=== PATIENT | female | born 1980 | race Hispanic/Latino ===

== ENCOUNTER 2017-09-26 03:46 | Emergency (ER) | payer SELFPAY ==
[2017-09-26] MEDS ORDERED: ACETAMINOPHEN 500 MG TAB ONE (04:27)
[2017-09-26] MEDS ORDERED: ONDANSETRON 4 MG/2 ML VIAL ONE (04:27)
[2017-09-26] MEDS ORDERED: NA CHLORIDE 0.9% 1,000 ML ONE (04:27)
[2017-09-26] MEDS ORDERED: METOPROLOL TARTRATE 5 MG/5 ML INJ IV ONE (04:28)
[2017-09-26 05:40] LABS: Absolute Lymphocytes (CBC) 0.6 K/uL (0.7-4.9); Absolute Monocytes 0.4 K/uL (0.1-1.3); Absolute Neutrophil 4.5 K/uL (1.8-8.0); Basophils % 0.4 % (0-1.3); Eosinophils % 0.2 % (0-4.4); Hematocrit 37.3 % (36.0-45.0); Lymphocytes % 10.2 % (15.3-44.8); MCV 96.7 fL (80-100); Monocytes % 6.9 % (3.3-12.3); RBC Red Blood Cell Count 3.86 M/uL (3.86-4.86)
[2017-09-26 05:47] LABS: Bicarbonate 28 mEq/L (21-31); Glucose Level 115 mg/dL (65-120); Potassium 3.6 mEq/L (3.6-5.0); Sodium Level 136 mEq/L (135-145)
[2017-09-26 05:54] LABS: ALT/SGPT 20 IU/L (10-60); AST/SGOT 31 IU/L (10-42); Albumin 4.3 g/dL (3.2-5.5); Alkaline Phosphatase 74 IU/L (42-121); BUN Blood Urea Nitrogen 5 mg/dL (6-20); Bilirubin Direct 0.2 mg/dL (0-0.2); Protein, Total 7.3 g/dL (6.0-8.3); Protime INR 0.99
[2017-09-26 06:04] LABS: Alcohol Serum/Plasma < 10 mg/dl; Magnesium 1.4 mg/dL (1.8-2.5)
[2017-09-26] MEDS ORDERED: Magnesium Sulfate 2gm IVPB 2 G/50 ML BAG IV ONE (06:24)
[2017-09-26 07:40] LABS: Barbiturates NEGATIVE; Benzodiazepines NEGATIVE; Cocaine NEGATIVE; METHAMPHETAM NEGATIVE; Opiates NEGATIVE; Phencyclidine NEGATIVE; THC Cannibis NEGATIVE
--- NOTE | 2017-09-26 08:27 | RAD REPORT ---
EXAM DESCRIPTION: RAD - Chest Single View - 09/26/2017 5:20 am CLINICAL HISTORY: Chest pain. COMPARISON: 05/22/2017 FINDINGS: Portable technique limits examination quality. The lungs are grossly clear. The heart is normal in size. No displaced fractures. IMPRESSION: No acute intrathoracic process suspected.
--- NOTE | 2017-09-26 08:31 | ER ---
Nurse's Notes [facility] Name: Jenni Irving Age: 37 yrs Sex: Female : 1980 Arrival Date: 09/26/2017 Time: 03:49 Bed 6 Private MD: Diagnosis: Chest pain, unspecified Presentation: 09/26 03:57 Presenting complaint: Patient states: "I started having chest pain about 1200 ao midnight." Patient describes pain as burning sensations and points to the epigastric area. Patient C/O nausea and also a headache. Transition of care: patient was not received from another setting of care. Onset of symptoms was September 26, 2017 at 00:00. Care prior to arrival: None. 03:57 Method Of Arrival: Ambulatory ao 03:57 Acuity: GILA 3 ao Triage Assessment: 04:02 General: Appears in no apparent distress. uncomfortable, Behavior is calm, cooperative, ao appropriate for age. Pain: Complains of pain in chest Pain does not radiate. Pain currently is 10 out of 10 on a pain scale. Quality of pain is described as burning. EENT: No signs and/or symptoms were reported regarding the EENT system. Neuro: Level of Consciousness is awake, alert, obeys commands, Oriented to person, place, time, situation, Appropriate for age Moves all extremities. Speech is normal, Facial symmetry appears normal. Cardiovascular: Reports chest pain, nausea, Patient's skin is warm and dry. Respiratory: Airway is patent Respiratory effort is even, unlabored, Respiratory pattern is regular, symmetrical. GI: Abdomen is non-distended. : No signs and/or symptoms were reported regarding the genitourinary system. Derm: No signs and/or symptoms reported regarding the dermatologic system. Musculoskeletal: No signs and/or symptoms reported regarding the musculoskeletal system. 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 - Social history:: Smoking status: Patient uses tobacco products, denies chronic smoking, but will smoke occasionally, Patient uses alcohol, occasionally. Patient/guardian denies using street drugs, but used to use street drugs. Screenin:02 Abuse screen: Denies threats or abuse. Denies injuries from another. Nutritional ao screening: No deficits noted. Tuberculosis screening: No symptoms or risk factors identified. Fall Risk None identified. Assessment: 04:00 General: See triage note. ao 04:03 Pain: Pain began 4 hours ago. ao 04:03 Pain: Complains of pain in chest ao 05:08 Reassessment: Patient appears in no apparent distress at this time. Patient and/or ao family updated on plan of care and expected duration. Pain level reassessed. Patient is alert, oriented x 3, equal unlabored respirations, skin warm/dry/pink. Unable to get an IV. Ray had started a 22 g on the right Forearm but no blood was collected. Lab was called. Lab at this time drawing blood. to wait on those lab results. 06:20 Reassessment: Patient appears in no apparent distress at this time. Patient and/or ao family updated on plan of care and expected duration. Pain level reassessed. Patient is alert, oriented x 3, equal unlabored respirations, skin warm/dry/pink. Waiting on lab results at this moment Patient denies pain at this time. Patient states feeling better. 07:30 Reassessment: Patient appears in no apparent distress at this time. Patient and/or sg family updated on plan of care and expected duration. Pain level reassessed. Patient is alert, oriented x 3, equal unlabored respirations, skin warm/dry/pink. pt states " am i being admitted or do they plan to let me go?" Warren AGARWAL ordered awaiting the repeat troponin results prior to dispo orders, pt stated understanding, will continue to monitor Patient states feeling better. 07:50 Reassessment: Patient appears in no apparent distress at this time. No changes from sv previously documented assessment. Patient and/or family updated on plan of care and expected duration. Pain level reassessed. Patient is alert, oriented x 3, equal unlabored respirations, skin warm/dry/pink. Vital Signs: 03:59 BP 172 / 87; Pulse 95; Resp 18; Temp 97.8(O); Pulse Ox 100% on R/A; Weight 56.25 kg; ao Height 4 ft. 11 in. (149.86 cm); Pain 10/10; 04:15 BP 145 / 90; Pulse 93; Resp 17; Pulse Ox 100% on R/A; mt 05:08 BP 147 / 76; Pulse 78; Resp 19; Pulse Ox 100% on R/A; ao 06:20 BP 137 / 75; Pulse 75; Resp 18; Pulse Ox 99% on R/A; Pain 0/10; ao 08:17 BP 136 / 75; Pulse 79 MON; Resp 17 S; Temp 97.7; Pulse Ox 100% on R/A; Pain 0/10; sg 03:59 Body Mass Index 25.04 (56.25 kg, 149.86 cm) ao Franko Coma Score: 08:17 Eye Response: spontaneous(4). Verbal Response: oriented(5). Motor Response: obeys sg commands(6). Total: 15. ED Course: 03:49 Patient arrived in ED. es 03:53 Casey Brooke MD is Attending Physician. kdr 03:59 Triage completed. ao 03:59 Arm band placed on right wrist. Patient placed in an exam room, on a stretcher, on ao personnel monitor, Patient notified of wait time. 04:03 Patient has correct armband on for positive identification. monitoring specialist on. Pulse ao ox on. NIBP on. 04:03 Patient maintains SpO2 saturation greater than 95% on room air. ao 04:05 Rishi Torres RN is Primary Nurse. ao 05:02 Missed attempt(s): 22 gauge in left forearm. Inserted saline lock: 22 gauge in right ao forearm, using aseptic technique. ,using aseptic technique. By Ray. 05:17 X-ray completed. Portable x-ray completed in exam room. Patient tolerated procedure kw well. 05:17 Radiology exam delayed due to ORDERS DID NOT CROSS OVER. kw 06:05 Notified ED physician of a critical lab result(s). magnesium 1.4 Dr Brooke notified bb new orders received pt medicated see AUG. 07:05 Report given to FIONA Charles and FIONA Kim. ao 07:08 Warren Chavez PA is PHCP. jr8 07:08 Aicha Miguel, FIONA is Primary Nurse. tl1 07:50 Repeat lab(s) drawn. by ED staff, sent to lab. sv 08:28 Primary Nurse role handed off by Aicha Miguel, FIONA sv 08:28 Pritesh, Judy, RN is Primary Nurse. sv 08:38 No provider procedures requiring assistance completed. IV discontinued, intact, sg bleeding controlled, No redness/swelling at site. Pressure dressing applied. Administered Medications: 04:50 Drug: Tylenol 1000 mg Route: PO; ao 07:03 Follow up: Response: No adverse reaction; Marked relief of symptoms; Pain is decreased tl1 04:58 Drug: Lopressor 5 mg Route: IVP; Site: right forearm; ao 05:00 Drug: Zofran 4 mg Route: IVP; Site: right forearm; ao 07:02 Follow up: Response: No adverse reaction; Marked relief of symptoms tl1 05:03 Drug: NS 0.9% 1000 ml Route: IV; Rate: 1 bolus; Site: right forearm; ao 06:09 Follow up: IV Status: Completed infusion tl1 05:08 Drug: Lopressor 5 mg Route: IVP; Site: right forearm; ao 05:15 Drug: Lopressor 5 mg Route: IVP; Site: right forearm; ao 07:03 Follow up: Response: No adverse reaction; Blood pressure is lowered tl1 06:09 Drug: Magnesium Sulfate 2 grams Route: IVPB; Infused Over: 1 hrs; Site: right forearm; tl1 07:08 Follow up: IV Status: Completed infusion tl1 Outcome: 08:30 Discharge ordered by MD. arriola 08:37 Discharged to home ambulatory, with family. sg 08:37 Condition: good 08:37 Discharge instructions given to patient, Instructed on discharge instructions, follow up and referral plans. safety practices, Demonstrated understanding of instructions, follow-up care. 08:41 Patient left the ED. bd Signatures: Clementine Candelaria Stephanie, RN Melvin Laird RN Casey Link MD MD kdr Salyer, Edna es Ballard, Brenda RN Hailey Anderson Josh, PA PA jr8 Aicha Miguel RN RN tl1 Rishi Torres RN RN ao Thompson, Moriah nm
--- NOTE | 2017-09-26 08:31 | EDPHYS ---
Physician Documentation [facility] Name: Jenni Irving Age: 37 yrs Sex: Female : 1980 Arrival Date: 09/26/2017 Time: 03:49 Bed 6 Private MD: ED Physician Casey Brooke HPI: 09/26 04:43 This 37 yrs old Female presents to ER via Ambulatory with complaints of Chest kdr Pain. 04:43 The patient or guardian reports chest pain that is located primarily in the substernal kdr area, anterior chest wall, bilaterally. The pain does not radiate. Associated signs and symptoms: Pertinent positives: headache, Pertinent negatives: diaphoresis, lower extremity swelling, lightheadedness, palpitations, shortness of breath, vomiting. The chest pain is described as aching, burning, dull. Duration: The patient or guardian reports a single episode. Modifying factors: The symptoms are alleviated by nothing. the symptoms are aggravated by nothing. Severity of pain: At its worst the pain was mild in the emergency department the pain is unchanged. The patient has experienced similar episodes in the past, a few times. The patient has not recently seen a physician. 04:43 The patient states that she had a 25 oz beer last night. 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 - Social history:: Smoking status: Patient uses tobacco products, denies chronic smoking, but will smoke occasionally, Patient uses alcohol, occasionally. Patient/guardian denies using street drugs, but used to use street drugs. ROS: 04:43 Constitutional: Negative for fever, chills, and weight loss, Eyes: Negative for injury, kdr pain, redness, and discharge, ENT: Negative for injury, pain, and discharge, Neck: Negative for injury, pain, and swelling, Respiratory: Negative for shortness of breath, cough, wheezing, and pleuritic chest pain, Abdomen/GI: Negative for abdominal pain, nausea, vomiting, diarrhea, and constipation, Back: Negative for injury and pain, : Negative for injury, bleeding, discharge, and swelling, MS/Extremity: Negative for injury and deformity, Skin: Negative for injury, rash, and discoloration, Psych: Negative for depression, anxiety, suicide ideation, homicidal ideation, and hallucinations, Allergy/Immunology: Negative for hives, rash, and allergies, Endocrine: Negative for neck swelling, polydipsia, polyuria, polyphagia, and marked weight changes, Hematologic/Lymphatic: Negative for swollen nodes, abnormal bleeding, and unusual bruising. 04:43 Cardiovascular: Positive for chest pain, Negative for edema, orthopnea, palpitations, paroxysmal nocturnal dyspnea, acute changes. 04:43 Neuro: Positive for headache, weakness, Negative for altered mental status, dizziness, gait disturbance, loss of consciousness, numbness, seizure activity, speech changes, syncope, near syncope, tingling, tinnitus, tremor, visual changes. Exam: 04:43 Constitutional: This is a well developed, well nourished patient who is awake, alert, kdr and in no acute distress. Head/Face: Normocephalic, atraumatic. Eyes: Pupils equal round and reactive to light, extra-ocular motions intact. Lids and lashes normal. Conjunctiva and sclera are non-icteric and not injected. Cornea within normal limits. Periorbital areas with no swelling, redness, or edema. Neck: Trachea midline, no thyromegaly or masses palpated, and no cervical lymphadenopathy. Supple, full range of motion without nuchal rigidity, or vertebral point tenderness. No Meningismus. Chest/axilla: Normal chest wall appearance and motion. Nontender with no deformity. No lesions are appreciated. Cardiovascular: Regular rate and rhythm with a normal S1 and S2. No gallops, murmurs, or rubs. Normal PMI, no JVD. No pulse deficits. Respiratory: Lungs have equal breath sounds bilaterally, clear to auscultation and percussion. No rales, rhonchi or wheezes noted. No increased work of breathing, no retractions or nasal flaring. Abdomen/GI: Soft, non-tender, with normal bowel sounds. No distension or tympany. No guarding or rebound. No evidence of tenderness throughout. Back: No spinal tenderness. No costovertebral tenderness. Full range of motion. Skin: Warm, dry with normal turgor. Normal color with no rashes, no lesions, and no evidence of cellulitis. MS/ Extremity: Pulses equal, no cyanosis. Neurovascular intact. Full, normal range of motion. Neuro: Awake and alert, GCS 15, oriented to person, place, time, and situation. Cranial nerves II-XII grossly intact. Motor strength 5/5 in all extremities. She has a mild global trremor. Sensory grossly intact. Cerebellar exam normal. Normal gait. Psych: Awake, alert, with orientation to person, place and time. Behavior, mood, and affect are within normal limits. Vital Signs: 03:59 BP 172 / 87; Pulse 95; Resp 18; Temp 97.8(O); Pulse Ox 100% on R/A; Weight 56.25 kg; ao Height 4 ft. 11 in. (149.86 cm); Pain 10/10; 04:15 BP 145 / 90; Pulse 93; Resp 17; Pulse Ox 100% on R/A; mt 05:08 BP 147 / 76; Pulse 78; Resp 19; Pulse Ox 100% on R/A; ao 06:20 BP 137 / 75; Pulse 75; Resp 18; Pulse Ox 99% on R/A; Pain 0/10; ao 08:17 BP 136 / 75; Pulse 79 MON; Resp 17 S; Temp 97.7; Pulse Ox 100% on R/A; Pain 0/10; sg 03:59 Body Mass Index 25.04 (56.25 kg, 149.86 cm) ao Hatch Coma Score: 08:17 Eye Response: spontaneous(4). Verbal Response: oriented(5). Motor Response: obeys sg commands(6). Total: 15. MDM: 07:08 Patient medically screened. jr8 07:11 Data reviewed: vital signs, nurses notes, lab test result(s), EKG, radiologic studies, jr8 plain films. Data interpreted: Pulse oximetry: on room air is 99 %. Interpretation: normal. 08:29 Response to treatment: the patient's symptoms have markedly improved after treatment. jr8 09/26 05:43 Order name: CBC with Automated Diff; Complete Time: 07:08 EDMS 09/26 05:48 Order name: Basic Metabolic Panel; Complete Time: 07:08 EDMS 09/26 05:54 Order name: Liver (Hepatic) Function; Complete Time: 07:08 EDMS 09/26 05:55 Order name: Troponin (Emerg Dept Use Only); Complete Time: 07:08 EDMS 09/26 04:03 Order name: XRAY Chest (1 view) [facility] 09/26 05:55 Order name: Protime (+INR); Complete Time: 07:08 EDMS 09/26 05:55 Order name: PTT, Activated Partial Thromb; Complete Time: 07:08 EDMS 09/26 05:58 Order name: BNP B-Type Natriuretic Peptide; Complete Time: 07:08 EDMS 09/26 06:04 Order name: Alcohol Serum/Plasma; Complete Time: 07:08 EDMS 09/26 06:04 Order name: Magnesium; Complete Time: 07:08 EDMS 09/26 06:40 Order name: Urine Dipstick--Ancillary (enter results) [facility] 09/26 06:40 Order name: Urine --Ancillary (enter results) [facility] 09/26 07:40 Order name: Urine Drug Screen; Complete Time: 07:43 EDMS 09/26 08:27 Order name: RAD; Complete Time: 08:29 EDMS 09/26 08:29 Order name: Troponin I; Complete Time: 08:29 EDMS 09/26 04:03 Order name: EKG; Complete Time: 05:55 kdr 09/26 04:03 Order name: Cardiac monitoring; Complete Time: 04:14 kdr 09/26 04:03 Order name: EKG - Nurse/Tech; Complete Time: 04:14 kdr 09/26 04:03 Order name: IV Saline Lock; Complete Time: 04:55 kdr 09/26 04:03 Order name: Labs collected and sent; Complete Time: 05:16 kdr 09/26 04:03 Order name: O2 Per Protocol; Complete Time: 04:15 kdr 09/26 04:03 Order name: O2 Sat Monitoring; Complete Time: 04:15 kdr 09/26 04:03 Order name: Urine Dipstick-Ancillary (obtain specimen); Complete Time: 06:28 kdr Administered Medications: 04:50 Drug: Tylenol 1000 mg Route: PO; ao 07:03 Follow up: Response: No adverse reaction; Marked relief of symptoms; Pain is decreased tl1 04:58 Drug: Lopressor 5 mg Route: IVP; Site: right forearm; ao 05:00 Drug: Zofran 4 mg Route: IVP; Site: right forearm; ao 07:02 Follow up: Response: No adverse reaction; Marked relief of symptoms tl1 05:03 Drug: NS 0.9% 1000 ml Route: IV; Rate: 1 bolus; Site: right forearm; ao 06:09 Follow up: IV Status: Completed infusion tl1 05:08 Drug: Lopressor 5 mg Route: IVP; Site: right forearm; ao 05:15 Drug: Lopressor 5 mg Route: IVP; Site: right forearm; ao 07:03 Follow up: Response: No adverse reaction; Blood pressure is lowered tl1 06:09 Drug: Magnesium Sulfate 2 grams Route: IVPB; Infused Over: 1 hrs; Site: right forearm; tl1 07:08 Follow up: IV Status: Completed infusion tl1 Disposition: 09/26/17 08:30 Discharged to Home. Impression: Chest pain, unspecified. - Condition is Stable. - Discharge Instructions: Nonspecific Chest Pain. - Work release form, Medication Reconciliation Form, Thank You Letter, Antibiotic Education, Prescription Opioid Use form. - Follow up: Private Physician; When: 2 - 3 days; Reason: Recheck today's complaints, Continuance of care, Re-evaluation by your physician. - Problem is new. - Symptoms have improved. Addendum: 09/30/2017 07:02 Co-signature as Attending Physician, Casey Brooke MD I agree with the assessment and k dr plan of care. Signatures: Dispatcher [employer] EDClementine Yates Kevin, MD MD kdr Ballard, Brenda, RN RN Warren Grissom PA PA jr8 Aicha Miguel RN RN tl1 Rishi Torres RN RN ao
[2017-09-26 09:07] VITALS: BP 136/75; TEMP 97.7; O2SAT 100
[2017-09-26 09:40] LABS: Urine Blood TRACE (NEG); Urine Glucose NEGATIVE (NEG); Urine Protein NEGATIVE (NEG)
--- NOTE | 2017-09-26 10:22 | EKG ---
Test Date: 2017-09-26 Test Time: 03:57:04 Computer Systems Information Director: JOSE ROBERTO MEASUREMENT RESULTS: Intervals: Rate: 99 TN: 116 QRSD: 80 QT: 348 QTc: 446 [place]: P: 66 TN: 116 QRS: 83 T: 38 INTERPRETIVE STATEMENTS: Normal sinus rhythm Normal ECG Compared to ECG 05/22/2017 22:32:36 No significant changes Electronically Signed On 09-26-17 10:21:28 CDT by Rishabh Bone
== END 2017-09-26 08:41 | disposition home or self-care (01) ==
LOC: ER 03:46
DX: R07.9 Chest pain, unspecified (principal); I10 Essential (primary) hypertension; Z72.0 Tobacco use
CPT/HCPCS: 36415; 71045; 80048; 80076; 80307; 80320; 81003; 81025; 83735; 83880; 84484; 85025; 85610; 85730; 93005; 96361; 96365; 96375; 99285; J2405; J3475; J7030

== ENCOUNTER 2017-09-27 00:45 | Emergency (ER) | payer SELFPAY ==
[2017-09-27] MEDS ORDERED: DIPHENHYDRAMINE 50 MG/ML VIAL ONE (01:40)
[2017-09-27] MEDS ORDERED: METHYLPREDNISOLONE 125 MG INJ ONE (01:40)
--- NOTE | 2017-09-27 01:46 | EDPHYS ---
Physician Documentation [facility] Name: Jenni Irving Age: 37 yrs Sex: Female : 1980 Arrival Date: 09/27/2017 Time: 00:50 Bed 26 Private MD: ED Physician Cory Prieto HPI: 09/27 01:16 This 37 yrs old Female presents to ER via Ambulatory with complaints of pacu rn Symptoms. 01:16 The patient presents with itching, rash, that is diffuse. Onset: The symptoms/episode rn began/occurred last night. Associated signs and symptoms: Pertinent positives: hives, Pertinent negatives: abdominal pain, dysphagia, fever, shortness of breath, swelling, Syncope vomiting. Severity of symptoms: At their worst the symptoms were mild in the emergency department the symptoms are unchanged. The patient has experienced similar episodes in the past. Reports rash that developed last night, no trouble breathing, did not have benadryl at home so came here. States has happened before but unknown reason. Seen here last night for chest pain and given tylenol and lopressor, no new food or detergent/soap. . 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 - Social history:: Smoking status: Patient uses tobacco products, denies chronic smoking, but will smoke occasionally, Patient/guardian denies using alcohol, but has a distant history of alcohol abuse, street drugs, but used to use street drugs. - Family history:: not pertinent. - Hospitalizations: : No recent hospitalization is reported. ROS: 01:16 Constitutional: Negative for fever, chills, and weight loss, Eyes: Negative for injury, rn pain, redness, and discharge, Neck: Negative for injury, pain, and swelling, Cardiovascular: Negative for chest pain, palpitations, and edema, Respiratory: Negative for shortness of breath, cough, wheezing, and pleuritic chest pain, Abdomen/GI: Negative for abdominal pain, nausea, vomiting, diarrhea, and constipation, Back: Negative for injury and pain, MS/Extremity: Negative for injury and deformity, Skin: Negative for injury Neuro: Negative for headache, weakness, numbness, tingling, and seizure. Exam: 01:16 Constitutional: This is a well developed, well nourished patient who is awake, alert, rn and in no acute distress. Head/Face: Normocephalic, atraumatic. Eyes: Pupils equal round and reactive to light, extra-ocular motions intact. Lids and lashes normal. Conjunctiva and sclera are non-icteric and not injected. Cornea within normal limits. Periorbital areas with no swelling, redness, or edema. ENT: Nares patent. No nasal discharge, no septal abnormalities noted. Oropharynx with no redness, swelling, or masses, exudates, or evidence of obstruction, uvula midline. Mucous membranes moist. Neck: Trachea midline, no thyromegaly or masses palpated, and no cervical lymphadenopathy. Supple, full range of motion without nuchal rigidity, or vertebral point tenderness. No Meningismus. Cardiovascular: Regular rate and rhythm with a normal S1 and S2. No gallops, murmurs, or rubs. Normal PMI, no JVD. No pulse deficits. Respiratory: Lungs have equal breath sounds bilaterally, clear to auscultation and percussion. No rales, rhonchi or wheezes noted. No increased work of breathing, no retractions or nasal flaring. Abdomen/GI: Soft, non-tender, with normal bowel sounds. No distension or tympany. No guarding or rebound. No evidence of tenderness throughout. Skin: Warm, dry, + diffuse urticaria with excoriations MS/ Extremity: Pulses equal, no cyanosis. Neurovascular intact. Full, normal range of motion. Equal circumference. Neuro: Awake and alert, GCS 15, oriented to person, place, time, and situation. Cranial nerves II-XII grossly intact. Motor strength 5/5 in all extremities. Sensory grossly intact. Cerebellar exam normal. Normal gait. Vital Signs: 01:01 BP 145 / 97; Pulse 73; Resp 14; Temp 98.7(O); Pulse Ox 98% on R/A; Weight 56.25 kg; ao Height 4 ft. 11 in. (149.86 cm) (R); Pain 5/10; 01:01 Body Mass Index 25.04 (56.25 kg, 149.86 cm) ao MDM: 01:09 Patient medically screened. rn 01:16 Differential diagnosis: urticaria. Data reviewed: vital signs, nurses notes, and as a rn result, I will discharge patient. Counseling: I had a detailed discussion with the patient and/or guardian regarding: the historical points, exam findings, and any diagnostic results supporting the discharge/admit diagnosis, the need for outpatient follow up, to return to the emergency department if symptoms worsen or persist or if there are any questions or concerns that arise at home. Special discussion: I discussed with the patient/guardian in detail that at this point there is no indication for admission to the hospital. It is understood, however, that if the symptoms persist or worsen the patient needs to return immediately for re-evaluation. Administered Medications: 01:27 Drug: Benadryl 50 mg Route: IM; Site: right deltoid; rk2 01:45 Follow up: Response: No adverse reaction rk2 01:27 Drug: SOLU-Medrol 125 mg Route: IM; Site: left vastus lateralis; rk2 01:45 Follow up: Response: No adverse reaction rk2 Disposition: 09/27/17 01:45 Discharged to Home. Impression: Urticaria. - Condition is Stable. - Discharge Instructions: Hives, Rash. - Prescriptions for Prednisone 20 mg Oral Tablet - take 3 tablet by ORAL route once daily for 5 days; 15 tablet. - Medication Reconciliation Form, Thank You Letter, Antibiotic Education, Prescription Opioid Use form. - Follow up: Private Physician; When: As needed; Reason: Recheck today's complaints, Re-evaluation by your physician. - Problem is new. - Symptoms have improved. Signatures: Cory Prieto MD MD rn Ortiz, Alex RN Brie Gil RN RN rk2
--- NOTE | 2017-09-27 01:46 | ER ---
Nurse's Notes [facility] Name: Jenni Irving Age: 37 yrs Sex: Female : 1980 Arrival Date: 09/27/2017 Time: 00:50 Bed 26 Private MD: Diagnosis: Urticaria Presentation: 09/27 00:52 Presenting complaint: Patient states: "I have rashes all over my body. They started ao about 1200 noon. I was here yesterday with pain in my chest that is getting resolve. I didn't get any prescriptions to take home. I got some medications when I was here. I don't know what it was. I had the problem before. I think it was what I ate in the morning. Transition of care: patient was not received from another setting of care. Onset: The symptoms/episode began/occurred 13 hour(s) ago. Anaphylaxis evaluation, the patient reports or I have noted the following symptoms which indicate a significant risk of anaphylaxis: urticaria. Onset of symptoms was September 26, 2017 at 12:00. Care prior to arrival: None. 00:52 Method Of Arrival: Ambulatory ao 00:52 Acuity: GILA 3 ao Triage Assessment: 01:03 General: Appears in no apparent distress. Behavior is calm, cooperative, appropriate ao for age. Pain: Complains of pain in Rashes all over. 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 - Social history:: Smoking status: Patient uses tobacco products, denies chronic smoking, but will smoke occasionally, Patient/guardian denies using alcohol, but has a distant history of alcohol abuse, street drugs, but used to use street drugs. - Family history:: not pertinent. - Hospitalizations: : No recent hospitalization is reported. Screenin:15 Abuse screen: Denies threats or abuse. Nutritional screening: No deficits noted. rk2 Tuberculosis screening: No symptoms or risk factors identified. Fall Risk None identified. Assessment: 01:17 General: Appears in no apparent distress. well groomed, well developed, well nourished, rk2 Behavior is calm, cooperative. Pain: Denies pain. Neuro: Level of Consciousness is alert, obeys commands, Oriented to person, place, time, situation. Respiratory: Airway is patent. Respiratory: Airway is patent Respiratory effort is even, unlabored, Respiratory pattern is regular, symmetrical, Breath sounds are clear bilaterally. Derm: Skin is pink, warm \\T\\ dry. Rash noted that is raised. Vital Signs: 01:01 BP 145 / 97; Pulse 73; Resp 14; Temp 98.7(O); Pulse Ox 98% on R/A; Weight 56.25 kg; ao Height 4 ft. 11 in. (149.86 cm) (R); Pain 5/10; 01:01 Body Mass Index 25.04 (56.25 kg, 149.86 cm) ao ED Course: 00:50 Patient arrived in ED. es 01:00 Triage completed. ao 01:03 Arm band placed on right wrist. Patient placed in an exam room, on a stretcher, Patient ao notified of wait time. 01:09 Cory Prieto MD is Attending Physician. rn 01:14 Brie Bertrand RN is Primary Nurse. rk2 01:15 Patient has correct armband on for positive identification. Bed in low position. Call rk2 light in reach. 01:49 No provider procedures requiring assistance completed. Patient did not have IV access rk2 during this emergency room visit. Administered Medications: 01:27 Drug: Benadryl 50 mg Route: IM; Site: right deltoid; rk2 01:45 Follow up: Response: No adverse reaction rk2 01:27 Drug: SOLU-Medrol 125 mg Route: IM; Site: left vastus lateralis; rk2 01:45 Follow up: Response: No adverse reaction rk2 Outcome: 01:45 Discharge ordered by . rn 01:49 Discharged to home ambulatory. rk2 01:49 Condition: good 01:49 Discharge instructions given to patient, Prescriptions given X 1. 01:50 Patient left the ED. rk2 Signatures: Claudia Warren Roman, MD MD rn Ortiz, Alex, RN RN ao Kidder, Rhonda, RN RN rk2 Corrections: (The following items were deleted from the chart) 01:09 00:52 Presenting complaint: Patient states: "I have rashes all over my body. They ao started about 1200 noon. I was here yesterday with pain in my chest that is getting resolve. I didn't get any prescriptions to take home. I got some medications when I was here. I don't know what it was. I had the problem before. I think it was what I eat the morning. ao
[2017-09-27 01:56] VITALS: BP 145/97; TEMP 98.7; O2SAT 98
== END 2017-09-27 01:50 | disposition home or self-care (01) ==
LOC: ER 00:45
DX: L50.9 Urticaria, unspecified (principal); I10 Essential (primary) hypertension
CPT/HCPCS: 96372; 99283; J2930

== ENCOUNTER 2018-02-10 02:41 | Emergency (ER) | payer SELFPAY ==
[2018-02-10 03:33] LABS: Absolute Lymphocytes (CBC) 0.4 K/uL (0.7-4.9); Absolute Monocytes 0.4 K/uL (0.1-1.3); Absolute Neutrophil 8.7 K/uL (1.8-8.0); Basophils % 1.6 % (0-1.3); Eosinophils % 0.2 % (0-4.4); Hematocrit 40.7 % (36.0-45.0); Lymphocytes % 4.6 % (15.3-44.8); MCH 34.7 pg (27.0-35.0); MCV 100.4 fL (80-100); MPV 9.8 fL (7.6-11.3); Monocytes % 3.7 % (3.3-12.3); RBC Red Blood Cell Count 4.05 M/uL (3.86-4.86)
[2018-02-10 03:42] LABS: ALT/SGPT 45 U/L (12-78); AST/SGOT 53 U/L (15-37); Alkaline Phosphatase 101 U/L (45-117); BUN Blood Urea Nitrogen 6 mg/dL (7-18); Bicarbonate 24 mmol/L (21-32); Bilirubin Direct 0.3 mg/dL (0-0.2); Bilirubin Total 1.2 mg/dL (0.2-1.0); Glucose Level 109 mg/dL (74-106); Lipase 176 U/L (73-393); Potassium 3.1 mmol/L (3.5-5.1); Protein, Total 7.9 g/dL (6.4-8.2); Sodium Level 138 mmol/L (136-145)
[2018-02-10 03:59] LABS: Blood Morphology Comment NOT SEEN (NOT SEEN); Platelet Estimate ADEQ; Urine White Blood Cell Casts OK
[2018-02-10 04:03] LABS: Urine Bacteria 20-50 /HPF (<20); Urine Culture Reflex Order REFLEXED; Urine RBC NONE SEEN /HPF (NONE SEEN)
[2018-02-10 04:07] LABS: Urine Blood TRACE (NEG); Urine Glucose NEGATIVE (NEG); Urine Protein NEGATIVE (NEG); Urine Specific Gravity <1.005 (1.005-1.030); Urine pH 6.5 (5.0-7.0)
[2018-02-10] MEDS ORDERED: POTASSIUM 25 MEQ EFFERV TAB ONE (04:55)
--- NOTE | 2018-02-10 05:13 | ER ---
Nurse's Notes [facility] Name: Jenni Irving Age: 38 yrs Sex: Female : 1980 Arrival Date: 02/10/2018 Time: 02:48 Bed 6 Private MD: Diagnosis: Chest pain, unspecified;dysuria, bacteruria Presentation: 02/10 02:50 Presenting complaint: Patient states: Pt reports chest pain (points to epigastric area) tl2 and abdominal pain since 2200 last night. Denies nausea and vomiting. Denies shortness of breath. Transition of care: patient was not received from another setting of care. Onset of symptoms was February 09, 2018 at 22:00. Risk Assessment: Do you want to hurt yourself or someone else? Patient reports no desire to harm self or others. Initial Sepsis Screen: Does the patient meet any 2 criteria? No. Patient's initial sepsis screen is negative. Does the patient have a suspected source of infection? No. Patient's initial sepsis screen is negative. Care prior to arrival: None. 02:50 Method Of Arrival: EMS: [facility] tl2 02:50 Acuity: GILA 3 tl2 Triage Assessment: 02:52 General: Appears in no apparent distress. uncomfortable, Behavior is calm, cooperative, tl2 appropriate for age. Pain: Complains of pain in epigastric area, right upper quadrant and left upper quadrant. Neuro: Level of Consciousness is awake, alert, obeys commands, Oriented to person, place, time, situation. Cardiovascular: Rhythm is sinus rhythm. Respiratory: Airway is patent Respiratory effort is even, unlabored, Respiratory pattern is regular, symmetrical, Denies shortness of breath. GI: Abdomen is non-distended, Reports upper abdominal pain, Patient currently denies nausea, vomiting. : Reports burning with urination. Derm: Skin is pink, warm \T\ dry. Historical: - Allergies: 02:52 No Known Allergies; tl2 - Home Meds: 02:52 None [Active]; tl2 - PMHx: 02:52 Hypertension; tl2 - PSHx: 02:52 None; tl2 - Immunization history:: Adult Immunizations up to date. - Social history:: Smoking status: Patient uses tobacco products, smokes one-half pack cigarettes per day, Patient uses reports using cocaine 1 month ago. - Ebola Screening: : No symptoms or risks identified at this time. Screenin:54 Abuse screen: Denies threats or abuse. Nutritional screening: No deficits noted. tl2 Tuberculosis screening: No symptoms or risk factors identified. Fall Risk None identified. Assessment: 02:52 General: see triage assessment. tl2 04:03 Reassessment: Patient appears in no apparent distress at this time. Patient and/or tl2 family updated on plan of care and expected duration. Pain level reassessed. Patient is alert, oriented x 3, equal unlabored respirations, skin warm/dry/pink. 05:20 Reassessment: Patient appears in no apparent distress at this time. Patient and/or tl2 family updated on plan of care and expected duration. Pain level reassessed. Patient is alert, oriented x 3, equal unlabored respirations, skin warm/dry/pink. Pt verbalized understanding of discharge instructions, need for follow up and prescription usage. Vital Signs: 02:52 BP 139 / 82; Pulse 85; Resp 18; Temp 98(O); Pulse Ox 100% on R/A; Weight 54.43 kg; tl2 Height 4 ft. 11 in. (149.86 cm); Pain 10/10; 04:02 BP 139 / 84; Pulse 94; Resp 18; Pulse Ox 98% on R/A; tl2 05:04 BP 149 / 86; Pulse 97; Resp 18; Pulse Ox 99% on R/A; tl2 02:52 Body Mass Index 24.24 (54.43 kg, 149.86 cm) tl2 ED Course: 02:48 Patient arrived in ED. ms 02:50 Vashti Quinteros RN is Primary Nurse. tl2 02:51 Triage completed. tl2 02:52 Arm band placed on right wrist. tl2 02:54 Patient has correct armband on for positive identification. Placed in gown. Bed in low tl2 position. Call light in reach. Side rails up X2. 02:54 Inserted saline lock: 20 gauge in right forearm, using aseptic technique. Blood tl2 collected. placed by FIONA Dave. 02:55 Marco Ramírez MD is Attending Physician. gs 03:13 X-ray completed. Portable x-ray completed in exam room. Patient tolerated procedure kp1 well. 03:14 XRAY Chest (1 view) In Process Unspecified. EDMS 05:20 No provider procedures requiring assistance completed. IV discontinued, intact, tl2 bleeding controlled, No redness/swelling at site. Pressure dressing applied. Administered Medications: 05:02 Drug: Potassium Effervescent Tablet 50 mEq Route: PO; tl2 05:21 Follow up: Response: No adverse reaction tl2 Outcome: 05:12 Discharge ordered by . 05:20 Discharged to home ambulatory. tl2 05:20 Condition: stable 05:20 Discharge instructions given to patient, Instructed on discharge instructions, follow up and referral plans. medication usage, Demonstrated understanding of instructions, follow-up care, medications, Prescriptions given X 2. 05:21 Patient left the ED. tl2 Addendum: 02/13/2018 13:41 Addendum: Culture Results: Positive urine culture. No further action required. Bacteria s s sensitive to prescribed antibiotic. Signatures: Dispatcher [employer] EDTX Kiera Mcduffie ms, Shelby, RN RN Vashti Quinteros RN RN tl2 Cherie Wong 1 Marco Ramírez MD MD
--- NOTE | 2018-02-10 05:13 | EDPHYS ---
Physician Documentation [facility] Name: Jenni Irving Age: 38 yrs Sex: Female : 1980 Arrival Date: 02/10/2018 Time: 02:48 Bed 6 Private MD: ED Physician Marco Ramírez HPI: 02/10 05:05 This 38 yrs old Female presents to ER via EMS with complaints of Chest Pain. gs 05:05 The patient or guardian reports chest pain that is located primarily in the epigastric gs area. The pain does not radiate. Associated signs and symptoms: Pertinent positives: dysuria. The chest pain is described as sharp. Duration: The patient or guardian reports multiple episodes, that wax and wane, with no pattern. Modifying factors: The symptoms are alleviated by nothing. the symptoms are aggravated by nothing. Severity of pain: At its worst the pain was moderate in the emergency department the pain has resolved. The patient has experienced similar episodes in the past, a few times. Historical: - Allergies: 02:52 No Known Allergies; tl2 - Home Meds: 02:52 None [Active]; tl2 - PMHx: 02:52 Hypertension; tl2 - PSHx: 02:52 None; tl2 - Immunization history:: Adult Immunizations up to date. - Social history:: Smoking status: Patient uses tobacco products, smokes one-half pack cigarettes per day, Patient uses reports using cocaine 1 month ago. - Ebola Screening: : No symptoms or risks identified at this time. ROS: 05:05 All other systems are negative. gs Exam: 05:05 Head/Face: Normocephalic, atraumatic. Eyes: Pupils equal round and reactive to light, gs extra-ocular motions intact. Lids and lashes normal. Conjunctiva and sclera are non-icteric and not injected. Cornea within normal limits. Periorbital areas with no swelling, redness, or edema. ENT: Nares patent. No nasal discharge, no septal abnormalities noted. Tympanic membranes are normal and external auditory canals are clear. Oropharynx with no redness, swelling, or masses, exudates, or evidence of obstruction, uvula midline. Mucous membranes moist. Neck: Trachea midline, no thyromegaly or masses palpated, and no cervical lymphadenopathy. Supple, full range of motion without nuchal rigidity, or vertebral point tenderness. No Meningismus. Chest/axilla: Normal chest wall appearance and motion. Nontender with no deformity. No lesions are appreciated. Cardiovascular: Regular rate and rhythm with a normal S1 and S2. No gallops, murmurs, or rubs. Normal PMI, no JVD. No pulse deficits. Respiratory: Lungs have equal breath sounds bilaterally, clear to auscultation and percussion. No rales, rhonchi or wheezes noted. No increased work of breathing, no retractions or nasal flaring. Abdomen/GI: Soft, non-tender, with normal bowel sounds. No distension or tympany. No guarding or rebound. No evidence of tenderness throughout. Back: No spinal tenderness. No costovertebral tenderness. Full range of motion. Skin: Warm, dry with normal turgor. Normal color with no rashes, no lesions, and no evidence of cellulitis. MS/ Extremity: Pulses equal, no cyanosis. Neurovascular intact. Full, normal range of motion. Neuro: Awake and alert, GCS 15, oriented to person, place, time, and situation. Cranial nerves II-XII grossly intact. Motor strength 5/5 in all extremities. Sensory grossly intact. Cerebellar exam normal. Normal gait. 05:05 Constitutional: The patient appears alert, awake. 05:05 ECG was reviewed by the Attending Physician. Vital Signs: 02:52 BP 139 / 82; Pulse 85; Resp 18; Temp 98(O); Pulse Ox 100% on R/A; Weight 54.43 kg; tl2 Height 4 ft. 11 in. (149.86 cm); Pain 10/10; 04:02 BP 139 / 84; Pulse 94; Resp 18; Pulse Ox 98% on R/A; tl2 05:04 BP 149 / 86; Pulse 97; Resp 18; Pulse Ox 99% on R/A; tl2 02:52 Body Mass Index 24.24 (54.43 kg, 149.86 cm) tl2 MDM: 02:55 Patient medically screened. 05:05 Differential diagnosis: acute myocardial infarction, chest wall pain, pancreatitis, gs pneumonia. Data reviewed: vital signs, nurses notes, lab test result(s), radiologic studies, plain films. 02/10 03:01 Order name: Basic Metabolic Panel; Complete Time: 04:46 02/10 03:01 Order name: CBC with Diff; Complete Time: 04:46 gs 02/10 03:01 Order name: LFT's; Complete Time: 04:46 gs 02/10 03:01 Order name: Troponin (emerg Dept Use Only); Complete Time: 04:46 gs 02/10 03:01 Order name: Urine Microscopic Only; Complete Time: 04:46 gs 02/10 03:01 Order name: Lipase; Complete Time: 04:46 gs 02/10 03:01 Order name: XRAY Chest (1 view) gs 02/10 03:01 Order name: EKG; Complete Time: 03:02 gs 02/10 03:40 Order name: Urine Dipstick--Ancillary (enter results); Complete Time: 04:46 ms 02/10 03:45 Order name: Test, Serum tl2 02/10 03:46 Order name: Test Serum, [place]; Complete Time: 04:46 EDMS 02/10 03:59 Order name: CBC Smear Scan; Complete Time: 04:46 EDMS 02/10 04:06 Order name: Urine Culture EDMS 02/10 03:01 Order name: Cardiac monitoring; Complete Time: 03:05 gs 02/10 03:01 Order name: EKG - Nurse/Tech; Complete Time: 03:05 gs 02/10 03:01 Order name: IV Saline Lock; Complete Time: 03:05 gs 02/10 03:01 Order name: Labs collected and sent; Complete Time: 03:05 gs 02/10 03:01 Order name: O2 Per Protocol; Complete Time: 03:05 gs 02/10 03:01 Order name: O2 Sat Monitoring; Complete Time: 03:05 gs 02/10 03:01 Order name: Urine Dipstick-Ancillary (obtain specimen); Complete Time: 03:38 gs EC:05 Rate is 79 beats/min. Rhythm is regular. OH interval is normal. QRS interval is normal. gs T waves are Flattened in leads III, aVL, V6. No ST changes noted. Clinical impression: Abnormal EKG without significant change. Interpreted by me. Administered Medications: 05:02 Drug: Potassium Effervescent Tablet 50 mEq Route: PO; tl2 05:21 Follow up: Response: No adverse reaction tl2 Disposition: 02/10/18 05:12 Discharged to Home. Impression: Chest pain, unspecified, dysuria, bacteruria. - Condition is Stable. - Discharge Instructions: Nonspecific Chest Pain, Urinary Tract Infection, Adult. - Prescriptions for Keflex 500 mg Oral Capsule - take 1 capsule by ORAL route every 12 hours for 5 days; 10 capsule. Pepcid 20 mg Oral Tablet - take 1 tablet by ORAL route every 12 hours for 10 days; 20 tablet. - Medication Reconciliation Form, Thank You Letter, Antibiotic Education, Prescription Opioid Use form. - Work release form (02/10/18 05:27). ms - Follow up: Private Physician; When: 2 - 3 days; Reason: Re-evaluation by your physician. Signatures: Dispatcher [employer] EDMS Vashti Quinteros RN RN tl2 Marco Ramírez MD MD gs [employer], Maria ms Corrections: (The following items were deleted from the chart) 05:21 05:12 02/10/2018 05:12 Discharged to Home. Impression: Chest pain, unspecified; tl2 dysuria, bacteruria. Condition is Stable. Forms are Medication Reconciliation Form, Thank You Letter, Antibiotic Education, Prescription Opioid Use. Follow up: Private Physician; When: 2 - 3 days; Reason: Re-evaluation by your physician. gs
[2018-02-10 05:27] VITALS: TEMP 98
[2018-02-10 05:30] VITALS: BP 149/86; O2SAT 99
--- NOTE | 2018-02-10 08:46 | RAD REPORT ---
EXAM DESCRIPTION: RAD - Chest Single View - 02/10/2018 3:15 am CLINICAL HISTORY: Chest pain COMPARISON: September 26 TECHNIQUE: AP portable chest image was obtained 0301 hours . FINDINGS: Lungs are clear. Heart and vasculature are normal. No measurable pleural effusion and no p neumothorax. No gross bony abnormality seen. No acute aortic findings suspected. IMPRESSION: No acute cardiopulmonary process. No significant interval change.
--- NOTE | 2018-02-10 11:43 | EKG ---
Test Date: 2018-02-10 Test Time: 02:46:25 Oncology Physician Assistant: ASHANTI MEASUREMENT RESULTS: Intervals: Rate: 79 MD: 122 QRSD: 90 QT: 382 QTc: 438 [place]: P: 20 MD: 122 QRS: 52 T: 41 INTERPRETIVE STATEMENTS: Normal sinus rhythm Normal ECG Compared to ECG 09/26/2017 03:57:04 No significant changes Electronically Signed On 02-10-18 11:42:55 CDT by Rishabh Bone
== END 2018-02-10 05:21 | disposition home or self-care (01) ==
LOC: ER 02:41
DX: R82.71 Bacteriuria (principal); R30.0 Dysuria; I10 Essential (primary) hypertension; F17.210 Nicotine dependence, cigarettes, uncomplicated
CPT/HCPCS: 36415; 71045; 80048; 80076; 81003; 81015; 83690; 84484; 84703; 85025; 87077; 87086; 87088; 87186; 93005; 99284

== ENCOUNTER 2018-03-19 18:22 | Emergency (ER) | payer SELFPAY ==
[2018-03-19] MEDS ORDERED: HYDROCODONE/APAP 10/325 TAB ONE (19:55)
--- NOTE | 2018-03-19 20:19 | RAD REPORT ---
EXAM DESCRIPTION: RAD - Hip Right 2 View - 03/19/2018 8:06 pm CLINICAL HISTORY: Slip and fall, hip pain COMPARISON: None. FINDINGS: AP and frog-leg views of the right hip were obtained. There is no fracture or dislocation . No acute or destructive bony process seen. IMPRESSION: Negative right hip examination for acute findings.
--- NOTE | 2018-03-19 20:19 | RAD REPORT ---
EXAM DESCRIPTION: RAD - Pelvis - 03/19/2018 8:05 pm CLINICAL HISTORY: Slip and fall, pelvic and hip pain COMPARISON: December 2010 TECHNIQUE: AP imaging of the pelvis was obtained. FINDINGS: No fracture of the pelvis. No fracture or dislocation of either femur. No acute bone or so ft tissue finding. IMPRESSION: Negative pelvis
--- NOTE | 2018-03-19 20:44 | EDPHYS ---
Physician Documentation [facility] Name: Jenni Irving Age: 38 yrs Sex: Female : 1980 Arrival Date: 03/19/2018 Time: 18:23 Bed 5 Private MD: ED Physician Casey Brooke HPI: 03/19 20:37 This 38 yrs old Female presents to ER via Ambulatory with complaints of Hip kdr Pain. 20:37 The patient or guardian reports decreased range of motion, an injury, pain. that kdr occurred [place], sustained from a fall, while walking, There is no obvious deformity, The patient is able to ambulate with assistance. Patient is not able to bear weight. There is no radiation of the patient's discomfort. The complaints affect the right lower back and right gluteus victor manuel. Onset: The symptoms/episode began/occurred acutely, suddenly, just prior to arrival. Modifying factors: The symptoms are alleviated by nothing, remaining still, the symptoms are aggravated by any movement, weight bearing. Associated signs and symptoms: Loss of consciousness: the patient experienced no loss of consciousness, Pertinent positives: None. Pertinent negatives: abdominal pain, dizziness, dysuria, fever, headache, incontinence. Severity of symptoms: At their worst the symptoms were moderate, severe, just prior to arrival, in the emergency department the symptoms are unchanged. The patient has not experienced similar symptoms in the past. The patient has not recently seen a physician. 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 - Social history:: Smoking status: Patient uses tobacco products, denies chronic smoking, but will smoke occasionally. - Ebola Screening: : No symptoms or risks identified at this time. ROS: 20:37 Constitutional: Negative for fever, chills, and weight loss, Eyes: Negative for injury, kdr pain, redness, and discharge, ENT: Negative for injury, pain, and discharge, Neck: Negative for injury, pain, and swelling, Cardiovascular: Negative for chest pain, palpitations, and edema, Respiratory: Negative for shortness of breath, cough, wheezing, and pleuritic chest pain, Abdomen/GI: Negative for abdominal pain, nausea, vomiting, diarrhea, and constipation, : Negative for injury, bleeding, discharge, and swelling, Skin: Negative for injury, rash, and discoloration, Neuro: Negative for headache, weakness, numbness, tingling, and seizure activity. Psych: Negative for depression, anxiety, suicide ideation, homicidal ideation, and hallucinations, Allergy/Immunology: Negative for hives, rash, and allergies, Endocrine: Negative for neck swelling, polydipsia, polyuria, polyphagia, and marked weight changes, Hematologic/Lymphatic: Negative for swollen nodes, abnormal bleeding, and unusual bruising. 20:37 Back: Positive for injury or acute deformity, decreased range of motion, pain at rest, pain with movement, flank pain, on the right, of the right low back. Exam: 20:37 Constitutional: This is a well developed, well nourished patient who is awake, alert, kdr and in no acute distress. Head/Face: Normocephalic, atraumatic. Eyes: Pupils equal round and reactive to light, extra-ocular motions intact. Lids and lashes normal. Conjunctiva and sclera are non-icteric and not injected. Cornea within normal limits. Periorbital areas with no swelling, redness, or edema. Neck: Trachea midline, no thyromegaly or masses palpated, and no cervical lymphadenopathy. Supple, full range of motion without nuchal rigidity, or vertebral point tenderness. No Meningismus. Chest/axilla: Normal chest wall appearance and motion. Nontender with no deformity. No lesions are appreciated. Cardiovascular: Regular rate and rhythm with a normal S1 and S2. No gallops, murmurs, or rubs. Normal PMI, no JVD. No pulse deficits. Respiratory: Lungs have equal breath sounds bilaterally, clear to auscultation and percussion. No rales, rhonchi or wheezes noted. No increased work of breathing, no retractions or nasal flaring. Abdomen/GI: Soft, non-tender, with normal bowel sounds. No distension or tympany. No guarding or rebound. No evidence of tenderness throughout. Skin: Warm, dry with normal turgor. Normal color with no rashes, no lesions, and no evidence of cellulitis. Neuro: Awake and alert, GCS 15, oriented to person, place, time, and situation. Cranial nerves II-XII grossly intact. Motor strength 5/5 in all extremities. Sensory grossly intact. Cerebellar exam normal. Normal gait. Psych: Awake, alert, with orientation to person, place and time. Behavior, mood, and affect are within normal limits. 20:37 Back: pain, that is moderate, Right posterior hip and flank, ROM is painful, with flexion, normal spinal alignment noted, Straight leg raises: left lower extremity does not illicit pain, right lower extremity illicits pain, at 45 degrees. Vital Signs: 18:37 BP 166 / 106; Pulse 99; Resp 22; Pulse Ox 100% ; Weight 54.43 kg; Height 4 ft. 11 in. sv (149.86 cm); Pain 10/10; 21:05 BP 153 / 107; Pulse 85; Resp 18; Temp 98.1; Pulse Ox 100% on R/A; mw 18:37 Body Mass Index 24.24 (54.43 kg, 149.86 cm) sv MDM: 20:37 Data reviewed: vital signs, nurses notes, lab test result(s), radiologic studies. kdr Counseling: I had a detailed discussion with the patient and/or guardian regarding: the historical points, exam findings, and any diagnostic results supporting the discharge/admit diagnosis, radiology results, the need for outpatient follow up. 20:43 Patient medically screened. kdr 03/19 19:43 Order name: Pelvis XRAY; Complete Time: 20:36 kdr 03/19 19:43 Order name: Hip Right 2 View XRAY; Complete Time: 20:36 kdr Administered Medications: 19:50 Drug: Perry 10 mg-325 mg 1 tabs Route: PO; ak1 20:55 Follow up: Response: No adverse reaction ak1 21:05 Drug: Flexeril 10 mg Route: PO; mw Disposition: 03/19/18 20:43 Discharged to Home. Impression: Pain in right hip, Other slipping, tripping and stumbling and falls. - Condition is Stable. - Prescriptions for Robaxin 500 mg Oral Tablet - take 2 tablets by ORAL route every 6 hours As needed; 20 tablet. Tylenol- Codeine #3 300-30 mg Oral Tablet - take 2 tablets by ORAL route every 6 hours As needed; 16 tablet. - Medication Reconciliation Form, Thank You Letter, Antibiotic Education, Prescription Opioid Use form. - Follow up: Private Physician; When: 2 - 3 days; Reason: If symptoms return, Further diagnostic work-up, Recheck today's complaints, Continuance of care, Re-evaluation by your physician. - Problem is new. - Symptoms have improved. Signatures: Dispatcher [employer] EDJudy Bray RN RN Leora Soriano RN RN mw Rittger, Kevin, MD MD [facility] Shantelle Spain RN RN ak1 Corrections: (The following items were deleted from the chart) 21:07 20:43 03/19/2018 20:43 Discharged to Home. Impression: Pain in right hip; Other mw slipping, tripping and stumbling and falls. Condition is Stable. Forms are Medication Reconciliation Form, Thank You Letter, Antibiotic Education, Prescription Opioid Use. Follow up: Private Physician; When: 2 - 3 days; Reason: If symptoms return, Further diagnostic work-up, Recheck today's complaints, Continuance of care, Re-evaluation by your physician. Problem is new. Symptoms have improved. kdr
--- NOTE | 2018-03-19 20:44 | ER ---
Nurse's Notes [facility] Name: Jenni Irving Age: 38 yrs Sex: Female : 1980 Arrival Date: 03/19/2018 Time: 18:23 Bed 5 Private MD: Diagnosis: Pain in right hip;Other slipping, tripping and stumbling and falls Presentation: 03/19 18:36 Presenting complaint: Patient states: was at a [place], slipped and landed on her sv right buttock. c/o left foot pain. Transition of care: patient was not received from another setting of care. Onset of symptoms was March 19, 2018. Care prior to arrival: None. 18:36 Method Of Arrival: Ambulatory 18:36 Acuity: GILA 4 sv 19:15 Risk Assessment: Do you want to hurt yourself or someone else? Patient reports no ak1 desire to harm self or others. Initial Sepsis Screen: Does the patient meet any 2 criteria? No. Patient's initial sepsis screen is negative. Does the patient have a suspected source of infection? No. Patient's initial sepsis screen is negative. 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 - Social history:: Smoking status: Patient uses tobacco products, denies chronic smoking, but will smoke occasionally. - Ebola Screening: : No symptoms or risks identified at this time. Screenin:13 Abuse screen: Denies threats or abuse. Denies injuries from another. Nutritional ak1 screening: No deficits noted. Tuberculosis screening: No symptoms or risk factors identified. Fall Risk None identified. Assessment: 19:13 General: Appears in no apparent distress. Behavior is calm, cooperative. Pain: ak1 Complains of pain in right hip. Neuro: No deficits noted. Cardiovascular: No deficits noted. Respiratory: No deficits noted. GI: No signs and/or symptoms were reported involving the gastrointestinal system. : No signs and/or symptoms were reported regarding the genitourinary system. EENT: No signs and/or symptoms were reported regarding the EENT system. Derm: left great toe with abrasion from slip and fall today. Musculoskeletal: Range of motion: intact in all extremities, pt c/o right hip pain s/p slip and fall. 21:06 Reassessment: Patient appears in no apparent distress at this time. pt with steady gait mw at time of discharge. Vital Signs: 18:37 BP 166 / 106; Pulse 99; Resp 22; Pulse Ox 100% ; Weight 54.43 kg; Height 4 ft. 11 in. sv (149.86 cm); Pain 10/10; 21:05 BP 153 / 107; Pulse 85; Resp 18; Temp 98.1; Pulse Ox 100% on R/A; mw 18:37 Body Mass Index 24.24 (54.43 kg, 149.86 cm) sv ED Course: 18:23 Patient arrived in ED. mr 18:36 Triage completed. sv 18:37 Arm band placed on right wrist. sv 18:50 Casey Brooke MD is Attending Physician. kdr 19:12 Shantelle Spain RN is Primary Nurse. ak1 19:15 Patient has correct armband on for positive identification. Bed in low position. Call ak1 light in reach. Side rails up X 1. Adult w/ patient. 20:04 Pelvis XRAY In Process Unspecified. EDMS 20:04 Hip Right 2 View XRAY In Process Unspecified. EDMS 21:07 No provider procedures requiring assistance completed. Patient did not have IV access mw during this emergency room visit. Administered Medications: 19:50 Drug: Argillite 10 mg-325 mg 1 tabs Route: PO; ak1 20:55 Follow up: Response: No adverse reaction ak1 21:05 Drug: Flexeril 10 mg Route: PO; Outcome: 20:43 Discharge ordered by . kdr 21:07 Discharged to home ambulatory, with family. mw 21:07 Condition: good 21:07 Discharge instructions given to patient, family, Instructed on discharge instructions, follow up and referral plans. no drinking with medication, no driving heavy equipment, medication usage, Demonstrated understanding of instructions, follow-up care, medications, Prescriptions given X 2. 21:07 Patient left the ED. mw Signatures: Dispatcher [employer] EDWI Judy Jonas RN RN Leora Sanchez RN RN Casey Brooke MD MD kdr Rivera, Maria mr Krenek, Shantelle, RN RN ak1
[2018-03-19] MEDS ORDERED: CYCLOBENZAPRINE 10 MG TAB ONE (21:03)
[2018-03-19 21:13] VITALS: O2SAT 100
[2018-03-19 21:14] VITALS: BP 153/107; TEMP 98.1
== END 2018-03-19 21:07 | disposition home or self-care (01) ==
LOC: ER 18:22
DX: M25.551 Pain in right hip (principal); W01.0XXA Fall on same level from slipping, tripping and stumbling without subsequent striking against object, initial encounter; Y93.01 Activity, walking, marching and hiking; Y92.830 Public park as the place of occurrence of the external cause; I10 Essential (primary) hypertension
CPT/HCPCS: 72170; 99283

== ENCOUNTER 2018-05-06 20:53 | Emergency (ER) | payer SELFPAY ==
--- NOTE | 2018-05-06 21:23 | ER ---
Nurse's Notes [facility] Name: Jenni Irving Age: 38 yrs Sex: Female : 1980 Arrival Date: 05/06/2018 Time: 20:54 Bed 6 Private MD: Diagnosis: Essential (primary) hypertension;Dental caries Presentation: 05/06 21:02 Presenting complaint: Patient states: bottom left toothache, headache, HTN, for two tl3 weeks. Transition of care: patient was not received from another setting of care. Onset of symptoms was April 18, 2018. Risk Assessment: Do you want to hurt yourself or someone else? Patient reports no desire to harm self or others. Initial Sepsis Screen: Does the patient meet any 2 criteria? No. Patient's initial sepsis screen is negative. Does the patient have a suspected source of infection? No. Patient's initial sepsis screen is negative. Care prior to arrival: None. 21:02 Method Of Arrival: Ambulatory tl3 21:02 Acuity: GILA 4 tl3 Triage Assessment: 21:05 Headache History: The patient has had previous headaches and this one is similar to tl3 previous episodes. General: Appears uncomfortable, Behavior is calm, cooperative, appropriate for age. Pain: Complains of pain in forehead and left jaw Pain currently is 10 out of 10 on a pain scale. Neuro: No deficits noted. Level of Consciousness is awake, alert, obeys commands, Oriented to person, place, time, situation, Appropriate for age Speech is normal, Facial symmetry appears normal. 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 - Social history:: Smoking status: Patient uses tobacco products, smokes one-half pack cigarettes per day. - Ebola Screening: : No symptoms or risks identified at this time. Screenin:20 Abuse screen: Denies threats or abuse. Denies injuries from another. Nutritional aa1 screening: No deficits noted. Tuberculosis screening: No symptoms or risk factors identified. Fall Risk None identified. Assessment: 21:20 General: Appears in no apparent distress. comfortable, Behavior is calm, cooperative, aa1 appropriate for age. Pain: Complains of pain in top of head and left jaw and forehead. Neuro: Level of Consciousness is awake, alert, obeys commands, Oriented to person, place, time, situation, Moves all extremities. Full function Gait is steady, Speech is normal, Reports headache frontal area. Cardiovascular: Heart tones S1 S2 present Rhythm is regular. Respiratory: Airway is patent Respiratory effort is even, unlabored, Respiratory pattern is regular, symmetrical. GI: No signs and/or symptoms were reported involving the gastrointestinal system. : No signs and/or symptoms were reported regarding the genitourinary system. EENT: Reports pain in lower left first molar (#19). Derm: Skin is intact, is healthy with good turgor, Skin is pink, warm \T\ dry. Musculoskeletal: Circulation, motion, and sensation intact. Capillary refill < 3 seconds. Vital Signs: 21:05 BP 150 / 102; Pulse 94; Resp 18; Temp 97.6; Pulse Ox 99% ; Weight 54.43 kg; Height 4 tl3 ft. 11 in. (149.86 cm); 21:05 Body Mass Index 24.24 (54.43 kg, 149.86 cm) tl3 Franko Coma Score: 21:26 Eye Response: spontaneous(4). Verbal Response: oriented(5). Motor Response: obeys snw commands(6). Total: 15. ED Course: 20:54 Patient arrived in ED. am2 21:04 Triage completed. tl3 21:05 Arm band placed on left wrist. tl3 21:09 Rona De León FNP-C [facility]. snw 21:09 Dale Sotelo MD is Attending Physician. snw 21:11 Twila Sanches, FIONA is Primary Nurse. ea 21:20 Patient has correct armband on for positive identification. Bed in low position. Call aa1 light in reach. Pulse ox on. NIBP on. 21:23 EKG done, by ED staff, reviewed by Dale Sotelo MD. aa1 Administered Medications: 21:35 Drug: TORadol 60 mg Route: IM; Site: right gluteus; aa1 21:35 Drug: Clindamycin 300 mg Route: PO; aa1 21:35 Drug: Norvasc 5 mg Route: PO; aa1 Outcome: 21:22 Discharge ordered by . snw 21:51 Patient left the ED. aa1 Signatures: Milady Owen RN RN aa1 Rona De León, EVENT MARKETING MANAGER-C EVENT MARKETING MANAGER-Csnw Jaz Alvares am2 Twila Sanches, RN RN ea Joselin Sears RN RN tl3
--- NOTE | 2018-05-06 21:23 | EDPHYS ---
Physician Documentation [facility] Name: Jenni Irving Age: 38 yrs Sex: Female : 1980 Arrival Date: 05/06/2018 Time: 20:54 Bed 6 Private MD: ED Physician Dale Sotelo HPI: 05/06 21:26 This 38 yrs old Female presents to ER via Ambulatory with complaints of snw Headache, Chest Pain. 21:26 The patient complains of pain to the top of head. The patient describes the headache as snw a pressure. Onset: The symptoms/episode began/occurred 1 week(s) ago. Associated signs and symptoms: Pertinent positives: toothache. Severity of symptoms: At its worst the pain was mild, moderate. Headache History: Denies prior headaches. It is unknown whether or not the patient has had similar symptoms in the past. The patient has not recently seen a physician. Pt states she has not had HTN medications since she was released from [facility] eight months ago. 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 - Social history:: Smoking status: Patient uses tobacco products, smokes one-half pack cigarettes per day. - Ebola Screening: : No symptoms or risks identified at this time. ROS: 21:25 Constitutional: Negative for fever, chills, and weight loss, Eyes: Negative for injury, snw pain, redness, and discharge, ENT: Negative for injury and discharge, + dental pain Neck: Negative for injury, pain, and swelling, Cardiovascular: Negative for chest pain, palpitations, and edema, Respiratory: Negative for shortness of breath, cough, wheezing, and pleuritic chest pain, Abdomen/GI: Negative for abdominal pain, nausea, vomiting, diarrhea, and constipation, Back: Negative for injury and pain, : Negative for injury, bleeding, discharge, and swelling, MS/Extremity: Negative for injury and deformity, Skin: Negative for injury, rash, and discoloration. 21:25 Neuro: Positive for headache. Exam: 21:24 Constitutional: This is a well developed, well nourished patient who is awake, alert, snw and in no acute distress. +ETOH Head/Face: Normocephalic, atraumatic. Eyes: Pupils equal round and reactive to light, extra-ocular motions intact. Lids and lashes normal. Conjunctiva and sclera are non-icteric and not injected. Cornea within normal limits. Periorbital areas with no swelling, redness, or edema. Neck: Trachea midline, no thyromegaly or masses palpated, and no cervical lymphadenopathy. Supple, full range of motion without nuchal rigidity, or vertebral point tenderness. No Meningismus. Chest/axilla: Normal chest wall appearance and motion. Nontender with no deformity. No lesions are appreciated. Cardiovascular: Regular rate and rhythm with a normal S1 and S2. No gallops, murmurs, or rubs. Normal PMI, no JVD. No pulse deficits. Respiratory: Lungs have equal breath sounds bilaterally, clear to auscultation and percussion. No rales, rhonchi or wheezes noted. No increased work of breathing, no retractions or nasal flaring. Abdomen/GI: Soft, non-tender, with normal bowel sounds. No distension or tympany. No guarding or rebound. No evidence of tenderness throughout. Back: No spinal tenderness. No costovertebral tenderness. Full range of motion. Skin: Warm, dry with normal turgor. Normal color with no rashes, no lesions, and no evidence of cellulitis. MS/ Extremity: Pulses equal, no cyanosis. Neurovascular intact. Full, normal range of motion. Neuro: Awake and alert, GCS 15, oriented to person, place, time, and situation. Cranial nerves II-XII grossly intact. Motor strength 5/5 in all extremities. Sensory grossly intact. Cerebellar exam normal. Normal gait. 21:24 ENT: Ear canal(s): are normal, TM's: are normal, Nose: is normal, Mouth: is normal, Posterior pharynx: is normal, Dental exam: dental caries, that is moderate, pain, that is moderate, specifically in the lower left first molar (#19), Voice: is normal, Breath odor: ETOH. Vital Signs: 21:05 BP 150 / 102; Pulse 94; Resp 18; Temp 97.6; Pulse Ox 99% ; Weight 54.43 kg; Height 4 tl3 ft. 11 in. (149.86 cm); 21:05 Body Mass Index 24.24 (54.43 kg, 149.86 cm) tl3 Franko Coma Score: 21:26 Eye Response: spontaneous(4). Verbal Response: oriented(5). Motor Response: obeys snw commands(6). Total: 15. MDM: 21:10 Patient medically screened. snw 21:26 Data reviewed: vital signs, nurses notes. Counseling: I had a detailed discussion with snw the patient and/or guardian regarding: the historical points, exam findings, and any diagnostic results supporting the discharge/admit diagnosis, the presence of at least one elevated blood pressure reading (>120/80) during this emergency department visit, the need for outpatient follow up, to return to the emergency department if symptoms worsen or persist or if there are any questions or concerns that arise at home. Special discussion: I have referred the patient to see his PCP for further evaluation of high blood pressure. Based on the history and exam findings, there is no indication for further emergent testing or inpatient evaluation. I discussed with the patient/guardian the need to see the primary care provider for further evaluation of the symptoms. 05/06 21:10 Order name: EKG; Complete Time: 21:10 snw 05/06 21:10 Order name: EKG - Nurse/Tech; Complete Time: 21:26 snw Administered Medications: 21:35 Drug: TORadol 60 mg Route: IM; Site: right gluteus; aa1 21:35 Drug: Clindamycin 300 mg Route: PO; aa1 21:35 Drug: Norvasc 5 mg Route: PO; aa1 Disposition: 05/07 06:07 Co-signature as Attending Physician, Dale Sotelo MD I agree with the assessment and barbara plan of care. Disposition: 05/06/18 21:22 Discharged to Home. Impression: Essential (primary) hypertension, Dental caries. - Condition is Stable. - Discharge Instructions: Dental Pain, Hypertension, Diet and Dental Disease, DASH Eating Plan, Rehydration, Adult, Managing Your Hypertension. - Prescriptions for chlorhexidine gluconate 0.12 % Mucous Membrane mouthwash - place 15 milliliter by MUCOUS MEMBRANE route 2 times per day after brushing teeth, swish in mouth for 30 seconds then spit out; 480 milliliter. Clindamycin HCl 300 mg Oral Capsule - take 1 capsule by ORAL route every 6 hours for 10 days; 40 capsule. Norvasc 5 mg Oral Tablet - take 1 tablet by ORAL route once daily; 20 tablet. - Work release form, Medication Reconciliation Form, Thank You Letter, Antibiotic Education, Prescription Opioid Use form. - Follow up: Private Physician; When: 2 - 3 days; Reason: Recheck today's complaints, Continuance of care, Re-evaluation by your physician. Follow up: Emergency Department; When: As needed; Reason: Worsening of condition. Signatures: Milady Owen, RN RN aa1 Dale Sotelo MD MD cha Therrien, Shelly, AIRCRAFT TOOL MAKER-C AIRCRAFT TOOL MAKER-Csnw Joselin Sears, RN RN tl3 Corrections: (The following items were deleted from the chart) 05/06 21:51 21:22 05/06/2018 21:22 Discharged to Home. Impression: Essential (primary) aa1 hypertension; Dental caries. Condition is Stable. Forms are Medication Reconciliation Form, Thank You Letter, Antibiotic Education, Prescription Opioid Use. Follow up: Private Physician; When: 2 - 3 days; Reason: Recheck today's complaints, Continuance of care, Re-evaluation by your physician. Follow up: Emergency Department; When: As needed; Reason: Worsening of condition. snw
[2018-05-06] MEDS ORDERED: CLINDAMYCIN HCL 150 MG CAP ONE (21:37)
[2018-05-06] MEDS ORDERED: KETOROLAC 30 MG/ML INJ ONE (21:37)
[2018-05-06] MEDS ORDERED: AMLODIPINE 5 MG TAB ONE (21:37)
[2018-05-06 21:59] VITALS: BP 150/102; TEMP 97.6; O2SAT 99
--- NOTE | 2018-05-07 06:29 | EKG ---
Test Date: 2018-05-06 Test Time: 21:21:49 Stacker: ROLAN MEASUREMENT RESULTS: Intervals: Rate: 88 MT: 110 QRSD: 90 QT: 358 QTc: 433 [place]: P: -2 MT: 110 QRS: 43 T: 37 INTERPRETIVE STATEMENTS: Sinus rhythm with short MT Otherwise normal ECG Compared to ECG 02/10/2018 02:46:25 Short MT interval now present Electronically Signed On 05-07-18 06:28:47 PHOTO FINISH PHOTOGRAPHER by Rishabh Bone
== END 2018-05-06 21:51 | disposition home or self-care (01) ==
LOC: ER 20:53
DX: I10 Essential (primary) hypertension (principal); K02.9 Dental caries, unspecified; F17.210 Nicotine dependence, cigarettes, uncomplicated
CPT/HCPCS: 93005; 96372; 99283

== ENCOUNTER 2018-06-19 21:42 | Observation (INO) | payer SELFPAY ==
[2018-06-19] MEDS ORDERED: NA CHLORIDE 0.9% 1,000 ML ONE (23:26)
[2018-06-19] MEDS ORDERED: ASPIRIN 81 MG CHEWABLE TABLET ONE (23:26)
[2018-06-19 23:30] LABS: Absolute Lymphocytes (CBC) 1.1 K/uL (0.7-4.9); Absolute Monocytes 0.2 K/uL (0.1-1.3); Absolute Neutrophil 2.6 K/uL (1.8-8.0); Basophils % 1.3 % (0-1.3); Eosinophils % 3.8 % (0-4.4); Hematocrit 43.6 % (36.0-45.0); Lymphocytes % 26.5 % (15.3-44.8); MPV 10.1 fL (7.6-11.3); Monocytes % 5.2 % (3.3-12.3); RBC Red Blood Cell Count 4.36 M/uL (3.86-4.86)
[2018-06-19 23:35] LABS: Urine Blood TRACE (NEG); Urine Glucose NEGATIVE (NEG); Urine Protein NEGATIVE (NEG)
[2018-06-19 23:36] LABS: Barbiturates NEGATIVE (NEGATIVE); Benzodiazepines NEGATIVE (NEGATIVE); Cocaine NEGATIVE (NEGATIVE); METHAMPHETAM NEGATIVE (NEGATIVE); Methadone NEGATIVE (NEGATIVE); Opiates NEGATIVE (NEGATIVE); Phencyclidine NEGATIVE (NEGATIVE); THC Cannibis NEGATIVE (NEGATIVE)
[2018-06-20 00:35] LABS: ALT/SGPT 70 U/L (12-78); AST/SGOT 78 U/L (15-37); Albumin 3.9 g/dL (3.4-5.0); Alkaline Phosphatase 84 U/L (45-117); BUN Blood Urea Nitrogen 4 mg/dL (7-18); Bicarbonate 25 mmol/L (21-32); Bilirubin Direct 0.3 mg/dL (0-0.2); Bilirubin Total 0.8 mg/dL (0.2-1.0); Glucose Level 95 mg/dL (74-106); Lipase 189 U/L (73-393); NT PRO-BNP 18 pg/mL (<125); Potassium 3.4 mmol/L (3.5-5.1); Protein, Total 7.6 g/dL (6.4-8.2); Sodium Level 143 mmol/L (136-145); Troponin (Emerg Dept Use Only) < 0.02 ng/mL (0.0-0.045)
--- NOTE | 2018-06-20 00:50 | ER ---
Nurse's Notes [facility] Name: Jenni Irving Age: 38 yrs Sex: Female : 1980 Arrival Date: 06/19/2018 Time: 21:45 Bed 15 Private MD: Diagnosis: Other chest pain;Dyspnea, unspecified;Vomiting Presentation: 06/19 21:46 Presenting complaint: Patient states: Chest pain, shortness of breath and nausea for aj1 the past 3 days. Denies fever, reports an intermittent cough, and congestion, sinus headache. Patient states that she also is about a week late for her period. Transition of care: patient was not received from another setting of care. Onset of symptoms was June 16, 2018. Risk Assessment: Do you want to hurt yourself or someone else? Patient reports no desire to harm self or others. Initial Sepsis Screen: Does the patient meet any 2 criteria? HR > 90 bpm. No. Patient's initial sepsis screen is negative. Does the patient have a suspected source of infection? No. Patient's initial sepsis screen is negative. Care prior to arrival: None. 21:46 Method Of Arrival: Ambulatory aj1 21:46 Acuity: GILA 3 aj1 Triage Assessment: 21:49 General: Appears uncomfortable, Behavior is cooperative, anxious, crying. Pain: aj1 Complains of pain in mid-sternal area Pain does not radiate. Pain currently is 0 out of 10 on a pain scale. Quality of pain is described as stabbing. Neuro: Level of Consciousness is awake, alert, obeys commands. Cardiovascular: Reports chest pain, shortness of breath, Patient's skin is warm and dry. Respiratory: Airway is patent Respiratory effort is even, unlabored, Respiratory pattern is regular, symmetrical. 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 - Social history:: Smoking status: Patient uses tobacco products, 4 cigarettes per day. - Ebola Screening: : Patient denies travel to an Ebola-affected area in the 21 days before illness onset. - Family history:: not pertinent. Screenin:00 Abuse screen: Denies threats or abuse. Nutritional screening: No deficits noted. jb4 Tuberculosis screening: No symptoms or risk factors identified. Fall Risk None identified. Assessment: 22:00 General: Appears in no apparent distress. uncomfortable, Behavior is calm, cooperative, jb4 Smells of alcohol. Pain: Complains of pain in mid-sternal area Pain does not radiate. Pain currently is 5 out of 10 on a pain scale. at worst was 10 out of 10 on a pain scale. Quality of pain is described as sharp, stabbing, Pain began 2-3 days ago. Is intermittent. Neuro: Level of Consciousness is awake, alert, obeys commands, Oriented to person, place, time, situation. Cardiovascular: Heart tones S1 S2 present Patient's skin is warm and dry. Respiratory: Airway is patent Respiratory effort is even, unlabored, Respiratory pattern is regular, symmetrical, Breath sounds are clear bilaterally. GI: No signs and/or symptoms were reported involving the gastrointestinal system. : No signs and/or symptoms were reported regarding the genitourinary system. EENT: No signs and/or symptoms were reported regarding the EENT system. Derm: Skin is intact, Skin is pink, warm \\T\\ dry. Musculoskeletal: Circulation, motion, and sensation intact. 23:30 Reassessment: Patient appears in no apparent distress at this time. Patient and/or jb4 family updated on plan of care and expected duration. Pain level reassessed. Patient is alert, oriented x 3, equal unlabored respirations, skin warm/dry/pink. 06/20 00:30 Reassessment: Patient appears in no apparent distress at this time. Patient and/or jb4 family updated on plan of care and expected duration. Pain level reassessed. Patient is alert, oriented x 3, equal unlabored respirations, skin warm/dry/pink. 01:05 Reassessment: Pt State " I don't feel well I feel like I want to throw up, but I can't jb4 and I am scared." denies chest pain. HR of 144 noted. Pt shaking and appears anxious, Respirations even and unlabored. EKG performed. Physician notified of change in pt's condition. See MAR for orders. 01:05 General: Appears uncomfortable, Behavior is cooperative, anxious. Cardiovascular: Heart jb4 tones S1 S2 present Patient's skin is warm and dry. Rhythm is sinus tachycardia. Respiratory: Airway is patent Respiratory effort is even, unlabored, Respiratory pattern is symmetrical, tachypnea. 01:15 Reassessment: Pt is still shaky, but does not appear as anxious. Patient states feeling jb4 better. 02:00 Reassessment: Patient appears in no apparent distress at this time. Patient and/or jb4 family updated on plan of care and expected duration. Pain level reassessed. Patient is alert, oriented x 3, equal unlabored respirations, skin warm/dry/pink. Patient states feeling better. General: Behavior is calm. Cardiovascular: Patient's skin is warm and dry. Rhythm is sinus rhythm. Respiratory: Airway is patent Respiratory effort is even, unlabored, Respiratory pattern is regular, symmetrical. 02:25 Reassessment: attempted to call report instructed to wait for call back. jb4 02:45 Reassessment: Patient appears in no apparent distress at this time. Patient and/or jb4 family updated on plan of care and expected duration. Pain level reassessed. Patient is alert, oriented x 3, equal unlabored respirations, skin warm/dry/pink. Report called to receiving nurse. General: Behavior is calm. Cardiovascular: Patient's skin is warm and dry. Rhythm is sinus rhythm. Respiratory: Airway is patent Respiratory effort is even, unlabored, Respiratory pattern is regular, symmetrical. Vital Signs: 06/19 21:49 BP 151 / 96; Pulse 106; Resp 18; Temp 97.7; Pulse Ox 96% on R/A; Weight 52.16 kg (R); aj1 Height 4 ft. 11 in. (149.86 cm) (R); Pain 0/10; 23:00 BP 142 / 85; Pulse 102; Resp 16; Pulse Ox 100% on R/A; jb4 06/20 00:30 BP 143 / 88; Pulse 104; Resp 16; Pulse Ox 98% on R/A; jb4 01:15 BP 129 / 80; Pulse 103; Resp 20; Pulse Ox 97% on R/A; jb4 02:00 BP 134 / 90; Pulse 84; Resp 18; Pulse Ox 100% on R/A; jb4 02:45 BP 136 / 94; Pulse 80; Resp 16; Pulse Ox 98% ; jb4 06/19 21:49 Body Mass Index 23.23 (52.16 kg, 149.86 cm) aj1 ED Course: 06/19 21:45 Patient arrived in ED. aj1 21:48 Triage completed. aj1 21:49 Arm band placed on Patient placed in an exam room. aj1 21:53 Adolfo Tamez, FIONA is Primary Nurse. jb4 21:59 Dale Sotelo MD is Attending Physician. [facility] 22:00 Patient has correct armband on for positive identification. Bed in low position. Call 4 light in reach. Side rails up X 1. cardiac monitor on. Pulse ox on. NIBP on. 22:00 Patient maintains SpO2 saturation greater than 95% on room air. 4 22:22 EKG completed in triage. Results shown to MD. jb4 23:21 Inserted saline lock: 22 gauge in left antecubital area, using aseptic technique. wy 23:26 X-ray completed. Portable x-ray completed in exam room. Patient tolerated procedure kw well. 23:28 XRAY Chest (1 view) In Process Unspecified. EDMS 06/20 01:15 Puma Williamson MD is Hospitalizing Provider. barbara 01:[address] via wheelchair. eh 01:30 CT Chest For PE Angio In Process Unspecified. EDMS 01:33 CT completed. Patient tolerated procedure well. eh 01:41 Patient moved back from CT. eh 02:52 No provider procedures requiring assistance completed. Patient admitted, IV remains in jb4 place. Administered Medications: 06/19 23:15 Drug: Aspirin 162 mg Route: PO; [facility] 06/20 01:26 Follow up: Response: No adverse reaction [facility] 06/19 23:26 Drug: NS 0.9% 500 ml Route: IV; Rate: bolus; Site: right antecubital; jb4 06/20 00:15 Follow up: Response: No adverse reaction; IV Status: Completed infusion jb4 01:10 Drug: Potassium Effervescent Tablet 25 mEq Route: PO; jb4 01:46 Follow up: Response: No adverse reaction jb4 01:10 Drug: Lopressor (metoprolol TARTRATE) 50 mg Route: PO; jb4 01:45 Follow up: Response: No adverse reaction; Blood pressure is lowered jb4 01:45 Drug: Lovenox 1 mg/kg Route: Sub-Q; Site: left upper abdomen; jb4 02:24 Follow up: Response: No adverse reaction jb4 Outcome: 00:50 Discharge ordered by . barbara 01:18 Decision to Hospitalize by Provider. [facility] 02:52 Admitted to Tele accompanied by tech, via wheelchair, room 417, with chart, Report jb4 called to FIONA Jhaveri 02:52 Condition: stable 02:52 Discharge instructions given to patient, Instructed on the need for admit, Demonstrated understanding of instructions. 02:54 Patient left the ED. jb4 Signatures: Dispatcher [employer] EDMisti Cabral, RN RN aj1 Dale Sotelo MD MD cha Hagler, Ervin eh Whitley, Kimberlee kw Bryson, James, RN RN jb4 Merlyn Aparicio mt Corrections: (The following items were deleted from the chart) 01:25 01:05 Cardiovascular: Heart tones S1 S2 present Patient's skin is warm and dry. jb4 jb4 01:34 01:33 Patient moved back [facility] [address]
--- NOTE | 2018-06-20 00:50 | EDPHYS ---
Physician Documentation [facility] Name: Jenni Irving Age: 38 yrs Sex: Female : 1980 Arrival Date: 06/19/2018 Time: 21:45 Bed 15 Private MD: ED Physician Dale Sotelo HPI: 06/19 23:01 This 38 yrs old Female presents to ER via Ambulatory with complaints of Chest barbara Pain. 23:01 The patient or guardian reports chest pain that is located primarily in the anterior barbara chest wall, bilaterally. The pain does not radiate. Associated signs and symptoms: The patient has no apparent associated signs or symptoms. The chest pain is described as aching. Duration: The patient or guardian reports multiple episodes, that are intermittent. Modifying factors: The symptoms are alleviated by nothing. the symptoms are aggravated by cough. Severity of pain: At its worst the pain was mild in the emergency department the pain is unchanged. The patient has not experienced similar symptoms in the past. 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 - Social history:: Smoking status: Patient uses tobacco products, 4 cigarettes per day. - Ebola Screening: : Patient denies travel to an Ebola-affected area in the 21 days before illness onset. - Family history:: not pertinent. ROS: 23:01 Constitutional: Negative for fever, chills, and weight loss, Eyes: Negative for injury, barbara pain, redness, and discharge, ENT: Negative for injury, pain, and discharge, Neck: Negative for injury, pain, and swelling, Abdomen/GI: Negative for abdominal pain, nausea, vomiting, diarrhea, and constipation, Back: Negative for injury and pain, : Negative for injury, bleeding, discharge, and swelling, MS/Extremity: Negative for injury and deformity, Skin: Negative for injury, rash, and discoloration, Neuro: Negative for headache, weakness, numbness, tingling, and seizure, Psych: Negative for depression, anxiety, suicide ideation, homicidal ideation, and hallucinations, Allergy/Immunology: Negative for hives, rash, and allergies, Endocrine: Negative for neck swelling, polydipsia, polyuria, polyphagia, and marked weight changes, Hematologic/Lymphatic: Negative for swollen nodes, abnormal bleeding, and unusual bruising. 23:01 Cardiovascular: Positive for chest pain. 23:01 Respiratory: Positive for cough. Exam: 23:01 Constitutional: This is a well developed, well nourished patient who is awake, alert, barbara and in no acute distress. Head/Face: Normocephalic, atraumatic. Eyes: Pupils equal round and reactive to light, extra-ocular motions intact. Lids and lashes normal. Conjunctiva and sclera are non-icteric and not injected. Cornea within normal limits. Periorbital areas with no swelling, redness, or edema. ENT: Nares patent. No nasal discharge, no septal abnormalities noted. Tympanic membranes are normal and external auditory canals are clear. Oropharynx with no redness, swelling, or masses, exudates, or evidence of obstruction, uvula midline. Mucous membranes moist. Neck: Trachea midline, no thyromegaly or masses palpated, and no cervical lymphadenopathy. Supple, full range of motion without nuchal rigidity, or vertebral point tenderness. No Meningismus. Chest/axilla: Normal chest wall appearance and motion. Nontender with no deformity. No lesions are appreciated. Cardiovascular: Regular rate and rhythm with a normal S1 and S2. No gallops, murmurs, or rubs. Normal PMI, no JVD. No pulse deficits. Abdomen/GI: Soft, non-tender, with normal bowel sounds. No distension or tympany. No guarding or rebound. No evidence of tenderness throughout. Back: No spinal tenderness. No costovertebral tenderness. Full range of motion. Skin: Warm, dry with normal turgor. Normal color with no rashes, no lesions, and no evidence of cellulitis. MS/ Extremity: Pulses equal, no cyanosis. Neurovascular intact. Full, normal range of motion. Neuro: Awake and alert, GCS 15, oriented to person, place, time, and situation. Cranial nerves II-XII grossly intact. Motor strength 5/5 in all extremities. Sensory grossly intact. Cerebellar exam normal. Normal gait. Psych: Awake, alert, with orientation to person, place and time. Behavior, mood, and affect are within normal limits. 23:01 Respiratory: the patient does not display signs of respiratory distress, Respirations: normal, Breath sounds: are clear throughout, rhonchi, that are mild, are scattered, Respiratory rate: 18 23:05 Musculoskeletal/extremity: DVT Exam: No signs of deep vein thrombosis. no pain, no barbara swelling, no tenderness, negative Homans' sign noted on exam, no appreciated bluish discoloration, no erythema, no increased warmth. Vital Signs: 21:49 BP 151 / 96; Pulse 106; Resp 18; Temp 97.7; Pulse Ox 96% on R/A; Weight 52.16 kg (R); aj1 Height 4 ft. 11 in. (149.86 cm) (R); Pain 0/10; 23:00 BP 142 / 85; Pulse 102; Resp 16; Pulse Ox 100% on R/A; jb4 06/20 00:30 BP 143 / 88; Pulse 104; Resp 16; Pulse Ox 98% on R/A; jb4 01:15 BP 129 / 80; Pulse 103; Resp 20; Pulse Ox 97% on R/A; jb4 02:00 BP 134 / 90; Pulse 84; Resp 18; Pulse Ox 100% on R/A; jb4 02:45 BP 136 / 94; Pulse 80; Resp 16; Pulse Ox 98% ; jb4 06/19 21:49 Body Mass Index 23.23 (52.16 kg, 149.86 cm) [facility] MDM: 06/19 21:59 Patient medically screened. [facility] 23:06 Data reviewed: vital signs, nurses notes, lab test result(s), EKG, radiologic studies, [facility] plain films. 06/19 23:00 Order name: Basic Metabolic Panel; Complete Time: 00:47 [facility] 06/19 23:00 Order name: CBC with Diff; Complete Time: 00:30 [facility] 06/19 23:00 Order name: LFT's; Complete Time: 00:47 [facility] 06/19 23:00 Order name: Magnesium; Complete Time: 00:47 [facility] 06/19 23:00 Order name: NT PRO-BNP; Complete Time: 00:47 [facility] 06/19 23:00 Order name: PT-INR; Complete Time: 00:30 [facility] 06/19 23:00 Order name: Troponin (emerg Dept Use Only); Complete Time: 00:47 [facility] 06/19 23:00 Order name: Lipase; Complete Time: 00:47 [facility] 06/19 23:00 Order name: Urine Culture [facility] 06/19 23:05 Order name: UDS; Complete Time: 00:30 [facility] 06/19 23:19 Order name: Urine Dipstick--Ancillary (enter results); Complete Time: 00:30 [facility] 06/19 23:19 Order name: Urine --Ancillary (enter results); Complete Time: 00:30 [facility] 06/19 23:29 Order name: D-Dimer; Complete Time: 00:30 [facility] 06/19 23:00 Order name: XRAY Chest (1 view) [facility] 06/20 01:05 Order name: CT Chest For PE Angio [facility] 06/20 01:58 Order name: Echo with Doppler [facility] 06/20 01:58 Order name: Basic Metabolic Panel [facility] 06/20 01:58 Order name: Basic Metabolic Panel [facility] 06/20 01:58 Order name: CBC with Automated Diff [facility] 06/20 01:58 Order name: CBC with Automated Diff [facility] 06/20 01:58 Order name: Lipid Profile [facility] 06/20 01:58 Order name: Lipid Profile [facility] 06/20 01:58 Order name: Troponin I [facility] 06/20 01:58 Order name: Troponin I [facility] 06/20 01:58 Order name: Troponin I [facility] 06/19 23:00 Order name: EKG; Complete Time: 23:01 [facility] 06/19 23:00 Order name: Cardiac monitoring; Complete Time: 23:33 [facility] 06/19 23:00 Order name: EKG - Nurse/Tech; Complete Time: 23:33 [facility] 06/19 23:00 Order name: IV Saline Lock; Complete Time: 23:33 [facility] 06/19 23:00 Order name: Labs collected and sent; Complete Time: 23:33 [facility] 06/19 23:00 Order name: O2 Per Protocol; Complete Time: 23:33 [facility] 06/19 23:00 Order name: O2 Sat Monitoring; Complete Time: 23:33 [facility] 06/19 23:00 Order name: Urine Dipstick-Ancillary (obtain specimen); Complete Time: 23:17 [facility] 06/19 23:00 Order name: Urine Test (obtain specimen); Complete Time: 23:17 [facility] 06/20 01:58 Order name: CONS Physician Consult [facility] 12/20 01:58 Order name: Heart Healthy [facility]MS 06/20 01:58 Order name: EKG Electrocardiogram [facility] 06/20 01:58 Order name: EKG Electrocardiogram [facility] Administered Medications: 23:15 Drug: Aspirin 162 mg Route: PO; jb4 06/20 01:26 Follow up: Response: No adverse reaction jb4 06/19 23:26 Drug: NS 0.9% 500 ml Route: IV; Rate: bolus; Site: right antecubital; jb4 06/20 00:15 Follow up: Response: No adverse reaction; IV Status: Completed infusion jb4 01:10 Drug: Potassium Effervescent Tablet 25 mEq Route: PO; jb4 01:46 Follow up: Response: No adverse reaction jb4 01:10 Drug: Lopressor (metoprolol TARTRATE) 50 mg Route: PO; jb4 :45 Follow up: Response: No adverse reaction; Blood pressure is lowered jb4 01:45 Drug: Lovenox 1 mg/kg Route: Sub-Q; Site: left upper abdomen; jb4 02:24 Follow up: Response: No adverse reaction [facility] Disposition: 06/20/18 01:18 Hospitalization ordered by Puma Williamson for Observation. Preliminary diagnosis are Other chest pain, Dyspnea, unspecified, Vomiting. - Bed requested for Telemetry/MedSurg (observation). - Status is Observation. jb4 - Condition is Stable. - Problem is new. - Symptoms have improved. UTI on Admission? No Signatures: Dispatcher [employer] [facility] Misti Crews RN RN aj1 Dale Sotelo MD MD cha Garcia, Cindy, RN RN cg Bryson, James, RN RN jb4 Corrections: (The following items were deleted from the chart) 06/19 23:29 23:06 D-DIMER+[id number].LAB.BRZ ordered. [facility] 06/20 01:06 00:50 06/20/2018 00:50 Discharged to Home. Impression: Other chest pain; Essential barbara (primary) hypertension; Hypokalemia. Condition is Stable. Discharge Instructions: Nonspecific Chest Pain, Hypertension, Nonspecific Chest Pain, [id number], Hypertension, [id number]. Prescriptions for Norvasc 5 mg Oral Tablet - take 1 tablet by ORAL route once daily; 20 tablet, Toprol XL 25 mg Oral Tablet - take 1 tablet by ORAL route once daily; 20 tablet. and Forms are Medication Reconciliation Form, Thank You Letter, Antibiotic Education, Prescription Opioid Use. Follow up: Private Physician; When: 2 - 3 days; Reason: Recheck today's complaints, Continuance of care, Re-evaluation by your physician. Problem is new. Symptoms have improved. barbara 02:10 01:18 Hospitalization Ordered by Puma Williamson MD for Observation. Preliminary cg diagnosis is Other chest pain; Dyspnea, unspecified; Vomiting. Bed requested for Telemetry/MedSurg (observation). Status is Observation. Condition is Stable. Problem is new. Symptoms have improved. UTI on Admission? No. [facility] 02:54 02:10 06/20/2018 01:18 Hospitalization Ordered by Puma Williamson MD for Observation. jb4 Preliminary diagnosis is Other chest pain; Dyspnea, unspecified; Vomiting. Bed requested for Telemetry/MedSurg (observation). Status is Observation. Condition is Stable. Problem is new. Symptoms have improved. UTI on Admission? No. cg
[2018-06-20] MEDS ORDERED: POTASSIUM 25 MEQ EFFERV TAB ONE (01:18)
[2018-06-20] MEDS ORDERED: METOPROLOL TAR 50 MG TAB ONE (01:18)
[2018-06-20] MEDS ORDERED: ENOXAPARIN 60 MG/0.6 ML SQ ONE (01:51)
[2018-06-20] MEDS ORDERED: MORPHINE 4 MG/ML SYR IV PRN (01:53)
[2018-06-20] MEDS ORDERED: ACETAMINOPHEN 500 MG TAB PO PRN (01:53)
[2018-06-20 03:07] VITALS: BMI 23.3
--- NOTE | 2018-06-20 05:58 | EKG ---
Test Date: 2018-06-19 Test Time: 22:13:07 Success Coach: AG3 MEASUREMENT RESULTS: Intervals: Rate: 108 VA: 130 QRSD: 88 QT: 352 QTc: 471 [place]: P: 54 VA: 130 QRS: 21 T: 32 INTERPRETIVE STATEMENTS: Sinus tachycardia Otherwise normal ECG Compared to ECG 05/06/2018 21:21:49 Sinus rhythm no longer present Short VA interval no longer present Electronically Signed On 06-20-18 05:57:25 CORPORATE WEBMASTER by Rishabh Bone
[2018-06-20] MEDS ORDERED: METOPROLOL TAR 50 MG TAB PO SCH (06:00)
[2018-06-20 07:47] LABS: HDL Cholesterol 105 mg/dL (40-60); LDL Cholesterol, Calculated 135 (<130); Troponin I < 0.02 ng/mL (0.0-0.045)
[2018-06-20] MEDS ORDERED: ONDANSETRON 4 MG/2 ML VIAL IV PRN (07:48)
--- NOTE | 2018-06-20 08:32 | RAD REPORT ---
EXAM DESCRIPTION: CT - Chest For Pe Angio - 06/20/2018 6:32 am CLINICAL HISTORY: Chest pain. Chest pain;Dyspnea COMPARISON: Chest For Pe Angio dated 05/23/2017 TECHNIQUE: CT angiogram of the pulmonary arteries was performed with MIP. All CT scans are performed using dose optimization technique as appropriate and may include automated exposure control or mA/KV adjustment according to patient size. FINDINGS: No evidence of pulmonary thromboembolism. No acute aortic finding demonstrated. The lungs are clear. No significant pericardial or pleural fluid. No concerning bony finding. IMPRESSION: No evidence of pulmonary thromboembolism. No acute lung findings.
--- NOTE | 2018-06-20 08:46 | RAD REPORT ---
EXAM DESCRIPTION: RAD - Chest Single View - 06/19/2018 11:27 pm CLINICAL HISTORY: CHEST PAIN Chest pain. COMPARISON: Chest Single View dated 02/10/2018; Chest Single View dated 09/26/2017; Chest Single View dated 05/22/2017; CHEST PA AND LAT 2 VIEW dated 08/20/2015; Chest For Pe Angio dated 06/20/2018 FINDINGS: Portable technique limits examination quality. The lungs are grossly clear. The heart is normal in size. No displaced fractures. IMPRESSION: No acute intrathoracic process suspected.
--- NOTE | 2018-06-20 08:48 | P.HP ---
Certification for Inpatient Patient admitted to: Observation With expected LOS: <2 Midnights Patient will require the following post-hospital care: None Practitioner: I am a practitioner with admitting privileges, knowledge of patient current condition, hospital course, and medical plan of care. Services: Services provided to patient in accordance with Admission requirements found in Title 42 Section 412.3 of the Code of Federal Regulations Patient History Date of Service: 06/20/18 Reason for admission: Chest pain rule out acute coronary syndrome History of Present Illness: Patient 38-year-old female who came to the hospital with chest discomfort. Pain was mainly in the sternal region. Patient has a history of hypertension but denies any other issues. Patient did not have any shortness of breath. There was no radiation of her pain. There was no diaphoresis. Patient will be admitted to be ruled out for acute coronary syndrome. If her workup is negative then she will be discharged to follow with her PCP. Allergies NKDA Allergy (Uncoded 06/27/15 23:27) Unknown No Known Allergi Allergy (Uncoded 10/08/16 10:59) Unknown No Known Allergies Allergy (Uncoded 05/23/17 02:35) Unknown Home Medications: Amlodipine Besylate 5 mg PO DAILY 06/20/18 - Past Medical/Surgical History Diabetic: No -: HTN -: X 3 -: D/C for miscarriages - Family History Father Medical History: Hypertension, Diabetes Brother Medical History: Seizures Mother Medical History: Hypertension, Other (see notes) Notes: suicidal tendencies, depression - Social History Smoking Status: Current every day smoker Alcohol use: Yes CD- Drugs: No Caffeine use: Yes Place of Residence: Home Review of Systems 10-point ROS is otherwise unremarkable Physical Examination - Vital Signs Temperature: 97.7 F Blood Pressure: 144/98 Pulse: 77 Respirations: 20 Pulse Ox (%): 97 - Physical Exam General: Alert, In no apparent distress, Oriented x3 HEENT: Atraumatic, PERRLA, Mucous membr. moist/pink, EOMI, Sclerae nonicteric Neck: Supple, 2+ carotid pulse no bruit, No LAD, Without JVD or thyroid abnormality Respiratory: Clear to auscultation bilaterally, Normal air movement Cardiovascular: Regular rate/rhythm, Normal S1 S2, No murmurs Gastrointestinal: Normal bowel sounds, Soft and benign, Non-distended, No tenderness Musculoskeletal: No clubbing, No swelling, No tenderness Integumentary: No rashes Neurological: Normal gait, Normal speech, Normal strength at 5/5 x4 extr, Normal tone, Sensation intact, Cranial nerves 3-12 intact, Normal affect Lymphatics: No axilla or inguinal lymphadenopathy - Studies Laboratory Data (last 24 hrs) 06/20/18 00:04: PT 11.8, INR 1.00 06/20/18 00:04: Sodium 143, Potassium 3.4 L, BUN 4 L, Creatinine 0.60, Glucose 95, Magnesium 2.0, Total Bilirubin 0.8, AST 78 H, ALT 70, Alkaline Phosphatase 84, Lipase 189 06/19/18 23:15: WBC 4.1 L, Hgb 15.0, Hct 43.6, Plt Count 152 Assessment & Plan - Problems (Diagnosis) (1) Chest pain, rule out acute myocardial infarction Current Visit: Yes Status: Acute (2) HTN (hypertension) Current Visit: Yes Status: Acute Qualifiers: Hypertension type: essential hypertension Qualified Code(s): I10 - Essential (primary) hypertension (3) ETOH abuse Onset Date: 05/23/17 Current Visit: No Status: Acute - Plan 1. Serial troponins and EKG 2. Echocardiogram to further evaluate cardiac status 3. Anti-platelet therapy, anticoagulation, beta-anastasiia, statin, and O2 as needed 4. IV morphine for pain 5. Possible psychogenic angina type pain; patient states she has had a lot of stressors. Awaiting further workup 6. GI and DVT prophylaxis Discharge Plan: Home Plan to discharge in: 24 Hours - Advance Directives Does patient have a Living Will: No Does patient have a Durable POA for Healthcare: No - Code Status/Comfort Care Code Status Assessed: Yes Code Status: Full Code Critical Care: No Time Spent Managing PTS Care (In Minutes): 50
[2018-06-20] MEDS ORDERED: ENOXAPARIN 40 MG/0.4 ML SQ SCH (09:00)
[2018-06-20] MEDS ORDERED: ASPIRIN EC 81 MG TAB PO SCH (09:00)
[2018-06-20] MEDS ORDERED: INFLUENZA VACCINE (for 3y+) 0.5 ML DOSE IMVAC ONE (09:00)
[2018-06-20 12:15] VITALS: O2SAT 97
--- NOTE | 2018-06-20 12:45 | ECHO ---
HEIGHT: 4 ft 11 in WEIGHT: 115 lb 12.8 oz DATE OF STUDY: 06/20/[address]: Puma Williamson MD 2-DIMENSIONAL: YES M.MODE: YES DOPPLER: YES COLOR FLOW: YES TDS: PORTABLE: DEFINITY: BUBBLE STUDY: DIAGNOSIS: CHEST PAIN CARDIAC HISTORY: CATHERIZATION: SURGERY: PROSTHETIC VALVE: PACEMAKER: MEASUREMENTS (cm) DIASTOLIC (NORMALS) SYSTOLIC (NORMALS) IVSd 0.8 (0.6-1.2) LA Diam 3.0 (1.9-4.0) LVEF 52% LVIDd 3.9 (3.5-5.7) LVIDs 2.9 (2.0-3.5) %FS 26% LVPWd 0.8 (0.6-1.2) Ao Diam 2.3 (2.0-3.7) 2 DIMENSIONAL ASSESSMENT: RIGHT ATRIUM: NORMAL LEFT ATRIUM: NORMAL RIGHT VENTRICLE: NORMAL LEFT VENTRICLE: NORMAL TRICUSPID VALVE: NORMAL MITRAL VALVE: NORMAL PULMONIC VALVE: NORMAL AORTIC VALVE: NORMAL PERICARDIAL EFFUSION: NONE AORTIC ROOT: NORMAL LEFT VENTRICULAR WALL MOTION: NORMAL DOPPLER/COLOR FLOW: NORMAL COMMENTS: NORMAL 2-DIMENSIONAL ECHOCARDIOGRAM. NO WALL MOTION ABNORMALITY. NO EFFUSION. TECHNOLOGIST: KANG SMITH
[2018-06-20 13:18] VITALS: BP 123/58; TEMP 97.8
--- NOTE | 2018-06-20 14:23 | TREADMILL ---
70% H.R.: 129 85% H.R.: 156 90% H.R.: 166 100% H.R.: 184 DX: CHEST PAIN Date of Study: 06/20/2018 Ht: 4 11 Wt: 115 lb 12.8 oz Consulting Physician: DR. FERNANDEZ MEDICATIONS: TYLENOL, ASPIRIN, LOVENOX, LOPRESSOR, ZOFRAN HISTORY: PHYSICIAL EXAMINATION: RESTING B.P.: 139/83 RESTING H.R.: 67 RESTING EKG: PROTOCOL: JAIR PROTOCOL EXERCISE TIME: 7:30 MAXIMUM HEART RATE: 120 65 % OF PREDICTED B.P. AT PEAK STRESS: 134/84 H.R. AT 1 MINUTE POST EXERCISE: 98 IMPRESSION: ROUTINE TREADMILL PERFORMED PER PROTOCOL. TEST STOPPED DUE TO FATIGUE. COMPLAINTS OF CHEST PAIN FOR BRIEF TIME, THEN STOPPED. NO VENTRICULAR TACHYCARDIA OR SUPRAVENTRICULAR TACHYCARDIA NOTED. NEGATIVE SUBMAXIMAL EXERCISE TREADMILL TEST.
--- NOTE | 2018-06-21 07:03 | EKG ---
Test Date: 2018-06-20 Test Time: 01:00:04 Adolescent Specialist: MEASUREMENT RESULTS: Intervals: Rate: 119 [place]: 126 QRSD: 86 QT: 322 QTc: 452 [place]: P: 67 CA: 126 QRS: 113 T: 35 INTERPRETIVE STATEMENTS: Sinus tachycardia Left posterior fascicular block Abnormal ECG Compared to ECG 06/19/2018 22:13:07 Left posterior fascicular block now present Electronically Signed On 06-21-18 06:53:36 COLOR TELEVISION CONSOLE MONITOR by Ervin Goldberg
== END 2018-06-20 16:01 | disposition home or self-care (01) ==
LOC: ER 21:42 → ERHOLD 06-20 01:53 → 4TH 06-20 02:48
PROVIDERS: ADMIT Hospitalist; ATTEND Hospitalist
DX: R07.9 Chest pain, unspecified (principal); I10 Essential (primary) hypertension; F10.10 Alcohol abuse, uncomplicated; F17.210 Nicotine dependence, cigarettes, uncomplicated; Z23 Encounter for immunization
CPT/HCPCS: 36415; 71045; 71275; 80048; 80061; 80076; 80307; 81003; 81025; 83690; 83735; 83880; 84484; 85025; 85379; 85610; 87077; 87086; 87088; 87186; 93005; 93017; 93306; 96360; 96372; 99285; G0008; G0378; J1650; J2405; J7030; Q2035; Q9967

== ENCOUNTER 2018-07-31 16:15 | Emergency (ER) | payer SELFPAY ==
--- NOTE | 2018-07-31 18:46 | ER ---
Nurse's Notes [facility] Name: Jenni Irving Age: 38 yrs Sex: Female : 1980 Arrival Date: 07/31/2018 Time: 16:19 Bed Waiting Private MD: Diagnosis: Presentation: 07/31 16:26 Presenting complaint: Patient states: lower abdomen "upset", n/v started today. sv Transition of care: patient was not received from another setting of care. Onset of symptoms was July 31, 2018. Care prior to arrival: None. 16:26 Method Of Arrival: Ambulatory sv 16:26 Acuity: GILA 3 sv Triage Assessment: 16:26 General: Appears in no apparent distress. uncomfortable, Behavior is calm, cooperative, sv appropriate for age. Pain: Complains of pain in right lower quadrant and left lower quadrant. Neuro: Level of Consciousness is awake, alert, obeys commands, Oriented to person, place, time, situation, Moves all extremities. Full function Gait is steady. Respiratory: Respiratory effort is even, unlabored, Respiratory pattern is regular, symmetrical. Historical: - Allergies: 16:27 No Known Allergies; sv - PMHx: 16:27 Hypertension; sv - PSHx: 16:27 ; sv Vital Signs: 16:27 BP 145 / 94; Pulse 97; Resp 18; Temp 98.6; Pulse Ox 97% ; Weight 52.16 kg; Height 4 ft. sv 11 in. (149.86 cm); Pain 0/10; 16:27 Body Mass Index 23.23 (52.16 kg, 149.86 cm) sv ED Course: 16:19 Patient arrived in ED. as 16:27 Triage completed. sv 16:28 Arm band placed on. sv 17:47 Warren Chavez PA is PHCP. jr8 17:47 Puma Fraire MD is Attending Physician. jr8 17:48 Patient's name was called from ER lobby. No response. sv Administered Medications: No medications were administered Outcome: 18:46 Eloped from waiting room, before seeing physician ss 18:46 Condition: stable 18:46 Patient left the ED. Signatures: Judy Jonas RN RN Ann Pisano Shelby, RN RN Roszak, Warren, PA PA jr8
[2018-07-31 18:51] VITALS: BP 145/94; TEMP 98.6; O2SAT 97
== END 2018-07-31 18:46 | disposition left against medical advice (07) ==
LOC: ER 16:15
DX: R11.2 Nausea with vomiting, unspecified (principal); Z53.21 Procedure and treatment not carried out due to patient leaving prior to being seen by health care provider
CPT/HCPCS: 99281

== ENCOUNTER 2018-07-31 22:28 | Emergency (ER) | payer SELFPAY ==
[2018-07-31] MEDS ORDERED: ASPIRIN 81 MG CHEWABLE TABLET ONE (23:08)
[2018-07-31 23:13] LABS: Absolute Lymphocytes (CBC) 0.5 K/uL (0.7-4.9); Absolute Monocytes 0.3 K/uL (0.1-1.3); Absolute Neutrophil 3.6 K/uL (1.8-8.0); Basophils % 1.2 % (0-1.3); Eosinophils % 0.3 % (0-4.4); Hematocrit 40.1 % (36.0-45.0); Lymphocytes % 11.4 % (15.3-44.8); MPV 10.8 fL (7.6-11.3); Monocytes % 7.4 % (3.3-12.3); RBC Red Blood Cell Count 3.93 M/uL (3.86-4.86)
[2018-07-31 23:17] LABS: Protime INR 1.02
[2018-07-31 23:31] LABS: BUN Blood Urea Nitrogen 2 mg/dL (7-18); Bicarbonate 28 mmol/L (21-32); Glucose Level 95 mg/dL (74-106); Magnesium 1.5 mg/dL (1.8-2.4); Potassium 3.9 mmol/L (3.5-5.1); Sodium Level 139 mmol/L (136-145); Troponin (Emerg Dept Use Only) < 0.02 ng/mL (0.0-0.045)
[2018-08-01] MEDS ORDERED: Magnesium Sulfate 2gm IVPB 2 G/50 ML BAG IV ONE (00:20)
--- NOTE | 2018-08-01 01:15 | ER ---
Nurse's Notes [facility] Name: Jenni Irving Age: 38 yrs Sex: Female : 1980 Arrival Date: 07/31/2018 Time: 22:30 Bed 14 Private MD: Diagnosis: Chest pain, unspecified;Hypomagnesemia Presentation: 07/31 22:37 Presenting complaint: Patient states: that she is having chest pain, shortness of fc breath and dry cough since this am. Denies any nausea or vomiting. Transition of care: patient was not received from another setting of care. Onset of symptoms was July 31, 2018. Risk Assessment: Do you want to hurt yourself or someone else? Patient reports no desire to harm self or others. Initial Sepsis Screen: Does the patient meet any 2 criteria? RR > 20 per min. HR > 90 bpm. Yes Does the patient have a suspected source of infection? No. Patient's initial sepsis screen is negative. Care prior to arrival: None. 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 - Social history:: Smoking status: Patient uses tobacco products, smokes one-half pack cigarettes per day, Patient uses alcohol, daily 6-12 beers a day. - Ebola Screening: : Patient negative for fever greater than or equal to 101.5 degrees Fahrenheit, and additional compatible Ebola Virus Disease symptoms Patient denies exposure to infectious person Patient denies travel to an Ebola-affected area in the 21 days before illness onset. Screenin:40 Abuse screen: Denies threats or abuse. Nutritional screening: No deficits noted. fc Tuberculosis screening: No symptoms or risk factors identified. Fall Risk None identified. Assessment: 22:40 General: Appears in no apparent distress. comfortable, Behavior is calm, cooperative, aa1 appropriate for age. Pain: Complains of pain in chest Pain currently is 5 out of 10 on a pain scale. Pain began 2-3 days ago. Is intermittent. Neuro: Level of Consciousness is awake, alert, obeys commands, Oriented to person, place, time, situation, Moves all extremities. Full function Gait is steady, Speech is normal, Reports tremors. Cardiovascular: Heart tones S1 S2 present Rhythm is regular. Respiratory: Reports cough that is non-productive, pain with cough pain with respiration Airway is patent Respiratory effort is even, unlabored, Respiratory pattern is regular, symmetrical, Breath sounds are clear bilaterally. GI: No signs and/or symptoms were reported involving the gastrointestinal system. : No signs and/or symptoms were reported regarding the genitourinary system. EENT: No signs and/or symptoms were reported regarding the EENT system. Derm: Skin is intact, is healthy with good turgor, Skin is pink, warm \T\ dry. Musculoskeletal: Circulation, motion, and sensation intact. Capillary refill < 3 seconds. 23:29 Reassessment: Patient appears in no apparent distress at this time. Patient and/or aa1 family updated on plan of care and expected duration. Pain level reassessed. Patient is alert, oriented x 3, equal unlabored respirations, skin warm/dry/pink. Awaiting lab results. 08/01 00:21 Reassessment: Patient appears in no apparent distress at this time. Patient and/or aa1 family updated on plan of care and expected duration. Pain level reassessed. Patient is alert, oriented x 3, equal unlabored respirations, skin warm/dry/pink. IV magnesium infusing. 01:30 Reassessment: Patient appears in no apparent distress at this time. Patient is alert, aa1 oriented x 3, equal unlabored respirations, skin warm/dry/pink. Discussed d/c \T\ f/u instructions with pt; denies questions or concerns at this time Patient states feeling better. Vital Signs: 07/31 22:39 BP 161 / 88; Pulse 97; Resp 22; Temp 98.0(O); Pulse Ox 98% on R/A; Weight 52.16 kg (R); fc Height 4 ft. 11 in. (149.86 cm) (R); Pain 5/10; 23:29 BP 136 / 92; Pulse 94; Resp 20; Pulse Ox 99% on R/A; aa1 08/01 00:43 BP 136 / 87; Pulse 100; Resp 18; Pulse Ox 98% on R/A; aa1 01:30 BP 136 / 82; Pulse 95; Resp 18; Temp 98.1; Pulse Ox 98% on R/A; Pain 3/10; aa1 07/31 22:39 Body Mass Index 23.23 (52.16 kg, 149.86 cm) ED Course: 07/31 22:30 Patient arrived in ED. al2 22:37 Warren Chavez PA is PHCP. jr8 22:37 Cory Prieto MD is Attending Physician. jr8 22:38 Triage completed. fc 22:39 Arm band placed on Patient placed in an exam room, on a stretcher. fc 22:40 Patient has correct armband on for positive identification. Placed in gown. Bed in low fc position. Call light in reach. conveyor monitor on. Pulse ox on. NIBP on. 22:40 No provider procedures requiring assistance completed. fc 22:46 Milady Owen, FIONA is Primary Nurse. aa1 22:55 Initial lab(s) drawn, by ri, sent to lab. Inserted saline lock: 20 gauge in right aa1 wrist, using aseptic technique. Blood collected. 23:17 X-ray completed. Portable x-ray completed in exam room. Patient tolerated procedure kw well. 23:18 XRAY Chest (1 view) In Process Unspecified. EDMD 08/01 01:30 IV discontinued, intact, bleeding controlled, No redness/swelling at site. Pressure aa1 dressing applied. Administered Medications: 07/31 23:10 Drug: Aspirin Chewable Tablet 324 mg Route: PO; aa1 08/01 00:21 Follow up: Response: No adverse reaction; No change in condition aa1 00:21 Drug: Magnesium Sulfate 2 grams Route: IVPB; Infused Over: 2 hrs; Site: right wrist; aa1 01:20 Follow up: IV Status: Completed infusion aa1 Outcome: 01:15 Discharge ordered by . jr8 :30 Discharged to home ambulatory. aa1 :30 Condition: good 01:30 Discharge instructions given to patient, Instructed on discharge instructions, follow up and referral plans. Demonstrated understanding of instructions, follow-up care. 01:32 Patient left the ED. aa1 Signatures: Dispatcher [employer] EDMD Milady Owen RN RN aa1 America Castro RN RN fc Hailey Carson Josh, PA PA jr8 La Nena Soliman
--- NOTE | 2018-08-01 01:16 | EDPHYS ---
Physician Documentation [facility] Name: Jenni Irving Age: 38 yrs Sex: Female : 1980 Arrival Date: 07/31/2018 Time: 22:30 Bed 14 Private MD: ED Physician Cory Prieto HPI: 07/31 23:00 This 38 yrs old Female presents to ER via Ambulatory with complaints of jr8 SHAKING, Cough, Breathing Difficulty, Chest Pain. 23:00 The patient or guardian reports chest pain that is located primarily in the substernal jr8 area. The pain does not radiate. Associated signs and symptoms: Pertinent positives: shortness of breath. The chest pain is described as sharp. Duration: The patient or guardian reports a single episode, that is still ongoing. Modifying factors: The symptoms are alleviated by nothing. the symptoms are aggravated by nothing. Severity of pain: At its worst the pain was moderate in the emergency department the pain is unchanged. The patient has experienced similar episodes in the past, several times. The patient has not recently seen a physician. 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 - Social history:: Smoking status: Patient uses tobacco products, smokes one-half pack cigarettes per day, Patient uses alcohol, daily 6-12 beers a day. - Ebola Screening: : Patient negative for fever greater than or equal to 101.5 degrees Fahrenheit, and additional compatible Ebola Virus Disease symptoms Patient denies exposure to infectious person Patient denies travel to an Ebola-affected area in the 21 days before illness onset. ROS: 23:00 Eyes: Negative for injury, pain, redness, and discharge, ENT: Negative for injury, jr8 pain, and discharge, Neck: Negative for injury, pain, and swelling, Abdomen/GI: Negative for abdominal pain, nausea, vomiting, diarrhea, and constipation, Back: Negative for injury and pain, MS/Extremity: Negative for injury and deformity, Skin: Negative for injury, rash, and discoloration, Neuro: Negative for headache, weakness, numbness, tingling, and seizure. 23:00 Cardiovascular: Positive for chest pain, Negative for edema, orthopnea, palpitations, paroxysmal nocturnal dyspnea. 23:00 Respiratory: Positive for shortness of breath, Negative for cough, dyspnea on exertion, sputum production, wheezing. Exam: 23:00 Eyes: Pupils equal round and reactive to light, extra-ocular motions intact. Lids and jr8 lashes normal. Conjunctiva and sclera are non-icteric and not injected. Cornea within normal limits. Periorbital areas with no swelling, redness, or edema. ENT: Nares patent. No nasal discharge, no septal abnormalities noted. Tympanic membranes are normal and external auditory canals are clear. Oropharynx with no redness, swelling, or masses, exudates, or evidence of obstruction, uvula midline. Mucous membranes moist. Neck: Trachea midline, no thyromegaly or masses palpated, and no cervical lymphadenopathy. Supple, full range of motion without nuchal rigidity, or vertebral point tenderness. No Meningismus. Cardiovascular: Regular rate and rhythm with a normal S1 and S2. No gallops, murmurs, or rubs. Normal PMI, no JVD. No pulse deficits. Respiratory: Lungs have equal breath sounds bilaterally, clear to auscultation and percussion. No rales, rhonchi or wheezes noted. No increased work of breathing, no retractions or nasal flaring. Abdomen/GI: Soft, non-tender, with normal bowel sounds. No distension or tympany. No guarding or rebound. No evidence of tenderness throughout. Back: No spinal tenderness. No costovertebral tenderness. Full range of motion. Skin: Warm, dry with normal turgor. Normal color with no rashes, no lesions, and no evidence of cellulitis. MS/ Extremity: Pulses equal, no cyanosis. Neurovascular intact. Full, normal range of motion. Neuro: Awake and alert, GCS 15, oriented to person, place, time, and situation. Cranial nerves II-XII grossly intact. Motor strength 5/5 in all extremities. Sensory grossly intact. Cerebellar exam normal. Normal gait. Vital Signs: 22:39 BP 161 / 88; Pulse 97; Resp 22; Temp 98.0(O); Pulse Ox 98% on R/A; Weight 52.16 kg (R); fc Height 4 ft. 11 in. (149.86 cm) (R); Pain 5/10; 23:29 BP 136 / 92; Pulse 94; Resp 20; Pulse Ox 99% on R/A; aa1 08/01 00:43 BP 136 / 87; Pulse 100; Resp 18; Pulse Ox 98% on R/A; aa1 01:30 BP 136 / 82; Pulse 95; Resp 18; Temp 98.1; Pulse Ox 98% on R/A; Pain 3/10; aa1 07/31 22:39 Body Mass Index 23.23 (52.16 kg, 149.86 cm) fc MDM: 07/31 22:37 Patient medically screened. 08/01 01:14 Data reviewed: vital signs, nurses notes, lab test result(s), EKG, radiologic studies, [facility] plain films, and as a result, I will discharge patient. Data interpreted: Pulse oximetry: on room air is 98 %. Interpretation: normal. Counseling: I had a detailed discussion with the patient and/or guardian regarding: the historical points, exam findings, and any diagnostic results supporting the discharge/admit diagnosis, lab results, radiology results, the need for outpatient follow up, a family practitioner, to return to the emergency department if symptoms worsen or persist or if there are any questions or concerns that arise at home. 07/31 22:49 Order name: Basic Metabolic Panel; Complete Time: 00:02 07/31 22:49 Order name: CBC with Diff; Complete Time: 23:31 07/31 22:49 Order name: Magnesium; Complete Time: 00:02 07/31 22:49 Order name: PT-INR; Complete Time: 23:31 07/31 22:49 Order name: Troponin (emerg Dept Use Only); Complete Time: 00:02 07/31 22:49 Order name: XRAY Chest (1 view) 07/31 22:49 Order name: EKG; Complete Time: 22:59 07/31 22:49 Order name: Cardiac monitoring; Complete Time: 23:12 07/31 22:49 Order name: EKG - Nurse/Tech; Complete Time: 23:12 07/31 22:49 Order name: IV Saline Lock; Complete Time: 23:12 jr8 01/30 22:49 Order name: Labs collected and sent; Complete Time: 23:12 8 07/31 22:49 Order name: O2 Per Protocol; Complete Time: 23:12 8 07/31 22:49 Order name: O2 Sat Monitoring; Complete Time: 23:12 Administered Medications: 07/31 23:10 Drug: Aspirin Chewable Tablet 324 mg Route: PO; aa1 08/01 00:21 Follow up: Response: No adverse reaction; No change in condition aa1 00:21 Drug: Magnesium Sulfate 2 grams Route: IVPB; Infused Over: 2 hrs; Site: right wrist; aa1 01:20 Follow up: IV Status: Completed infusion aa1 Disposition: 01:42 Co-signature as Attending Physician, Cory Prieto MD. rn Disposition: 08/01/18 01:15 Discharged to Home. Impression: Chest pain, unspecified, Hypomagnesemia. - Condition is Stable. - Discharge Instructions: Nonspecific Chest Pain, Hypomagnesemia, Chest Pain Observation. - Medication Reconciliation Form, Thank You Letter, Antibiotic Education, Prescription Opioid Use form. - Follow up: Private Physician; When: 2 - 3 days; Reason: Recheck today's complaints, Continuance of care, Re-evaluation by your physician. - Problem is new. - Symptoms have improved. Signatures: Dispatcher [employer] EDMilady Rodriguez RN RN aa1 America Castro RN Cory Hopkins MD MD rn Roszak, Josh, PA PA jr8 Corrections: (The following items were deleted from the chart) 01:32 01:15 08/01/2018 01:15 Discharged to Home. Impression: Chest pain, unspecified; aa1 Hypomagnesemia. Condition is Stable. Forms are Medication Reconciliation Form, Thank You Letter, Antibiotic Education, Prescription Opioid Use. Follow up: Private Physician; When: 2 - 3 days; Reason: Recheck today's complaints, Continuance of care, Re-evaluation by your physician. Problem is new. Symptoms have improved. jr8
[2018-08-01 01:42] VITALS: O2SAT 98
[2018-08-01 01:44] VITALS: BP 136/82; TEMP 98.1
--- NOTE | 2018-08-01 05:49 | EKG ---
Test Date: 2018-07-31 Test Time: 22:39:53 Choker Hooker: ASHANTI MEASUREMENT RESULTS: Intervals: Rate: 93 VA: 124 QRSD: 82 QT: 406 QTc: 504 [place]: P: 59 VA: 124 QRS: 45 T: -13 INTERPRETIVE STATEMENTS: Normal sinus rhythm T wave abnormality, non specific Prolonged QT Abnormal ECG Compared to ECG 06/20/2018 01:00:04 T-wave abnormality now present Sinus tachycardia no longer present Electronically Signed On 08-01-18 05:48:42 RUSH SEATER by Rishabh Bone
--- NOTE | 2018-08-01 08:41 | RAD REPORT ---
EXAM DESCRIPTION: [place] Single View07/31/2018 11:18 pm CLINICAL HISTORY: Chest pain COMPARISON: June 2018 FINDINGS: The lungs appear clear of acute infiltrate. The heart is normal size IMPRESSION: No acute abnormalities displayed
--- NOTE | 2018-08-01 12:21 | EKG ---
Test Date: 2018-07-31 Test Time: 22:40:36 Senior Automation Engineer: ASHANTI MEASUREMENT RESULTS: Intervals: Rate: 96 [place]: 134 QRSD: 84 QT: 322 QTc: 406 [place]: P: 61 [place]: 134 QRS: 35 T: -65 INTERPRETIVE STATEMENTS: Normal sinus rhythm T wave abnormality, consider lateral ischemia Abnormal ECG Compared to ECG 07/31/2018 22:39:53 Possible ischemia now present Prolonged QT interval no longer present T-wave abnormality still present Electronically Signed On 08-01-18 12:20:51 HOSPITAL LIBRARIAN by Rishabh Bone
== END 2018-08-01 01:32 | disposition home or self-care (01) ==
LOC: ER 22:28
DX: E83.42 Hypomagnesemia (principal); R07.9 Chest pain, unspecified; R94.31 Abnormal electrocardiogram [ECG] [EKG]; F17.210 Nicotine dependence, cigarettes, uncomplicated
CPT/HCPCS: 36415; 71045; 80048; 83735; 84484; 85025; 85610; 93005; 96365; J3475

== ENCOUNTER 2018-11-17 18:35 | Emergency (ER) | payer MEDICAID, SELFPAY ==
--- NOTE | 2018-11-17 19:59 | RAD REPORT ---
EXAM DESCRIPTION: RAD - Chest Single View - 11/17/2018 7:46 pm CLINICAL HISTORY: CHEST PAIN Chest pain. COMPARISON: Chest Single View dated 07/31/2018; Chest Single View dated 06/19/2018; Chest Single View dated 02/10/2018; Chest Single View dated 09/26/2017 FINDINGS: Portable technique limits examination quality. The lungs are grossly clear. The heart is normal in size. No displaced fractures. IMPRESSION: No acute intrathoracic process suspected.
[2018-11-17 20:33] LABS: Protime INR 1.07
[2018-11-17 20:39] LABS: Absolute Lymphocytes (CBC) 0.6 K/uL (0.7-4.9); Absolute Monocytes 0.3 K/uL (0.1-1.3); Absolute Neutrophil 4.8 K/uL (1.8-8.0); Basophils % 0.5 % (0-1.3); Eosinophils % 0.3 % (0-4.4); Hematocrit 44.5 % (36.0-45.0); MPV 10.5 fL (7.6-11.3); RBC Red Blood Cell Count 4.37 M/uL (3.86-4.86)
[2018-11-17] MEDS ORDERED: ONDANSETRON 4 MG/2 ML VIAL ONE (20:41)
[2018-11-17 20:58] LABS: ALT/SGPT 55 U/L (12-78); AST/SGOT 75 U/L (15-37); Albumin 4.1 g/dL (3.4-5.0); Alkaline Phosphatase 96 U/L (45-117); BUN Blood Urea Nitrogen 2 mg/dL (7-18); Bicarbonate 25 mmol/L (21-32); Bilirubin Direct 0.4 mg/dL (0-0.2); Bilirubin Total 1.7 mg/dL (0.2-1.0); Glucose Level 83 mg/dL (74-106); NT PRO-BNP 64 pg/mL (<125); Potassium 3.7 mmol/L (3.5-5.1); Protein, Total 8.5 g/dL (6.4-8.2); Sodium Level 138 mmol/L (136-145); Troponin (Emerg Dept Use Only) < 0.02 ng/mL (0.0-0.045)
[2018-11-17 21:01] LABS: Magnesium 1.3 mg/dL (1.8-2.4)
[2018-11-17] MEDS ORDERED: Magnesium Sulfate 2gm IVPB 2 G/50 ML BAG IV ONE (21:21)
[2018-11-17] MEDS ORDERED: MORPHINE 2 MG/ML SYR ONE (21:21)
[2018-11-17 22:10] LABS: Urine Blood TRACE (NEG); Urine Glucose NEGATIVE (NEG); Urine Protein NEGATIVE (NEG)
--- NOTE | 2018-11-17 22:25 | EDPHYS ---
Physician Documentation [facility] Name: Jenni Irving Age: 38 yrs Sex: Female : 1980 Arrival Date: 11/17/2018 Time: 18:37 Bed 27 Private MD: ED Physician Marco Ramírez HPI: 11/17 19:34 This 38 yrs old Female presents to ER via Ambulatory with complaints of Chest jmm Pain, Nausea. 19:34 The patient or guardian reports chest pain that is located primarily in the substernal [facility] area. The pain radiates to. Associated signs and symptoms: Pertinent positives: vomiting. The chest pain is described as aching, sharp. This is a 38 year old female with a history of htn that presents to the ED with complaints of epigastric abdominal pain which radiates to her mid chest. Patient admits to an episode of vomiting. Denies diarrhea. Patient currently denies taking any medications. . 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 - Social history:: Smoking status: Patient uses tobacco products, smokes one-half pack cigarettes per day, Patient uses alcohol. - Ebola Screening: : Patient negative for fever greater than or equal to 101.5 degrees Fahrenheit, and additional compatible Ebola Virus Disease symptoms Patient denies exposure to infectious person No symptoms or risks identified at this time. ROS: 19:34 Constitutional: Negative for fever, chills, and weight loss, Respiratory: Negative for jmm shortness of breath, cough, wheezing, and pleuritic chest pain. 19:34 Cardiovascular: Positive for chest pain. 19:34 Abdomen/GI: Positive for abdominal pain, nausea, vomiting, Negative for diarrhea. 19:34 All other systems are negative. Exam: 19:34 Constitutional: This is a well developed, well nourished patient who is awake, alert, jmm and in no acute distress. Head/Face: atraumatic. Eyes: EOMI, no conjunctival erythema appreciated ENT: Moist Mucus Membranes Neck: Trachea midline, Supple Chest/axilla: Normal chest wall appearance and motion. Cardiovascular: Regular rate and rhythm. No edema appreciated Respiratory: Normal respirations, no respiratory distress appreciated 19:34 Abdomen/GI: Inspection: abdomen appears normal, Bowel sounds: normal, Palpation: soft, mild abdominal tenderness, in the right upper quadrant and right lower quadrant. 19:34 Back: ROM is normal. 19:34 Musculoskeletal/extremity: ROM: intact in all extremities. 19:34 Skin: Appearance: Color: normal in color. 19:34 Neuro: Orientation: is normal, Mentation: is normal, Memory: is normal. 19:34 Psych: Behavior/mood is pleasant, cooperative. 22:19 ECG was reviewed by the Attending Physician. [facility] Vital Signs: 18:52 BP 151 / 105; Pulse 91; Resp 18; Temp 98.4; Pulse Ox 100% on R/A; Weight 47.17 kg; Pain ph 10/10; 19:45 BP 148 / 87; Pulse 96; Resp 18; Pulse Ox 98% ; rv 20:25 BP 132 / 88; Pulse 103; Resp 18; Pulse Ox 99% ; rv 21:00 BP 133 / 78; Pulse 96; Resp 17; Temp 98; Pulse Ox 99% ; rv 22:31 BP 135 / 88; Pulse 89; Resp 18; Temp 98.7; Pulse Ox 99% ; rv MDM: 19:34 Patient medically screened. [facility] 19:34 Data reviewed: vital signs, nurses notes, lab test result(s), EKG, radiologic studies. [facility] 22:21 ED course: Pain is improved in the ED. Patient is advised to follow up with GI and [facility] Cardio for further evaluation. Patient is otherwise given strict return precautions. Patient understood and agrees with the plan of care. . ED course: PERC score negative. HEART SCORE IS 2. 11/17 19:35 Order name: Basic Metabolic Panel [facility] 11/17 19:35 Order name: CBC with Diff [facility] 11/17 19:35 Order name: LFT's [facility] 11/17 19:35 Order name: Magnesium [facility] 11/17 19:35 Order name: NT PRO-BNP [facility] 11/17 19:35 Order name: PT-INR; Complete Time: 20:38 [facility] 11/17 19:35 Order name: Troponin (emerg Dept Use Only); Complete Time: 21:08 [facility] 11/17 19:36 Order name: Basic Metabolic Panel; Complete Time: 21:08 [facility] 11/17 19:36 Order name: CBC with Automated Diff; Complete Time: 20:45 [facility] 11/17 19:36 Order name: Liver (Hepatic) Function; Complete Time: 21:08 [facility] 11/17 19:36 Order name: Magnesium; Complete Time: 21:08 [facility] 11/17 19:36 Order name: NT PRO-BNP; Complete Time: 21:08 [facility] 11/17 21:25 Order name: Urine Dipstick--Ancillary (enter results); Complete Time: 22:25 [facility] 11/17 21:25 Order name: Urine --Ancillary (enter results); Complete Time: 22:25 [facility] 11/17 19:35 Order name: XRAY Chest (1 view); Complete Time: 20:25 [facility] 11/17 19:35 Order name: EKG; Complete Time: 19:36 [facility] 11/17 19:35 Order name: Cardiac monitoring; Complete Time: 20:16 [facility] 11/17 19:35 Order name: EKG - Nurse/Tech; Complete Time: 20:16 [facility] 11/17 19:35 Order name: IV Saline Lock; Complete Time: 20:16 [facility] 11/17 19:35 Order name: Labs collected and sent; Complete Time: 20:16 [facility] 11/17 19:35 Order name: O2 Per Protocol; Complete Time: 20:16 [facility] 11/17 19:35 Order name: O2 Sat Monitoring; Complete Time: 20:16 [facility] 11/17 19:35 Order name: CT Abd/Pelvis - W/Contrast [facility] 11/17 21:09 Order name: US Abdomen Limited [facility] EC:19 Rate is 85 beats/min. Rhythm is regular. QRS Topping is Normal. [place] interval is shortened. [facility] QRS interval is normal. QT interval is normal. No Q waves. T waves are Inverted in leads III, aVF, aVR, V3, V6. No ST changes noted. Administered Medications: 20:29 Drug: Zofran 4 mg Route: IVP; Site: right forearm; rv 22:21 Follow up: Response: No adverse reaction; Marked relief of symptoms rv 21:15 Drug: morphine 2 mg Route: IVP; Site: right forearm; rv 22:21 Follow up: Response: No adverse reaction; Marked relief of symptoms rv 21:16 Drug: Magnesium Sulfate 2 grams Route: IVPB; Infused Over: 2 hrs; Site: right forearm; rv 22:21 Follow up: IV Status: Completed infusion; IV Intake: 50ml rv 21:16 Not Given (Duplicate Order): Magnesium Sulfate 2 grams IVPB once over 2 hrs rv Disposition: 11/17/18 22:24 Discharged to Home. Impression: Chest pain, unspecified, Unspecified abdominal pain, Urinary tract infection, site not specified. - Condition is Stable. - Discharge Instructions: Abdominal Pain, Adult, Nonspecific Chest Pain, Urinary Tract Infection, Adult. - Prescriptions for Zofran ODT 4 mg Oral tablet,disintegrating - place 1 tablet by TRANSLINGUAL route every 4-6 hours; 20 tablet. Tramadol 50 mg Oral Tablet - take 1 tablet by ORAL route every 8 hours as needed; 12 tablet. Keflex 500 mg Oral Capsule - take 1 capsule by ORAL route every 12 hours for 10 days; 20 capsule. - Medication Reconciliation Form, Thank You Letter, Antibiotic Education, Prescription Opioid Use form. - Follow up: Rishabh Bone MD; When: 2 - 3 days; Reason: Recheck today's complaints, Continuance of care, Re-evaluation by your physician. Follow up: Wilfredo Zurita MD; When: 2 - 3 days; Reason: Recheck today's complaints, Continuance of care, Re-evaluation by your physician. Addendum: 11/21/2018 22:50 Co-signature as Attending Physician, Marco Ramírez MD. g s Signatures: Dispatcher [employer] EDIA Deng Nunez PA PA jmm Hall, Patricia, RN RN Marco Ramírez MD MD Sven Membreno RN RN rv Corrections: (The following items were deleted from the chart) 11/17 22:26 22:24 11/17/2018 22:24 Discharged to Home. Impression: Chest pain, unspecified; jmm Unspecified abdominal pain. Condition is Stable. Forms are Medication Reconciliation Form, Thank You Letter, Antibiotic Education, Prescription Opioid Use. Follow up: Rishabh Bone; When: 2 - 3 days; Reason: Recheck today's complaints, Continuance of care, Re-evaluation by your physician. Follow up: Wilfredo Zurita; When: 2 - 3 days; Reason: Recheck today's complaints, Continuance of care, Re-evaluation by your physician. cortney 22:33 22:26 11/17/2018 22:24 Discharged to Home. Impression: Chest pain, unspecified; rv Unspecified abdominal pain; Urinary tract infection, site not specified. Condition is Stable. Discharge Instructions: Abdominal Pain, Adult, Nonspecific Chest Pain. Prescriptions for Zofran ODT 4 mg Oral tablet,disintegrating - place 1 tablet by TRANSLINGUAL route every 4-6 hours; 20 tablet, Tramadol 50 mg Oral Tablet - take 1 tablet by ORAL route every 8 hours as needed; 12 tablet, Keflex 500 mg Oral Capsule - take 1 capsule by ORAL route every 12 hours for 10 days; 20 capsule. and Forms are Medication Reconciliation Form, Thank You Letter, Antibiotic Education, Prescription Opioid Use. Follow up: Rishabh Bone; When: 2 - 3 days; Reason: Recheck today's complaints, Continuance of care, Re-evaluation by your physician. Follow up: Wilfredo Zurita; When: 2 - 3 days; Reason: Recheck today's complaints, Continuance of care, Re-evaluation by your physician. cortney
--- NOTE | 2018-11-17 22:25 | ER ---
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 Transition of care: patient was not received from another setting of care. Onset of symptoms was November 17, 2018. Risk Assessment: Do you want to hurt yourself or someone else? Patient reports no desire to harm self or others. Initial Sepsis Screen: Does the patient meet any 2 criteria? No. Patient's initial sepsis screen is negative. Does the patient have a suspected source of infection? No. Patient's initial sepsis screen is negative. Care prior to arrival: None. 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 - Social history:: Smoking status: Patient uses tobacco products, smokes one-half pack cigarettes per day, Patient uses alcohol. - Ebola Screening: : Patient negative for fever greater than or equal to 101.5 degrees Fahrenheit, and additional compatible Ebola Virus Disease symptoms Patient denies exposure to infectious person No symptoms or risks identified at this time. Screenin:00 Abuse screen: Denies threats or abuse. Denies injuries from another. Nutritional rv screening: No deficits noted. Tuberculosis screening: No symptoms or risk factors identified. Fall Risk None identified. Assessment: 19:45 General: Appears in no apparent distress. comfortable, Behavior is calm, cooperative. rv 19:45 Pain: Complains of pain in chest Pain does not radiate. Quality of pain is described as rv pressure, Pain began suddenly. Neuro: Level of Consciousness is awake, alert, obeys commands, Oriented to person, place, time, situation. Cardiovascular: Patient's skin is warm and dry. Rhythm is regular. Respiratory: Airway is patent. GI: No signs and/or symptoms were reported involving the gastrointestinal system. : No signs and/or symptoms were reported regarding the genitourinary system. EENT: No signs and/or symptoms were reported regarding the EENT system. Derm: Skin is intact. 22:00 Reassessment: Patient appears in no apparent distress at this time. Patient and/or rv family updated on plan of care and expected duration. Pain level reassessed. Patient is alert, oriented x 3, equal unlabored respirations, skin warm/dry/pink. Patient denies pain at this time. Patient states feeling better. Patient states symptoms have improved. Vital Signs: 18:52 BP 151 / 105; Pulse 91; Resp 18; Temp 98.4; Pulse Ox 100% on R/A; Weight 47.17 kg; Pain ph 10/10; 19:45 BP 148 / 87; Pulse 96; Resp 18; Pulse Ox 98% ; rv 20:25 BP 132 / 88; Pulse 103; Resp 18; Pulse Ox 99% ; rv 21:00 BP 133 / 78; Pulse 96; Resp 17; Temp 98; Pulse Ox 99% ; rv 22:31 BP 135 / 88; Pulse 89; Resp 18; Temp 98.7; Pulse Ox 99% ; rv ED Course: 18:37 Patient arrived in ED. tw3 18:52 Triage completed. ph 18:53 Arm band placed on Patient placed in an exam room, on a stretcher. ph 18:57 Sven Membreno, FIONA is Primary Nurse. rv 19:08 Deng Nunez PA is PHCP. jmm 19:08 Marco Ramírez MD is Attending Physician. jmm 19:45 XRAY Chest (1 view) In Process Unspecified. EDMS 20:09 Inserted saline lock: 22 gauge in right forearm, using aseptic technique. Blood rv collected. 20:10 Radiology exam delayed due to lab results not completed at this time. test mw3 not completed at this time. 20:34 Patient has correct armband on for positive identification. Bed in low position. Call rv light in reach. Side rails up X 1. Adult w/ patient. traffic monitor specialist on. Pulse ox on. NIBP on. 20:35 Patient maintains SpO2 saturation greater than 95% on room air. rv 21:[address] mw3 21:45 CT Abd/Pelvis - W/Contrast In Process Unspecified. EDMS 21:57 US Abdomen Limited In Process Unspecified. EDMS 21:58 Ultrasound completed. Patient tolerated well. Notified ED Physician merrill. sg3 22:23 Rishabh Bone MD is Referral Physician. jmm 22:23 Wilfredo Zurita MD is Referral Physician. jmm 22:32 No provider procedures requiring assistance completed. IV discontinued, intact, rv bleeding controlled, No redness/swelling at site. Pressure dressing applied. Administered Medications: 20:29 Drug: Zofran 4 mg Route: IVP; Site: right forearm; rv 22:21 Follow up: Response: No adverse reaction; Marked relief of symptoms rv 21:15 Drug: morphine 2 mg Route: IVP; Site: right forearm; rv 22:21 Follow up: Response: No adverse reaction; Marked relief of symptoms rv 21:16 Drug: Magnesium Sulfate 2 grams Route: IVPB; Infused Over: 2 hrs; Site: right forearm; rv 22:21 Follow up: IV Status: Completed infusion; IV Intake: 50ml rv 21:16 Not Given (Duplicate Order): Magnesium Sulfate 2 grams IVPB once over 2 hrs rv Intake: 22:21 IV: 50ml; Total: 50ml. rv Outcome: 22:24 Discharge ordered by . jmm 22:32 Discharged to home ambulatory. rv 22:32 Condition: good 22:32 Discharge instructions given to patient, Instructed on discharge instructions, follow up and referral plans. medication usage, Demonstrated understanding of instructions, follow-up care, medications, Prescriptions given X 3. 22:33 Patient left the ED. rv Signatures: Dispatcher [employer] EDMS Deng Nunez PA PA jmm Hall, Patricia, RN RN adelaide Vega, Laura 3 Aurora Sewell 3 Umm Benitez mw3 Sven Membreno RN RN rv
[2018-11-17 23:16] VITALS: O2SAT 99
[2018-11-17 23:19] VITALS: BP 135/88; TEMP 98.7
--- NOTE | 2018-11-18 06:32 | RAD REPORT ---
EXAM DESCRIPTION: US - Abdomen Exam Limited - 11/17/2018 9:59 pm CLINICAL HISTORY: Abdominal pain, right upper quadrant pain COMPARISON: CT study November 17 FINDINGS: No gallstones, sludge or other abnormalities within the gallbladder lumen. There is no wal l thickening or pericholecystic fluid. No common duct stone or biliary tree dilatation identified. IMPRESSION: Normal gallbladder and biliary tree ultrasound.
--- NOTE | 2018-11-18 12:47 | RAD REPORT ---
EXAM DESCRIPTION: CT - Abdomen Pelvis W Contrast - 11/17/2018 10:02 pm CLINICAL HISTORY: 38 years Female abdominal pain, IV ONLY TECHNIQUE: Contiguous axial images obtained through the abdomen and pelvis following the administrat ion of IV contrast. Coronal and sagittal reformatted images provided. This CT exam was performed according to our departmental dose-optimization program, which includes on e or more of the following dose reduction techniques: automated exposure control, adjustment of the m A and/or kV according to patient size, and/or use of iterative reconstruction technique. COMPARISON: No prior exams provided for comparison. FINDINGS: The lung bases, liver, biliary tree, gallbladder, pancreas, spleen, adrenal glands, kidney s, uterus, urinary bladder, and osseous structures are normal. 8 mm rounded soft tissue nodule between the spleen and left adrenal gland likely represents a benign splenule. Small follicles in the left ovary. No abdominal aortic aneurysm. No abdominal or pelvic lymphadenopathy. There is no bowel inflammation, obstruction, free intraperitoneal air, or ascites. The appendix is no rmal. IMPRESSION: No acute abdominal or pelvic abnormalities. Electronically signed by: Ashley Cash MD 11/17/2018 9:56 PM CDT Due to temporary technical issues with the PACS/Fluency reporting system, reports are being signed by the in house radiologist as a courtesy to ensure prompt reporting. The interpreting radiologist is f shiraly responsible for the content of the report.
--- NOTE | 2018-11-18 12:52 | EKG ---
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
== END 2018-11-17 22:33 | disposition home or self-care (01) ==
LOC: ER 18:35
DX: N39.0 Urinary tract infection, site not specified (principal); R07.9 Chest pain, unspecified; I10 Essential (primary) hypertension; F17.210 Nicotine dependence, cigarettes, uncomplicated
CPT/HCPCS: 36415; 71045; 74177; 76705; 80048; 80076; 81003; 81025; 83735; 83880; 84484; 85025; 85610; 93005; 96365; 96375; 99285; J2270; J2405; J3475; Q9967

== ENCOUNTER 2018-12-04 04:25 | Emergency (ER) | payer MEDICAID, OTHER ==
[2018-12-04] MEDS ORDERED: ACETAMINOPHEN 325 MG TABLET ONE (04:56)
[2018-12-04] MEDS ORDERED: NA CHLORIDE 0.9% 1,000 ML ONE (04:56)
--- NOTE | 2018-12-04 06:30 | ER ---
Nurse's Notes [facility] Name: Jenni Irving Age: 38 yrs Sex: Female : 1980 Arrival Date: 12/04/2018 Time: 04:27 Bed 7 Private MD: Diagnosis: Fever presenting with conditions classified elsewhere;Streptococcal pharyngitis Presentation: 12/04 04:37 Presenting complaint: Patient states: Pt reports sore throat, headache, dizziness, ea cough congestion, fever and ear pain that started 3 days ago. pt reports "my chest feels like there is needles and coughing up green phlegm". Transition of care: patient was not received from another setting of care. Onset of symptoms was December 04, 2018. Risk Assessment: Do you want to hurt yourself or someone else? Patient reports no desire to harm self or others. Initial Sepsis Screen: Does the patient meet any 2 criteria? Temp <36.0*C (96.8*F)) or > 38.3*C (100.9*F). HR > 90 bpm. Yes Does the patient have a suspected source of infection? Yes: Productive cough/pneumonia. Care prior to arrival: None. 04:37 Method Of Arrival: Wheelchair ea 04:37 Acuity: GILA 4 ea Triage Assessment: 04:46 General: Appears uncomfortable, Behavior is calm, cooperative. Pain: Complains of pain ea in left aspect of posterior pharynx and right aspect of posterior pharynx. EENT: Reports difficulty swallowing sore throat. Neuro: Level of Consciousness is awake, alert, obeys commands, Oriented to person, place, time. Cardiovascular: Patient's skin is warm and dry. Respiratory: Airway is patent Respiratory effort is even, unlabored, Respiratory pattern is regular, symmetrical. Derm: Skin is pink, warm \\T\\ dry. 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 - Social history:: Smoking status: Patient uses tobacco products, denies chronic smoking, but will smoke occasionally. - Ebola Screening: : No symptoms or risks identified at this time. Screenin:42 Abuse screen: Denies threats or abuse. Nutritional screening: No deficits noted. ea Tuberculosis screening: No symptoms or risk factors identified. Fall Risk None identified. Assessment: 04:46 Reassessment: see triage assessment. ea 05:50 Reassessment: Patient and/or family updated on plan of care and expected duration. Pain ea level reassessed. Patient is alert, oriented x 3, equal unlabored respirations, skin warm/dry/pink. Patient states symptoms have improved. 06:10 Reassessment: Patient and/or family updated on plan of care and expected duration. Pain ea level reassessed. Patient is alert, oriented x 3, equal unlabored respirations, skin warm/dry/pink. 06:52 Reassessment: Patient and/or family updated on plan of care and expected duration. Pain ea level reassessed. Patient is alert, oriented x 3, equal unlabored respirations, skin warm/dry/pink. Discharge instruction given to patient, verbalized the understanding of instruction. Pt left ED ambulatory tolerating well Patient states symptoms have improved. Vital Signs: 04:41 BP 113 / 86; Pulse 137; Resp 19; Temp 101.1; Pulse Ox 97% on R/A; Weight 47.17 kg; ea Height 4 ft. 11 in. (149.86 cm); 05:00 BP 123 / 80; Pulse 117; Resp 18; Pulse Ox 98% ; ea 06:00 BP 118 / 84; Pulse 102; Resp 18; Pulse Ox 98% ; ea 06:00 BP 118 / 84; Pulse 93; Resp 16; Pulse Ox 97% ; ea 06:33 Temp 99.6; ea 04:41 Body Mass Index 21.01 (47.17 kg, 149.86 cm) ea ED Course: 04:27 Patient arrived in ED. am2 04:32 Marco Ramírez MD is Attending Physician. 04:37 Twila Sanches, FIONA is Primary Nurse. ea 04:41 Triage completed. ea 04:45 Patient has correct armband on for positive identification. Bed in low position. Call ea light in reach. Side rails up X 1. 04:45 Arm band placed on right wrist. Patient placed in an exam room, on a stretcher, on ea pulse oximetry. 04:58 Missed attempt(s): 20 gauge in right forearm. Bleeding controlled, band aid applied, oe catheter tip intact. 04:59 Inserted saline lock: 22 gauge in right forearm, using aseptic technique. oe 06:38 No provider procedures requiring assistance completed. ea 06:50 IV discontinued, intact, bleeding controlled, No redness/swelling at site. Pressure ea dressing applied. Administered Medications: 04:50 Drug: Tylenol 650 mg Route: PO; rr5 06:33 Follow up: Temp 99.6; Response: No adverse reaction; Temperature is decreased ea 04:57 Drug: NS 0.9% 1000 ml Route: IV; Rate: 1 bolus; Site: right forearm; rr5 06:54 Follow up: Response: No adverse reaction; IV Status: Completed infusion; IV Intake: ea 1000ml 06:30 Drug: Rocephin - (cefTRIAXone) 1 grams Route: IVPB; Infused Over: 30 mins; Site: right ea forearm; Intake: 06:54 IV: 1000ml; Total: 1000ml. ea Outcome: 06:28 Discharge ordered by . 06:53 Discharged to home ambulatory. ea 06:53 Condition: improved 06:53 Discharge instructions given to patient, Instructed on discharge instructions, follow up and referral plans. medication usage, Demonstrated understanding of instructions, follow-up care, medications, Prescriptions given X 1. 06:54 Patient left the ED. ea Signatures: Scooter Burdick Amanda am2 Twila Sanches RN RN Marco Beltrán MD MD gs Roque, Raymond RN RN rr5 Corrections: (The following items were deleted from the chart) 06:30 06:27 Rocephin - (cefTRIAXone) 1 grams IVPB in left forearm over 30 mins ea ea
--- NOTE | 2018-12-04 06:30 | EDPHYS ---
Physician Documentation [facility] Name: Jenni Irving Age: 38 yrs Sex: Female : 1980 Arrival Date: 12/04/2018 Time: 04:27 Bed 7 Private MD: ED Physician Marco Ramírez HPI: 12/04 06:29 This 38 yrs old Female presents to ER via Wheelchair with complaints of Fever. gs 06:29 The patient presents with sore throat. Onset: The symptoms/episode began/occurred 2 gs day(s) ago. Severity of symptoms: At their worst the symptoms were severe, in the emergency department the symptoms are unchanged. Modifying factors: The symptoms are alleviated by nothing. Associated signs and symptoms: Pertinent positives: chills, fever, flu-like symptoms. The patient has experienced similar episodes in the past, a few times. 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 - Social history:: Smoking status: Patient uses tobacco products, denies chronic smoking, but will smoke occasionally. - Ebola Screening: : No symptoms or risks identified at this time. ROS: 06:29 All other systems are negative. gs Exam: 06:29 Head/Face: Normocephalic, atraumatic. Eyes: Pupils equal round and reactive to light, gs extra-ocular motions intact. Lids and lashes normal. Conjunctiva and sclera are non-icteric and not injected. Cornea within normal limits. Periorbital areas with no swelling, redness, or edema. Neck: Trachea midline, no thyromegaly or masses palpated, and no cervical lymphadenopathy. Supple, full range of motion without nuchal rigidity, or vertebral point tenderness. No Meningismus. Chest/axilla: Normal chest wall appearance and motion. Nontender with no deformity. No lesions are appreciated. Respiratory: Lungs have equal breath sounds bilaterally, clear to auscultation and percussion. No rales, rhonchi or wheezes noted. No increased work of breathing, no retractions or nasal flaring. Abdomen/GI: Soft, non-tender, with normal bowel sounds. No distension or tympany. No guarding or rebound. No evidence of tenderness throughout. Back: No spinal tenderness. No costovertebral tenderness. Full range of motion. Skin: Warm, dry with normal turgor. Normal color with no rashes, no lesions, and no evidence of cellulitis. MS/ Extremity: Pulses equal, no cyanosis. Neurovascular intact. Full, normal range of motion. Neuro: Awake and alert, GCS 15, oriented to person, place, time, and situation. Cranial nerves II-XII grossly intact. Motor strength 5/5 in all extremities. Sensory grossly intact. Cerebellar exam normal. Normal gait. 06:29 Constitutional: The patient appears alert, awake. 06:29 Constitutional: The patient appears uncomfortable. 06:29 ENT: Posterior pharynx: erythema, that is moderate. 06:29 Cardiovascular: Rate: tachycardic, Rhythm: regular, Pulses: no pulse deficits are appreciated. Vital Signs: 04:41 BP 113 / 86; Pulse 137; Resp 19; Temp 101.1; Pulse Ox 97% on R/A; Weight 47.17 kg; ea Height 4 ft. 11 in. (149.86 cm); 05:00 BP 123 / 80; Pulse 117; Resp 18; Pulse Ox 98% ; ea 06:00 BP 118 / 84; Pulse 102; Resp 18; Pulse Ox 98% ; ea 06:00 BP 118 / 84; Pulse 93; Resp 16; Pulse Ox 97% ; ea 06:33 Temp 99.6; ea 04:41 Body Mass Index 21.01 (47.17 kg, 149.86 cm) MDM: 04:36 Patient medically screened. 06:29 Differential diagnosis: influenza, pharyngitis, tonsillitis. Data reviewed: vital gs signs, nurses notes. Counseling: I had a detailed discussion with the patient and/or guardian regarding: the historical points, exam findings, and any diagnostic results supporting the discharge/admit diagnosis, the need for outpatient follow up. Response to treatment: the patient's symptoms have markedly improved after treatment, the patient's condition has returned to base line, patient is well hydrated. hr down. 12/04 04:36 Order name: Strep 12/04 04:36 Order name: Influenza Screen (a \T\ B) 12/04 04:37 Order name: Group A Streptococcus Rapid Sc; Complete Time: 06:08 EDMS 12/04 04:37 Order name: Influenza Screen (A ; Complete Time: 06:08 EDMS Administered Medications: 04:50 Drug: Tylenol 650 mg Route: PO; rr5 06:33 Follow up: Temp 99.6; Response: No adverse reaction; Temperature is decreased ea 04:57 Drug: NS 0.9% 1000 ml Route: IV; Rate: 1 bolus; Site: right forearm; rr5 06:54 Follow up: Response: No adverse reaction; IV Status: Completed infusion; IV Intake: ea 1000ml 06:30 Drug: Rocephin - (cefTRIAXone) 1 grams Route: IVPB; Infused Over: 30 mins; Site: right ea forearm; Disposition: 12/04/18 06:28 Discharged to Home. Impression: Fever presenting with conditions classified elsewhere, Streptococcal pharyngitis. - Condition is Stable. - Discharge Instructions: Strep Throat. - Prescriptions for Amoxicillin 875 mg Oral Tablet - take 1 tablet by ORAL route every 12 hours for 7 days; 14 tablet. - Medication Reconciliation Form, Thank You Letter, Antibiotic Education, Prescription Opioid Use form. - Follow up: Private Physician; When: 2 - 3 days; Reason: Re-evaluation by your physician. Signatures: Dispatcher [employer] Twila Villa RN RN ea Starr, Gregory, MD MD gs Roque, Raymond, RN RN rr5 Corrections: (The following items were deleted from the chart) 06:54 06:28 12/04/2018 06:28 Discharged to Home. Impression: Fever presenting with conditions ea classified elsewhere; Streptococcal pharyngitis. Condition is Stable. Forms are Medication Reconciliation Form, Thank You Letter, Antibiotic Education, Prescription Opioid Use. Follow up: Private Physician; When: 2 - 3 days; Reason: Re-evaluation by your physician.
[2018-12-04] MEDS ORDERED: CEFTRIAXONE/SWI 1gm 1 GM/10 ML SYR ONE (06:40)
[2018-12-04 07:10] VITALS: BP 118/84; TEMP 99.6; O2SAT 97
== END 2018-12-04 06:54 | disposition home or self-care (01) ==
LOC: ER 04:25
DX: J02.0 Streptococcal pharyngitis (principal); I10 Essential (primary) hypertension; Z72.0 Tobacco use
CPT/HCPCS: 87081; 87804; 96361; 96374; 99284; J0696; J7030

== ENCOUNTER 2019-03-19 22:23 | Emergency (ER) | payer OTHER ==
[2019-03-19] MEDS ORDERED: hydrOXYzine HCl 25 MG TAB ONE (23:05)
--- NOTE | 2019-03-19 23:35 | EDPHYS ---
Physician Documentation [facility] Name: Jenni Irving Age: 39 yrs Sex: Female : 1980 Arrival Date: 03/19/2019 Time: 22:26 Bed 15 Private MD: ED Physician Marco Ramírez HPI: 03/19 23:26 This 39 yrs old Female presents to ER via Ambulatory with complaints of gs itching burning all over. 23:26 The patient presents with itching. Onset: The symptoms/episode began/occurred 1 gs month(s) ago. Associated signs and symptoms: Pertinent negatives: dysphagia, fever, rash, shortness of breath, Syncope. Possible causes: The patient has no known obvious cause for the symptoms. At home the patient or guardian has treated the symptoms with Benadryl. Severity of symptoms: At their worst the symptoms were severe in the emergency department the symptoms have improved markedly. The patient has experienced similar episodes in the past, a few times. The patient has been recently seen by a physician: the patient's primary care provider, [facility] same blood tests negative per patient. improved with benadryl and standing up per patient with similar presenting complaints, lab tests were done. 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 - Social history:: Smoking status: Patient uses tobacco products. - Ebola Screening: : Patient negative for fever greater than or equal to 101.5 degrees Fahrenheit, and additional compatible Ebola Virus Disease symptoms Patient denies exposure to infectious person. ROS: 23:26 All other systems are negative. gs Exam: 23:26 Head/Face: Normocephalic, atraumatic. Eyes: Pupils equal round and reactive to light, gs extra-ocular motions intact. Lids and lashes normal. Conjunctiva and sclera are non-icteric and not injected. Cornea within normal limits. Periorbital areas with no swelling, redness, or edema. ENT: Nares patent. No nasal discharge, no septal abnormalities noted. Tympanic membranes are normal and external auditory canals are clear. Oropharynx with no redness, swelling, or masses, exudates, or evidence of obstruction, uvula midline. Mucous membranes moist. Neck: Trachea midline, no thyromegaly or masses palpated, and no cervical lymphadenopathy. Supple, full range of motion without nuchal rigidity, or vertebral point tenderness. No Meningismus. Chest/axilla: Normal chest wall appearance and motion. Nontender with no deformity. No lesions are appreciated. Cardiovascular: Regular rate and rhythm with a normal S1 and S2. No gallops, murmurs, or rubs. Normal PMI, no JVD. No pulse deficits. Respiratory: Lungs have equal breath sounds bilaterally, clear to auscultation and percussion. No rales, rhonchi or wheezes noted. No increased work of breathing, no retractions or nasal flaring. Abdomen/GI: Soft, non-tender, with normal bowel sounds. No distension or tympany. No guarding or rebound. No evidence of tenderness throughout. Back: No spinal tenderness. No costovertebral tenderness. Full range of motion. Skin: Warm, dry with normal turgor. Normal color with no rashes, no lesions, and no evidence of cellulitis. MS/ Extremity: Pulses equal, no cyanosis. Neurovascular intact. Full, normal range of motion. Neuro: Awake and alert, GCS 15, oriented to person, place, time, and situation. Cranial nerves II-XII grossly intact. Motor strength 5/5 in all extremities. Sensory grossly intact. Cerebellar exam normal. Normal gait. 23:26 Constitutional: The patient appears alert, awake. Vital Signs: 22:42 BP 173 / 95; Pulse 83; Resp 18; Temp 98.4; Pulse Ox 100% on R/A; MDM: 22:47 Patient medically screened. 23:26 Differential diagnosis: anaphylaxis, non IgE mediated drug reaction urticaria, gs Vasovagal Reactions auto immune disorder. Data reviewed: vital signs, nurses notes, old medical records. Response to treatment: the patient's symptoms have markedly improved after treatment, and as a result, I will discharge patient. Administered Medications: 23:07 Drug: hydrOXYzine 50 mg Route: PO; 23:40 Follow up: Response: No adverse reaction; Marked relief of symptoms Disposition: 03/19/19 23:34 Discharged to Home. Impression: Pruritus. - Condition is Stable. - Discharge Instructions: Pruritus. - Prescriptions for Hydroxyzine HCl 25 mg Oral Tablet - take 1 tablet by ORAL route every 6 hours As needed; 30 tablet. - Medication Reconciliation Form, Thank You Letter, Antibiotic Education, Prescription Opioid Use form. - Follow up: Private Physician; When: 1 - 2 days; Reason: Re-evaluation by your physician. Signatures: Nico Beard Marco Ramírez MD MD gs Corrections: (The following items were deleted from the chart) 23:59 23:34 03/19/2019 23:34 Discharged to Home. Impression: Pruritus. Condition is Stable. wh Forms are Medication Reconciliation Form, Thank You Letter, Antibiotic Education, Prescription Opioid Use. Follow up: Private Physician; When: 1 - 2 days; Reason: Re-evaluation by your physician. gs
--- NOTE | 2019-03-19 23:35 | ER ---
Nurse's Notes [facility] Name: Jenni Irving Age: 39 yrs Sex: Female : 1980 Arrival Date: 03/19/2019 Time: 22:26 Bed 15 Private MD: Diagnosis: Pruritus Presentation: 03/19 22:38 Presenting complaint: Patient states: She is having itchiness all over her body since the beginning of Mar. Pt C/O severe itchiness causing pain all over her body and chest pain and back pain. Transition of care: patient was not received from another setting of care. Onset of symptoms was March 02, 2019. Risk Assessment: Do you want to hurt yourself or someone else? Patient reports no desire to harm self or others. Initial Sepsis Screen: Does the patient meet any 2 criteria? No. Patient's initial sepsis screen is negative. Does the patient have a suspected source of infection? No. Patient's initial sepsis screen is negative. Care prior to arrival: None. 22:38 Method Of Arrival: Ambulatory 22:38 Acuity: GILA 4 Triage Assessment: 23:11 General: Appears. 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 - Social history:: Smoking status: Patient uses tobacco products. - Ebola Screening: : Patient negative for fever greater than or equal to 101.5 degrees Fahrenheit, and additional compatible Ebola Virus Disease symptoms Patient denies exposure to infectious person. Screenin:40 Abuse screen: Denies threats or abuse. Denies injuries from another. Nutritional screening: No deficits noted. Tuberculosis screening: No symptoms or risk factors identified. Fall Risk None identified. Assessment: 23:11 General: Appears in no apparent distress. Behavior is calm, cooperative, appropriate for age. Pain: Complains of pain in all over body because of itchiness. Neuro: Level of Consciousness is awake, alert, obeys commands, Oriented to person, place, time, situation, Appropriate for age. Cardiovascular: Heart tones S1 S2 Capillary refill < 3 seconds. Respiratory: Airway is patent Respiratory effort is even, unlabored, Respiratory pattern is regular, symmetrical. GI: Abdomen is flat, non-distended, Bowel sounds present X 4 quads. Abd is soft and non tender X 4 quads. : No signs and/or symptoms were reported regarding the genitourinary system. EENT: No signs and/or symptoms were reported regarding the EENT system. Derm: Skin is intact, is healthy with good turgor, Skin is pink, warm \T\ dry. normal, Reports itching. Musculoskeletal: Circulation, motion, and sensation intact. Vital Signs: 22:42 BP 173 / 95; Pulse 83; Resp 18; Temp 98.4; Pulse Ox 100% on R/A; ED Course: 22:26 Patient arrived in ED. cf2 22:32 Rubio Murillo, RN is Primary Nurse. rr5 22:38 Marco Ramírez MD is Attending Physician. 22:40 Triage completed. 22:40 Arm band placed on left wrist. 22:42 Patient has correct armband on for positive identification. Allergy band placed. Bed in low position. Call light in reach. Side rails up X 1. Pulse ox on. NIBP on. 23:58 No provider procedures requiring assistance completed. Patient did not have IV access during this emergency room visit. Administered Medications: 23:07 Drug: hydrOXYzine 50 mg Route: PO; 23:40 Follow up: Response: No adverse reaction; Marked relief of symptoms Outcome: 23:34 Discharge ordered by . 23:58 Discharged to home ambulatory, with family. 23:58 Condition: good 23:58 Discharge instructions given to patient, family, Instructed on discharge instructions, follow up and referral plans. medication usage, POC Pruritus Demonstrated understanding of instructions, follow-up care, medications, POC Prescriptions given X 1. 23:59 Patient left the ED. Signatures: Nico Beard Marco Ramírez MD MD Rubio Murillo, RN RN rr5 Genesis Stanford cf2
[2019-03-20 04:15] VITALS: BP 173/95; TEMP 98.4; O2SAT 100
== END 2019-03-19 23:59 | disposition home or self-care (01) ==
LOC: ER 22:23
DX: L29.9 Pruritus, unspecified (principal); I10 Essential (primary) hypertension; F41.9 Anxiety disorder, unspecified; J45.909 Unspecified asthma, uncomplicated; Z72.0 Tobacco use
CPT/HCPCS: 99283

== ENCOUNTER 2019-04-22 01:40 | Emergency (ER) | payer OTHER, SELFPAY ==
[2019-04-22 03:02] LABS: Absolute Lymphocytes (CBC) 2.6 K/uL (0.7-4.9); Basophils % 0.9 % (0-1.3); Hematocrit 33.7 % (36.0-45.0); Lymphocytes % 53.9 % (15.3-44.8); MPV 10.5 fL (7.6-11.3); Protime INR 0.96; RBC Red Blood Cell Count 3.35 M/uL (3.86-4.86)
[2019-04-22 03:04] LABS: ALT/SGPT 132 U/L (12-78); AST/SGOT 216 U/L (15-37); Albumin 3.8 g/dL (3.4-5.0); Alkaline Phosphatase 95 U/L (45-117); BUN Blood Urea Nitrogen 4 mg/dL (7-18); Bicarbonate 28 mmol/L (21-32); Bilirubin Direct 0.2 mg/dL (0-0.2); Bilirubin Total 0.3 mg/dL (0.2-1.0); Glucose Level 86 mg/dL (74-106); Lipase 187 U/L (73-393); Magnesium 1.9 mg/dL (1.8-2.4); NT PRO-BNP 46 pg/mL (<125); Potassium 4.1 mmol/L (3.5-5.1); Protein, Total 7.6 g/dL (6.4-8.2); Sodium Level 144 mmol/L (136-145); Troponin (Emerg Dept Use Only) < 0.02 ng/mL (0.0-0.045)
--- NOTE | 2019-04-22 03:29 | ER ---
Nurse's Notes [facility] Name: Jenni Irving Age: 39 yrs Sex: Female : 1980 Arrival Date: 04/22/2019 Time: 01:44 Bed 14 Private MD: Diagnosis: Other chest pain;Pelvic and perineal pain;Essential (primary) hypertension Presentation: 04/22 01:53 Presenting complaint: Patient states: chest pain, pelvic pain X2 days. pt stated home ak1 test last week was positive. Transition of care: patient was not received from another setting of care. Onset of symptoms is unknown. Risk Assessment: Do you want to hurt yourself or someone else? Patient reports no desire to harm self or others. Initial Sepsis Screen: Does the patient meet any 2 criteria? No. Patient's initial sepsis screen is negative. Does the patient have a suspected source of infection? No. Patient's initial sepsis screen is negative. Care prior to arrival: None. 01:53 Method Of Arrival: Ambulatory ak1 01:53 Acuity: GILA 3 ak1 Triage Assessment: 01:55 General: Appears unkempt, Behavior is crying, Smells of alcohol. 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 - Social history:: Smoking status: Patient/guardian denies using tobacco, Patient uses alcohol. - Ebola Screening: : No symptoms or risks identified at this time. Screenin:30 Abuse screen: Denies threats or abuse. Nutritional screening: No deficits noted. fu Tuberculosis screening: No symptoms or risk factors identified. Fall Risk None identified. Assessment: 02:00 General: Appears in no apparent distress. Behavior is calm, cooperative, appropriate fu for age, Smells of alcohol, Denies fever, feeling ill, chills. Pain: Complains of pain in left lower quadrant and right lower quadrant and suprapubic area Pain radiates to chest Pain currently is 10 out of 10 on a pain scale. Quality of pain is described as sharp, Pain began 1 day ago. Is intermittent. Neuro: Level of Consciousness is awake, Oriented to person, place, time, situation. Cardiovascular: Reports chest pain, nausea, Denies shortness of breath, vomiting. Respiratory: Breath sounds are clear bilaterally. Derm: Skin is flushed. Vital Signs: 01:55 BP 156 / 101; Pulse 103; Resp 16; Temp 98.3; Pulse Ox 99% on R/A; Weight 54.43 kg (R); ak1 Height 4 ft. 11 in. (149.86 cm) (R); Pain 6/10; 03:00 BP 122 / 80; Pulse 88; Resp 16; Pulse Ox 98% ; Pain 7/10; fu 03:50 BP 123 / 83; Pulse 88; Resp 21; Pulse Ox 100% ; Pain 0/10; fu 01:55 Body Mass Index 24.24 (54.43 kg, 149.86 cm) ak1 ED Course: 01:44 Patient arrived in ED. cf2 01:54 Triage completed. ak1 01:55 Arm band placed on Patient placed in an exam room, on a stretcher, Patient notified of ak1 wait time. 02:05 Initial lab(s) drawn, by me, sent to lab. Inserted saline lock: 22 gauge in left hand, fu using aseptic technique. 02:06 Dale Sotelo MD is Attending Physician. barbara 02:09 Ron Lim, RN is Primary Nurse. fu 02:15 No provider procedures requiring assistance completed. fu 02:27 XRAY Chest (1 view) In Process Unspecified. EDMS 03:00 Patient maintains SpO2 saturation greater than 95% on room air. fu 03:27 Ervin Goldberg MD is Referral Physician. barbara 03:27 Wilfredo Zurita MD is Referral Physician. barbara 03:31 Patient has correct armband on for positive identification. Placed in gown. Bed in low fu position. Side rails up X2. youth nutritional monitor on. Pulse ox on. NIBP on. 03:55 IV discontinued, bleeding controlled, Pressure dressing applied. fu Administered Medications: 03:36 Drug: Aspirin 81 mg Route: PO; fu Outcome: 03:28 Discharge ordered by . barbara 03:55 Discharged to home ambulatory. fu 03:55 Condition: improved 03:55 Discharge instructions given to patient, Instructed on discharge instructions, Demonstrated understanding of instructions, Prescriptions given X 1. 03:56 Patient left the ED. fu Signatures: Dispatcher [employer] EDDale Mosher MD MD cha Krenek, Amber, RN RN akRon Pickard, RN RN Genesis Giang 2
--- NOTE | 2019-04-22 03:29 | EDPHYS ---
Physician Documentation [facility] Name: Jenni Irving Age: 39 yrs Sex: Female : 1980 Arrival Date: 04/22/2019 Time: 01:44 Bed 14 Private MD: NAIF Physician Dale Sotelo HPI: 04/22 02:52 This 39 yrs old Female presents to ER via Ambulatory with complaints of Chest barbara Pain. 02:52 The patient or guardian reports chest pain that is located primarily in the anterior barbara chest wall. The pain does not radiate. The chest pain is described as aching. 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 - Social history:: Smoking status: Patient/guardian denies using tobacco, Patient uses alcohol. - Ebola Screening: : No symptoms or risks identified at this time. ROS: 02:53 Constitutional: Negative for fever, chills, and weight loss, Eyes: Negative for injury, barbara pain, redness, and discharge, ENT: Negative for injury, pain, and discharge, Neck: Negative for injury, pain, and swelling, Cardiovascular: Negative for chest pain, palpitations, and edema, Respiratory: Negative for shortness of breath, cough, wheezing, and pleuritic chest pain, Back: Negative for injury and pain, : Negative for injury, bleeding, discharge, and swelling, MS/Extremity: Negative for injury and deformity, Skin: Negative for injury, rash, and discoloration, Neuro: Negative for headache, weakness, numbness, tingling, and seizure, Psych: Negative for depression, anxiety, suicide ideation, homicidal ideation, and hallucinations, Allergy/Immunology: Negative for hives, rash, and allergies, Endocrine: Negative for neck swelling, polydipsia, polyuria, polyphagia, and marked weight changes, Hematologic/Lymphatic: Negative for swollen nodes, abnormal bleeding, and unusual bruising. 02:53 Abdomen/GI: Positive for abdominal pain. Exam: 02:53 Constitutional: This is a well developed, well nourished patient who is awake, alert, barbara and in no acute distress. Head/Face: Normocephalic, atraumatic. Eyes: Pupils equal round and reactive to light, extra-ocular motions intact. Lids and lashes normal. Conjunctiva and sclera are non-icteric and not injected. Cornea within normal limits. Periorbital areas with no swelling, redness, or edema. ENT: Nares patent. No nasal discharge, no septal abnormalities noted. Tympanic membranes are normal and external auditory canals are clear. Oropharynx with no redness, swelling, or masses, exudates, or evidence of obstruction, uvula midline. Mucous membranes moist. Neck: Trachea midline, no thyromegaly or masses palpated, and no cervical lymphadenopathy. Supple, full range of motion without nuchal rigidity, or vertebral point tenderness. No Meningismus. Chest/axilla: Normal chest wall appearance and motion. Nontender with no deformity. No lesions are appreciated. Cardiovascular: Regular rate and rhythm with a normal S1 and S2. No gallops, murmurs, or rubs. Normal PMI, no JVD. No pulse deficits. Respiratory: Lungs have equal breath sounds bilaterally, clear to auscultation and percussion. No rales, rhonchi or wheezes noted. No increased work of breathing, no retractions or nasal flaring. Female : Normal external genitalia. Skin: Warm, dry with normal turgor. Normal color with no rashes, no lesions, and no evidence of cellulitis. MS/ Extremity: Pulses equal, no cyanosis. Neurovascular intact. Full, normal range of motion. Neuro: Awake and alert, GCS 15, oriented to person, place, time, and situation. Cranial nerves II-XII grossly intact. Motor strength 5/5 in all extremities. Sensory grossly intact. Cerebellar exam normal. Normal gait. Psych: Awake, alert, with orientation to person, place and time. Behavior, mood, and affect are within normal limits. 02:53 Abdomen/GI: Inspection: abdomen appears normal, Bowel sounds: normal, Palpation: mild abdominal tenderness, in the suprapubic area, right lower quadrant and left lower quadrant. Vital Signs: 01:55 BP 156 / 101; Pulse 103; Resp 16; Temp 98.3; Pulse Ox 99% on R/A; Weight 54.43 kg (R); ak1 Height 4 ft. 11 in. (149.86 cm) (R); Pain 6/10; 03:00 BP 122 / 80; Pulse 88; Resp 16; Pulse Ox 98% ; Pain 7/10; fu 03:50 BP 123 / 83; Pulse 88; Resp 21; Pulse Ox 100% ; Pain 0/10; fu 01:55 Body Mass Index 24.24 (54.43 kg, 149.86 cm) ak1 MDM: 02:06 Patient medically screened. barbara 02:53 Data reviewed: vital signs, nurses notes, lab test result(s), EKG, radiologic studies. [facility] 04/22 02:08 Order name: Basic Metabolic Panel; Complete Time: 03:25 [facility] 04/22 02:08 Order name: CBC with Diff [facility] 04/22 02:08 Order name: LFT's; Complete Time: 03:25 [facility] 04/22 02:08 Order name: Magnesium; Complete Time: 03:25 [facility] 04/22 02:08 Order name: NT PRO-BNP; Complete Time: 03:25 [facility] 04/22 02:08 Order name: PT-INR; Complete Time: 03:25 [facility] 04/22 02:08 Order name: Troponin (emerg Dept Use Only); Complete Time: 03:25 [facility] 04/22 02:08 Order name: XRAY Chest (1 view) [facility] 04/22 02:08 Order name: EKG; Complete Time: 02:09 [facility] 04/22 02:08 Order name: Lipase; Complete Time: 03:25 [facility] 04/22 02:27 Order name: Urine Dipstick--Ancillary (enter results) cm6 04/22 02:55 Order name: Test, Serum; Complete Time: 03:48 barbara 04/22 03:03 Order name: Manual Differential EDMS 04/22 02:08 Order name: Cardiac monitoring; Complete Time: 02:09 barbara 04/22 02:08 Order name: EKG - Nurse/Tech; Complete Time: 02:09 barbara 04/22 02:08 Order name: IV Saline Lock; Complete Time: 02:32 barbara 04/22 02:08 Order name: Labs collected and sent; Complete Time: 02:33 [facility] 04/22 02:08 Order name: O2 Per Protocol; Complete Time: 02:33 [facility] 04/22 02:08 Order name: O2 Sat Monitoring; Complete Time: 02:33 [facility] 04/22 02:08 Order name: Urine Dipstick-Ancillary (obtain specimen); Complete Time: 03:36 [facility] 04/22 02:55 Order name: Urine Test (obtain specimen); Complete Time: 03:36 [facility] Administered Medications: 03:36 Drug: Aspirin 81 mg Route: PO; fu Disposition: 04/22/19 03:28 Discharged to Home. Impression: Other chest pain, Pelvic and perineal pain, Essential (primary) hypertension. - Condition is Stable. - Discharge Instructions: Nonspecific Chest Pain, Hypertension, Nonspecific Chest Pain, Bsmo-mz-Xtmg, Hypertension, Hrbc-qo-Yfcm, How to Take Your Blood Pressure, Ilvt-cc-Cifb, Aspirin and Your Heart, Managing Your Hypertension. - Prescriptions for Lisinopril 10 mg Oral Tablet - take 1 tablet by ORAL route once daily; 20 tablet. - Medication Reconciliation Form, Thank You Letter, Antibiotic Education, Prescription Opioid Use form. - Follow up: Private Physician; When: 2 - 3 days; Reason: Recheck today's complaints, Continuance of care, Re-evaluation by your physician. Follow up: Ervin Goldberg; When: 2 - 3 days; Reason: Recheck today's complaints, Continuance of care, Re-evaluation by your physician. Follow up: Wilfredo Zurita MD; When: 2 - 3 days; Reason: Recheck today's complaints, Re-evaluation by your physician. - Problem is new. - Symptoms have improved. Signatures: Dispatcher [employer] EDTN Dale Sotelo MD MD cha Krenek, Amber RN RN ak1 Ron Lim RN RN fu Corrections: (The following items were deleted from the chart) 03:56 03:28 04/22/2019 03:28 Discharged to Home. Impression: Other chest pain; Pelvic and fu perineal pain; Essential (primary) hypertension. Condition is Stable. Discharge Instructions: Nonspecific Chest Pain, Hypertension, Nonspecific Chest Pain, Hvxm-ep-Zmob, Hypertension, Qiwg-lw-Ggof, How to Take Your Blood Pressure, Tedf-pb-Nitm, Aspirin and Your Heart, Managing Your Hypertension. Prescriptions for Lisinopril 10 mg Oral Tablet - take 1 tablet by ORAL route once daily; 20 tablet. and Forms are Medication Reconciliation Form, Thank You Letter, Antibiotic Education, Prescription Opioid Use. Follow up: Private Physician; When: 2 - 3 days; Reason: Recheck today's complaints, Continuance of care, Re-evaluation by your physician. Follow up: Ervin Goldberg; When: 2 - 3 days; Reason: Recheck today's complaints, Continuance of care, Re-evaluation by your physician. Follow up: Wilfredo Zurita; When: 2 - 3 days; Reason: Recheck today's complaints, Re-evaluation by your physician. Problem is new. Symptoms have improved. barbara
[2019-04-22] MEDS ORDERED: ASPIRIN EC 81 MG TAB PO ONE (03:34)
[2019-04-22 03:44] LABS: Urine Blood NEGATIVE (NEG); Urine Glucose NEGATIVE (NEG); Urine Protein NEGATIVE (NEG); Urine Specific Gravity <1.005 (1.005-1.030); Urine pH 5.5 (5.0-7.0)
[2019-04-22 04:01] VITALS: TEMP 98.3
[2019-04-22 04:02] VITALS: BP 122/80; O2SAT 98
[2019-04-22 04:18] LABS: Blood Morphology Comment NOT SEEN (NOT SEEN); Platelet Estimate ADEQ
--- NOTE | 2019-04-22 08:39 | RAD REPORT ---
EXAM DESCRIPTION: RAD - Chest Single View - 04/22/2019 2:27 am CLINICAL HISTORY: Chest pain COMPARISON: February 22 TECHNIQUE: AP portable chest image was obtained 0220 hours . FINDINGS: Lungs are clear. Heart and vasculature are normal. No measurable pleural effusion and no p neumothorax. No acute bony abnormality seen. No acute aortic findings suspected. IMPRESSION: No acute cardiopulmonary process. No significant interval change.
--- NOTE | 2019-04-22 12:11 | EKG ---
Test Date: 2019-04-22 Test Time: 01:59:14 [employer]: ASHANTI MEASUREMENT RESULTS: Intervals: Rate: 84 UT: 134 QRSD: 82 QT: 354 QTc: 418 [place]: P: UT: 134 QRS: 110 T: 26 INTERPRETIVE STATEMENTS: Normal sinus rhythm Right axis deviation Abnormal ECG Compared to ECG 02/22/2019 03:30:16 Right-axis deviation now present Electronically Signed On 04-22-19 12:08:58 CDT by Ervin Goldberg
== END 2019-04-22 03:56 | disposition home or self-care (01) ==
LOC: ER 01:40
DX: R10.2 Pelvic and perineal pain (principal); I10 Essential (primary) hypertension; F41.9 Anxiety disorder, unspecified; J45.909 Unspecified asthma, uncomplicated
CPT/HCPCS: 36415; 71045; 80048; 80076; 81003; 83690; 83735; 83880; 84484; 84703; 85025; 85610; 93005; 99285

== ENCOUNTER 2019-06-11 05:22 | Emergency (ER) | payer SELFPAY ==
[2019-06-11] MEDS ORDERED: ACETAMINOPHEN 500 MG TAB ONE (06:19)
[2019-06-11] MEDS ORDERED: ASPIRIN 81 MG CHEWABLE TABLET ONE (06:19)
[2019-06-11] MEDS ORDERED: ALBUTEROL 2.5 MG/3 ML NEB SOL ONE (06:19)
[2019-06-11 06:29] LABS: Barbiturates NEGATIVE (NEGATIVE); Benzodiazepines NEGATIVE (NEGATIVE); Cocaine NEGATIVE (NEGATIVE); METHAMPHETAM NEGATIVE (NEGATIVE); Methadone NEGATIVE (NEGATIVE); Opiates NEGATIVE (NEGATIVE); Phencyclidine NEGATIVE (NEGATIVE); THC Cannibis NEGATIVE (NEGATIVE)
[2019-06-11 06:30] LABS: Absolute Lymphocytes (CBC) 0.9 K/uL (0.7-4.9); Basophils % 0.4 % (0-1.3); Hematocrit 36.5 % (36.0-45.0); MPV 10.6 fL (7.6-11.3); RBC Red Blood Cell Count 3.56 M/uL (3.86-4.86)
[2019-06-11 06:42] LABS: ALT/SGPT 48 U/L (12-78); AST/SGOT 58 U/L (15-37); Alkaline Phosphatase 80 U/L (45-117); BUN Blood Urea Nitrogen 5 mg/dL (7-18); Bicarbonate 26 mmol/L (21-32); Bilirubin Direct 0.2 mg/dL (0-0.2); Bilirubin Total 0.8 mg/dL (0.2-1.0); Glucose Level 88 mg/dL (74-106); Magnesium 1.7 mg/dL (1.8-2.4); NT PRO-BNP 57 pg/mL (<125); Potassium 3.9 mmol/L (3.5-5.1); Protein, Total 7.7 g/dL (6.4-8.2); Sodium Level 139 mmol/L (136-145); Troponin (Emerg Dept Use Only) < 0.02 ng/mL (0.0-0.045)
[2019-06-11 06:45] LABS: Urine Bacteria LOADED /HPF (<20); Urine Culture Reflex Order REFLEXED; Urine Mucus 1+ /HPF (NONE SEEN); Urine RBC <5 /HPF (NONE SEEN)
[2019-06-11 06:54] LABS: Protime INR 0.97
--- NOTE | 2019-06-11 07:04 | EDPHYS ---
Physician Documentation [facility] Name: Jenni Irving Age: 39 yrs Sex: Female : 1980 Arrival Date: 06/11/2019 Time: 05:24 Bed 17 Private MD: ED Physician Paul Anthony HPI: 06/11 06:30 This 39 yrs old Female presents to ER via Ambulatory with complaints of Chest jr8 Pain, Breathing Difficulty. 06:30 The patient or guardian reports chest pain that is located primarily in the anterior jr8 chest wall, right. The pain does not radiate. Associated signs and symptoms: Pertinent positives: shortness of breath. The chest pain is described as sharp. Duration: The patient or guardian reports a single episode, that is still ongoing. Modifying factors: The symptoms are alleviated by nothing. the symptoms are aggravated by cough, palpation of area. Severity of pain: At its worst the pain was moderate in the emergency department the pain is unchanged. The patient has experienced similar episodes in the past, several times. The patient has not recently seen a physician. Multiple chest pain episodes in past. Seen multiple times in ED for chest pain. 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 - Social history:: Smoking status: Patient uses tobacco products, denies chronic smoking, but will smoke occasionally. - Ebola Screening: : Patient negative for fever greater than or equal to 101.5 degrees Fahrenheit, and additional compatible Ebola Virus Disease symptoms Patient denies exposure to infectious person. ROS: 06:30 Constitutional: Negative for fever, chills, and weight loss. jr8 06:30 Cardiovascular: Positive for chest pain, Negative for edema, orthopnea, palpitations, paroxysmal nocturnal dyspnea. 06:30 Respiratory: Positive for shortness of breath, Negative for cough, dyspnea on exertion, sputum production, wheezing. 06:30 All other systems are negative. Exam: 06:30 Eyes: Pupils equal round and reactive to light, extra-ocular motions intact. Lids and jr8 lashes normal. Conjunctiva and sclera are non-icteric and not injected. Cornea within normal limits. Periorbital areas with no swelling, redness, or edema. ENT: Nares patent. No nasal discharge, no septal abnormalities noted. Tympanic membranes are normal and external auditory canals are clear. Oropharynx with no redness, swelling, or masses, exudates, or evidence of obstruction, uvula midline. Mucous membranes moist. Neck: Trachea midline, no thyromegaly or masses palpated, and no cervical lymphadenopathy. Supple, full range of motion without nuchal rigidity, or vertebral point tenderness. No Meningismus. Cardiovascular: Regular rate and rhythm with a normal S1 and S2. No gallops, murmurs, or rubs. Normal PMI, no JVD. No pulse deficits. Respiratory: Lungs have equal breath sounds bilaterally, clear to auscultation and percussion. No rales, rhonchi or wheezes noted. No increased work of breathing, no retractions or nasal flaring. Back: No spinal tenderness. No costovertebral tenderness. Full range of motion. Skin: Warm, dry with normal turgor. Normal color with no rashes, no lesions, and no evidence of cellulitis. MS/ Extremity: Pulses equal, no cyanosis. Neurovascular intact. Full, normal range of motion. Neuro: Awake and alert, GCS 15, oriented to person, place, time, and situation. Cranial nerves II-XII grossly intact. Motor strength 5/5 in all extremities. Sensory grossly intact. Cerebellar exam normal. Normal gait. 06:30 Chest/axilla: Inspection: normal, Palpation: tenderness, that is mild, of the right sternal border. 06:30 Abdomen/GI: Inspection: abdomen appears normal, Bowel sounds: active, all quadrants, Palpation: soft, in all quadrants, mild abdominal tenderness, in the epigastric area, mass, is not appreciated, rebound tenderness, is not appreciated, voluntary guarding, is not appreciated, involuntary guarding, is not appreciated, no appreciated organomegaly, Indicators: McBurney's point is not tender, Boucher's sign is negative, Rovsing's sign is negative, Liver: tenderness, is not appreciated. Vital Signs: 05:55 BP 144 / 98; Pulse 92; Resp 18; Temp 98.5; Pulse Ox 99% ; Weight 47.17 kg; Height 4 ft. wh 11 in. (149.86 cm); 07:15 BP 132 / 82; Pulse 88; Resp 16; Temp 98.2; Pulse Ox 99% on R/A; Pain 6/10; hb 05:55 Body Mass Index 21.01 (47.17 kg, 149.86 cm) MDM: 05:35 Patient medically screened. sd 06:57 Data reviewed: vital signs, nurses notes, lab test result(s), EKG, radiologic studies, jr8 plain films. Data interpreted: Pulse oximetry: on room air is 99 %. Interpretation: normal. Counseling: I had a detailed discussion with the patient and/or guardian regarding: the historical points, exam findings, and any diagnostic results supporting the discharge/admit diagnosis, lab results, radiology results, the need for outpatient follow up, a family practitioner, to return to the emergency department if symptoms worsen or persist or if there are any questions or concerns that arise at home. 07:02 Differential diagnosis: abnormal EKG, acute myocardial infarction, acute pericarditis, jr8 anxiety, chest wall pain, cholecystitis, Cholelithiasis costochondritis, esophagitis, gastritis, gastroesophageal reflux disease (GERD), pancreatitis, pleurisy, pneumonia, pulmonary embolus, thoracic aortic disection, unstable angina. 06/11 05:35 Order name: Basic Metabolic Panel; Complete Time: 06:53 sd 06/11 05:35 Order name: CBC with Diff; Complete Time: 06:35 sd 06/11 05:35 Order name: LFT's; Complete Time: 06:53 sd 06/11 05:35 Order name: Magnesium; Complete Time: 06:53 sd 06/11 05:35 Order name: NT PRO-BNP; Complete Time: 06:53 sd 06/11 05:35 Order name: PT-INR; Complete Time: 06:56 sd 06/11 05:35 Order name: Troponin (emerg Dept Use Only); Complete Time: 06:53 sd 06/11 05:35 Order name: XRAY Chest (1 view) sd 06/11 05:36 Order name: UDS; Complete Time: 06:32 sd 06/11 05:36 Order name: Urine Microscopic Only; Complete Time: 06:53 sd 06/11 06:17 Order name: Urine Dipstick--Ancillary (enter results) [facility] 06/11 06:17 Order name: Urine --Ancillary (enter results) mw2 06/11 06:32 Order name: Lipase; Complete Time: 07:02 jr8 06/11 06:48 Order name: Urine Culture [facility] 06/11 05:35 Order name: Cardiac monitoring; Complete Time: 05:56 sd 06/11 05:35 Order name: EKG - Nurse/Tech; Complete Time: 05:56 sd 06/11 05:35 Order name: IV Saline Lock; Complete Time: 05:57 sd 06/11 05:35 Order name: Labs collected and sent; Complete Time: 05:57 sd 06/11 05:35 Order name: O2 Per Protocol; Complete Time: 05:57 sd 06/11 05:35 Order name: O2 Sat Monitoring; Complete Time: 05:57 sd 06/11 05:36 Order name: Urine Dipstick-Ancillary (obtain specimen); Complete Time: 06:16 sd 06/11 05:36 Order name: Urine Test (obtain specimen); Complete Time: 06:16 sd 06/11 05:37 Order name: Oxygen; Complete Time: 05:56 sd Administered Medications: 06:23 Drug: Albuterol 2.5 mg Route: Inhalation; 07:28 Follow up: Response: No adverse reaction hb 06:23 Drug: Tylenol 1000 mg Route: PO; wh 07:26 Follow up: Response: No adverse reaction hb 06:23 Drug: Aspirin Chewable Tablet 324 mg Route: PO; wh 07:26 Follow up: Response: No adverse reaction hb 07:20 Drug: Rocephin 1 grams Route: IV; Rate: calculated rate; Site: left forearm; hb 07:27 Follow up: Response: Medication administered at discharge.; IV Status: Completed hb infusion; IV Intake: 10ml 07:20 Drug: Magnesium Oxide 400 mg Route: PO; hb 07:28 Follow up: Response: Medication administered at discharge. hb 07:20 Drug: TORadol - Ketorolac 15 mg Route: IVP; Site: left forearm; hb 07:26 Follow up: Response: Medication administered at discharge. hb Disposition: 08:44 Co-signature as Attending Physician, Paul Anthony MD I agree with the assessment and sd plan of care. Disposition: 06/11/19 07:03 Discharged to Home. Impression: Chest pain, unspecified, Urinary tract infection, site not specified. - Condition is Stable. - Discharge Instructions: Nonspecific Chest Pain, Chest Wall Pain, Dysuria. - Prescriptions for Ibuprofen 800 mg Oral Tablet - take 1 tablet by ORAL route every 12 hours As needed take with food; 20 tablet. Macrobid 100 mg Oral Capsule - take 1 capsule by ORAL route every 12 hours for 7 days; 14 capsule. - Medication Reconciliation Form, Thank You Letter, Antibiotic Education, Prescription Opioid Use form. - Follow up: Ervin Goldberg MD; When: 2 - 3 days; Reason: Recheck today's complaints, Continuance of care, Re-evaluation by your physician. - Problem is new. - Symptoms have improved. Signatures: Dispatcher [employer] EDMS Warren Chavez PA PA jr8 Brooke Cortes RN RN Nico Beard Paul Anthony MD MD wa Corrections: (The following items were deleted from the chart) 07:30 07:03 06/11/2019 07:03 Discharged to Home. Impression: Chest pain, unspecified; Urinary hb tract infection, site not specified. Condition is Stable. Forms are Medication Reconciliation Form, Thank You Letter, Antibiotic Education, Prescription Opioid Use. Follow up: Ervin Goldberg; When: 2 - 3 days; Reason: Recheck today's complaints, Continuance of care, Re-evaluation by your physician. Problem is new. Symptoms have improved. jr8
--- NOTE | 2019-06-11 07:04 | ER ---
Nurse's Notes [facility] Name: Jenni Irving Age: 39 yrs Sex: Female : 1980 Arrival Date: 06/11/2019 Time: 05:24 Bed 17 Private MD: Diagnosis: Chest pain, unspecified;Urinary tract infection, site not specified Presentation: 06/11 05:30 Presenting complaint: Patient states: C.O chest pain that started this morning. Pt with wh no Hx of heart condition. States it was a 10/10 sharp pain. Transition of care: patient was not received from another setting of care. Onset of symptoms was June 11, 2019. Risk Assessment: Do you want to hurt yourself or someone else? Patient reports no desire to harm self or others. Initial Sepsis Screen: Does the patient meet any 2 criteria? No. Patient's initial sepsis screen is negative. Does the patient have a suspected source of infection? No. Patient's initial sepsis screen is negative. Care prior to arrival: None. 05:30 Method Of Arrival: Ambulatory 05:30 Acuity: GILA 3 PUBLIC [employer]ATIONS [employer]: 05:54 LMP 05/2019 Historical: - Allergies: 05:52 No Known Allergies; - PMHx: 05:52 Anxiety; Asthma; Hypertension; - PSHx: 05:52 ; - Immunization history:: Adult Immunizations up to date. - Social history:: Smoking status: Patient uses tobacco products, denies chronic smoking, but will smoke occasionally. - Ebola Screening: : Patient negative for fever greater than or equal to 101.5 degrees Fahrenheit, and additional compatible Ebola Virus Disease symptoms Patient denies exposure to infectious person. Screenin:54 Abuse screen: Denies threats or abuse. Denies injuries from another. Nutritional screening: No deficits noted. Tuberculosis screening: No symptoms or risk factors identified. Fall Risk None identified. Assessment: 05:53 General: Appears in no apparent distress. Behavior is calm, cooperative, appropriate for age. Pain: Complains of pain in chest Pain does not radiate. Pain currently is 6 out of 10 on a pain scale. Quality of pain is described as sharp, Pain began 2 hours ago. Neuro: Level of Consciousness is awake, alert, obeys commands, Oriented to person, place, time, situation, Appropriate for age. Cardiovascular: Heart tones S1 S2. Respiratory: Airway is patent Respiratory effort is even, unlabored, Respiratory pattern is regular, symmetrical, Breath sounds are clear bilaterally. GI: Abdomen is flat, non-distended. : No signs and/or symptoms were reported regarding the genitourinary system. EENT: No signs and/or symptoms were reported regarding the EENT system. Derm: Skin is intact, is healthy with good turgor, Skin is pink, warm \T\ dry. normal. Musculoskeletal: Circulation, motion, and sensation intact. 07:15 Reassessment: Patient appears in no apparent distress at this time. Patient and/or hb family updated on plan of care and expected duration. Pain level reassessed. Patient is alert, oriented x 3, equal unlabored respirations, skin warm/dry/pink. Vital Signs: 05:55 BP 144 / 98; Pulse 92; Resp 18; Temp 98.5; Pulse Ox 99% ; Weight 47.17 kg; Height 4 ft. wh 11 in. (149.86 cm); 07:15 BP 132 / 82; Pulse 88; Resp 16; Temp 98.2; Pulse Ox 99% on R/A; Pain 6/10; hb 05:55 Body Mass Index 21.01 (47.17 kg, 149.86 cm) ED Course: 05:24 Patient arrived in ED. ds1 05:48 Nico Beard is Primary Nurse. wh 05:49 Triage completed. wh 05:54 Arm band placed on left wrist. wh 05:54 Patient has correct armband on for positive identification. Placed in gown. Bed in low wh position. Call light in reach. Side rails up X 1. teletypesetter monitor on. Pulse ox on. NIBP on. 05:54 Patient maintains SpO2 saturation greater than 95% on room air. wh 06:10 Warren Chavez PA is PHCP. jr8 06:10 Paul Anthony MD is Attending Physician. jr8 06:11 Paul Anthony MD is Attending Physician. jr8 06:11 Missed attempt(s): 18 gauge in right antecubital area. cm6 06:21 Inserted saline lock: 22 gauge in left wrist, using aseptic technique. Missed ak1 attempt(s): 22 gauge in left antecubital area. Bleeding controlled, band aid applied, catheter tip intact. 07:03 Ervin Goldberg MD is Referral Physician. jr8 07:17 XRAY Chest (1 view) In Process Unspecified. EDMS 07:29 No provider procedures requiring assistance completed. IV discontinued, intact, hb bleeding controlled, No redness/swelling at site. Pressure dressing applied. Administered Medications: 06:23 Drug: Albuterol 2.5 mg Route: Inhalation; 07:28 Follow up: Response: No adverse reaction hb 06:23 Drug: Tylenol 1000 mg Route: PO; wh 07:26 Follow up: Response: No adverse reaction hb 06:23 Drug: Aspirin Chewable Tablet 324 mg Route: PO; wh 07:26 Follow up: Response: No adverse reaction hb 07:20 Drug: Rocephin 1 grams Route: IV; Rate: calculated rate; Site: left forearm; hb 07:27 Follow up: Response: Medication administered at discharge.; IV Status: Completed hb infusion; IV Intake: 10ml 07:20 Drug: Magnesium Oxide 400 mg Route: PO; hb 07:28 Follow up: Response: Medication administered at discharge. hb 07:20 Drug: TORadol - Ketorolac 15 mg Route: IVP; Site: left forearm; hb 07:26 Follow up: Response: Medication administered at discharge. hb Intake: 07:27 IV: 10ml; Total: 10ml. hb Outcome: 07:03 Discharge ordered by . jr8 07:29 Discharged to home ambulatory. hb 07:29 Condition: stable 07:29 Discharge instructions given to patient, Instructed on discharge instructions, follow up and referral plans. medication usage, Demonstrated understanding of instructions, follow-up care, medications, Prescriptions given X 2. 07:30 Patient left the ED. hb Addendum: 06/14/2019 08:27 Addendum: Culture Results: Positive urine culture. No further action required. Bacteria i w sensitive to prescribed antibiotic. Signatures: Dispatcher [employer] EDTX Edel Jacome ds1 Kell Miller RN RN iw Roszak, Josh, PA PA jr8 Shantelle Spain RN RN ak1 Brooke Cortes RN RN Nico Beard Candace cm6 Corrections: (The following items were deleted from the chart) 06/11 06:39 06:37 Missed attempt(s): 18 gauge in right antecubital area. cm6 cm6
[2019-06-11] MEDS ORDERED: MAGNESIUM OXIDE 400 MG TAB ONE (07:14)
[2019-06-11] MEDS ORDERED: KETOROLAC 30 MG/ML INJ ONE (07:14)
[2019-06-11] MEDS ORDERED: CEFTRIAXONE/SWI 1gm 1 GM/10 ML SYR ONE (07:15)
--- NOTE | 2019-06-11 07:51 | RAD REPORT ---
EXAM DESCRIPTION: [facility] Single View06/11/2019 7:15 am CLINICAL HISTORY: Chest pain COMPARISON: April 2019 FINDINGS: The lungs are hyperaerated The lungs appear clear of acute infiltrate. The heart is normal size IMPRESSION: No acute abnormalities displayed
[2019-06-11 07:58] LABS: Urine Blood TRACE (NEG); Urine Glucose NEGATIVE (NEG); Urine Protein NEGATIVE (NEG)
[2019-06-11 08:02] VITALS: O2SAT 99
[2019-06-12 00:48] VITALS: BP 132/82; TEMP 98.2
== END 2019-06-11 07:30 | disposition home or self-care (01) ==
LOC: ER 05:22
DX: N39.0 Urinary tract infection, site not specified (principal); I10 Essential (primary) hypertension; Z72.0 Tobacco use
CPT/HCPCS: 36415; 71045; 80048; 80076; 80307; 81003; 81015; 81025; 83690; 83735; 83880; 84484; 85025; 85610; 87077; 87086; 87088; 87186; 96374; 96375; 99285; J0696

== ENCOUNTER 2019-06-12 01:50 | Emergency (ER) | payer SELFPAY ==
[2019-06-12] MEDS ORDERED: dexAMETHasone 10 MG/ML VIAL ONE (02:28)
[2019-06-12] MEDS ORDERED: DIPHENHYDRAMINE 25 MG TAB/CAP ONE (02:29)
[2019-06-12] MEDS ORDERED: EPINEPHRINE/PF 1 MG/ML AMP ONE (02:31)
--- NOTE | 2019-06-12 03:04 | ER ---
Nurse's Notes [facility] Name: Jenni Irving Age: 39 yrs Sex: Female : 1980 Arrival Date: 06/12/2019 Time: 01:54 Bed 20 Private MD: Diagnosis: acute allergic urticaria Presentation: 06/12 02:00 Presenting complaint: Patient states: "I was awakened from sleep due to itchiness and cc3 hives all over my body" Patient said she had 2 glasses of alcohol last night. Transition of care: patient was not received from another setting of care. Onset: The symptoms/episode began/occurred acutely, suddenly, just prior to arrival. Anaphylaxis evaluation, the patient reports or I have noted the following symptoms which indicate a significant risk of anaphylaxis: hypotension lightheadedness. Onset of symptoms was June 12, 2019. Risk Assessment: Do you want to hurt yourself or someone else? Patient reports no desire to harm self or others. Initial Sepsis Screen: Does the patient meet any 2 criteria? HR > 90 bpm. Does the patient have a suspected source of infection? No. Patient's initial sepsis screen is negative. Care prior to arrival: None. 02:00 Method Of Arrival: Wheelchair cc3 02:00 Acuity: GILA 2 cc3 Triage Assessment: 01:57 General: Appears in no apparent distress. uncomfortable, Behavior is calm, cooperative, cc3 appropriate for age. 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 - Social history:: Smoking status: Patient uses tobacco products, smokes one-half pack cigarettes per day. - Ebola Screening: : No symptoms or risks identified at this time. - Family history:: not pertinent. - Hospitalizations: : No recent hospitalization is reported. Screenin:57 Abuse screen: Denies threats or abuse. Denies injuries from another. Nutritional cc3 screening: No deficits noted. Tuberculosis screening: No symptoms or risk factors identified. Fall Risk Ambulatory Aid- None/Bed Rest/Nurse Assist (0 pts). Gait- Normal/Bed Rest/Wheelchair (0 pts) Mental Status- Oriented to own ability (0 pts). Assessment: 01:57 Pain: Denies pain. Respiratory: Airway is patent Respiratory effort is even, unlabored, cc3 Respiratory pattern is regular, symmetrical, Breath sounds are clear bilaterally. 01:57 Derm: Rash noted that is urticaria, on head, neck, chest, abdomen, pelvis, right arm, cc3 left arm, left hand, right leg, right foot, left leg, left foot, back of head, back of neck, back of left arm, back of right arm, posterior chest, buttocks, right hand, back of left leg, back of right leg, left heel, right heel and back. 02:18 Reassessment: Patient appears in no apparent distress at this time. Patient and/or cc3 family updated on plan of care and expected duration. Pain level reassessed. Patient is alert, oriented x 3, equal unlabored respirations, skin warm/dry/pink. 03:20 Reassessment: Patient appears in no apparent distress at this time. Patient and/or cc3 family updated on plan of care and expected duration. Pain level reassessed. Patient is alert, oriented x 3, equal unlabored respirations, skin warm/dry/pink. Patient's redness and hives subsided. Dr. Anthony discharged the patient home with prescriptions given. No IV cannula in situ. Patient left ER vitally stable and ambulatory with her significant other. No valuables left in the patient's room. Patient denies pain at this time. Patient states feeling better. Patient states symptoms have improved. Vital Signs: 02:00 BP 99 / 63; Pulse 107; Resp 20 S; Temp 97.8(O); Pulse Ox 98% on R/A; Weight 47.17 kg cc3 (R); Height 4 ft. 11 in. (149.86 cm) (R); 03:15 BP 103 / 67; Pulse 99; Resp 18 S; Pulse Ox 99% on R/A; Pain 0/10; cc3 02:00 Body Mass Index 21.01 (47.17 kg, 149.86 cm) 3 ED Course: 01:54 Patient arrived in ED. ag3 01:57 Scarlet Michelle is Primary Nurse. cc3 01:57 Patient has correct armband on for positive identification. Placed in gown. Bed in low cc3 position. Call light in reach. Side rails up X2. Pulse ox on. NIBP on. 01:57 Arm band placed on right wrist. cc3 01:59 Paul Anthony MD is Attending Physician. 02:46 Triage completed. cc3 03:20 No provider procedures requiring assistance completed. Patient did not have IV access cc3 during this emergency room visit. Administered Medications: 02:25 Drug: Benadryl 25 mg Route: PO; cc3 03:20 Follow up: Response: No adverse reaction; Marked relief of symptoms cc3 02:30 Drug: EPINEPHrine 1mg/mL 1:1,000 0.3 ml Route: Sub-Q; Site: left upper arm; cc3 03:20 Follow up: Response: No adverse reaction; Marked relief of symptoms cc3 02:38 Drug: Decadron 10 mg {Note: administered by FIONA Velasquez.} Route: IM; Site: right deltoid; cc3 03:20 Follow up: Response: No adverse reaction; Marked relief of symptoms cc3 Outcome: 03:02 Discharge ordered by . hank 03:20 Discharged to home ambulatory, with family. cc3 03:20 Condition: stable 03:20 Discharge instructions given to patient, Instructed on discharge instructions, follow up and referral plans. medication usage, Demonstrated understanding of instructions, follow-up care, medications, Prescriptions given X 2. 03:47 Patient left the ED. cc3 Signatures: Paul Anthony MD MD wa Cordel, Charlene cc3 Mary Carlisle ag3 Corrections: (The following items were deleted from the chart) 02:48 02:00 Presenting complaint: Patient states: "I was awakened from sleep due to itchiness cc3 and hives all over my body" cc3 04:51 01:57 Respiratory: Airway is patent Respiratory effort is even, unlabored, Respiratory cc3 pattern is regular, symmetrical, Breath sounds are clear bilaterally. cc3
--- NOTE | 2019-06-12 03:05 | EDPHYS ---
Physician Documentation [facility] Name: Jenni Irving Age: 39 yrs Sex: Female : 1980 Arrival Date: 06/12/2019 Time: 01:54 Bed 20 Private MD: ED Physician Paul Anthony HPI: 06/12 02:58 This 39 yrs old Female presents to ER via Wheelchair with complaints of Hives. wa 02:58 The patient's rash thought to be caused by medication. The rash is located on the body wa diffusely. The rash can be described as erythematous, urticarial. Onset: The symptoms/episode began/occurred today. Associated signs and symptoms: Pertinent positives: None. Pertinent negatives: burning sensation, difficulty breathing, fever, swelling of lips, swelling of throat, swelling of tongue, vomiting, wheezing. Severity of symptoms: At their worst the symptoms were moderate in the emergency department the symptoms are unchanged. Treatment given at home: none. The patient has not experienced similar symptoms in the past. The patient has been recently seen by a physician: this ER. 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 - Social history:: Smoking status: Patient uses tobacco products, smokes one-half pack cigarettes per day. - Ebola Screening: : No symptoms or risks identified at this time. - Family history:: not pertinent. - Hospitalizations: : No recent hospitalization is reported. ROS: 02:59 Constitutional: Negative for fever, chills, and weight loss, Eyes: Negative for injury, wa pain, redness, and discharge, ENT: Negative for injury, pain, and discharge, Neck: Negative for injury, pain, and swelling, Cardiovascular: Negative for chest pain, palpitations, and edema, Respiratory: Negative for shortness of breath, cough, wheezing, and pleuritic chest pain, Abdomen/GI: Negative for abdominal pain, nausea, vomiting, diarrhea, and constipation, Back: Negative for injury and pain, : Negative for injury, bleeding, discharge, and swelling, MS/Extremity: Negative for injury and deformity, Psych: Negative for depression, anxiety, suicide ideation, homicidal ideation, and hallucinations. 02:59 Skin: Positive for rash, diffusely. 02:59 All other systems are negative. Exam: 03:00 Constitutional: This is a well developed, well nourished patient who is awake, alert, wa and in no acute distress. Head/Face: Normocephalic, atraumatic. Eyes: Pupils equal round and reactive to light, extra-ocular motions intact. Lids and lashes normal. Conjunctiva and sclera are non-icteric and not injected. Cornea within normal limits. Periorbital areas with no swelling, redness, or edema. ENT: Nares patent. No nasal discharge, no septal abnormalities noted. Tympanic membranes are normal and external auditory canals are clear. Oropharynx with no redness, swelling, or masses, exudates, or evidence of obstruction, uvula midline. Mucous membranes moist. Neck: Trachea midline, no thyromegaly or masses palpated, and no cervical lymphadenopathy. Supple, full range of motion without nuchal rigidity, or vertebral point tenderness. No Meningismus. Chest/axilla: Normal chest wall appearance and motion. Nontender with no deformity. No lesions are appreciated. Cardiovascular: Regular rate and rhythm with a normal S1 and S2. No gallops, murmurs, or rubs. Normal PMI, no JVD. No pulse deficits. Respiratory: Lungs have equal breath sounds bilaterally, clear to auscultation and percussion. No rales, rhonchi or wheezes noted. No increased work of breathing, no retractions or nasal flaring. Abdomen/GI: Soft, non-tender, with normal bowel sounds. No distension or tympany. No guarding or rebound. No evidence of tenderness throughout. Back: No spinal tenderness. No costovertebral tenderness. Full range of motion. MS/ Extremity: Pulses equal, no cyanosis. Neurovascular intact. Full, normal range of motion. Neuro: Awake and alert, GCS 15, oriented to person, place, time, and situation. Cranial nerves II-XII grossly intact. Motor strength 5/5 in all extremities. Sensory grossly intact. Cerebellar exam normal. Normal gait. Psych: Awake, alert, with orientation to person, place and time. Behavior, mood, and affect are within normal limits. 03:00 Skin: rash can be described as urticarial, and is diffusely located. Vital Signs: 02:00 BP 99 / 63; Pulse 107; Resp 20 S; Temp 97.8(O); Pulse Ox 98% on R/A; Weight 47.17 kg cc3 (R); Height 4 ft. 11 in. (149.86 cm) (R); 03:15 BP 103 / 67; Pulse 99; Resp 18 S; Pulse Ox 99% on R/A; Pain 0/10; cc3 02:00 Body Mass Index 21.01 (47.17 kg, 149.86 cm) cc3 MDM: 01:59 Patient medically screened. id 03:00 Differential diagnosis: allergic reaction, see med orders. will reassess. id 03:04 Data reviewed: vital signs, nurses notes. id 03:04 Response to treatment: the patient's symptoms have markedly improved after treatment. id Administered Medications: 02:25 Drug: Benadryl 25 mg Route: PO; cc3 03:20 Follow up: Response: No adverse reaction; Marked relief of symptoms cc3 02:30 Drug: EPINEPHrine 1mg/mL 1:1,000 0.3 ml Route: Sub-Q; Site: left upper arm; cc3 03:20 Follow up: Response: No adverse reaction; Marked relief of symptoms cc3 02:38 Drug: Decadron 10 mg {Note: administered by FIONA Velasquez.} Route: IM; Site: right deltoid; cc3 03:20 Follow up: Response: No adverse reaction; Marked relief of symptoms cc3 Disposition: 06/12/19 03:02 Discharged to Home. Impression: acute allergic urticaria. - Condition is Stable. - Discharge Instructions: Rash, [id number]. - Prescriptions for Prednisone 20 mg Oral Tablet - take 2 tablets by ORAL route once daily for 4 days; 8 tablet. cetirizine 10 mg Oral tablet - take 1 tablet by ORAL route once daily; 10 tablet. - Medication Reconciliation Form, Thank You Letter, Antibiotic Education, Prescription Opioid Use form. - Follow up: Private Physician; When: 1 - 2 days; Reason: Recheck today's complaints. - Problem is new. - Symptoms have improved. - Notes: take medication as prescribed Signatures: Paul Anthony MD MD wa Cordel, Charlene cc3 Corrections: (The following items were deleted from the chart) 03:47 03:02 06/12/2019 03:02 Discharged to Home. Impression: acute allergic urticaria. cc3 Condition is Stable. Forms are Medication Reconciliation Form, Thank You Letter, Antibiotic Education, Prescription Opioid Use. Follow up: Private Physician; When: 1 - 2 days; Reason: Recheck today's complaints. Problem is new. Symptoms have improved. wa
[2019-06-12 10:29] VITALS: BP 99/63; TEMP 97.8; O2SAT 98
== END 2019-06-12 03:47 | disposition home or self-care (01) ==
LOC: ER 01:50
DX: L50.0 Allergic urticaria (principal); F17.210 Nicotine dependence, cigarettes, uncomplicated
CPT/HCPCS: 96372; 99283; J0171; J1100

== ENCOUNTER 2019-06-12 06:30 | Emergency (ER) | payer SELFPAY ==
[2019-06-12] MEDS ORDERED: DIPHENHYDRAMINE 50 MG/ML VIAL ONE (07:16)
[2019-06-12] MEDS ORDERED: METHYLPREDNISOLONE 125 MG INJ ONE (07:16)
[2019-06-12] MEDS ORDERED: FAMOTIDINE 20 MG/2 ML VIAL IV ONE (07:16)
[2019-06-12] MEDS ORDERED: LORazepam 2 MG/ML VIAL ONE (07:27)
--- NOTE | 2019-06-12 08:57 | EDPHYS ---
Physician Documentation [facility] Name: Jenni Irving Age: 39 yrs Sex: Female : 1980 Arrival Date: 06/12/2019 Time: 06:33 Bed 16 Private MD: ED Physician Paul Anthony HPI: 06/12 07:54 This 39 yrs old Female presents to ER via Ambulatory with complaints of Hives. jr8 07:54 Patient seen early this AM for hives and acute allergic reaction. Sent home after jr8 dissipation of rash. Came back again with recurrence of hives. Onset: The symptoms/episode began/occurred acutely, today. Severity of symptoms: At their worst the symptoms were moderate in the emergency department the symptoms are unchanged. The patient has not experienced similar symptoms in the past. The patient has been recently seen by a physician:. 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 - Social history:: Smoking status: Patient uses tobacco products, smokes one-half pack cigarettes per day. - Ebola Screening: : No symptoms or risks identified at this time. ROS: 07:54 Constitutional: Negative for fever, chills, and weight loss. jr8 07:54 Skin: Positive for rash. 07:54 All other systems are negative. Exam: 07:54 Eyes: Pupils equal round and reactive to light, extra-ocular motions intact. Lids and jr8 lashes normal. Conjunctiva and sclera are non-icteric and not injected. Cornea within normal limits. Periorbital areas with no swelling, redness, or edema. ENT: Nares patent. No nasal discharge, no septal abnormalities noted. Tympanic membranes are normal and external auditory canals are clear. Oropharynx with no redness, swelling, or masses, exudates, or evidence of obstruction, uvula midline. Mucous membranes moist. Neck: Trachea midline, no thyromegaly or masses palpated, and no cervical lymphadenopathy. Supple, full range of motion without nuchal rigidity, or vertebral point tenderness. No Meningismus. Cardiovascular: Regular rate and rhythm with a normal S1 and S2. No gallops, murmurs, or rubs. Normal PMI, no JVD. No pulse deficits. Respiratory: Lungs have equal breath sounds bilaterally, clear to auscultation and percussion. No rales, rhonchi or wheezes noted. No increased work of breathing, no retractions or nasal flaring. Abdomen/GI: Soft, non-tender, with normal bowel sounds. No distension or tympany. No guarding or rebound. No evidence of tenderness throughout. Back: No spinal tenderness. No costovertebral tenderness. Full range of motion. MS/ Extremity: Pulses equal, no cyanosis. Neurovascular intact. Full, normal range of motion. Neuro: Awake and alert, GCS 15, oriented to person, place, time, and situation. Cranial nerves II-XII grossly intact. Motor strength 5/5 in all extremities. Sensory grossly intact. Cerebellar exam normal. Normal gait. 07:54 Skin: diffuse urticarial rash noted to arms, chest, abdomen and neck . Vital Signs: 06:52 BP 123 / 77; Pulse 111; Resp 20 S; Temp 98.7(O); Pulse Ox 97% on R/A; Weight 47.17 kg cc3 (R); Height 4 ft. 11 in. (149.86 cm) (R); Pain 0/10; 07:30 BP 133 / 88; Pulse 114; Resp 24; Pulse Ox 97% ; bp 08:26 BP 128 / 89; Pulse 108; Resp 16; Pulse Ox 100% ; bp 09:20 BP 124 / 78; Pulse 100; Resp 15; Temp 98.5; Pulse Ox 98% ; bp 06:52 Body Mass Index 21.01 (47.17 kg, 149.86 cm) cc3 MDM: 07:05 Patient medically screened. jr8 08:49 Data reviewed: vital signs, nurses notes, and as a result, I will discharge patient. jr8 Data interpreted: Pulse oximetry: on room air is 100 %. Interpretation: normal. Counseling: I had a detailed discussion with the patient and/or guardian regarding: the historical points, exam findings, and any diagnostic results supporting the discharge/admit diagnosis, the need for outpatient follow up, a family practitioner, to return to the emergency department if symptoms worsen or persist or if there are any questions or concerns that arise at home. Response to treatment: the patient's symptoms have resolved after treatment. 06/12 07:06 Order name: IV; Complete Time: 07:20 8 Administered Medications: 07:15 Drug: SOLU-Medrol 125 mg Route: IVP; Site: left forearm; bp 07:37 Follow up: Response: Marked relief of symptoms bp 07:15 Drug: Benadryl 25 mg Route: IVP; Site: left forearm; bp 07:37 Follow up: Response: Marked relief of symptoms bp 07:15 Drug: Pepcid 20 mg Route: IVP; Site: left forearm; bp 07:37 Follow up: Response: Marked relief of symptoms bp 07:30 Drug: Ativan 1 mg Route: IVP; Site: left forearm; bp 08:28 Follow up: Response: No adverse reaction; Marked relief of symptoms bp Disposition: 06/12/19 08:56 Discharged to Home. Impression: Acute allergic reaction . - Condition is Stable. - Discharge Instructions: Anaphylactic Reaction, Adult. - Prescriptions for Prednisone 20 mg Oral Tablet - take 3 tablet by ORAL route once daily for 5 days; 15 tablet. - Medication Reconciliation Form, Thank You Letter, Antibiotic Education, Prescription Opioid Use form. - Follow up: Private Physician; When: 1 - 2 days; Reason: Recheck today's complaints, Continuance of care, Re-evaluation by your physician. - Problem is new. - Symptoms have improved. Addendum: 06/17/2019 21:37 Co-signature as Attending Physician, Paul Anthony MD I agree with the assessment and w a plan of care. Signatures: Warren Chavez PA PA jr8 Paul Anthony MD MD tx Tenzin Parker, RN RN bp Scarlet Michelle cc3 Corrections: (The following items were deleted from the chart) 06/12 09:22 08:56 06/12/2019 08:56 Discharged to Home. Impression: Acute allergic reaction . bp Condition is Stable. Forms are Medication Reconciliation Form, Thank You Letter, Antibiotic Education, Prescription Opioid Use. Follow up: Private Physician; When: 1 - 2 days; Reason: Recheck today's complaints, Continuance of care, Re-evaluation by your physician. Problem is new. Symptoms have improved. jr8
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
[2019-06-12 11:13] VITALS: BP 124/78; TEMP 98.5; O2SAT 98
== END 2019-06-12 09:22 | disposition home or self-care (01) ==
LOC: ER 06:30
DX: L50.0 Allergic urticaria (principal)
CPT/HCPCS: 96374; 96375; 99284; J1200; J2930

== ENCOUNTER 2019-08-06 03:49 | Emergency (ER) | payer SELFPAY ==
--- NOTE | 2019-08-06 04:35 | ER ---
Nurse's Notes [facility] Name: Jenni Irving Age: 39 yrs Sex: Female : 1980 Arrival Date: 08/06/2019 Time: 03:53 Bed Waiting Private MD: Diagnosis: ED Course: 08/06 03:53 Patient arrived in ED. ag3 04:00 Patient's name was called from ER lobby. No response. jb4 04:04 Adolfo Tamez, RN is Primary Nurse. jb4 04:06 Dale Sotelo MD is Attending Physician. barbara 04:19 Patient's name was called from ER lobby. No response. jb4 04:34 Patient's name was called from ER lobby. Unable to locate patient. Will disposition as jb4 left without being seen by a provider. Administered Medications: No medications were administered Outcome: 04:34 Patient left the ED. jb4 Signatures: Dale Sotelo MD MD cha Bryson, James, RN RN jb4 Mary Carlisle 3
== END 2019-08-06 04:34 | disposition left against medical advice (07) ==
LOC: ER 03:49
DX: Z53.21 Procedure and treatment not carried out due to patient leaving prior to being seen by health care provider (principal)

== ENCOUNTER 2019-08-06 08:50 | Emergency (ER) | payer SELFPAY ==
--- NOTE | 2019-08-06 09:34 | ER ---
Nurse's Notes [facility] Name: Jenni Irving Age: 39 yrs Sex: Female : 1980 Arrival Date: 08/06/2019 Time: 08:52 Bed 7 Private MD: Diagnosis: Presentation: 08/06 09:10 Presenting complaint: Patient states: Rash from legs to arms, x 3 months, uses meth, jl7 last time was 2 days ago. Transition of care: patient was not received from another setting of care. Onset of symptoms is unknown. Risk Assessment: Do you want to hurt yourself or someone else? Patient reports no desire to harm self or others. Initial Sepsis Screen: Does the patient meet any 2 criteria? No. Patient's initial sepsis screen is negative. Does the patient have a suspected source of infection? No. Patient's initial sepsis screen is negative. Care prior to arrival: None. 09:10 Method Of Arrival: Ambulatory jl7 09:10 Acuity: GILA 4 jl7 Triage Assessment: 09:10 General: Appears in no apparent distress. uncomfortable, Behavior is calm, cooperative, jl7 appropriate for age. Pain: Denies pain. Neuro: Level of Consciousness is awake, alert, obeys commands. Cardiovascular: Patient's skin is warm and dry. Respiratory: Airway is patent Respiratory effort is even, unlabored, Respiratory pattern is regular, symmetrical. Derm: Rash noted that is raised, urticaria, on right arm, left arm, right leg and left leg. 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 - Coronavirus screen:: The patient has NOT traveled to [place], [place], or [place] in the past 14 days. - Social history:: Smoking status: Patient uses street drugs, Methamphetamine (Meth) Smoking status: Patient reports the use of cigarette tobacco products, smokes one-half pack cigarettes per day. - Family history:: not pertinent. - Ebola Screening: : Patient denies travel to an Ebola-affected area in the 21 days before illness onset. - Hospitalizations: : No recent hospitalization is reported. Screenin:05 Abuse screen: Denies threats or abuse. Nutritional screening: No deficits noted. tw2 Tuberculosis screening: No symptoms or risk factors identified. Fall Risk None identified. Assessment: 09:14 General: see triage assessment. jl7 09:20 Reassessment: pt came to nurses station states "i need to go my is in the car tw2 do you know how much longer", explained to pt that doctor was in with another pt and then he would be discharging her per their conversation. pt went to restroom at this time. 09:33 Reassessment: pt left ER at this time, prior to discharge. tw2 Vital Signs: 09:10 BP 140 / 100; Pulse 98; Resp 20 S; Temp 98.3(O); Pulse Ox 100% on R/A; Weight 47.17 kg; jl7 Height 5 ft. 1 in. (154.94 cm); Pain 0/10; 09:10 Body Mass Index 19.65 (47.17 kg, 154.94 cm) jl7 ED Course: 08:52 Patient arrived in ED. rg4 09:00 Cory Priteo MD is Attending Physician. rn 09:02 Glenn Chambers, FIONA is Primary Nurse. jl7 09:02 Bed in low position. Call light in reach. tw2 09:06 Arm band placed on. tw2 09:11 Triage completed. jl7 Administered Medications: No medications were administered Outcome: 09:32 Discharge ordered by . rn 09:33 Eloped from patient exam room, after seeing physician Time discovered patient gone: tw2 August 06, 2019 at 09:34 09:34 Patient left the ED. tw2 Signatures: Cory Prieto MD MD rn Calderon, Audri, RN RN aa5 Jesenia Gould RN RN tw2 Charlee Wilkes rg4 Glenn Chambers RN RN jl7 Corrections: (The following items were deleted from the chart) 10:00 09:59 Patient left the ED. aa5 padmini
--- NOTE | 2019-08-06 09:35 | EDPHYS ---
Physician Documentation [facility] Name: Jenni Irving Age: 39 yrs Sex: Female : 1980 Arrival Date: 08/06/2019 Time: 08:52 Bed 7 Private MD: ED Physician Cory Prieto HPI: 08/06 09:26 This 39 yrs old Female presents to ER via Ambulatory with complaints of Rash. rn 09:26 The patient's rash thought to be caused by an unknown cause. The rash is located on the rn body diffusely. The rash can be described as papular. Onset: The symptoms/episode began/occurred 3 month(s) ago. Severity of symptoms: At their worst the symptoms were mild in the emergency department the symptoms are unchanged. The patient has experienced similar episodes in the past. The patient has not recently seen a physician. Reports rash to lower extremities, for 3 months, + meth user, has been treated multiple times for allergic reaction without success. Reports itches more when uses meth. No drainage or fever. + itching is predominate symptom. . 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 - Coronavirus screen:: The patient has NOT traveled to [place], [place], or [place] in the past 14 days. - Social history:: Smoking status: Patient uses street drugs, Methamphetamine (Meth) Smoking status: Patient reports the use of cigarette tobacco products, smokes one-half pack cigarettes per day. - Family history:: not pertinent. - Ebola Screening: : Patient denies travel to an Ebola-affected area in the 21 days before illness onset. - Hospitalizations: : No recent hospitalization is reported. ROS: 09:26 Constitutional: Negative for fever, chills, and weight loss, Eyes: Negative for injury, rn pain, redness, and discharge, Neck: Negative for injury, pain, and swelling, Cardiovascular: Negative for chest pain, palpitations, and edema, Respiratory: Negative for shortness of breath, cough, wheezing, and pleuritic chest pain, Abdomen/GI: Negative for abdominal pain, nausea, vomiting, diarrhea, and constipation, MS/Extremity: Negative for injury and deformity, Skin: + papular rash and itching to lower extremities Neuro: Negative for headache, weakness, numbness, tingling, and seizure. Exam: 09:26 Constitutional: Thin female, disheveled, psychomotor agitation Head/Face: rn Normocephalic, atraumatic. ENT: MMM, no oral lesions Skin: Warm, dry, + fine papular rash to lower extremities, no bullae, no fluctuance, no erythema or warmth. MS/ Extremity: Pulses equal, no cyanosis. Neurovascular intact. Full, normal range of motion. Equal circumference. Neuro: Awake and alert, GCS 15, oriented to person, place, time, and situation. Cranial nerves II-XII grossly intact. Motor strength 5/5 in all extremities. Sensory grossly intact. Cerebellar exam normal. Normal gait. Vital Signs: 09:10 BP 140 / 100; Pulse 98; Resp 20 S; Temp 98.3(O); Pulse Ox 100% on R/A; Weight 47.17 kg; jl7 Height 5 ft. 1 in. (154.94 cm); Pain 0/10; 09:10 Body Mass Index 19.65 (47.17 kg, 154.94 cm) jl7 MDM: 09:00 Patient medically screened. rn 09:26 Differential diagnosis: rash, drug related rash, fungal infection. Data reviewed: vital rn signs, nurses notes, and as a result, I will discharge patient. Counseling: I had a detailed discussion with the patient and/or guardian regarding: the historical points, exam findings, and any diagnostic results supporting the discharge/admit diagnosis, the need for outpatient follow up, to return to the emergency department if symptoms worsen or persist or if there are any questions or concerns that arise at home. Special discussion: I discussed with the patient/guardian in detail that at this point there is no indication for admission to the hospital. It is understood, however, that if the symptoms persist or worsen the patient needs to return immediately for re-evaluation. ED course: Does not appear to be allergic, more drug/meth related, recommend anti-fungal for feet and to stop using meth. Patient states last use was 2 days ago and plans to quit. . Administered Medications: No medications were administered Disposition: 08/06/19 09:59 Patient left the facility after being seen by provider. - Patient left due to (see nurse's notes). Signatures: Cory Prieto MD MD rn Christa Dye RN RN aa5 Jesenia Gould RN RN tw2 Glenn Chambers, FIONA RN jl7 Corrections: (The following items were deleted from the chart) 09:34 09:32 08/06/2019 09:32 Discharged to Home. Impression: Rash and other nonspecific skin tw2 eruption; Methamphetamine abuse. Condition is Stable. Forms are Medication Reconciliation Form, Thank You Letter, Antibiotic Education, Prescription Opioid Use. Follow up: Private Physician; When: As needed; Reason: Recheck today's complaints, Re-evaluation by your physician. Problem is an ongoing problem. Symptoms are unchanged. rn 09:58 09:34 08/06/2019 09:32 Discharged to Home. Impression: Rash and other nonspecific skin aa5 eruption; Methamphetamine abuse. Condition is Stable. Discharge Instructions: Rash, What You Need To Know About Illegal Drug Use and Dependence, Youth. Forms are Medication Reconciliation Form, Thank You Letter, Antibiotic Education, Prescription Opioid Use. Follow up: Private Physician; When: As needed; Reason: Recheck today's complaints, Re-evaluation by your physician. Problem is an ongoing problem. Symptoms are unchanged. tw2
[2019-08-06 12:02] VITALS: BP 140/100; O2SAT 100
[2019-08-06 12:07] VITALS: TEMP 98.6
== END 2019-08-06 09:59 | disposition left against medical advice (07) ==
LOC: ER 08:50
DX: R21 Rash and other nonspecific skin eruption (principal); Z53.29 Procedure and treatment not carried out because of patient's decision for other reasons
CPT/HCPCS: 99281

== ENCOUNTER 2019-12-03 15:35 | Emergency (ER) | payer SELFPAY ==
[2019-12-03 16:55] LABS: Absolute Lymphocytes (CBC) 1.1 K/uL (0.7-4.9); Basophils % 0.6 % (0-1.3); Hematocrit 32.3 % (36.0-45.0); Lymphocytes % 19.1 % (15.3-44.8); MPV 10.8 fL (7.6-11.3); RBC Red Blood Cell Count 3.24 M/uL (3.86-4.86)
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
[2019-12-03 17:19] LABS: BUN Blood Urea Nitrogen 6 mg/dL (7-18); Bicarbonate 26 mmol/L (21-32); Glucose Level 92 mg/dL (74-106); Sodium Level 133 mmol/L (136-145)
[2019-12-03 17:40] LABS: Urine Blood NEGATIVE (NEG); Urine Glucose NEGATIVE (NEG); Urine Protein NEGATIVE (NEG); Urine Specific Gravity <1.005 (1.005-1.030); Urine pH 5.5 (5.0-7.0)
[2019-12-03] MEDS ORDERED: POTASSIUM 25 MEQ EFFERV TAB ONE (18:12)
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
[2019-12-03 19:10] VITALS: TEMP 98.3; O2SAT 100
[2019-12-03 19:23] VITALS: BP 118/86
== END 2019-12-03 19:00 | disposition home or self-care (01) ==
LOC: ER 15:35
DX: S01.21XA Laceration without foreign body of nose, initial encounter (principal); S02.2XXA Fracture of nasal bones, initial encounter for closed fracture; X99.1XXA Assault by knife, initial encounter; Y93.9 Activity, unspecified; Y92.9 Unspecified place or not applicable; F17.210 Nicotine dependence, cigarettes, uncomplicated; I10 Essential (primary) hypertension
CPT/HCPCS: 36415; 70450; 70486; 71045; 72125; 76377; 80048; 81003; 81025; 85025; 85610; 85730; 86850; 86900; 86901; 99284

== ENCOUNTER 2020-04-29 23:45 | Emergency (ER) | payer SELFPAY ==
[2020-04-30] MEDS ORDERED: LORazepam 2 MG/ML VIAL ONE (00:25)
[2020-04-30 00:38] LABS: Absolute Lymphocytes (CBC) 2.1 K/uL (0.7-4.9); Basophils % 0.6 % (0-1.3); Hematocrit 39.6 % (36.0-45.0); Lymphocytes % 21.5 % (15.3-44.8); MPV 10.3 fL (7.6-11.3); RBC Red Blood Cell Count 4.23 M/uL (3.86-4.86)
[2020-04-30 00:52] LABS: ALT/SGPT 16 U/L (12-78); AST/SGOT 17 U/L (15-37); Albumin 3.8 g/dL (3.4-5.0); Alkaline Phosphatase 98 U/L (45-117); BUN Blood Urea Nitrogen 8 mg/dL (7-18); Bicarbonate 18 mmol/L (21-32); Bilirubin Direct 0.1 mg/dL (0-0.2); Bilirubin Total 0.4 mg/dL (0.2-1.0); Glucose Level 99 mg/dL (74-106); Magnesium 1.4 mg/dL (1.8-2.4); NT PRO-BNP 107 pg/mL (<125); Protein, Total 7.9 g/dL (6.4-8.2); Sodium Level 138 mmol/L (136-145); Troponin (Emerg Dept Use Only) < 0.02 ng/mL (0.0-0.045)
[2020-04-30 00:54] LABS: Potassium 2.7 mmol/L (3.5-5.1)
[2020-04-30 01:03] LABS: Blood Morphology Comment NOT SEEN (NOT SEEN); Platelet Estimate ADEQ; White Blood Cell Scan OK (OK)
[2020-04-30] MEDS ORDERED: POTASSIUM CL SA 10 MEQ TAB PO ONE (01:16)
[2020-04-30] MEDS ORDERED: MAGNESIUM SULFATE 1 gm IVPB 1 GM/100 ML BAG IV ONE (01:17)
--- NOTE | 2020-04-30 01:42 | ER ---
Nurse's Notes [facility] Name: Jenni Irving Age: 40 yrs Sex: Female : 1980 Arrival Date: 04/30/2020 Time: 00:05 Bed 25 Private MD: Diagnosis: Anxiety disorder, unspecified;Hypokalemia Presentation: 04/30 00:13 Chief complaint: EMS states: patient complaining of shortness of breath, chest pain fu more on lower left breast area that started today around 30 min ago. Coronavirus screen: Client denies travel out of the [place] in the last 14 days. Ebola Screen: No symptoms or risks identified at this time. Initial Sepsis Screen: Does the patient meet any 2 criteria? No. Patient's initial sepsis screen is negative. Does the patient have a suspected source of infection? No. Patient's initial sepsis screen is negative. Risk Assessment: Do you want to hurt yourself or someone else? Patient reports no desire to harm self or others. Onset of symptoms was April 29, 2020. 00:13 Method Of Arrival: EMS: [facility] fu 00:13 Acuity: GILA 3 fu Triage Assessment: 00:10 General: Appears uncomfortable, Behavior is cooperative, appropriate for age. Pain: fu Complains of pain in chest pain Pain radiates to abdomen Pain currently is 10 out of 10 on a pain scale. Quality of pain is described as sharp, Pain began 30 min ago. Historical: - Allergies: 00:20 No Known Allergies; fu - Home Meds: 00:20 Seroquel 100 mg Oral tab 1 tab at night [Active]; fu - PMHx: 00:20 Hypertension; meth abuse; etoh abuse; Asthma; Anxiety; fu - PSHx: 00:20 ; fu - Immunization history:: Adult Immunizations not up to date. - Social history:: Smoking status: Patient reports the use of cigarette tobacco products, smokes one pack cigarettes per day. Screenin:36 Abuse screen: Denies threats or abuse. Nutritional screening: No deficits noted. fu Tuberculosis screening: No symptoms or risk factors identified. Fall Risk None identified. Assessment: 00:10 General: Appears uncomfortable, Behavior is cooperative, appropriate for age, Denies fu fever, feeling ill, fatigue, chills. Pain: Complains of pain in chest pain Pain radiates to stomach Pain currently is 10 out of 10 on a pain scale. Quality of pain is described as sharp, Pain began 30 min ago. 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 Gait is unsteady, Speech is normal, Facial symmetry appears normal. Cardiovascular: Reports chest pain, nausea. Respiratory: Reports shortness of breath. GI: Reports upper abdominal pain, nausea, Patient currently denies diarrhea. : No signs and/or symptoms were reported regarding the genitourinary system. 01:00 Reassessment: Patient and/or family updated on plan of care and expected duration. Pain fu level reassessed. Patient is alert, oriented x 3, equal unlabored respirations, skin warm/dry/pink. patient asleep in bed Patient states feeling better. 01:27 Reassessment: Repeat EKG done, shown to Dr. Prieto. fu Vital Signs: 00:13 BP 143 / 76; Pulse 96; Resp 24; Temp 97.1(T); Pulse Ox 100% on R/A; Weight 55.79 kg fu (R); Height 5 ft. 0 in. (152.40 cm) (R); Pain 10/10; 00:20 BP 143 / 76; Pulse 96; Resp 24; Temp 97.1; Pulse Ox 100% on R/A; Pain 10/10; fu 00:30 BP 126 / 65; Pulse 86; Resp 23; Pulse Ox 100% on R/A; fu 01:30 BP 136 / 83; Pulse 80; Resp 15; Pulse Ox 100% on R/A; Pain 0/10; fu 00:13 Body Mass Index 24.02 (55.79 kg, 152.40 cm) fu ED Course: 00:05 Patient arrived in ED. ea 00:05 Deng Nunez PA is PHCP. jmm 00:05 Cory Prieto MD is Attending Physician. jmm 00:08 Ron Lim, FIONA is Primary Nurse. fu 00:18 Triage completed. fu 00:25 Missed attempt(s): 18 gauge in right wrist. Bleeding controlled, band aid applied, ds4 catheter tip intact. 00:28 Urine Drug Screen Sent. ds4 00:28 Inserted saline lock: 22 gauge in left forearm, using aseptic technique. Blood ds4 collected. 00:36 Patient has correct armband on for positive identification. Placed in gown. Bed in low fu position. Call light in reach. Side rails up X2. night monitor on. Pulse ox on. NIBP on. 00:40 XRAY Chest (1 view) In Process Unspecified. EDMS 02:00 No provider procedures requiring assistance completed. fu 02:10 IV discontinued, bleeding controlled, Pressure dressing applied. Patient maintains SpO2 fu saturation greater than 95% on room air. Administered Medications: 00:27 Drug: Ativan 1 mg Route: IVP; Site: left wrist; fu 01:09 Follow up: Response: Anxiety decreased fu 01:08 Drug: Magnesium Sulfate 1 grams Route: IVPB; Infused Over: 1 hrs; Site: left forearm; fu 02:10 Follow up: Response: No adverse reaction fu 01:09 Drug: Potassium Chloride 40 mEq Route: PO; fu 01:27 Follow up: Response: No adverse reaction fu Outcome: 01:41 Discharge ordered by . rn 02:17 Discharged to home ambulatory. fu 02:17 Condition: stable 02:17 Discharge instructions given to patient, Instructed on discharge instructions, Demonstrated understanding of instructions, follow-up care. 02:18 Patient left the ED. fu Signatures: Dispatcher [employer] EDMS Deng Nunez PA PA jmm Nieto, Roman, MD MD rn Swanson, Donovan ds4 Twila Sanches RN RN ea Umadhay, Felix, RN RN fu Corrections: (The following items were deleted from the chart) 02:18 02:18 EKG completed in triage. Results shown to MD. fu fu
--- NOTE | 2020-04-30 01:42 | EDPHYS ---
Physician Documentation [facility] Name: Jenni Irvign Age: 40 yrs Sex: Female : 1980 Arrival Date: 04/30/2020 Time: 00:05 Bed 25 Private MD: ED Physician Cory Prieto HPI: 04/30 00:24 This 40 yrs old Female presents to ER via EMS with complaints of Chest Pain. m 00:24 The patient has shortness of breath at rest. Onset: The symptoms/episode began/occurred jmm just prior to arrival. Duration: The symptoms are continuous, and are unchanged since they started. The patient's shortness of breath is aggravated by nothing, is alleviated by nothing. Associated signs and symptoms: Pertinent negatives: fever. This is a 40 year old female with a history of htn, etoh abuse, asthma, that presents to the ED with complaints of left sided chest pain and shortness of breath. Patient states having similar episodes with anxiety/panic attacks. . Historical: - Allergies: 00:20 No Known Allergies; fu - Home Meds: 00:20 Seroquel 100 mg Oral tab 1 tab at night [Active]; fu - PMHx: 00:20 Hypertension; meth abuse; etoh abuse; Asthma; Anxiety; fu - PSHx: 00:20 ; fu - Immunization history:: Adult Immunizations not up to date. - Social history:: Smoking status: Patient reports the use of cigarette tobacco products, smokes one pack cigarettes per day. ROS: 00:24 Constitutional: Negative for fever, chills, and weight loss. jmm 00:24 Cardiovascular: Positive for chest pain. 00:24 Respiratory: Positive for shortness of breath. 00:24 All other systems are negative. Exam: 00:24 Constitutional: This is a well developed, well nourished patient who is awake, alert, jmm and in no acute distress. Head/Face: atraumatic. Eyes: EOMI, no conjunctival erythema appreciated ENT: Moist Mucus Membranes Neck: Trachea midline, Supple Chest/axilla: Normal chest wall appearance and motion. Cardiovascular: Regular rate and rhythm. No edema appreciated Respiratory: Normal respirations, no respiratory distress appreciated Abdomen/GI: Non distended, soft Back: Normal ROM Skin: General appearance color normal MS/ Extremity: Moves all extremities, no obvious deformities appreciated, no edema noted to the lower extremities Neuro: Awake and alert, normal gait Psych: Behavior is normal, Mood is normal, Patient is cooperative and pleasant 00:24 ECG was reviewed by the Attending Physician. Vital Signs: 00:13 BP 143 / 76; Pulse 96; Resp 24; Temp 97.1(T); Pulse Ox 100% on R/A; Weight 55.79 kg fu (R); Height 5 ft. 0 in. (152.40 cm) (R); Pain 10/10; 00:20 BP 143 / 76; Pulse 96; Resp 24; Temp 97.1; Pulse Ox 100% on R/A; Pain 10/10; fu 00:30 BP 126 / 65; Pulse 86; Resp 23; Pulse Ox 100% on R/A; fu 01:30 BP 136 / 83; Pulse 80; Resp 15; Pulse Ox 100% on R/A; Pain 0/10; fu 00:13 Body Mass Index 24.02 (55.79 kg, 152.40 cm) fu MDM: 00:05 Patient medically screened. [facility] 00:51 Data reviewed: vital signs, nurses notes. Counseling: I had a detailed discussion with cortney the patient and/or guardian regarding: the historical points, exam findings, and any diagnostic results supporting the discharge/admit diagnosis, lab results. Transition of care: After a detail discussion of the patient's case, care is transferred to Cory Preito MD. 01:39 Differential diagnosis: acute myocardial infarction, acute pericarditis, anxiety, chest rn wall pain, costochondritis, gastroesophageal reflux disease (GERD), pleurisy, pneumothorax, pulmonary embolus. Special discussion: Based on the patient's history, exam, and Dx evaluation, there is no indication for emergent intervention or inpatient Tx. It is understood by the patient/guardian that if the Sx's persist or worsen they need to return immediately for re-evaluation. I discussed with the patient/guardian in detail that at this point there is no indication for admission to the hospital. It is understood, however, that if the symptoms persist or worsen the patient needs to return immediately for re-evaluation. 01:39 ED course: Pt improved, trop neg, d-dimer neg, cxr no acute findings. Pt reports feels rn similar to previous panic attacks/anxiety. better after ativan. stable vitals. Will dc home. . 04/30 00:06 Order name: Basic Metabolic Panel; Complete Time: 00:54 jm 04/30 00:06 Order name: CBC with Diff; Complete Time: 01:13 [facility] 04/30 00:06 Order name: LFT's; Complete Time: 00:54 jm 04/30 00:06 Order name: Magnesium; Complete Time: 00:54 [facility] 04/30 00:06 Order name: NT PRO-BNP; Complete Time: 00:54 [facility] 04/30 00:06 Order name: PT-INR; Complete Time: 00:51 [facility] 04/30 00:06 Order name: Troponin (emerg Dept Use Only); Complete Time: 00:54 [facility] 04/30 00:06 Order name: XRAY Chest (1 view) [facility] 04/30 00:06 Order name: D-Dimer; Complete Time: 00:51 jm 04/30 00:08 Order name: Urine Drug Screen [facility] 04/30 00:41 Order name: CBC Smear Scan; Complete Time: 01:13 [facility] 04/30 00:06 Order name: EKG; Complete Time: 00:07 [facility] 04/30 00:06 Order name: Cardiac monitoring; Complete Time: 00:27 [facility] 04/30 00:06 Order name: EKG - Nurse/Tech; Complete Time: 00:27 [facility] 04/30 00:06 Order name: IV Saline Lock; Complete Time: 00:27 jm 04/30 00:06 Order name: Labs collected and sent; Complete Time: 00:28 [facility] 04/30 00:06 Order name: O2 Per Protocol; Complete Time: 00: [facility] 04/30 00:06 Order name: O2 Sat Monitoring; Complete Time: 00:28 jm EC:24 Rate is 93 beats/min. Rhythm is regular. QRS [place] is Normal. [place] interval is shortened jm at 106 msec. QRS interval is normal. QT interval is normal. No Q waves. T waves are Normal. No ST changes noted. Reviewed by me. Administered Medications: 00:27 Drug: Ativan 1 mg Route: IVP; Site: left wrist; fu 01:09 Follow up: Response: Anxiety decreased fu 01:08 Drug: Magnesium Sulfate 1 grams Route: IVPB; Infused Over: 1 hrs; Site: left forearm; fu 02:10 Follow up: Response: No adverse reaction fu 01:09 Drug: Potassium Chloride 40 mEq Route: PO; fu 01:27 Follow up: Response: No adverse reaction fu Disposition: 02:20 Co-signature as Attending Physician, Cory Prieto MD. rn Disposition: 04/30/20 01:41 Discharged to Home. Impression: Anxiety disorder, unspecified, Hypokalemia. - Condition is Stable. - Discharge Instructions: Panic Attacks, Potassium Content of Foods, Hypokalemia, Nonspecific Chest Pain. - Medication Reconciliation Form, Thank You Letter, Antibiotic Education, Prescription Opioid Use form. - Follow up: Private Physician; When: 2 - 3 days; Reason: Recheck today's complaints, Continuance of care, Re-evaluation by your physician. Signatures: Dispatcher [employer] EDMS Deng Nunez, Cory Romano MD MD rn Umadhay, Felix, RN RN fu Corrections: (The following items were deleted from the chart) 02:18 01:41 04/30/2020 01:41 Discharged to Home. Impression: Anxiety disorder, unspecified; fu Hypokalemia. Condition is Stable. Discharge Instructions: Panic Attacks, Potassium Content of Foods, Hypokalemia. Forms are Medication Reconciliation Form, Thank You Letter, Antibiotic Education, Prescription Opioid Use. Follow up: Private Physician; When: 2 - 3 days; Reason: Recheck today's complaints, Continuance of care, Re-evaluation by your physician. rn
[2020-04-30 02:22] LABS: Barbiturates NEGATIVE (NEGATIVE); Benzodiazepines NEGATIVE (NEGATIVE); Cocaine NEGATIVE (NEGATIVE); METHAMPHETAM NEGATIVE (NEGATIVE); Methadone NEGATIVE (NEGATIVE); Opiates NEGATIVE (NEGATIVE); Phencyclidine NEGATIVE (NEGATIVE); THC Cannibis NEGATIVE (NEGATIVE)
[2020-04-30 02:31] VITALS: TEMP 97.1; O2SAT 100
[2020-04-30 02:48] VITALS: BP 136/83
--- NOTE | 2020-04-30 08:44 | RAD REPORT ---
EXAM DESCRIPTION: RAD - Chest Single View - 04/30/2020 12:40 am CLINICAL HISTORY: chest pain, sob COMPARISON: December 03, 2019 TECHNIQUE: AP portable chest image was obtained 04/30/2020 12:40 am . FINDINGS: Lungs are clear. Heart and vasculature are normal. No measurable pleural effusion and no p neumothorax. No acute bony abnormality seen. No acute aortic findings suspected. IMPRESSION: No acute cardiopulmonary process. No significant interval change.
--- NOTE | 2020-04-30 10:42 | EKG ---
Test Date: 2020-04-30 Test Time: 00:12:40 Pest Control Applicator: MARIO MEASUREMENT RESULTS: Intervals: Rate: 93 MN: 106 QRSD: 88 QT: 384 QTc: 477 [place]: P: 65 MN: 106 QRS: 70 T: 50 INTERPRETIVE STATEMENTS: Sinus rhythm with short MN Otherwise normal ECG Compared to ECG 06/11/2019 05:38:28 Short MN interval now present Electronically Signed On 04-30-20 10:42:13 CDT by Ervin Goldberg
--- NOTE | 2020-04-30 10:42 | EKG ---
Test Date: 2020-04-30 Test Time: 01:26:23 Sales Intern: REJI MEASUREMENT RESULTS: Intervals: Rate: 80 ND: 112 QRSD: 84 QT: 404 QTc: 465 [place]: P: 31 ND: 112 QRS: 53 T: 37 INTERPRETIVE STATEMENTS: Normal sinus rhythm Normal ECG Compared to ECG 04/30/2020 00:12:40 Short [place] interval no longer present Electronically Signed On 04-30-20 10:42:11 CDT by Ervin Goldberg
== END 2020-04-30 02:18 | disposition home or self-care (01) ==
LOC: ER 23:45
DX: F41.9 Anxiety disorder, unspecified (principal); E87.6 Hypokalemia; I10 Essential (primary) hypertension; F17.210 Nicotine dependence, cigarettes, uncomplicated
CPT/HCPCS: 36415; 71045; 80048; 80076; 80307; 83735; 83880; 84484; 85025; 85379; 85610; 93005; 99285; J3475

== ENCOUNTER 2020-05-04 12:24 | Emergency (ER) | payer SELFPAY ==
[2020-05-04 13:51] LABS: Absolute Lymphocytes (CBC) 1.5 K/uL (0.7-4.9); Basophils % 0.6 % (0-1.3); Hematocrit 37.3 % (36.0-45.0); Lymphocytes % 18.2 % (15.3-44.8); MPV 9.5 fL (7.6-11.3); RBC Red Blood Cell Count 3.95 M/uL (3.86-4.86)
[2020-05-04 14:13] LABS: BUN Blood Urea Nitrogen 10 mg/dL (7-18); Bicarbonate 23 mmol/L (21-32); Glucose Level 105 mg/dL (74-106); Potassium 3.3 mmol/L (3.5-5.1); Sodium Level 139 mmol/L (136-145); Troponin (Emerg Dept Use Only) < 0.02 ng/mL (0.0-0.045)
[2020-05-04] MEDS ORDERED: LORazepam 2 MG/ML VIAL ONE (14:30)
[2020-05-04] MEDS ORDERED: ONDANSETRON 4 MG/2 ML VIAL ONE (14:30)
[2020-05-04] MEDS ORDERED: POTASSIUM CL SA 10 MEQ TAB PO ONE (14:31)
--- NOTE | 2020-05-04 15:22 | ER ---
Nurse's Notes [facility] Name: Jenni Irving Age: 40 yrs Sex: Female : 1980 Arrival Date: 05/04/2020 Time: 12:26 Bed 20 Private MD: Diagnosis: Anxiety disorder, unspecified Presentation: 05/04 12:30 Chief complaint: Patient states: Lower chest pain for 2 days, worse today while at [address] States she was here 3 days ago for the same. Coronavirus screen: Client denies travel out of the [place] in the last 14 days. At this time, the client does not indicate any symptoms associated with coronavirus-19. Ebola Screen: Patient denies travel to an Ebola-affected area in the 21 days before illness onset. Initial Sepsis Screen: Does the patient meet any 2 criteria? HR > 90 bpm. No. Patient's initial sepsis screen is negative. Does the patient have a suspected source of infection? No. Patient's initial sepsis screen is negative. Risk Assessment: Do you want to hurt yourself or someone else? Patient reports no desire to harm self or others. Onset of symptoms was May 03, 2020. 12:30 Method Of Arrival: Wheelchair ll1 12:30 Acuity: GILA 3 ll1 Historical: - Allergies: 12:32 No Known Allergies; ll1 - PMHx: 12:32 Asthma; etoh abuse; Hypertension; meth abuse; Anxiety; ll1 - PSHx: 12:32 ; ll1 - Immunization history:: Flu vaccine is not up to date. - Social history:: Smoking status: Patient reports the use of cigarette tobacco products, smokes one-half pack cigarettes per day. Screenin:44 Abuse screen: Denies threats or abuse. Denies injuries from another. Nutritional ph screening: No deficits noted. Tuberculosis screening: No symptoms or risk factors identified. Fall Risk None identified. Assessment: 14:00 General: Appears in no apparent distress. uncomfortable, slender, Behavior is ph cooperative, anxious. Pain: Complains of pain in chest Pain does not radiate. Quality of pain is described as sharp, Pain began suddenly. Neuro: Level of Consciousness is awake, alert, obeys commands, Oriented to person, place, time, situation. Cardiovascular: Reports chest pain, shortness of breath, Denies nausea, vomiting, Capillary refill < 3 seconds in bilateral fingers Patient's skin is warm and dry. Respiratory: Airway is patent Respiratory effort is even, unlabored, Respiratory pattern is tachypnea. GI: No signs and/or symptoms were reported involving the gastrointestinal system. Derm: Skin is intact, is healthy with good turgor, Skin is pink, warm \T\ dry. 15:01 Reassessment: Patient appears in no apparent distress at this time. Patient and/or ph family updated on plan of care and expected duration. Pain level reassessed. Patient is alert, oriented x 3, equal unlabored respirations, skin warm/dry/pink. Patient states feeling better. Patient states symptoms have improved. Vital Signs: 12:30 BP 154 / 80; Pulse 96; Resp 18; Temp 98.4; Pulse Ox 99% ; Weight 55.79 kg; Height 5 ft. ll1 0 in. (152.40 cm); Pain 10/10; 13:32 Pulse 107; Resp 26; Pulse Ox 100% ; aa5 15:01 BP 135 / 86; Pulse 101; Resp 18; Pulse Ox 100% on R/A; ph 12:30 Body Mass Index 24.02 (55.79 kg, 152.40 cm) ll1 13:32 Hands cramping now, hyperventilating. aa5 ED Course: 12:15 EKG done, by ED staff, reviewed by Cory Prieto MD. jp3 12:26 Patient arrived in ED. mr 12:32 Triage completed. ll1 12:32 Arm band placed on. ll1 12:42 EKG completed in triage. Results shown to MD. ll1 13:28 Mary De La Cruz FNP-C is PHCP. kb 13:28 Cory Prieto MD is Attending Physician. kb 13:32 Marija Mckeon, FIONA is Primary Nurse. ph 13:43 Initial lab(s) drawn, by me, sent to lab. Inserted saline lock: 20 gauge in right jp3 wrist, using aseptic technique. Blood collected. Patient maintains SpO2 saturation greater than 95% on room air. 13:44 Bed in low position. Call light in reach. Side rails up X 1. Warm blanket given. Verbal jp3 reassurance given. Pulse ox on. NIBP on. 13:44 Basic Metabolic Panel Sent. jp3 13:44 CBC with Diff Sent. jp3 13:44 Troponin (emerg Dept Use Only) Sent. jp3 15:45 No provider procedures requiring assistance completed. IV discontinued, intact, ph bleeding controlled, No redness/swelling at site. Pressure dressing applied. Administered Medications: 14:20 Drug: Ativan 1 mg Route: IVP; Site: right antecubital; ph 15:00 Follow up: Response: No adverse reaction; Pain is decreased ph 14:21 Drug: Zofran (Ondansetron) 4 mg Route: IVP; Site: right antecubital; ph 15:00 Follow up: Response: No adverse reaction ph 14:25 Drug: Potassium Chloride 20 mEq Route: PO; ph 15:00 Follow up: Response: No adverse reaction ph Outcome: 15:22 Discharge ordered by . kb 15:46 Patient left the ED. ph 15:46 Discharged to home ambulatory. ph 15:46 Condition: good 15:46 Discharge instructions given to patient, Instructed on discharge instructions, follow up and referral plans. Demonstrated understanding of instructions, follow-up care. Signatures: Mary De La Cruz, REGIN[employer] ASSOCIATE PROFESSOR [employer]-CkEnma Orozco mr DyeChrista, RN RN aa5 Marija Mckeon, RN RN ph Henri Smith jp3 Eloisa Fleming, RN RN ll1 Corrections: (The following items were deleted from the chart) 15:06 15:01 Pulse 101bpm; Resp 18bpm; Pulse Ox 100% RA; ph ph 19:19 15:01 Reassessment: Patient appears in no apparent distress at this time. Patient ph and/or family updated on plan of care and expected duration. Pain level reassessed. Patient is alert, oriented x 3, equal unlabored respirations, skin warm/dry/pink. ph
--- NOTE | 2020-05-04 15:23 | EDPHYS ---
Physician Documentation [facility] Name: Jenni Irving Age: 40 yrs Sex: Female : 1980 Arrival Date: 05/04/2020 Time: 12:26 Bed 20 Private MD: ED Physician Cory Prieto HPI: 05/04 13:56 This 40 yrs old Female presents to ER via Wheelchair with complaints of Chest kb Pain. 13:56 The patient or guardian reports chest pain that is located primarily in the anterior kb chest wall. The pain does not radiate. Associated signs and symptoms: Pertinent positives: nausea, Pertinent negatives: abdominal pain, cough, diaphoresis, dizziness, headache, lower extremity pain, lower extremity swelling, lightheadedness, near syncope, palpitations, recent travel, shortness of breath, syncope, vomiting. The chest pain is described as aching. Duration: The patient or guardian reports a single episode, that is still ongoing. Modifying factors: The symptoms are alleviated by nothing. the symptoms are aggravated by nothing. Severity of pain: At its worst the pain was moderate in the emergency department the pain is unchanged. The patient has experienced similar episodes in the past, multiple times. The patient has not recently seen a physician. Pt reports chest pain and nausea that started this morning. States this happens when she has anxiety and when her potassium is low. Pt hyperventilating during exam. Coached on breathing exercises and started feeling better, more calm. Historical: - Allergies: 12:32 No Known Allergies; ll1 - PMHx: 12:32 Asthma; etoh abuse; Hypertension; meth abuse; Anxiety; ll1 - PSHx: 12:32 ; ll1 - Immunization history:: Flu vaccine is not up to date. - Social history:: Smoking status: Patient reports the use of cigarette tobacco products, smokes one-half pack cigarettes per day. ROS: 13:55 Constitutional: Negative for fever, chills, and weight loss, Neck: Negative for injury, kb pain, and swelling, Respiratory: Negative for shortness of breath, cough, wheezing, and pleuritic chest pain, Back: Negative for injury and pain, MS/Extremity: Negative for injury and deformity, Skin: Negative for injury, rash, and discoloration, Neuro: Negative for headache, weakness, numbness, tingling, and seizure. 13:55 Cardiovascular: Positive for chest pain, Negative for edema, orthopnea, palpitations, paroxysmal nocturnal dyspnea. 13:55 Abdomen/GI: Positive for nausea, Negative for abdominal pain, vomiting, diarrhea, constipation. Exam: 13:55 Constitutional: This is a well developed, well nourished patient who is awake, alert, kb and in no acute distress. Head/Face: Normocephalic, atraumatic. Chest/axilla: Normal chest wall appearance and motion. Nontender with no deformity. No lesions are appreciated. Cardiovascular: Regular rate and rhythm with a normal S1 and S2. No gallops, murmurs, or rubs. Normal PMI, no JVD. No pulse deficits. Abdomen/GI: Soft, non-tender, with normal bowel sounds. No distension or tympany. No guarding or rebound. No evidence of tenderness throughout. Skin: Warm, dry with normal turgor. Normal color with no rashes, no lesions, and no evidence of cellulitis. MS/ Extremity: Pulses equal, no cyanosis. Neurovascular intact. Full, normal range of motion. Neuro: Awake and alert, GCS 15, oriented to person, place, time, and situation. Cranial nerves II-XII grossly intact. Motor strength 5/5 in all extremities. Sensory grossly intact. Cerebellar exam normal. Normal gait. 13:55 Respiratory: the patient does not display signs of respiratory distress, Respirations: normal, Breath sounds: are clear throughout, Respiratory rate: hyperventilating 14:18 ECG was reviewed by the Attending Physician. Vital Signs: 12:30 BP 154 / 80; Pulse 96; Resp 18; Temp 98.4; Pulse Ox 99% ; Weight 55.79 kg; Height 5 ft. ll1 0 in. (152.40 cm); Pain 10/10; 13:32 Pulse 107; Resp 26; Pulse Ox 100% ; aa5 15:01 BP 135 / 86; Pulse 101; Resp 18; Pulse Ox 100% on R/A; ph 12:30 Body Mass Index 24.02 (55.79 kg, 152.40 cm) ll1 13:32 Hands cramping now, hyperventilating. aa5 MDM: 13:28 Patient medically screened. 13:54 Data reviewed: vital signs, nurses notes. Data reviewed: old medical records, Labs from 04/30/20 reviewed. Data interpreted: Pulse oximetry: on room air is 100 %. Interpretation: normal. 14:54 Counseling: I had a detailed discussion with the patient and/or guardian regarding: the historical points, exam findings, and any diagnostic results supporting the discharge/admit diagnosis, lab results, radiology results, the need for outpatient follow up, a family practitioner, to return to the emergency department if symptoms worsen or persist or if there are any questions or concerns that arise at home. 05/04 13:34 Order name: CBC with Diff kb 05/04 13:34 Order name: Basic Metabolic Panel kb 05/04 13:34 Order name: Troponin (emerg Dept Use Only); Complete Time: 14:15 kb 05/04 13:34 Order name: CBC with Automated Diff; Complete Time: 13:59 EDMS 05/04 13:34 Order name: Basic Metabolic Panel; Complete Time: 14:15 EDMS 05/04 13:34 Order name: IV Start; Complete Time: 13:44 kb EC:18 Rate is 103 beats/min. Rhythm is regular. QRS [place] is Normal. [place] interval is normal at kb 118 msec. QRS interval is normal at 78 msec. QT interval is normal at 364 msec. Administered Medications: 14:20 Drug: Ativan 1 mg Route: IVP; Site: right antecubital; ph 15:00 Follow up: Response: No adverse reaction; Pain is decreased ph 14:21 Drug: Zofran (Ondansetron) 4 mg Route: IVP; Site: right antecubital; ph 15:00 Follow up: Response: No adverse reaction ph 14:25 Drug: Potassium Chloride 20 mEq Route: PO; ph 15:00 Follow up: Response: No adverse reaction ph Disposition: 16:36 Co-signature as Attending Physician, Cory Prieto MD. rn Disposition: 05/04/20 15:22 Discharged to Home. Impression: Anxiety disorder, unspecified. - Condition is Stable. - Discharge Instructions: Hyperventilation, Panic Attacks, [id number]. - Medication Reconciliation Form, Thank You Letter, Antibiotic Education, Prescription Opioid Use form. - Follow up: Emergency Department; When: As needed; Reason: Worsening of condition. Follow up: Private Physician; When: 2 - 3 days; Reason: Recheck today's complaints, Continuance of care, Re-evaluation by your physician. Signatures: Dispatcher [employer] EDMary Webster, PROPELLANT CHARGE LOADER-C PROPELLANT CHARGE LOADER-Ckb Cory Prieto MD MD rn Hall, Patricia, RN RN Eloisa Castano RN RN ll1 Corrections: (The following items were deleted from the chart) 15:46 15:22 05/04/2020 15:22 Discharged to Home. Impression: Anxiety disorder, unspecified. ph Condition is Stable. Discharge Instructions: Hyperventilation, Panic Attacks, [id number]. Forms are Medication Reconciliation Form, Thank You Letter, Antibiotic Education, Prescription Opioid Use. Follow up: Emergency Department; When: As needed; Reason: Worsening of condition. Follow up: Private Physician; When: 2 - 3 days; Reason: Recheck today's complaints, Continuance of care, Re-evaluation by your physician. kb
[2020-05-04 16:32] VITALS: TEMP 98.4
[2020-05-04 16:34] VITALS: O2SAT 100
[2020-05-04 16:37] VITALS: BP 135/86
--- NOTE | 2020-05-06 07:36 | EKG ---
Test Date: 2020-05-04 Test Time: 12:38:04 Spool Sander: LISBETH MEASUREMENT RESULTS: Intervals: Rate: 103 CT: 118 QRSD: 78 QT: 364 QTc: 476 [place]: P: -1 CT: 118 QRS: 95 T: 70 INTERPRETIVE STATEMENTS: Sinus tachycardia Rightward axis Borderline ECG Compared to ECG 04/30/2020 01:26:23 Right-axis deviation now present Sinus rhythm no longer present Electronically Signed On 05-06-20 07:32:50 SCRAP WHEELER by Ervin Goldberg
[2020-05-12] MEDS ORDERED: ONDANSETRON 4 MG/2 ML VIAL ONE (01:39)
== END 2020-05-04 15:46 | disposition home or self-care (01) ==
LOC: ER 12:24
DX: F41.9 Anxiety disorder, unspecified (principal); I10 Essential (primary) hypertension; F17.210 Nicotine dependence, cigarettes, uncomplicated
CPT/HCPCS: 36415; 80048; 84484; 85025; 93005; 96374; 96375; 99284; J2405

== ENCOUNTER 2020-05-11 21:31 | Emergency (ER) | payer SELFPAY ==
[2020-05-11] MEDS ORDERED: MORPHINE 4 MG/ML SYR ONE (22:10)
[2020-05-11] MEDS ORDERED: ACETAMINOPHEN 500 MG TAB ONE (22:11)
[2020-05-11] MEDS ORDERED: ONDANSETRON 4 MG/2 ML VIAL ONE (22:11)
[2020-05-11] MEDS ORDERED: NA CHLORIDE 0.9% 1,000 ML ONE ×2 (22:11→23:38)
[2020-05-11 22:38] LABS: Absolute Lymphocytes (CBC) 0.6 K/uL (0.7-4.9); Basophils % 0.2 % (0-1.3); Hematocrit 32.1 % (36.0-45.0); Lymphocytes % 6.8 % (15.3-44.8); RBC Red Blood Cell Count 3.43 M/uL (3.86-4.86)
[2020-05-11 22:57] LABS: BUN Blood Urea Nitrogen 4 mg/dL (7-18); Bicarbonate 26 mmol/L (21-32); Glucose Level 113 mg/dL (74-106); Potassium 3.3 mmol/L (3.5-5.1); Sodium Level 137 mmol/L (136-145)
[2020-05-11] MEDS ORDERED: IBUPROFEN 400 MG TAB ONE (23:38)
[2020-05-12 01:09] LABS: Blood Morphology Comment NOT SEEN (NOT SEEN); Platelet Estimate ADEQ; White Blood Cell Scan OK (OK)
--- NOTE | 2020-05-12 01:22 | EDPHYS ---
Physician Documentation [facility] Name: Jenni Irving Age: 40 yrs Sex: Female : 1980 Arrival Date: 05/11/2020 Time: 21:38 Bed 7 Private MD: ED Physician Cory Prieto HPI: 05/11 22:23 This 40 yrs old Female presents to ER via EMS with complaints of Bodyaches, rn fever. 22:23 The patient reports fever, that was measured at 102.8 degrees Fahrenheit. Onset: The rn symptoms/episode began/occurred 2 day(s) ago. Modifying factors: there are no obvious modifying factors. Severity of symptoms: At their worst the symptoms were mild in the emergency department the symptoms are unchanged. The patient has not experienced similar symptoms in the past. Reports fever, tmax 102.8, assoc with fatigue, malaise, body aches, loss of taste and smell, abd pain, diarrhea. No cough or sob. NO hemoptysis. . 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 - Social history:: Smoking status: Patient reports the use of cigarette tobacco products, smokes one pack cigarettes per day. Patient uses alcohol, Patient/guardian denies using street drugs. - Family history:: not pertinent. - Hospitalizations: : No recent hospitalization is reported. 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 Exam: 22:23 Constitutional: This is a well developed, well nourished patient who is awake, alert, rn and in no acute distress. Head/Face: Normocephalic, atraumatic. Eyes: Pupils equal round and reactive to light, extra-ocular motions intact. Lids and lashes normal. Conjunctiva and sclera are non-icteric and not injected. Cornea within normal limits. Periorbital areas with no swelling, redness, or edema. Cardiovascular: Tachycardic, regular Respiratory: Mild tachypnea, speaking full sentences, no retractions Abdomen/GI: soft, mild tenderness all 4 quadrants Back: No spinal tenderness. No costovertebral tenderness. Full range of motion. Skin: Warm, dry, no evidence of cellulitis. MS/ Extremity: Pulses equal, no cyanosis. Neurovascular intact. Full, normal range of motion. Equal circumference. Neuro: Awake and alert, GCS 15, oriented to person, place, time, and situation. Cranial nerves II-XII grossly intact. Motor strength 5/5 in all extremities. Sensory grossly intact. Cerebellar exam normal. Vital Signs: 21:40 BP 164 / 94; Pulse 125; Resp 24; Temp 102.8; Pulse Ox 98% ; Weight 55.79 kg; Height 5 rr5 ft. 0 in. (152.40 cm); Pain 10/10; 23:13 BP 151 / 85; Pulse 113; Resp 22; Temp 99.9; Pulse Ox 100% ; rr5 05/12 00:00 BP 136 / 78; Pulse 98; Resp 19; Temp 99; Pulse Ox 99% ; rr5 01:00 BP 142 / 85; Pulse 95; Resp 18; Pulse Ox 100% ; rr5 02:00 BP 133 / 75; Pulse 90; Resp 19; Temp 98.8; Pulse Ox 100% ; rr5 05/11 21:40 Body Mass Index 24.02 (55.79 kg, 152.40 cm) rr5 MDM: 05/11 21:39 Patient medically screened. rn 23:15 ED course: [place] findings on CT abdomen/pelvis. . rn 05/12 00:52 ED course: Pt complaining of anxiety, which we have seen her multiple times for before, rn zhao ordered. . 01:18 Differential diagnosis: viral Infection, bacterial infection, URI, bronchitis, rn pneumonia gastroenteritis. Data reviewed: vital signs, nurses notes, lab test result(s), radiologic studies, CT scan, plain films, and as a result, I will discharge patient. Counseling: I had a detailed discussion with the patient and/or guardian regarding: the historical points, exam findings, and any diagnostic results supporting the discharge/admit diagnosis, lab results, radiology results, the need for outpatient follow up, to return to the emergency department if symptoms worsen or persist or if there are any questions or concerns that arise at home. Response to treatment: the patient's symptoms have markedly improved after treatment, and as a result, I will discharge patient. ED course: NO acute findings on ct abdomen, flu neg, likely COVID given loss of taste/smell and other systemic viral symptoms, will dc home with instructions to isolate and given return precautions. . 05/11 21:41 Order name: COVID-19 05/11 21:41 Order name: Flu; Complete Time: 23:15 05/11 21:41 Order name: Strep; Complete Time: 23:15 05/11 21:41 Order name: CBC with Diff; Complete Time: : 05/11 21:41 Order name: Basic Metabolic Panel; Complete Time: 23:15 05/11 21:41 Order name: Blood Culture Adult (2) 05/11 21:41 Order name: CXR XRAY 05/11 21:41 Order name: CT Abd/Pelvis - IV Contrast Only 05/11 21:41 Order name: Procalcitonin; Complete Time: : 05/11 21:41 Order name: Lactate; Complete Time: 23:15 05/11 23:14 Order name: Throat Culture [facility] 05/12 00:54 Order name: CREATININE WHOLE BLOOD; Complete Time: : [facility] 05/12 01:09 Order name: CBC Smear Scan; Complete Time: : [facility] 05/11 21:41 Order name: Droplet/Contact Precautions; Complete Time: 22:38 05/11 21:41 Order name: Labs collected and sent; Complete Time: 22:38 05/11 21:41 Order name: O2 Per Protocol; Complete Time: 22:38 rn Administered Medications: 05/11 22:15 Drug: NS 0.9% 1000 ml Route: IV; Rate: 1000 ml; Site: left forearm; rr5 23:30 Follow up: Response: No adverse reaction; IV Status: Completed infusion; IV Intake: rr5 1000ml 22:15 Drug: Zofran (Ondansetron) 4 mg Route: IVP; Site: left forearm; rr5 23:15 Follow up: Response: No adverse reaction rr5 22:17 Drug: morphine 4 mg {Note: rass 0.} Route: IVP; Site: left forearm; rr5 23:00 Follow up: Response: No adverse reaction; Pain is decreased; RASS: Alert and Calm (0) rr5 22:22 Drug: Tylenol 1000 mg Route: PO; rr5 23:20 Follow up: Response: No adverse reaction; Temperature is decreased rr5 23:29 Drug: Motrin 800 mg Route: PO; rr5 05/12 00:30 Follow up: Response: No adverse reaction rr5 05/11 23:31 Drug: NS 0.9% 1000 ml Route: IV; Rate: 1000 ml; Site: left forearm; rr5 05/12 01:20 Follow up: Response: No adverse reaction; IV Status: Completed infusion; IV Intake: rr5 1000ml 01:30 Drug: Ativan 1 mg Route: IVP; Site: left forearm; rr5 02:00 Follow up: Response: No adverse reaction; Pain is decreased; RASS: Alert and Calm (0) rr5 01:32 Drug: Zofran (Ondansetron) 4 mg Route: IVP; Site: left forearm; rr5 02:06 Follow up: Response: No adverse reaction rr5 Disposition: 05/12/20 01:21 Discharged to Home. Impression: Viral syndrome, Fever, unspecified. - Condition is Stable. - Discharge Instructions: Fever, Adult, COVID-19. - Medication Reconciliation Form, Thank You Letter, Antibiotic Education, Prescription Opioid Use form. - Follow up: Private Physician; When: As needed; Reason: Recheck today's complaints, Re-evaluation by your physician. - Problem is new. - Symptoms have improved. Signatures: Dispatcher [employer] EDMS Cory Prieto MD MD rn Roque, Raymond, RN RN rr5 Corrections: (The following items were deleted from the chart) 02:06 01:21 05/12/2020 01:21 Discharged to Home. Impression: Viral syndrome; Fever, rr5 unspecified. Condition is Stable. Forms are Medication Reconciliation Form, Thank You Letter, Antibiotic Education, Prescription Opioid Use. Follow up: Private Physician; When: As needed; Reason: Recheck today's complaints, Re-evaluation by your physician. Problem is new. Symptoms have improved. rn
--- NOTE | 2020-05-12 01:22 | ER ---
Nurse's Notes [facility] Name: Jenni Irving Age: 40 yrs Sex: Female : 1980 Arrival Date: 05/11/2020 Time: 21:38 Bed 7 Private MD: Diagnosis: Viral syndrome;Fever, unspecified Presentation: 05/11 21:40 Chief complaint: EMS states: complaining of fever 102 F, body ache, diarrhea, nausea rr5 and no vomiting, cannot eat or drink for 2 days now. Coronavirus screen: Client denies travel out of the [place] in the last 14 days. chills, diarrhea, fatigue, fever, muscle pain, loss of taste or smell, Client presents with at least one sign or symptom that may indicate coronavirus-19. Standard/surgical mask placed on the client. Provider contacted for isolation considerations. Ebola Screen: Patient negative for fever greater than or equal to 101.5 degrees Fahrenheit, and additional compatible Ebola Virus Disease symptoms Patient denies exposure to infectious person. Patient denies travel to an Ebola-affected area in the 21 days before illness onset. Initial Sepsis Screen: Does the patient meet any 2 criteria? RR > 20 per min. HR > 90 bpm. Does the patient have a suspected source of infection? Yes: Productive cough/pneumonia If YES to both, name of provider notified: Cory Prieto MD. Risk Assessment: Do you want to hurt yourself or someone else? Patient reports no desire to harm self or others. Onset of symptoms was May 09, 2020. 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 - Social history:: Smoking status: Patient reports the use of cigarette tobacco products, smokes one pack cigarettes per day. Patient uses alcohol, Patient/guardian denies using street drugs. - Family history:: not pertinent. - Hospitalizations: : No recent hospitalization is reported. Screenin:45 Abuse screen: Denies threats or abuse. Denies injuries from another. Nutritional rr5 screening: No deficits noted. Tuberculosis screening: No symptoms or risk factors identified. Fall Risk IV access (20 points). Total Ortiz Fall Scale indicates No Risk (0-24 pts). Assessment: 21:40 General: Appears in no apparent distress. uncomfortable, Behavior is calm, cooperative, rr5 appropriate for age, Reports fever for 1-2 days, feeling ill for 1-2 days, fatigue for 1-2 days. 21:40 Pain: Complains of pain in body Pain currently is 10 out of 10 on a pain scale. Quality rr5 of pain is described as aching, Pain began gradually, Is intermittent. Neuro: Level of Consciousness is awake, alert, obeys commands, Oriented to person, place, time. Cardiovascular: Capillary refill < 3 seconds Patient's skin is warm and dry. Respiratory: Reports shortness of breath cough that is Airway is patent Respiratory effort is even, unlabored, Respiratory pattern is tachypnea. GI: Reports anorexia, diarrhea, intolerance of fluids, intolerance of food, nausea, vomiting. : No signs and/or symptoms were reported regarding the genitourinary system. EENT: No signs and/or symptoms were reported regarding the EENT system. Derm: Skin is intact, is healthy with good turgor, Skin temperature is warm. Musculoskeletal: Circulation, motion, and sensation intact. Capillary refill < 3 seconds. 22:40 Reassessment: Patient appears in no apparent distress at this time. Patient is alert, rr5 oriented x 3, equal unlabored respirations, skin warm[facility]dry/[facility] Reassessment: complaining of body ache, ED provider with order made and carried out. rr5 05/12 00:00 Reassessment: Patient appears in no apparent distress at this time. Patient is alert, rr5 oriented x 3, equal unlabored respirations, skin warm/dry/pink. awaiting for results. 01:00 Reassessment: complaining of shortness of breath, vitals signs taken and recorded ED rr5 provider aware with order made and carried out. 01:30 Reassessment: Patient appears in no apparent distress at this time. Patient is alert, rr5 oriented x 3, equal unlabored respirations, skin warm/dry/pink. for discharge awaiting for her trasnport Patient states symptoms have improved. 02:04 Reassessment: Patient appears in no apparent distress at this time. Patient is alert, rr5 oriented x 3, equal unlabored respirations, skin warm/dry/pink. discharge instruction given and explained without complaints made. Patient states symptoms have improved. Vital Signs: 05/11 21:40 BP 164 / 94; Pulse 125; Resp 24; Temp 102.8; Pulse Ox 98% ; Weight 55.79 kg; Height 5 rr5 ft. 0 in. (152.40 cm); Pain 04/10; 23:13 BP 151 / 85; Pulse 113; Resp 22; Temp 99.9; Pulse Ox 100% ; rr5 05/12 00:00 BP 136 / 78; Pulse 98; Resp 19; Temp 99; Pulse Ox 99% ; rr5 01:00 BP 142 / 85; Pulse 95; Resp 18; Pulse Ox 100% ; rr5 02:00 BP 133 / 75; Pulse 90; Resp 19; Temp 98.8; Pulse Ox 100% ; rr5 05/11 21:40 Body Mass Index 24.02 (55.79 kg, 152.40 cm) rr5 ED Course: 05/11 21:38 Patient arrived in ED. ag3 21:39 Cory Prieto MD is Attending Physician. rn 21:40 Rubio Murillo RN is Primary Nurse. rr5 21:40 Patient has correct armband on for positive identification. Placed in gown. Bed in low rr5 position. Call light in reach. Side rails up X2. compliance monitor on. Pulse ox on. NIBP on. 21:42 Triage completed. rr5 21:44 Arm band placed on right wrist. rr5 21:57 CXR XRAY In Process Unspecified. EDMS 22:15 Inserted saline lock: 20 gauge in left forearm, using aseptic technique. Blood rr5 collected. 22:15 First set of blood cultures drawn by me. rr5 22:30 Second set of blood cultures drawn by me. rr5 22:39 CT Abd/Pelvis - IV Contrast Only In Process Unspecified. EDMS 05/12 01:45 No provider procedures requiring assistance completed. rr5 02:05 IV discontinued, intact, bleeding controlled, No redness/swelling at site. Pressure rr5 dressing applied. Administered Medications: 05/11 22:15 Drug: NS 0.9% 1000 ml Route: IV; Rate: 1000 ml; Site: left forearm; rr5 23:30 Follow up: Response: No adverse reaction; IV Status: Completed infusion; IV Intake: rr5 1000ml 22:15 Drug: Zofran (Ondansetron) 4 mg Route: IVP; Site: left forearm; rr5 23:15 Follow up: Response: No adverse reaction rr5 22:17 Drug: morphine 4 mg {Note: rass 0.} Route: IVP; Site: left forearm; rr5 23:00 Follow up: Response: No adverse reaction; Pain is decreased; RASS: Alert and Calm (0) rr5 22:22 Drug: Tylenol 1000 mg Route: PO; rr5 23:20 Follow up: Response: No adverse reaction; Temperature is decreased rr5 23:29 Drug: Motrin 800 mg Route: PO; rr5 05/12 00:30 Follow up: Response: No adverse reaction rr5 05/11 23:31 Drug: NS 0.9% 1000 ml Route: IV; Rate: 1000 ml; Site: left forearm; rr5 05/12 01:20 Follow up: Response: No adverse reaction; IV Status: Completed infusion; IV Intake: rr5 1000ml 01:30 Drug: Ativan 1 mg Route: IVP; Site: left forearm; rr5 02:00 Follow up: Response: No adverse reaction; Pain is decreased; RASS: Alert and Calm (0) rr5 01:32 Drug: Zofran (Ondansetron) 4 mg Route: IVP; Site: left forearm; rr5 02:06 Follow up: Response: No adverse reaction rr5 Intake: 05/11 23:30 IV: 1000ml; Total: 1000ml. rr5 05/12 01:20 IV: 1000ml; Total: 2000ml. rr5 Outcome: 01:21 Discharge ordered by . rn 02:05 Discharged to home via ambulance. rr5 02:05 Condition: stable 02:05 Discharge instructions given to patient, Instructed on discharge instructions, follow up and referral plans. Demonstrated understanding of instructions, follow-up care. 02:06 Patient left the ED. rr5 Signatures: Dispatcher [employer] EDMS Cory Prieto MD MD rn Gomez, Mary ag3 Rubio Murillo, RN RN rr5
[2020-05-12] MEDS ORDERED: LORazepam 2 MG/ML VIAL ONE (01:41)
--- NOTE | 2020-05-12 08:45 | RAD REPORT ---
EXAM DESCRIPTION: RAD - Chest Single View - 05/11/2020 9:59 pm CLINICAL HISTORY: FEVER Chest pain. COMPARISON: Chest Single View dated 04/30/2020; Chest Single View dated 12/03/2019; Chest Single View dated 06/11/2019; Chest Single View dated 04/22/2019 FINDINGS: Portable technique limits examination quality. The lungs are grossly clear. The heart is normal in size. No displaced fractures. IMPRESSION: No acute intrathoracic process suspected.
[2020-05-12 09:44] VITALS: O2SAT 100
[2020-05-12 09:46] VITALS: BP 133/75; TEMP 98.8
--- NOTE | 2020-05-12 11:19 | RAD REPORT ---
EXAM DESCRIPTION: CT Abdomen and Pelvis With Intravenous Contrast CLINICAL HISTORY: The patient is 40 years old and is Female; Abd pain;Nausea / vomiting TECHNIQUE: Axial computed tomography images of the abdomen and pelvis with intravenous contrast. S agittal and coronal reformatted images were created and reviewed. This CT exam was performed using one or more of the following dose reduction techniques: automated exposure control, adjustment of t he mA and/or kV according to patient size, and/or use of iterative reconstruction technique. DLP: 1997 mGy*cm COMPARISON: CT abdomen and pelvis dated 11/17/2018. FINDINGS: LUNG BASES: Lung bases are clear. HEART: Visualized heart is normal. ABDOMEN: LIVER: Mild hepatic steatosis. GALLBLADDER AND BILE DUCTS: Unremarkable. No calcified stones. No ductal dilation. PANCREAS: Unremarkable. No mass. No ductal dilation. SPLEEN: Unremarkable. No splenomegaly. ADRENALS: Unremarkable. No mass. KIDNEYS AND URETERS: Unremarkable. No solid mass. No hydronephrosis. STOMACH AND BOWEL: Unremarkable. No obstruction. No mucosal thickening. PELVIS: APPENDIX: The appendix is seen and is within normal limits. BLADDER: Unremarkable. No mass. REPRODUCTIVE: Left ovarian cyst measuring 3.2 cm. ABDOMEN and PELVIS: INTRAPERITONEAL SPACE: Unremarkable. No free air. No significant fluid collection. BONES/JOINTS: No acute fracture. No dislocation. SOFT TISSUES: Unremarkable. VASCULATURE: Unremarkable. No abdominal aortic aneurysm. LYMPH NODES: Unremarkable. No enlarged lymph nodes. IMPRESSION: 1. No acute abdominal or pelvic abnormality. 2. Left ovarian cyst measuring 3.2 cm. No follow-up imaging is recommended. Reference: US recommendations based on Radiology 2010 Sep;256(3):943-54; CT/MR recommendations based on J Am [place] Radiol 2013;10:675-681. 3. Mild hepatic steatosis. 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 The interpreting r adiologist is fully responsible for the content of the report.
== END 2020-05-12 02:06 | disposition home or self-care (01) ==
LOC: ER 21:31
DX: B34.9 Viral infection, unspecified (principal); Z20.828 Contact with and (suspected) exposure to other viral communicable diseases; I10 Essential (primary) hypertension; F41.9 Anxiety disorder, unspecified
CPT/HCPCS: 36415; 71045; 74177; 80048; 82565; 83605; 84145; 85025; 87040; 87070; 87081; 87804; 96361; 96374; 96375; 99284; J2405; J7030; Q9967; U0002

== ENCOUNTER 2020-05-12 17:26 | Emergency (ER) | payer SELFPAY ==
--- NOTE | 2020-05-12 18:13 | RAD REPORT ---
EXAM DESCRIPTION: RAD - Chest Single View - 05/12/2020 5:58 pm CLINICAL HISTORY: Dyspnea;Cough COMPARISON: Portable May 11 TECHNIQUE: AP portable chest image was obtained 05/12/2020 5:58 pm . FINDINGS: Lungs are clear. Heart and vasculature are normal. No measurable pleural effusion and no p neumothorax. No acute bony abnormality seen. No acute aortic findings suspected. IMPRESSION: No acute cardiopulmonary process.
--- NOTE | 2020-05-12 18:16 | EDPHYS ---
Physician Documentation [facility] Name: Jenni Irving Age: 40 yrs Sex: Female : 1980 Arrival Date: 05/12/2020 Time: 17:27 Bed 20 Private MD: ED Physician Dale Sotelo HPI: 05/12 18:37 This 40 yrs old Female presents to ER via EMS with complaints of bodyaches. kb 18:37 The patient or guardian reports cough, that is intermittent, described as mild, flu kb symptoms, low-grade fever, myalgias. Onset: The symptoms/episode began/occurred 3 day(s) ago. Severity of symptoms: At their worst the symptoms were moderate, in the emergency department the symptoms are unchanged. Modifying factors: The symptoms are alleviated by nothing, the symptoms are aggravated by nothing. Associated signs and symptoms: Pertinent positives: fever, Pertinent negatives: chest pain, diarrhea, ear ache, nausea, rhinorrhea, sore throat, vomiting. The patient has not experienced similar symptoms in the past. The patient has been recently seen at the [facility] Emergency Department, yesterday, for similar complaints labs were performed, X-rays were performed. Historical: - Allergies: 17:30 No Known Allergies; ll1 - PMHx: 17:30 Anxiety; Asthma; etoh abuse; Hypertension; meth abuse; ll1 - PSHx: 17:30 ; ll1 - Immunization history:: Flu vaccine is up to date. - Social history:: Smoking status: Patient reports the use of cigarette tobacco products, smokes one-half pack cigarettes per day. ROS: 18:36 Cardiovascular: Negative for chest pain, palpitations, and edema, Abdomen/GI: Negative kb for abdominal pain, nausea, vomiting, diarrhea, and constipation, Back: Negative for injury and pain, MS/Extremity: Negative for injury and deformity, Skin: Negative for injury, rash, and discoloration, Neuro: Negative for headache, weakness, numbness, tingling, and seizure. 18:36 Constitutional: Positive for body aches, chills, fatigue, fever, malaise. 18:36 Respiratory: Positive for cough. 18:36 : Positive for burning with urination. Exam: 18:36 Constitutional: This is a well developed, well nourished patient who is awake, alert, kb and in no acute distress. Head/Face: Normocephalic, atraumatic. Chest/axilla: Normal chest wall appearance and motion. Nontender with no deformity. No lesions are appreciated. Cardiovascular: Regular rate and rhythm with a normal S1 and S2. No gallops, murmurs, or rubs. Normal PMI, no JVD. No pulse deficits. Respiratory: Lungs have equal breath sounds bilaterally, clear to auscultation and percussion. No rales, rhonchi or wheezes noted. No increased work of breathing, no retractions or nasal flaring. Abdomen/GI: Soft, non-tender, with normal bowel sounds. No distension or tympany. No guarding or rebound. No evidence of tenderness throughout. Back: No spinal tenderness. No costovertebral tenderness. Full range of motion. Skin: Warm, dry with normal turgor. Normal color with no rashes, no lesions, and no evidence of cellulitis. MS/ Extremity: Pulses equal, no cyanosis. Neurovascular intact. Full, normal range of motion. Neuro: Awake and alert, GCS 15, oriented to person, place, time, and situation. Cranial nerves II-XII grossly intact. Motor strength 5/5 in all extremities. Sensory grossly intact. Cerebellar exam normal. Normal gait. Vital Signs: 17:36 BP 126 / 85; Pulse 110; Resp 17; Temp 100.9; Pulse Ox 100% ; Weight 55.79 kg; Height 5 ll1 ft. 0 in. (152.40 cm); Pain 10/10; 19:00 BP 113 / 66; Pulse 98; Resp 17; Temp 100.4; Pulse Ox 100% ; ll1 17:36 Body Mass Index 24.02 (55.79 kg, 152.40 cm) ll1 MDM: 17:27 Patient medically screened. kb 18:24 Data reviewed: vital signs, nurses notes. Data reviewed: old medical records, kb diagnostics performed yesterday reviewed. Data interpreted: Pulse oximetry: on room air is 100 %. Interpretation: normal. Counseling: I had a detailed discussion with the patient and/or guardian regarding: the historical points, exam findings, and any diagnostic results supporting the discharge/admit diagnosis, lab results, radiology results, the need for outpatient follow up, a family practitioner, to return to the emergency department if symptoms worsen or persist or if there are any questions or concerns that arise at home. 05/12 18:25 Order name: Urine Microscopic Only; Complete Time: 19:00 kb 05/12 18:26 Order name: Urine --Ancillary (enter results) 05/12 17:28 Order name: Chest Single View XRAY; Complete Time: 18:15 kb 05/12 18:26 Order name: Urine Dipstick--Ancillary (enter results) 05/12 18:59 Order name: Urine Culture [facility] 05/12 18:25 Order name: Urine Test (obtain specimen); Complete Time: 19:06 kb 05/12 18:25 Order name: Urine Dipstick-Ancillary (obtain specimen); Complete Time: 19:06 kb Administered Medications: 17:48 Drug: Tylenol 650 mg Route: PO; ll1 19:01 Follow up: Response: No adverse reaction; Temperature is decreased; RASS: Alert and ll1 Calm (0) 17:49 Drug: Ibuprofen 400 mg Route: PO; ll1 19:02 Follow up: Response: No adverse reaction; Temperature is decreased; RASS: Alert and ll1 Calm (0) 19:06 Drug: Macrobid 100 mg Route: PO; ll1 19:06 Follow up: Response: No adverse reaction; RASS: Alert and Calm (0) ll1 Disposition: 05/13 05:33 Co-signature as Attending Physician, Dale Sotelo MD I agree with the assessment and barbara plan of care. Disposition: 05/12/20 18:16 Discharged to Home. Impression: Other viral infections of unspecified site, Urinary tract infection, site not specified. - Condition is Stable. - Discharge Instructions: Urinary Tract Infection, Adult, Ippv-yq-Bmlj, Viral Respiratory Infection, Fbag-Mb-Bbtt, Fever, Adult, Grmq-[id number]. - Prescriptions for Macrobid 100 mg Oral Capsule - take 1 capsule by ORAL route every 12 hours for 10 days; 20 capsule. - Medication Reconciliation Form, Thank You Letter, Antibiotic Education, Prescription Opioid Use form. - Follow up: Emergency Department; When: As needed; Reason: Worsening of condition. Follow up: Private Physician; When: 2 - 3 days; Reason: Recheck today's complaints, Continuance of care, Re-evaluation by your physician. Signatures: Dispatcher [employer] EDMS Mary De La Cruz FNP-C BRAZING FURNACE OPERATOR-Ckb Dale Sotelo MD MD cha Lewis, Lynsay, RN RN ll1 Corrections: (The following items were deleted from the chart) 05/12 19:00 18:16 05/12/2020 18:16 Discharged to Home. Impression: Other viral infections of kb unspecified site; Fever, unspecified. Condition is Stable. Forms are Medication Reconciliation Form, Thank You Letter, Antibiotic Education, Prescription Opioid Use. Follow up: Emergency Department; When: As needed; Reason: Worsening of condition. Follow up: Private Physician; When: 2 - 3 days; Reason: Recheck today's complaints, Continuance of care, Re-evaluation by your physician. kb 19:06 19:00 05/12/2020 18:16 Discharged to Home. Impression: Other viral infections of ll1 unspecified site; Urinary tract infection, site not specified. Condition is Stable. Discharge Instructions: Viral Respiratory Infection, Iqub-Tr-Oeym, Fever, Adult, Lzpq-rq-[id number]. Forms are Medication Reconciliation Form, Thank You Letter, Antibiotic Education, Prescription Opioid Use. Follow up: Emergency Department; When: As needed; Reason: Worsening of condition. Follow up: Private Physician; When: 2 - 3 days; Reason: Recheck today's complaints, Continuance of care, Re-evaluation by your physician. kb
--- NOTE | 2020-05-12 18:16 | ER ---
Nurse's Notes [facility] Name: Jenni Irving Age: 40 yrs Sex: Female : 1980 Arrival Date: 05/12/2020 Time: 17:27 Bed 20 Private MD: Diagnosis: Other viral infections of unspecified site;Urinary tract infection, site not specified Presentation: 05/12 17:27 Chief complaint: Patient states: Continued weakness, fever, body aches, SOB since her 1 visit here last night for the same symptoms. Pending covid test result. Coronavirus screen: Client denies travel out of the [place] in the last 14 days. congestion, cough unrelated to allergies, fatigue, fever, Client presents with at least one sign or symptom that may indicate coronavirus-19. Standard/surgical mask placed on the client. The client indicates previous COVID test results are pending. Ebola Screen: Patient denies travel to an Ebola-affected area in the 21 days before illness onset. Risk Assessment: Do you want to hurt yourself or someone else? Patient reports no desire to harm self or others. Onset of symptoms was May 10, 2020. 17:27 Method Of Arrival: EMS: [facility] 17:27 Acuity: GILA 3 ll1 17:36 Initial Sepsis Screen: Does the patient meet any 2 criteria? HR > 90 bpm. No. Patient's ll1 initial sepsis screen is negative. Does the patient have a suspected source of infection? Yes: Other: r/o covid. Historical: - Allergies: 17:30 No Known Allergies; ll1 - PMHx: 17:30 Anxiety; Asthma; etoh abuse; Hypertension; meth abuse; ll1 - PSHx: 17:30 ; ll1 - Immunization history:: Flu vaccine is up to date. - Social history:: Smoking status: Patient reports the use of cigarette tobacco products, smokes one-half pack cigarettes per day. Screenin:51 Abuse screen: Denies threats or abuse. Nutritional screening: No deficits noted. ll1 Tuberculosis screening: No symptoms or risk factors identified. Fall Risk None identified. Ambulatory Aid- Crutches/Cane/Walker (15 pts). Gait- Weak (10 pts.). Total Ortiz Fall Scale indicates Low Risk Score (25-44 pts). Fall prevention measures have been instituted. Side Rails Up X 2 Frequent Obs/Assesments occuring As available Patient and Family Educated on Fall Prevention Program and strategies. Assessment: 17:49 General: Appears uncomfortable, Behavior is calm, cooperative, appropriate for age. ll1 Pain: Complains of pain in generalized Pain currently is 10 out of 10 on a pain scale. Quality of pain is described as aching, Pain began 2-3 days ago. Neuro: Level of Consciousness is awake, alert, obeys commands, Oriented to person, place, time, situation, Appropriate for age Reinsurance Clerk are equal bilaterally Moves all extremities. Full function Gait is steady, Speech is normal, Facial symmetry appears normal, Reports headache in entire weakness. Cardiovascular: No deficits noted. Respiratory: Reports shortness of breath cough that is Airway is patent Trachea midline Respiratory effort is even, unlabored, Respiratory pattern is regular, symmetrical, Breath sounds are clear bilaterally. GI: Abdomen is flat, Bowel sounds present X 4 quads. Reports nausea. : Reports bloody urine. Musculoskeletal: Reports pain in generalized body aches. 18:50 Reassessment: Patient and/or family updated on plan of care and expected duration. Pain ll1 level reassessed. Patient is alert, oriented x 3, equal unlabored respirations, skin warm/dry/pink. Vital Signs: 17:36 BP 126 / 85; Pulse 110; Resp 17; Temp 100.9; Pulse Ox 100% ; Weight 55.79 kg; Height 5 ll1 ft. 0 in. (152.40 cm); Pain 10/10; 19:00 BP 113 / 66; Pulse 98; Resp 17; Temp 100.4; Pulse Ox 100% ; ll1 17:36 Body Mass Index 24.02 (55.79 kg, 152.40 cm) ll1 ED Course: 17:27 Patient arrived in ED. kb 17:27 [facility] De La [facility]C [facility] kb 17:27 Dale Sotelo MD is Attending Physician. kb 17:27 Eloisa Fleming, FIONA is Primary Nurse. ll1 17:29 Triage completed. ll1 17:29 Arm band placed on Patient placed in an exam room, on a stretcher. ll1 17:51 Patient has correct armband on for positive identification. Bed in low position. Call ll1 light in reach. Side rails up X 1. Pulse ox on. NIBP on. 17:58 Chest Single View XRAY In Process Unspecified. EDMS 19:01 Patient did not have IV access during this emergency room visit. ll1 Administered Medications: 17:48 Drug: Tylenol 650 mg Route: PO; ll1 19:01 Follow up: Response: No adverse reaction; Temperature is decreased; RASS: Alert and ll1 Calm (0) 17:49 Drug: Ibuprofen 400 mg Route: PO; ll1 19:02 Follow up: Response: No adverse reaction; Temperature is decreased; RASS: Alert and ll1 Calm (0) 19:06 Drug: Macrobid 100 mg Route: PO; ll1 19:06 Follow up: Response: No adverse reaction; RASS: Alert and Calm (0) 1 Outcome: 18:16 Discharge ordered by . sky 19:06 Patient left the ED. ll1 Addendum: 05/16/2020 07:31 Addendum: Culture Results: Positive urine culture. No further action required. Bacteria e b sensitive to prescribed antibiotic. 05/17/2020 08:51 Addendum: COVID-19 Result: Negative result given to RN to notify pt. Attempted to s s contact pt regarding negative COVID-19 swab results. Unable to leave voice mail due to the number provided was either not a working number, the voice mail has not been set up, or the voice mailbox is full.. Signatures: Dispatcher [employer] Mary Nieto, SHUBHAM GARBER-Kenna Weathers RN RN Viviana Jeter Lynsay, RN RN [facility]
[2020-05-12 18:57] LABS: Urine Bacteria 20-50 /HPF (<20); Urine Culture Reflex Order REFLEXED; Urine RBC <5 /HPF (NONE SEEN)
[2020-05-12] MEDS ORDERED: NITROFURAN MACRO 100 MG CAP PO ONE (19:17)
[2020-05-12 20:04] VITALS: O2SAT 100
[2020-05-12 20:06] VITALS: BP 113/66; TEMP 100.4
[2020-05-12 20:49] LABS: Urine Blood NEGATIVE (NEG); Urine Glucose TRACE (NEG); Urine Protein NEGATIVE (NEG); Urine Specific Gravity 1.015 (1.005-1.030); Urine pH 7.5 (5.0-7.0)
== END 2020-05-12 19:06 | disposition home or self-care (01) ==
LOC: ER 17:26
DX: B34.8 Other viral infections of unspecified site (principal); N39.0 Urinary tract infection, site not specified; I10 Essential (primary) hypertension; F17.210 Nicotine dependence, cigarettes, uncomplicated
CPT/HCPCS: 71045; 81003; 81015; 81025; 87077; 87086; 87088; 87186; 99284

== ENCOUNTER 2020-05-29 16:09 | Emergency (ER) | payer OTHER, SELFPAY ==
[2020-05-29] MEDS ORDERED: LORazepam 2 MG/ML VIAL ONE (16:36)
[2020-05-29 16:58] LABS: Absolute Lymphocytes (CBC) 0.6 K/uL (0.7-4.9); Basophils % 0.6 % (0-1.3); Hematocrit 35.1 % (36.0-45.0); Lymphocytes % 6.6 % (15.3-44.8); MPV 7.8 fL (7.6-11.3); Protime INR 1.18; RBC Red Blood Cell Count 3.77 M/uL (3.86-4.86)
[2020-05-29 17:13] LABS: ALT/SGPT 12 U/L (12-78); AST/SGOT 16 U/L (15-37); Albumin 3.2 g/dL (3.4-5.0); Alkaline Phosphatase 145 U/L (45-117); BUN Blood Urea Nitrogen 4 mg/dL (7-18); Bicarbonate 26 mmol/L (21-32); Bilirubin Direct 0.2 mg/dL (0-0.2); Bilirubin Total 0.8 mg/dL (0.2-1.0); Glucose Level 103 mg/dL (74-106); Magnesium 1.6 mg/dL (1.8-2.4); NT PRO-BNP 88 pg/mL (<125); Potassium 3.2 mmol/L (3.5-5.1); Protein, Total 8.9 g/dL (6.4-8.2); Sodium Level 133 mmol/L (136-145); Troponin (Emerg Dept Use Only) < 0.02 ng/mL (0.0-0.045)
[2020-05-29] MEDS ORDERED: MAGNESIUM SULFATE 1 gm IVPB 1 GM/100 ML BAG IV ONE (18:07)
--- NOTE | 2020-05-29 18:12 | RAD REPORT ---
EXAM DESCRIPTION: RAD - Chest Single View - 05/29/2020 4:44 pm CLINICAL HISTORY: chest Chest pain. COMPARISON: Chest Single View dated 05/12/2020; Chest Single View dated 05/11/2020; Chest Single Vie w dated 04/30/2020; Chest Single View dated 12/03/2019 FINDINGS: Portable technique limits examination quality. The lungs are grossly clear. The heart is normal in size. No displaced fractures. IMPRESSION: No acute intrathoracic process suspected.
--- NOTE | 2020-05-29 19:06 | ER ---
Nurse's Notes [facility] Name: Jenni Irving Age: 40 yrs Sex: Female : 1980 Arrival Date: 05/29/2020 Time: 16:12 Bed 6 Private MD: Diagnosis: Chest pain, unspecified Presentation: 05/29 16:12 Chief complaint: EMS states: Toned out for chest pain that radiates to the right; VSS jl7 in route and intermittent nausea since this morning. Coronavirus screen: Client denies travel out of the [place] in the last 14 days. At this time, the client does not indicate any symptoms associated with coronavirus-19. Ebola Screen: No symptoms or risks identified at this time. Initial Sepsis Screen: Does the patient meet any 2 criteria? No. Patient's initial sepsis screen is negative. Does the patient have a suspected source of infection? No. Patient's initial sepsis screen is negative. Risk Assessment: Do you want to hurt yourself or someone else? Patient reports no desire to harm self or others. Onset of symptoms was May 29, 2020. Care prior to arrival: None. Transition of care: patient was not received from another setting of care. 16:12 Method Of Arrival: EMS: [facility] 16:12 Acuity: GILA 2 jl7 Triage Assessment: 16:15 General: Appears in no apparent distress. uncomfortable, slender, Behavior is jl7 cooperative, anxious. Pain: Complains of pain in chest Pain does not radiate. Pain currently is 10 out of 10 on a pain scale. Quality of pain is described as sharp, stabbing, Pain began this morning Is continuous. Neuro: Level of Consciousness is awake, alert, obeys commands. Neuro: Reports Last drink of alcohol was last night. Cardiovascular: Patient's skin is warm and dry. Respiratory: Airway is patent Respiratory effort is even, unlabored, Respiratory pattern is regular, symmetrical. GI: Reports nausea. Derm: Skin is pink, warm \T\ dry. 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 - Social history:: Smoking status: Patient reports the use of cigarette tobacco products, smokes one pack cigarettes per day. Patient uses alcohol, on a daily basis. Patient/guardian denies using street drugs. Screenin:44 Abuse screen: Denies threats or abuse. Denies injuries from another. Nutritional [facility] screening: No deficits noted. Tuberculosis screening: No symptoms or risk factors identified. Fall Risk IV access (20 points). Total Ortiz Fall Scale indicates No Risk (0-24 pts). Assessment: 16:15 General: See triage assessment. [facility] 18:00 Reassessment: Patient appears in no apparent distress at this time. Patient and/or jl7 family updated on plan of care and expected duration. Pain level reassessed. Patient is alert, oriented x 3, equal unlabored respirations, skin warm/dry/pink. Patient states feeling better. 19:12 Reassessment: Patient appears in no apparent distress at this time. Patient and/or tw2 family updated on plan of care and expected duration. Pain level reassessed. Patient is alert, oriented x 3, equal unlabored respirations, skin warm/dry/pink. Vital Signs: 16:12 BP 129 / 79; Pulse 95; Resp 21; Temp 98.6; Pulse Ox 100% ; Weight 55.79 kg; Height 5 7 ft. 0 in. (152.40 cm); Pain 10/10; 18:30 BP 125 / 75; Pulse 106; Resp 19; Pulse Ox 100% ; jl7 19:12 BP 122 / 67; Pulse 89; Resp 16; Pulse Ox 99% on R/A; tw2 16:12 Body Mass Index 24.02 (55.79 kg, 152.40 cm) [facility] ED Course: 16:12 Patient arrived in ED. [facility] 16:12 Deng Nunez PA is PHCP. [facility] 16:12 Cory Prieto MD is Attending Physician. [facility] 16:15 Triage completed. 7 16:15 Arm band placed on right wrist. 7 16:37 Patient has correct armband on for positive identification. Placed in gown. Bed in low mh5 position. Call light in reach. Side rails up X2. Warm blanket given. Pillow given. classroom monitor on. Pulse ox on. NIBP on. 16:37 EKG done, by ED staff, reviewed by Cory Prieto MD. [facility] 16:44 XRAY Chest (1 view) In Process Unspecified. EDMS 16:44 Initial lab(s) drawn, by me, sent to lab. Missed attempt(s): 20 gauge in right wrist. jl7 Bleeding controlled, band aid applied, catheter tip intact. 17:50 Inserted saline lock: 22 gauge in right hand, using aseptic technique. jl7 17:51 Glenn Chambers, RN is Primary Nurse. jl7 18:30 Patient maintains SpO2 saturation greater than 95% on room air. jl7 19:11 No provider procedures requiring assistance completed. IV discontinued, intact, tw2 bleeding controlled, No redness/swelling at site. Pressure dressing applied. Administered Medications: 16:25 Drug: Ativan 2 mg Route: IM; Site: right deltoid; jl7 17:00 Follow up: Response: No adverse reaction; Marked relief of symptoms jl7 17:50 Drug: Magnesium Sulfate 1 grams Route: IVPB; Infused Over: 1 hrs; Site: right hand; jl7 18:50 Follow up: Response: No adverse reaction; IV Status: Completed infusion; IV Intake: tw2 100ml Intake: 18:50 IV: 100ml; Total: 100ml. tw2 Outcome: 19:06 Discharge ordered by MD. barr 19:11 Discharged to home ambulatory. tw2 19:11 Condition: stable 19:11 Discharge instructions given to patient, Instructed on discharge instructions, follow up and referral plans. Demonstrated understanding of instructions, follow-up care. 19:12 Patient left the ED. tw2 Signatures: Dispatcher [employer] EDMS Deng Nunez PA PA jmm Wise, Tara, RN RN tw2 Kiera Pisano [facility] Glenn Chambers, FIONA RN 7
--- NOTE | 2020-05-29 19:06 | EDPHYS ---
Physician Documentation [facility] Name: Jenni Irving Age: 40 yrs Sex: Female : 1980 Arrival Date: 05/29/2020 Time: 16:12 Bed 6 Private MD: ED Physician Cory Prieto HPI: 05/29 16:16 This 40 yrs old Female presents to ER via EMS with complaints of Chest Pain > jmm 32 y/o. 16:16 The patient or guardian reports chest pain that is located primarily in the anterior jmm chest wall, right. The pain. Associated signs and symptoms: Pertinent negatives: shortness of breath. The chest pain is described as aching. This is a 40 year old female with a history of asthma, anxiety, htn that presents to the ED with complaints of right sided chest pain beginning just prior to arrival. Patient states having similar episodes with previous er visits. . 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 - Social history:: Smoking status: Patient reports the use of cigarette tobacco products, smokes one pack cigarettes per day. Patient uses alcohol, on a daily basis. Patient/guardian denies using street drugs. ROS: 16:16 Constitutional: Negative for fever, chills, and weight loss, Cardiovascular: Negative jmm for chest pain, palpitations, and edema, Respiratory: Negative for shortness of breath, cough, wheezing, and pleuritic chest pain. 16:16 Cardiovascular: Positive for chest pain. 16:16 All other systems are negative. Exam: 16:16 Head/Face: atraumatic. Eyes: EOMI, no conjunctival erythema appreciated ENT: Moist jmm Mucus Membranes Neck: Trachea midline, Supple Chest/axilla: Normal chest wall appearance and motion. Cardiovascular: Regular rate and rhythm. No edema appreciated Respiratory: Normal respirations, no respiratory distress appreciated Abdomen/GI: Non distended, soft Back: Normal ROM Skin: General appearance color normal MS/ Extremity: Moves all extremities, no obvious deformities appreciated, no edema noted to the lower extremities Neuro: Awake and alert, normal gait Psych: Behavior is normal, Mood is normal, Patient is cooperative and pleasant 16:16 Constitutional: The patient appears alert, awake, anxious. Vital Signs: 16:12 BP 129 / 79; Pulse 95; Resp 21; Temp 98.6; Pulse Ox 100% ; Weight 55.79 kg; Height 5 jl7 ft. 0 in. (152.40 cm); Pain 10/10; 18:30 BP 125 / 75; Pulse 106; Resp 19; Pulse Ox 100% ; jl7 19:12 BP 122 / 67; Pulse 89; Resp 16; Pulse Ox 99% on R/A; tw2 16:12 Body Mass Index 24.02 (55.79 kg, 152.40 cm) jl7 MDM: 16:[address] [facility] 19:03 Data reviewed: vital signs, nurses notes. Counseling: I had a detailed discussion with cortney the patient and/or guardian regarding: the historical points, exam findings, and any diagnostic results supporting the discharge/admit diagnosis, the need for outpatient follow up, to return to the emergency department if symptoms worsen or persist or if there are any questions or concerns that arise at home. ED course: Symptoms alleviated in the ED. Labs, EKG unremarkable. Patient is advised to follow up with pcp and otherwise given strict return precautions. Patient understood and agrees with the plan of care. . 05/29 16:21 Order name: Basic Metabolic Panel; Complete Time: 17:13 [facility] 05/29 16:21 Order name: CBC with Diff; Complete Time: 17:11 [facility] 05/29 16:21 Order name: LFT's; Complete Time: 17:13 [facility] 05/29 16:21 Order name: Magnesium; Complete Time: 17:13 [facility] 05/29 16:21 Order name: NT PRO-BNP; Complete Time: 17:13 [facility] 05/29 16:21 Order name: PT-INR; Complete Time: 17:11 [facility] 05/29 16:21 Order name: Troponin (emerg Dept Use Only); Complete Time: 17:13 [facility] 05/29 16:21 Order name: XRAY Chest (1 view); Complete Time: 18:32 [facility] 05/29 16:21 Order name: EKG; Complete Time: 16:21 [facility] 05/29 16:21 Order name: Cardiac monitoring; Complete Time: 16:26 [facility] 05/29 16:21 Order name: EKG - Nurse/Tech; Complete Time: 16:27 [facility] 05/29 16:21 Order name: IV Saline Lock; Complete Time: 18:38 [facility] 05/29 16:21 Order name: Labs collected and sent; Complete Time: 18:38 [facility] 05/29 16:21 Order name: O2 Per Protocol; Complete Time: 18:38 [facility] 05/29 16:21 Order name: O2 Sat Monitoring; Complete Time: 18:38 [facility] Administered Medications: 16:25 Drug: Ativan 2 mg Route: IM; Site: right deltoid; 7 17:00 Follow up: Response: No adverse reaction; Marked relief of symptoms [facility] 17:50 Drug: Magnesium Sulfate 1 grams Route: IVPB; Infused Over: 1 hrs; Site: right hand; 7 18:50 Follow up: Response: No adverse reaction; IV Status: Completed infusion; IV Intake: tw2 100ml Disposition: 05/30 07:12 Co-signature as Attending Physician, Cory Prieto MD. rn Disposition: 05/29/20 19:06 Discharged to Home. Impression: Chest pain, unspecified. - Condition is Stable. - Discharge Instructions: Nonspecific Chest Pain. - Medication Reconciliation Form, Thank You Letter, Antibiotic Education, Prescription Opioid Use form. - Follow up: Private Physician; When: 2 - 3 days; Reason: Recheck today's complaints, Continuance of care, Re-evaluation by your physician. Signatures: Dispatcher [employer] EDMS Deng Nunez PA PA jmm Nieto, Roman, MD MD rn Wise, Tara, RN RN tw2 Glenn Chambers RN RN jl7 Corrections: (The following items were deleted from the chart) 05/29 19:12 19:06 05/29/2020 19:06 Discharged to Home. Impression: Chest pain, unspecified. tw2 Condition is Stable. Forms are Medication Reconciliation Form, Thank You Letter, Antibiotic Education, Prescription Opioid Use. Follow up: Private Physician; When: 2 - 3 days; Reason: Recheck today's complaints, Continuance of care, Re-evaluation by your physician. [facility]
[2020-05-29 20:44] VITALS: TEMP 98.6
[2020-05-29 21:02] VITALS: BP 122/67; O2SAT 99
== END 2020-05-29 19:12 | disposition home or self-care (01) ==
LOC: ER 16:09
DX: R07.89 Other chest pain (principal); I10 Essential (primary) hypertension; F41.9 Anxiety disorder, unspecified; F17.210 Nicotine dependence, cigarettes, uncomplicated
CPT/HCPCS: 36415; 71045; 80048; 80076; 83735; 83880; 84484; 85025; 85610; 93005; 96365; 96372; 99285; J3475

== ENCOUNTER 2020-07-25 13:19 | Emergency (ER) | payer OTHER, SELFPAY ==
[2020-07-25 14:56] LABS: Urine Blood TRACE (NEG); Urine Glucose NEGATIVE (NEG); Urine Protein 1+ (NEG); Urine pH 6.5 (5.0-7.0)
[2020-07-25 15:43] LABS: Absolute Lymphocytes (CBC) 0.8 K/uL (0.7-4.9); Hematocrit 38.5 % (36.0-45.0); Lymphocytes % 27.4 % (15.3-44.8); MPV 8.9 fL (7.6-11.3); RBC Red Blood Cell Count 4.04 M/uL (3.86-4.86)
[2020-07-25] MEDS ORDERED: MAGNES/ALUMIN/SIMET 30ML UCUP ONE (15:48)
[2020-07-25] MEDS ORDERED: LIDOCAINE VISCOUS 2% SOLN 15 ML UDC ONE (15:48)
[2020-07-25 15:55] LABS: ALT/SGPT 30 U/L (12-78); AST/SGOT 29 U/L (15-37); Albumin 3.6 g/dL (3.4-5.0); Alkaline Phosphatase 123 U/L (45-117); BUN Blood Urea Nitrogen 6 mg/dL (7-18); Bicarbonate 28 mmol/L (21-32); Bilirubin Direct < 0.1 mg/dL (0-0.2); Bilirubin Total 0.2 mg/dL (0.2-1.0); Glucose Level 107 mg/dL (74-106); Lipase 139 U/L (73-393); Potassium 3.4 mmol/L (3.5-5.1); Protein, Total 8.2 g/dL (6.4-8.2); Sodium Level 142 mmol/L (136-145)
[2020-07-25 16:20] LABS: Urine Bacteria LOADED /HPF (<20); Urine RBC <5 /HPF (NONE SEEN)
--- NOTE | 2020-07-25 16:50 | ER ---
Nurse's Notes [facility] Name: Jenni Irving Age: 40 yrs Sex: Female : 1980 Arrival Date: 07/25/2020 Time: 13:21 Bed 19 Private MD: Diagnosis: Urinary tract infection, site not specified;Sciatica, left side Presentation: 07/25 13:28 Chief complaint: Patient states: L lower and mid back pain radiates to the L abdominal ca1 area and L leg x 2 months, got worse since yesterday. At work I almost fell down 3 times cause my leg gave out. Reports nausea and diarrhea. Reports headache, fatigue, loss of appetite since yesterday. Coronavirus screen: Client denies travel out of the [place] in the last 14 days. diarrhea, headache, nausea, Client presents with at least one sign or symptom that may indicate coronavirus-19. Standard/surgical mask placed on the client. Provider contacted for isolation considerations. Ebola Screen: Patient negative for fever greater than or equal to 101.5 degrees Fahrenheit, and additional compatible Ebola Virus Disease symptoms Patient denies exposure to infectious person. Patient denies travel to an Ebola-affected area in the 21 days before illness onset. No symptoms or risks identified at this time. Initial Sepsis Screen: Does the patient meet any 2 criteria? No. Patient's initial sepsis screen is negative. Does the patient have a suspected source of infection? No. Patient's initial sepsis screen is negative. Risk Assessment: Do you want to hurt yourself or someone else? Patient reports no desire to harm self or others. Onset of symptoms. Onset of symptoms was July 25, 2020. 13:28 Method Of Arrival: Ambulatory ca1 13:28 Acuity: GILA 3 ca1 Triage Assessment: 15:00 General: Appears in no apparent distress. uncomfortable, Behavior is calm, cooperative, jd3 appropriate for age. 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 - Social history:: Smoking status: Patient reports the use of cigarette tobacco products, denies chronic smoking, but will smoke occasionally. Screenin:00 Abuse screen: Denies threats or abuse. Nutritional screening: No deficits noted. jd3 Tuberculosis screening: No symptoms or risk factors identified. Fall Risk Ambulatory Aid- None/Bed Rest/Nurse Assist (0 pts). Gait- Normal/Bed Rest/Wheelchair (0 pts) Mental Status- Oriented to own ability (0 pts). Total Ortiz Fall Scale indicates No Risk (0-24 pts). Assessment: 14:50 General: Appears in no apparent distress. uncomfortable, Behavior is calm, cooperative, jd3 appropriate for age. Pain: Complains of pain in abdomen Quality of pain is described as burning. Neuro: Level of Consciousness is awake, alert, obeys commands, Oriented to person, place, time, situation. Cardiovascular: Denies chest pain, Capillary refill < 3 seconds Patient's skin is warm and dry. Respiratory: Airway is patent Respiratory effort is even, unlabored, Respiratory pattern is regular, symmetrical, Denies cough, shortness of breath. GI: Abdomen is round non-distended, Abd is soft and non tender X 4 quads. Reports indigestion. : No signs and/or symptoms were reported regarding the genitourinary system. EENT: No signs and/or symptoms were reported regarding the EENT system. 14:50 Derm: Skin is intact, Skin is dry, Skin is normal, Skin temperature is warm. jd3 Musculoskeletal: Circulation, motion, and sensation intact. Range of motion: intact in all extremities. 15:40 Reassessment: Patient appears in no apparent distress at this time. Patient and/or jd3 family updated on plan of care and expected duration. Pain level reassessed. Patient is alert, oriented x 3, equal unlabored respirations, skin warm/dry/pink. 17:49 Reassessment: Patient appears in no apparent distress at this time. Patient and/or jd3 family updated on plan of care and expected duration. Pain level reassessed. Patient is alert, oriented x 3, equal unlabored respirations, skin warm/dry/pink. Patient states feeling better. Vital Signs: 13:28 BP 129 / 97; Pulse 100; Resp 16 S; Temp 98.1(TE); Pulse Ox 96% on R/A; Weight 55.79 kg ca1 (R); Height 5 ft. 0 in. (152.40 cm) (R); Pain 10/10; 17:49 BP 137 / 95; Pulse 99; Resp 17 S; Pulse Ox 100% on R/A; jd3 13:28 Body Mass Index 24.02 (55.79 kg, 152.40 cm) ca1 ED Course: 13:21 Patient arrived in ED. as 13:32 Triage completed. ca1 13:33 Arm band placed on right wrist. ca1 14:36 Mary De La Cruz FNP-C is PHCP. kb 14:36 Cory Prieto MD is Attending Physician. kb 15:00 Patient has correct armband on for positive identification. Bed in low position. Call jd3 light in reach. Side rails up X 1. Pulse ox on. NIBP on. 15:15 Inserted saline lock: 20 gauge in right antecubital area, using aseptic technique. jd3 Blood collected. placed by [employer] internship. 15:32 Cholo Brown, FIONA is Primary Nurse. jd3 16:48 Hip Left 2 View XRAY In Process Unspecified. EDMS 17:50 No provider procedures requiring assistance completed. IV discontinued, intact, jd3 bleeding controlled, No redness/swelling at site. Pressure dressing applied. Administered Medications: 15:38 Drug: GI Cocktail without - (Maalox Suspension 30 ml, Lidocaine Liquid 2 % 15 jd3 ml) Route: PO; 17:40 Drug: Rocephin 1 grams Route: IV; Rate: calculated rate; Site: right antecubital; jd3 17:40 Drug: TORadol - Ketorolac 15 mg Route: IVP; Site: right antecubital; jd3 Outcome: 16:50 Discharge ordered by . kb 17:50 Discharged to home ambulatory, with family. jd3 17:50 Condition: stable 17:50 Discharge instructions given to patient, Instructed on discharge instructions, follow up and referral plans. medication usage, Demonstrated understanding of instructions, follow-up care, medications, Prescriptions given X 3. 17:50 Patient left the ED. jd3 Addendum: 07/29/2020 07:49 Addendum: Culture Results: Positive urine culture. No further action required. Bacteria a a5 sensitive to prescribed antibiotic. Signatures: Dispatcher [employer] Mary Nieto, COMPUTER ARTIST-C COMPUTER ARTIST-Ann Benites Audri, RN RN aa5 Cholo Brown, RN RN jd3 Bernadette Petty RN RN ca1
--- NOTE | 2020-07-25 16:51 | EDPHYS ---
Physician Documentation [facility] Name: Jenni Irving Age: 40 yrs Sex: Female : 1980 Arrival Date: 07/25/2020 Time: 13:21 Bed 19 Private MD: ED Physician Cory Prieto HPI: 07/25 16:47 This 40 yrs old Female presents to ER via Ambulatory with complaints of kb Abdominal Pain, Hip Pain. 16:47 The patient presents with abdominal pain that is diffuse. Onset: The symptoms/episode kb began/occurred 3 day(s) ago. The symptoms do not radiate. Associated signs and symptoms: Pertinent positives: dysuria, Pertinent negatives: nausea, vomiting, and diarrhea, fever. The symptoms are described as constant, crampy. Modifying factors: The symptoms are alleviated by nothing, the symptoms are aggravated by nothing. Severity of pain: At its worst the pain was moderate in the emergency department the pain is unchanged. The patient has not experienced similar symptoms in the past. The patient has not recently seen a physician. Pt reports abdominal pain and dysuria for a few days. Reports left low back and hip pain that radiates down left leg at times for 2 months. 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 - Social history:: Smoking status: Patient reports the use of cigarette tobacco products, denies chronic smoking, but will smoke occasionally. ROS: 16:45 Constitutional: Negative for fever, chills, and weight loss, Cardiovascular: Negative kb for chest pain, palpitations, and edema, Respiratory: Negative for shortness of breath, cough, wheezing, and pleuritic chest pain, Back: Negative for injury and pain, MS/Extremity: Negative for injury and deformity, Neuro: Negative for headache, weakness, numbness, tingling, and seizure. 16:45 Abdomen/GI: Positive for abdominal pain. 16:45 MS/extremity: Positive for pain, of the left hip. 16:49 : Positive for burning with urination. kb Exam: 16:45 Constitutional: This is a well developed, well nourished patient who is awake, alert, kb and in no acute distress. Head/Face: Normocephalic, atraumatic. Chest/axilla: Normal chest wall appearance and motion. Nontender with no deformity. No lesions are appreciated. Cardiovascular: Regular rate and rhythm with a normal S1 and S2. No gallops, murmurs, or rubs. Normal PMI, no JVD. No pulse deficits. Respiratory: Lungs have equal breath sounds bilaterally, clear to auscultation and percussion. No rales, rhonchi or wheezes noted. No increased work of breathing, no retractions or nasal flaring. Abdomen/GI: Soft, non-tender, with normal bowel sounds. No distension or tympany. No guarding or rebound. No evidence of tenderness throughout. Skin: Warm, dry with normal turgor. Normal color with no rashes, no lesions, and no evidence of cellulitis. MS/ Extremity: Pulses equal, no cyanosis. Neurovascular intact. Full, normal range of motion. Neuro: Awake and alert, GCS 15, oriented to person, place, time, and situation. Cranial nerves II-XII grossly intact. Motor strength 5/5 in all extremities. Sensory grossly intact. Cerebellar exam normal. Normal gait. 16:45 Back: pain, that is mild, of the left low back, ROM is normal, CVA tenderness, is absent. Vital Signs: 13:28 BP 129 / 97; Pulse 100; Resp 16 S; Temp 98.1(TE); Pulse Ox 96% on R/A; Weight 55.79 kg ca1 (R); Height 5 ft. 0 in. (152.40 cm) (R); Pain 10/10; 17:49 BP 137 / 95; Pulse 99; Resp 17 S; Pulse Ox 100% on R/A; jd3 13:28 Body Mass Index 24.02 (55.79 kg, 152.40 cm) ca1 MDM: 14:37 Patient medically screened. kb 16:45 Data reviewed: vital signs, nurses notes. Data interpreted: Pulse oximetry: on room air kb is 96 %. Interpretation: normal. Counseling: I had a detailed discussion with the patient and/or guardian regarding: the historical points, exam findings, and any diagnostic results supporting the discharge/admit diagnosis, lab results, radiology results, the need for outpatient follow up, a family practitioner, to return to the emergency department if symptoms worsen or persist or if there are any questions or concerns that arise at home. 07/25 14:50 Order name: Urine Dipstick--Ancillary (enter results) 07/25 14:50 Order name: Urine --Ancillary (enter results) 07/25 14:50 Order name: Urine Dipstick-Ancillary; Complete Time: 14:59 EDMS 07/25 14:50 Order name: Urine --Ancillary; Complete Time: 14:59 EDLA 07/25 14:54 Order name: Basic Metabolic Panel 07/25 14:54 Order name: Hepatic Function; Complete Time: 16:04 kb 07/25 14:54 Order name: Lipase; Complete Time: 16:04 kb 07/25 14:54 Order name: Hip Left 2 View XRAY; Complete Time: 16:55 kb 07/25 14:54 Order name: Basic Metabolic Panel; Complete Time: 16:04 EDLA 07/25 14:54 Order name: CBC with Automated Diff; Complete Time: 17:41 EDLA 07/25 15:47 Order name: Urine Microscopic Only; Complete Time: 16:43 kb 07/25 16:21 Order name: Urine Culture [facility] 07/25 17:22 Order name: Manual Differential; Complete Time: 17:41 EDLA 07/25 14:54 Order name: IV Saline Lock; Complete Time: 15:34 kb 07/25 14:54 Order name: Labs collected and sent; Complete Time: 15:34 kb Administered Medications: 15:38 Drug: GI Cocktail without - (Maalox Suspension 30 ml, Lidocaine Liquid 2 % 15 jd3 ml) Route: PO; 17:40 Drug: Rocephin 1 grams Route: IV; Rate: calculated rate; Site: right antecubital; jd3 17:40 Drug: TORadol - Ketorolac 15 mg Route: IVP; Site: right antecubital; jd3 Disposition: 17:56 Co-signature as Attending Physician, Cory Prieto MD. rn Disposition: 07/25/20 16:50 Discharged to Home. Impression: Urinary tract infection, site not specified, Sciatica, left side. - Condition is Stable. - Discharge Instructions: Urinary Tract Infection, Adult, [id number]-[id number], Sciatica, [id number]. - Prescriptions for Augmentin 875- 125 mg Oral Tablet - take 1 tablet by ORAL route every 12 hours for 10 days; 20 tablet. Ibuprofen 800 mg Oral Tablet - take 1 tablet by ORAL route every 8 hours As needed take with food; 30 tablet. Cyclobenzaprine 10 mg Oral Tablet - take 1 tablet by ORAL route every 8 hours As needed; 21 tablet. - Medication Reconciliation Form, Thank You Letter, Antibiotic Education, Prescription Opioid Use, Work release form form. - Follow up: Emergency Department; When: As needed; Reason: Worsening of condition. Follow up: Private Physician; When: 2 - 3 days; Reason: Recheck today's complaints, Continuance of care, Re-evaluation by your physician. Signatures: Dispatcher [employer] [facility] Mary De La Cruz, QA INTERNSHIP-C QA INTERNSHIP-Ckb Cory Prieto MD MD rn Davies, Jonathon, RN RN jBernadette Katz RN RN ca1 Corrections: (The following items were deleted from the chart) 15:34 14:54 CBC+H.LAB.BRZ ordered. [facility] EDLA 16:47 16:45 Back: pain, that is mild, of the left low back, ROM is normal, kb kb 16:49 16:45 Constitutional: Negative for fever, chills, and weight loss, Cardiovascular: kb Negative for chest pain, palpitations, and edema, Respiratory: Negative for shortness of breath, cough, wheezing, and pleuritic chest pain, Back: Negative for injury and pain, : Negative for injury, bleeding, discharge, and swelling, MS/Extremity: Negative for injury and deformity, Neuro: Negative for headache, weakness, numbness, tingling, and seizure, kb 17:50 16:50 07/25/2020 16:50 Discharged to Home. Impression: Urinary tract infection, site jd3 not specified; Sciatica, left side. Condition is Stable. Forms are Medication Reconciliation Form, Thank You Letter, Antibiotic Education, Prescription Opioid Use. Follow up: Emergency Department; When: As needed; Reason: Worsening of condition. Follow up: Private Physician; When: 2 - 3 days; Reason: Recheck today's complaints, Continuance of care, Re-evaluation by your physician. kb
--- NOTE | 2020-07-25 16:54 | RAD REPORT ---
EXAM DESCRIPTION: RAD - Hip Left 2 View - 07/25/2020 4:45 pm CLINICAL HISTORY: PAIN COMPARISON: <Comparisons> FINDINGS: AP and frogleg views of the left hip were obtained. There is no fracture or dislocation. No acute or destructive bony process seen. No soft tissue abnormality. IMPRESSION: Negative left hip examination for acute or significant findings.
[2020-07-25 17:39] LABS: Blood Morphology Comment NOT SEEN (NOT SEEN); Platelet Estimate ADEQ
[2020-07-25] MEDS ORDERED: CEFTRIAXONE/SWI 1gm 1 GM/10 ML SYR ONE (17:48)
[2020-07-25] MEDS ORDERED: KETOROLAC 30 MG/ML INJ ONE (17:48)
[2020-07-25 18:02] VITALS: TEMP 98.1
[2020-07-25 18:03] VITALS: BP 137/95; O2SAT 100
== END 2020-07-25 17:50 | disposition home or self-care (01) ==
LOC: ER 13:19
DX: N39.0 Urinary tract infection, site not specified (principal); M54.32 Sciatica, left side; I10 Essential (primary) hypertension; F41.9 Anxiety disorder, unspecified; F17.210 Nicotine dependence, cigarettes, uncomplicated
CPT/HCPCS: 36415; 80048; 80076; 81003; 81015; 81025; 83690; 85025; 87077; 87086; 87088; 87186; 96374; 96375; 99284; J0696

== ENCOUNTER 2020-10-25 18:07 | Emergency (ER) | payer SELFPAY ==
[2020-10-25] MEDS ORDERED: MORPHINE 2 MG/ML SYR ONE (19:43)
[2020-10-25] MEDS ORDERED: NA CHLORIDE 0.9% 1,000 ML ONE ×2 (19:43→20:53)
[2020-10-25 19:54] LABS: Urine Blood Trace-lysed (Negative); Urine Glucose Negative (Negative); Urine Protein Negative (Negative); Urine Specific Gravity 1.015 (1.005-1.030); Urine pH 6.5 (5.0-7.0)
[2020-10-25 20:02] LABS: Absolute Lymphocytes (CBC) 0.5 K/uL (0.7-4.9); Basophils % 2.6 % (0-1.3); Hematocrit 36.3 % (36.0-45.0); Lymphocytes % 21.4 % (15.3-44.8); MPV 10.1 fL (7.6-11.3); RBC Red Blood Cell Count 3.64 M/uL (3.86-4.86)
[2020-10-25 20:10] LABS: ALT/SGPT 145 U/L (12-78); AST/SGOT 253 U/L (15-37); Albumin 3.7 g/dL (3.4-5.0); Alkaline Phosphatase 92 U/L (45-117); BUN Blood Urea Nitrogen 4 mg/dL (7-18); Bicarbonate 22 mmol/L (21-32); Bilirubin Direct 0.4 mg/dL (0-0.2); Bilirubin Total 1.3 mg/dL (0.2-1.0); Glucose Level 133 mg/dL (74-106); Magnesium 1.5 mg/dL (1.8-2.4); NT PRO-BNP 39 pg/mL (<125); Potassium 3.1 mmol/L (3.5-5.1); Protein, Total 7.5 g/dL (6.4-8.2); Sodium Level 137 mmol/L (136-145); Troponin (Emerg Dept Use Only) < 0.02 ng/mL (0.0-0.045)
[2020-10-25 20:10] LABS: Urine Bacteria <20 /HPF (<20); Urine RBC <5 /HPF (NONE SEEN)
[2020-10-25 20:12] LABS: Urine Specific Gravity/Preg 1.015 (1.005-1.030)
[2020-10-25] MEDS ORDERED: CEFTRIAXONE/SWI 1gm 1 GM/10 ML SYR ONE (20:13)
[2020-10-25] MEDS ORDERED: ONDANSETRON 4 MG/2 ML VIAL ONE (20:13)
[2020-10-25 20:15] LABS: Barbiturates NEGATIVE (NEGATIVE); Benzodiazepines NEGATIVE (NEGATIVE); Cocaine POSITIVE (NEGATIVE); METHAMPHETAM NEGATIVE (NEGATIVE); Methadone NEGATIVE (NEGATIVE); Opiates NEGATIVE (NEGATIVE); Phencyclidine NEGATIVE (NEGATIVE); THC Cannibis NEGATIVE (NEGATIVE)
[2020-10-25] MEDS ORDERED: KCL 20 MEQ/100 mL IVPB 20 MEQ/100 ML BAG IV ONE (20:48)
[2020-10-25] MEDS ORDERED: Magnesium Sulfate 2gm IVPB 2 G/50 ML BAG IV ONE (20:48)
--- NOTE | 2020-10-25 21:24 | RAD REPORT ---
EXAM DESCRIPTION: [place] Single View10/25/2020 7:53 pm CLINICAL HISTORY: Chest pain COMPARISON: 2019 FINDINGS: The lungs appear clear of acute infiltrate. The heart is normal size IMPRESSION: No acute abnormalities displayed
[2020-10-25 22:29] LABS: Blood Morphology Comment NOT SEEN (NOT SEEN); Platelet Estimate DECR; White Blood Cell Scan OK (OK)
[2020-10-25] MEDS ORDERED: KETOROLAC 30 MG/ML INJ ONE (23:05)
--- NOTE | 2020-10-25 23:41 | ER ---
Nurse's Notes [facility] Name: Jenni Irving Age: 40 yrs Sex: Female : 1980 Arrival Date: 10/25/2020 Time: 18:08 Bed 20 Private MD: Diagnosis: Sacroiliitis, not elsewhere classified;Urinary tract infection, site not specified;Cocaine abuse;Chest pain, unspecified Presentation: 10/25 18:33 Chief complaint: Patient states: CP, SOB, bilateral arm pain started 30 min [employer]. + ll1 nasal congestion and sinus pressure. No fever or cough. Coronavirus screen: Client denies travel out of the [place] in the last 14 days. cough unrelated to allergies, difficulty breathing, shortness of breath, Client presents with at least one sign or symptom that may indicate coronavirus-19. Standard/surgical mask placed on the client. Ebola Screen: Patient denies travel to an Ebola-affected area in the 21 days before illness onset. Initial Sepsis Screen: Does the patient meet any 2 criteria? No. Patient's initial sepsis screen is negative. Does the patient have a suspected source of infection? No. Patient's initial sepsis screen is negative. Risk Assessment: Do you want to hurt yourself or someone else? Patient reports no desire to harm self or others. Onset of symptoms was October 25, 2020. 18:33 Method Of Arrival: Ambulatory ll1 18:33 Acuity: GILA 3 ll1 Triage Assessment: 18:45 General: Appears distressed, uncomfortable, Behavior is cooperative, appropriate for bp age, anxious. Pain: Complains of pain in chest. EENT: No deficits noted. Neuro: No deficits noted. Cardiovascular: Reports chest pain. Respiratory: No deficits noted. GI: No signs and/or symptoms were reported involving the gastrointestinal system. : No signs and/or symptoms were reported regarding the genitourinary system. Derm: No deficits noted. Musculoskeletal: No deficits noted. 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 - Social history:: Smoking status: Patient reports the use of cigarette tobacco products, denies chronic smoking, but will smoke occasionally. Screenin:45 Abuse screen: Denies threats or abuse. Denies injuries from another. Nutritional bp screening: No deficits noted. Tuberculosis screening: No symptoms or risk factors identified. Fall Risk None identified. Assessment: 18:45 General: SEE TRIAGE NOTE. bp 19:30 General: Appears in no apparent distress. comfortable, Behavior is calm, cooperative, rr5 appropriate for age. 19:30 Pain: Complains of pain in chest Pain radiates to back Pain currently is 10 out of 10 rr5 on a pain scale. Quality of pain is described as aching, Pain began gradually, Is intermittent. Neuro: Level of Consciousness is awake, alert, obeys commands, Oriented to person, place, time, Reports numbness. Cardiovascular: Reports chest pain, Capillary refill < 3 seconds Patient's skin is warm and dry. Respiratory: Airway is patent Respiratory effort is even, unlabored, Respiratory pattern is regular, symmetrical. GI: Reports nausea, vomiting. : No signs and/or symptoms were reported regarding the genitourinary system. EENT: No signs and/or symptoms were reported regarding the EENT system. Derm: Skin is intact, is healthy with good turgor, Skin temperature is warm. Musculoskeletal: Capillary refill < 3 seconds. 20:14 Reassessment: Patient appears in no apparent distress at this time. Patient is alert, rr5 oriented x 3, equal unlabored respirations, skin warm/dry/pink. Patient states feeling better. Patient states symptoms have improved. 21:15 Reassessment: Patient appears in no apparent distress at this time. Patient and/or rr5 family updated on plan of care and expected duration. Pain level reassessed. Patient is alert, oriented x 3, equal unlabored respirations, skin warm/dry/pink. awaiting for results. 22:30 Reassessment: Patient appears in no apparent distress at this time. Patient is alert, rr5 oriented x 3, equal unlabored respirations, skin warm/dry/pink. complaint of throat pain, ED provider aware with order made and carriedout. 23:19 Reassessment: Patient appears in no apparent distress at this time. Patient is alert, rr5 oriented x 3, equal unlabored respirations, skin warm/dry/pink. repeat troponin extracted and sent. 10/26 00:00 Reassessment: Patient appears in no apparent distress at this time. Patient is alert, rr5 oriented x 3, equal unlabored respirations, skin warm/dry/pink. discharge instruction given and explained without complaints made. Vital Signs: 10/25 18:33 BP 134 / 80; Pulse 94; Resp 18; Temp 97.0; Pulse Ox 99% ; Weight 55.79 kg; Height 5 ft. ll1 3 in. (160.02 cm); Pain 10/10; 19:30 BP 125 / 85; Pulse 75; Resp 19; Temp 97.5; Pulse Ox 98% ; Pain 10/10; rr5 20:14 BP 121 / 74; Pulse 79; Resp 15; Pulse Ox 98% ; Pain 5/10; rr5 21:00 BP 119 / 68; Pulse 89; Resp 17; Pulse Ox 98% ; rr5 22:00 BP 115 / 62; Pulse 80; Resp 17; Pulse Ox 100% ; rr5 23:00 BP 126 / 89; Pulse 84; Resp 17; Pulse Ox 98% ; rr5 10/26 00:00 BP 118 / 70; Pulse 70; Resp 16; Pulse Ox 98% ; rr5 10/25 18:33 Body Mass Index 21.79 (55.79 kg, 160.02 cm) ll1 ED Course: 10/25 18:08 Patient arrived in ED. as 18:34 Triage completed. ll1 18:35 Arm band placed on. EKG completed in triage. Results shown to MD. ll1 18:38 [facility] cp 18:38 Dale Sotelo MD is Attending Physician. cp 18:44 Tenzin Parker, RN is Primary Nurse. bp 18:45 Patient has correct armband on for positive identification. Bed in low position. Call bp light in reach. Side rails up X2. Pulse ox on. NIBP on. 19:19 Primary Nurse role handed off by Tenzin Parker, FIONA mw2 19:22 Rubio Murillo, FIONA is Primary Nurse. rr5 19:30 Inserted saline lock: 20 gauge in left forearm, using aseptic technique. ,using aseptic rr5 technique. inserted by [facility] tech Blood collected. 19:35 Urine collected: clean catch specimen, clear. rr5 19:53 XRAY Chest (1 view) In Process Unspecified. EDMS 21:06 CT Aorta for Dissection In Process Unspecified. EDMS 22:53 Cory Prieto MD is Attending Physician. cp 10/26 00:00 No provider procedures requiring assistance completed. IV discontinued, intact, rr5 bleeding controlled, No redness/swelling at site. Pressure dressing applied. Patient maintains SpO2 saturation greater than 95% on room air. Administered Medications: 10/25 19:30 Drug: morphine 2 mg {Note: rass 0.} Route: IVP; Site: left forearm; rr5 19:30 Drug: NS 0.9% 1000 ml Route: IV; Rate: 1 bolus; Site: left forearm; rr5 19:40 Drug: Rocephin (cefTRIAXone) 1 grams Route: IV; Rate: calculated rate; Site: left rr5 forearm; 20:00 Drug: Zofran (Ondansetron) 4 mg Route: IVP; Site: left forearm; rr5 21:00 Follow up: Response: No adverse reaction; Marked relief of symptoms rr5 20:35 Drug: Potassium Chloride 20 mEq Route: IV; Rate: calculated rate; Site: left forearm; rr5 21:17 Drug: Magnesium Sulfate 2 grams Route: IVPB; Infused Over: 2 hrs; Site: left forearm; rr5 22:53 Drug: TORadol - (ketorolac) 15 mg Route: IVP; Site: left forearm; rr5 23:50 Follow up: Response: No adverse reaction rr5 23:45 Drug: Potassium Effervescent Tablet 50 mEq Route: PO; rr5 10/26 00:00 Follow up: Response: No adverse reaction rr5 Outcome: 10/25 23:41 Discharge ordered by . cp 10/26 00:00 Discharged to home ambulatory. rr5 Condition: stable Discharge instructions given to patient, Instructed on discharge instructions, follow up and referral plans. medication usage, Demonstrated understanding of instructions, follow-up care, medications, Prescriptions given X 2. 00:03 Patient left the ED. rr5 Signatures: Dispatcher [employer] Ann Virk Corey, PA PA cp Tenzin Parker RN RN bp Silvio Ag mw2 Rubio Murillo RN RN rr5 Eloisa Fleming RN RN ll1
--- NOTE | 2020-10-25 23:41 | EDPHYS ---
Physician Documentation [facility] Name: Jenni Irving Age: 40 yrs Sex: Female : 1980 Arrival Date: 10/25/2020 Time: 18:08 Bed 20 Private MD: ED Physician Cory Prieto HPI: 10/25 18:50 This 40 yrs old Female presents to ER via Ambulatory with complaints of Chest cp Pain, Arm Pain, Vomiting, Numbness. 18:50 The patient or guardian reports chest pain that is located primarily in the substernal cp area. 18:50 The pain radiates to both arms. Associated signs and symptoms: Pertinent positives: cp nausea, vomiting, Pertinent negatives: abdominal pain, cough, diaphoresis, palpitations. The chest pain is described as sharp. Duration: The patient or guardian reports a single episode, that is still ongoing, and unchanged. 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 - Social history:: Smoking status: Patient reports the use of cigarette tobacco products, denies chronic smoking, but will smoke occasionally. ROS: 18:50 Constitutional: Negative for body aches, chills, fever, poor PO intake. cp 18:50 Eyes: Negative for injury, pain, redness, and discharge. cp 18:50 Neck: Negative for pain with movement, pain at rest, stiffness. 18:50 Cardiovascular: Positive for chest pain, Negative for edema, palpitations. 18:50 Respiratory: Negative for cough, wheezing. 18:50 Abdomen/GI: Positive for nausea and vomiting, Negative for abdominal pain, diarrhea, constipation. 18:50 Back: Positive for pain at rest, pain with movement. 18:50 Neuro: Negative for altered mental status, headache, syncope, weakness. Exam: 18:50 ECG was reviewed by the Attending Physician. cp 18:55 Constitutional: The patient appears in no acute distress, alert, awake, cp non-diaphoretic, non-toxic, well developed, well nourished. 18:55 Head/Face: Normocephalic, atraumatic. cp 18:55 Eyes: Periorbital structures: appear normal, Conjunctiva: normal, no exudate, no injection, Sclera: no appreciated abnormality, Lids and lashes: appear normal, bilaterally. 18:55 ENT: External ear(s): are unremarkable, Nose: is normal, Mouth: Lips: moist, Oral mucosa: moist, Posterior pharynx: Airway: no evidence of obstruction, patent. 18:55 Neck: ROM/movement: is normal, is supple, without pain, no range of motions limitations. 18:55 Chest/axilla: Inspection: normal, Palpation: is normal, no crepitus, no tenderness. 18:55 Cardiovascular: Rate: normal, Rhythm: regular, Pulses: Pulses are 2+ in right radial artery and left radial artery. Edema: is not appreciated, JVD: is not appreciated. 18:55 Respiratory: the patient does not display signs of respiratory distress, Respirations: normal, no use of accessory muscles, no retractions, labored breathing, is not present, Breath sounds: are clear throughout, no decreased breath sounds, no stridor, no wheezing. 18:55 Abdomen/GI: Inspection: abdomen appears normal, Palpation: abdomen is soft and non-tender, in all quadrants. 18:55 Back: pain, is absent, ROM is normal. 18:55 Skin: no rash present. 18:55 Neuro: Orientation: to person, place \T\ time. Mentation: is normal, Cerebellar function: is grossly normal, Motor: moves all fours, strength is normal, Sensation: no obvious gross deficits. Vital Signs: 18:33 BP 134 / 80; Pulse 94; Resp 18; Temp 97.0; Pulse Ox 99% ; Weight 55.79 kg; Height 5 ft. ll1 3 in. (160.02 cm); Pain 10/10; 19:30 BP 125 / 85; Pulse 75; Resp 19; Temp 97.5; Pulse Ox 98% ; Pain 10/10; rr5 20:14 BP 121 / 74; Pulse 79; Resp 15; Pulse Ox 98% ; Pain 5/10; rr5 21:00 BP 119 / 68; Pulse 89; Resp 17; Pulse Ox 98% ; rr5 22:00 BP 115 / 62; Pulse 80; Resp 17; Pulse Ox 100% ; rr5 23:00 BP 126 / 89; Pulse 84; Resp 17; Pulse Ox 98% ; rr5 10/26 00:00 BP 118 / 70; Pulse 70; Resp 16; Pulse Ox 98% ; rr5 10/25 18:33 Body Mass Index 21.79 (55.79 kg, 160.02 cm) ll1 MDM: 10/25 18:47 Patient medically screened. cp 19:00 Differential diagnosis: acute myocardial infarction, acute pericarditis, cp costochondritis, pleurisy, pneumonia, pneumothorax, pulmonary embolus, stable angina, thoracic aortic disection, unstable angina. 22:58 ED course: Patient reports last use of cocaine was 1 week ago. cp 23:40 Data reviewed: vital signs, nurses notes, lab test result(s), EKG, radiologic studies, cp CT scan, plain films. 23:40 Test interpretation: by ED physician or midlevel provider: ECG, plain radiologic cp studies. Counseling: I had a detailed discussion with the patient and/or guardian regarding: the historical points, exam findings, and any diagnostic results supporting the discharge/admit diagnosis, lab results, radiology results, the need for outpatient follow up, a family practitioner, to return to the emergency department if symptoms worsen or persist or if there are any questions or concerns that arise at home. Response to treatment: the patient's symptoms have markedly improved after treatment, and as a result, I will discharge patient. 10/25 19:00 Order name: Basic Metabolic Panel cp 10/25 19:00 Order name: CBC with Diff cp 10/25 19:00 Order name: LFT's cp 10/25 19:00 Order name: Magnesium cp 10/25 19:00 Order name: NT PRO-BNP cp 10/25 19:00 Order name: PT-INR; Complete Time: 20:26 cp 10/25 19:00 Order name: Troponin (emerg Dept Use Only); Complete Time: 20:24 cp 10/25 19:00 Order name: UDS; Complete Time: 20:24 cp 10/25 20:24 Interpretation: Normal except: ALEXANDER POSITIVE. cp 10/25 19:00 Order name: D-Dimer; Complete Time: 20:26 cp 10/25 19:01 Order name: Basic Metabolic Panel; Complete Time: 20:24 EDMS 10/25 20:24 Interpretation: Normal except: K 3.1; GLUC 133; BUN 4; CA 8.2. 10/25 19:01 Order name: CBC with Automated Diff; Complete Time: 22:38 [facility] 10/25 20:25 Interpretation: Normal except: WBC 2.30; RBC 3.64; MCV 99.7; PLT 86; BASO% 2.6; NEUT A cp 1.6; LYMA 0.5. 10/25 19:01 Order name: Liver (Hepatic) Function; Complete Time: 20:24 [facility] 10/25 19:01 Order name: Magnesium; Complete Time: 20:24 [facility] 10/25 19:00 Order name: XRAY Chest (1 view); Complete Time: 21:47 10/25 21:47 Interpretation: Report reviewed. 10/25 19:01 Order name: NT PRO-BNP; Complete Time: 20:24 [facility] 10/25 19:55 Order name: Urine Dipstick-Ancillary; Complete Time: 20:24 [facility] 10/25 19:55 Order name: Urine Microscopic Only; Complete Time: 20:24 10/25 19:55 Order name: Urine Culture 10/25 19:58 Order name: CT Aorta for Dissection 10/25 19:58 Order name: Urine --Ancillary (enter results); Complete Time: 20:24 [facility] 10/25 20:23 Order name: CBC Smear Scan; Complete Time: 22:38 [facility] 10/25 20:52 Order name: SARS-COV-2 RT PCR; Complete Time: 21:47 [facility] 10/25 22:56 Order name: Troponin I; Complete Time: 23:43 10/25 18:35 Order name: EKG; Complete Time: 18:36 [facility] 10/25 18:35 Order name: EKG - Nurse/Tech; Complete Time: 18:35 [facility] 10/25 19:00 Order name: Cardiac monitoring; Complete Time: 20:13 10/25 19:00 Order name: IV Saline Lock; Complete Time: 20:13 10/25 19:00 Order name: Labs collected and sent; Complete Time: 20:13 10/25 19:00 Order name: O2 Per Protocol; Complete Time: 20:13 10/25 19:00 Order name: O2 Sat Monitoring; Complete Time: 20:13 cp EC:50 Rate is 92 beats/min. Rhythm is regular. OR interval is normal. QRS interval is normal. cp QT interval is normal. T waves are Inverted in leads II, III, aVL, aVF, V2, V3, V4, V5, V6. Interpreted by me. Reviewed by me. Administered Medications: 19:30 Drug: morphine 2 mg {Note: rass 0.} Route: IVP; Site: left forearm; rr5 19:30 Drug: NS 0.9% 1000 ml Route: IV; Rate: 1 bolus; Site: left forearm; rr5 19:40 Drug: Rocephin (cefTRIAXone) 1 grams Route: IV; Rate: calculated rate; Site: left rr5 forearm; 20:00 Drug: Zofran (Ondansetron) 4 mg Route: IVP; Site: left forearm; rr5 21:00 Follow up: Response: No adverse reaction; Marked relief of symptoms rr5 20:35 Drug: Potassium Chloride 20 mEq Route: IV; Rate: calculated rate; Site: left forearm; rr5 21:17 Drug: Magnesium Sulfate 2 grams Route: IVPB; Infused Over: 2 hrs; Site: left forearm; rr5 22:53 Drug: TORadol - (ketorolac) 15 mg Route: IVP; Site: left forearm; rr5 23:50 Follow up: Response: No adverse reaction rr5 23:45 Drug: Potassium Effervescent Tablet 50 mEq Route: PO; rr5 10/26 00:00 Follow up: Response: No adverse reaction rr5 Disposition: 01:07 Co-signature as Attending Physician, Cory Prieto MD. rn Disposition: 10/25/20 23:41 Discharged to Home. Impression: Sacroiliitis, not elsewhere classified, Urinary tract infection, site not specified, Cocaine abuse, Chest pain, unspecified. - Condition is Stable. - Discharge Instructions: Nonspecific Chest Pain, Stimulant Use Disorder-Cocaine, Urinary Tract Infection, Adult, Aspirin and Your Heart. - Prescriptions for Bactrim DS 800- 160 mg Oral Tablet - take 1 tablet by ORAL route every 12 hours for 7 days; 14 tablet. Diclofenac Sodium 75 mg Oral Tablet, Delayed Release (E.C.) - take 1 tablet by ORAL route 2 times per day; 20 tablet. - Medication Reconciliation Form, Thank You Letter, Antibiotic Education, Prescription Opioid Use form. - Follow up: Private Physician; When: 2 - 3 days. - Problem is new. - Symptoms have improved. Signatures: Dispatcher [employer] EDMS Cory Prieto MD MD rn Dale Winter PA PA cp Rubio Murillo RN RN rr5 Eloisa Fleming RN RN ll1 Corrections: (The following items were deleted from the chart) 10/25 19:54 19:01 CORONAVIRUS+[id number] ordered. EDMS EDMS 20:24 20:24 Normal except: K 3.1; GLUC 133; BUN 4. cp cp 20:25 20:25 Normal except: WBC 2.30; RBC 3.64; MCV 99.7; PLT 86; BASO% 2.6; NEUT A 1.6. cp cp 10/26 00:03 10/25 23:41 10/25/2020 23:41 Discharged to Home. Impression: Sacroiliitis, not rr5 elsewhere classified; Urinary tract infection, site not specified; Cocaine abuse; Chest pain, unspecified. Condition is Stable. Forms are Medication Reconciliation Form, Thank You Letter, Antibiotic Education, Prescription Opioid Use. Follow up: Private Physician; When: 2 - 3 days. Problem is new. Symptoms have improved. cp
[2020-10-26] MEDS ORDERED: POTASSIUM 25 MEQ EFFERV TAB ONE (00:06)
[2020-10-26 00:48] VITALS: TEMP 97.5; O2SAT 98
[2020-10-26 00:50] VITALS: BP 121/74
--- NOTE | 2020-10-26 11:14 | EKG ---
Test Date: 2020-10-25 Test Time: 18:28:55 Health Unit Clerk: NEHEMIAS MEASUREMENT RESULTS: Intervals: Rate: 92 VT: 116 QRSD: 84 QT: 372 QTc: 460 Smyer: P: -18 VT: 116 QRS: 120 T: -41 INTERPRETIVE STATEMENTS: Normal sinus rhythm Left posterior fascicular block T wave abnormality, consider inferior ischemia T wave abnormality, consider anterior ischemia Prolonged QT Abnormal ECG Compared to ECG 05/29/2020 16:33:02 Left posterior fascicular block now present Possible ischemia now present Short VT interval no longer present T-wave abnormality still present Electronically Signed On 10-26-20 11:13:24 CDT by Ervin Goldberg
--- NOTE | 2020-10-26 12:30 | RAD REPORT ---
EXAM DESCRIPTION: CT - Angio Aorta For Dissection - 10/26/2020 6:43 am CLINICAL HISTORY: 40 years Female CHEST PAIN TECHNIQUE: Contiguous axial images obtained through the chest, abdomen, and pelvis during the arteri al phase of intravenous contrast administration. MIP images also provided. This CT exam was performed according to our departmental dose-optimization program, which includes on e or more of the following dose reduction techniques: automated exposure control, adjustment of the m A and/or kV according to patient size, and/or use of iterative reconstruction technique. COMPARISON: No prior exams provided for comparison. FINDINGS: There is no aortic aneurysm, dissection, or rupture. No mediastinal or retroperitoneal hem orrhage The branches of the aortic arch, celiac axis, superior mesenteric artery, bilateral renal arteries, inferior mesenteric artery, and bilateral iliac arteries are patent. There is no pulmonary embolus. The heart is normal in size without pericardial effusion. The lungs are clear without consolidation, effusion, or pneumothorax. No lymphadenopathy in the chest . The liver, biliary tree, gallbladder, pancreas, spleen, adrenal glands, kidneys, uterus, and right ov jack are normal. There is a 2.9 cm left ovarian cyst. There is moderate distention of the urinary bladder without visu alized mural lesion. There is no bowel inflammation, obstruction, free intraperitoneal air, or ascites. The appendix is no rmal. No acute fracture. Mild bilateral sacroiliitis. Joint spaces otherwise preserved. IMPRESSION: No aortic aneurysm, dissection, or rupture. No pulmonary embolus. No acute findings in the chest or abdomen. 2.9 cm left ovarian cyst does not require follow-up. Distention of the urinary bladder. Mild bilateral sacroiliitis. Electronically signed by: Ashley Cash MD 10/25/2020 10:24 PM CDT Due to temporary technical issues with the PACS/Fluency reporting system, reports are being signed by the in house radiologists without review as a courtesy to insure prompt reporting. The interpreting radiologist is fully responsible for the content of the report.
== END 2020-10-26 00:03 | disposition home or self-care (01) ==
LOC: ER 18:07
DX: R07.9 Chest pain, unspecified (principal); N39.0 Urinary tract infection, site not specified; F14.10 Cocaine abuse, uncomplicated; M46.1 Sacroiliitis, not elsewhere classified; F17.210 Nicotine dependence, cigarettes, uncomplicated; Z20.822 Contact with and (suspected) exposure to COVID-19; F41.9 Anxiety disorder, unspecified; J45.909 Unspecified asthma, uncomplicated; I10 Essential (primary) hypertension; F31.9 Bipolar disorder, unspecified
CPT/HCPCS: 36415; 71045; 71275; 74175; 80048; 80076; 80307; 81003; 81015; 81025; 83735; 83880; 84484; 85025; 85379; 85610; 87086; 87088; 93005; 96374; 96375; 99284; J0696; J2270; J2405; J3475; J3480; J7030; Q9967; U0003

== ENCOUNTER 2020-11-24 02:18 | Emergency (ER) | payer OTHER ==
[2020-11-24 02:45] LABS: Urine Blood Trace-intact (Negative); Urine Glucose Negative (Negative); Urine Protein Trace (Negative); Urine Specific Gravity 1.025 (1.005-1.030); Urine pH 5.5 (5.0-7.0)
[2020-11-24] MEDS ORDERED: ONDANSETRON 4 MG/2 ML VIAL ONE (03:35)
[2020-11-24] MEDS ORDERED: CEFTRIAXONE/SWI 1gm 1 GM/10 ML SYR ONE (03:35)
[2020-11-24] MEDS ORDERED: NA CHLORIDE 0.9% 1,000 ML ONE (03:35)
[2020-11-24] MEDS ORDERED: MORPHINE 4 MG/ML SYR ONE (03:35)
[2020-11-24 03:38] LABS: Absolute Lymphocytes (CBC) 0.7 K/uL (0.7-4.9); Hematocrit 32.9 % (36.0-45.0); Lymphocytes % 26.2 % (15.3-44.8); MPV 10.5 fL (7.6-11.3); RBC Red Blood Cell Count 3.35 M/uL (3.86-4.86)
[2020-11-24 03:45] LABS: ALT/SGPT 85 U/L (12-78); AST/SGOT 139 U/L (15-37); Albumin 3.7 g/dL (3.4-5.0); Alkaline Phosphatase 84 U/L (45-117); BUN Blood Urea Nitrogen 6 mg/dL (7-18); Bicarbonate 23 mmol/L (21-32); Bilirubin Direct 0.4 mg/dL (0-0.2); Bilirubin Total 1.4 mg/dL (0.2-1.0); Glucose Level 168 mg/dL (74-106); Lipase 211 U/L (73-393); Potassium 3.6 mmol/L (3.5-5.1); Protein, Total 7.8 g/dL (6.4-8.2); Sodium Level 134 mmol/L (136-145)
[2020-11-24 03:47] LABS: Urine Bacteria >50 /HPF (<20); Urine RBC <5 /HPF (NONE SEEN)
[2020-11-24 03:48] LABS: Urine Specific Gravity/Preg 1.025 (1.005-1.030)
--- NOTE | 2020-11-24 04:17 | ER ---
Nurse's Notes [facility] Name: Jenni Irving Age: 40 yrs Sex: Female : 1980 Arrival Date: 11/24/2020 Time: 02:23 Bed 4 Private MD: Diagnosis: Cystitis, unspecified without hematuria-pyelonephritis Presentation: 11/24 02:31 Chief complaint: Patient states: I just woke up shaking and i couldn't walk and I felt iw dizzy, I can;t breathe, I think it's my Seroquel I just started it today. Coronavirus screen: At this time, the client does not indicate any symptoms associated with coronavirus-19. Ebola Screen: Patient negative for fever greater than or equal to 101.5 degrees Fahrenheit, and additional compatible Ebola Virus Disease symptoms Patient denies exposure to infectious person. Patient denies travel to an Ebola-affected area in the 21 days before illness onset. No symptoms or risks identified at this time. Initial Sepsis Screen: Does the patient meet any 2 criteria? No. Patient's initial sepsis screen is negative. Does the patient have a suspected source of infection? No. Patient's initial sepsis screen is negative. Risk Assessment: Do you want to hurt yourself or someone else?. Onset of symptoms was November 24, 2020. 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 - Social history:: Smoking status: Patient reports the use of cigarette tobacco products, smokes one-half pack cigarettes per day, Patient uses alcohol, on a daily basis. claims drinking about a 6 pack/day. Patient/guardian denies using street drugs. - Family history:: not pertinent. Screenin:12 Abuse screen: Denies threats or abuse. Denies injuries from another. Nutritional jm8 screening: No deficits noted. Tuberculosis screening: No symptoms or risk factors identified. Fall Risk None identified. Assessment: 03:08 General: Appears in no apparent distress. uncomfortable, Behavior is calm, cooperative, jm8 appropriate for age. Pain: Complains of pain in pelvis Pain currently is 10 out of 10 on a pain scale. Quality of pain is described as aching, Pain began suddenly, Noted to be moaning, resistant to movement. Neuro: No deficits noted. Level of Consciousness is awake, alert, obeys commands, Oriented to person, place, time. Cardiovascular: No deficits noted. Reports. Cardiovascular: Reports None. Respiratory: No deficits noted. Airway is patent Trachea midline Respiratory effort is even, unlabored. GI: No deficits noted. No signs and/or symptoms were reported involving the gastrointestinal system. : Reports cramping, weakness, chills, abdominal pain. EENT: No deficits noted. No signs and/or symptoms were reported regarding the EENT system. Derm: No deficits noted. No signs and/or symptoms reported regarding the dermatologic system. Derm: Skin is intact, is healthy with good turgor, Skin is dry, Skin is pink, warm \T\ dry. Skin temperature is warm. Musculoskeletal: No deficits noted. No signs and/or symptoms reported regarding the musculoskeletal system. Vital Signs: 02:31 BP 125 / 79; Pulse 92; Resp 16; Temp 97.9; Pulse Ox 99% on R/A; Weight 47.63 kg; Height iw 5 ft. 1 in. (154.94 cm); 04:03 BP 135 / 83; Pulse 87; Resp 16; Pulse Ox 100% on R/A; jm8 02:31 Body Mass Index 19.84 (47.63 kg, 154.94 cm) iw ED Course: 02:23 Patient arrived in ED. es 02:33 Triage completed. iw 02:34 Arm band placed on. iw 02:37 Puma Fraire MD is Attending Physician. ma2 03:12 Patient has correct armband on for positive identification. Bed in low position. Call jm8 light in reach. Side rails up X2. Adult w/ patient. 03:22 Inserted saline lock: 22 gauge in left hand, using aseptic technique. jm8 04:31 No provider procedures requiring assistance completed. IV discontinued, intact, ad5 bleeding controlled, No redness/swelling at site. Pressure dressing applied. Administered Medications: 03:13 Drug: NS 0.9% 1000 ml Route: IV; Rate: 1 bolus; Site: right hand; jm8 04:19 Follow up: IV Status: Completed infusion; IV Intake: 1000ml ad5 03:20 Drug: Rocephin (cefTRIAXone) 1 grams Route: IV; Rate: calculated rate; Site: left hand; jm8 04:19 Follow up: IV Status: Completed infusion ad5 03:20 Drug: morphine 4 mg Route: IVP; Site: left hand; 8 04:18 Follow up: Response: No adverse reaction; Pain is decreased ad5 03:20 Drug: Zofran (Ondansetron) 4 mg Route: IVP; Site: left hand; 8 04:18 Follow up: Response: No adverse reaction; Nausea is decreased ad5 Intake: 04:19 IV: 1000ml; Total: 1000ml. ad5 Outcome: 04:17 Discharge ordered by . ma2 04:31 Discharged to home via wheelchair, with family. ad5 04:31 Condition: stable 04:31 Discharge instructions given to patient, Instructed on discharge instructions, follow up and referral plans. medication usage, Demonstrated understanding of instructions, follow-up care, medications, Prescriptions given X 3. 04:31 Patient left the ED. ad5 Addendum: 11/27/2020 07:17 Addendum: Culture Results: Positive urine culture. No further action required. Bacteria e b sensitive to prescribed antibiotic. Signatures: Claudia Warren Irene, RN RN iw Alzahri, Mohammad, MD MD [facility] Viviana Jeter Joseph, RN RN 8 Rocky Erickson ad5
--- NOTE | 2020-11-24 04:18 | EDPHYS ---
Physician Documentation [facility] Name: Jenni Irving Age: 40 yrs Sex: Female : 1980 Arrival Date: 11/24/2020 Time: 02:23 Bed 4 Private MD: ED Physician Puma Fraire HPI: 11/24 03:08 This 40 yrs old Female presents to ER via Wheelchair with complaints of ma2 Dizziness, shakeing, cold, unable to walk. 03:08 Onset: The symptoms/episode began/occurred gradually, 2 day(s) ago. Associated signs ma2 and symptoms: Pertinent negatives: chest pain, diaphoresis, focal weakness. Severity of symptoms: At their worst the symptoms were mild in the emergency department the symptoms are unchanged. The patient has experienced similar episodes in the past. 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 - Social history:: Smoking status: Patient reports the use of cigarette tobacco products, smokes one-half pack cigarettes per day, Patient uses alcohol, on a daily basis. claims drinking about a 6 pack/day. Patient/guardian denies using street drugs. - Family history:: not pertinent. ROS: 03:08 Constitutional: Negative for fever, chills, and weight loss. ma2 03:08 All other systems are negative. Exam: 03:08 Constitutional: This is a well developed, well nourished patient who is awake, alert, ma2 and in no acute distress. Head/Face: Normocephalic, atraumatic. Eyes: Pupils equal round and reactive to light, extra-ocular motions intact. Lids and lashes normal. Conjunctiva and sclera are non-icteric and not injected. Cornea within normal limits. Periorbital areas with no swelling, redness, or edema. ENT: Nares patent. No nasal discharge, no septal abnormalities noted. Tympanic membranes are normal and external auditory canals are clear. Oropharynx with no redness, swelling, or masses, exudates, or evidence of obstruction, uvula midline. Mucous membranes moist. Neck: Trachea midline, no thyromegaly or masses palpated, and no cervical lymphadenopathy. Supple, full range of motion without nuchal rigidity, or vertebral point tenderness. No Meningismus. Chest/axilla: Normal chest wall appearance and motion. Nontender with no deformity. No lesions are appreciated. Cardiovascular: Regular rate and rhythm with a normal S1 and S2. No gallops, murmurs, or rubs. Normal PMI, no JVD. No pulse deficits. Respiratory: Lungs have equal breath sounds bilaterally, clear to auscultation and percussion. No rales, rhonchi or wheezes noted. No increased work of breathing, no retractions or nasal flaring. Abdomen/GI: Soft, non-tender, with normal bowel sounds. No distension or tympany. No guarding or rebound. No evidence of tenderness throughout. Back: No spinal tenderness. No costovertebral tenderness. Full range of motion. MS/ Extremity: Pulses equal, no cyanosis. Neurovascular intact. Full, normal range of motion. Neuro: Awake and alert, GCS 15, oriented to person, place, time, and situation. Cranial nerves II-XII grossly intact. Motor strength 5/5 in all extremities. Sensory grossly intact. Cerebellar exam normal. Normal gait. Vital Signs: 02:31 BP 125 / 79; Pulse 92; Resp 16; Temp 97.9; Pulse Ox 99% on R/A; Weight 47.63 kg; Height iw 5 ft. 1 in. (154.94 cm); 04:03 BP 135 / 83; Pulse 87; Resp 16; Pulse Ox 100% on R/A; jm8 02:31 Body Mass Index 19.84 (47.63 kg, 154.94 cm) MDM: 02:37 Patient medically screened. [facility] 03:08 Differential diagnosis: hypovolemia, uti, cysitits. [facility] 04:16 Data reviewed: vital signs, nurses notes. Counseling: I had a detailed discussion with ma the patient and/or guardian regarding: the historical points, exam findings, and any diagnostic results supporting the discharge/admit diagnosis, the presence of at least one elevated blood pressure reading (>120/80) during this emergency department visit, the need for outpatient follow up. 11/24 02:46 Order name: Urine Dipstick-Ancillary; Complete Time: 02:53 [facility] 11/24 02:49 Order name: Urine Culture [facility] 11/24 02:49 Order name: Urine Microscopic Only; Complete Time: 04:15 [facility] 11/24 02:50 Order name: Urine --Ancillary (enter results); Complete Time: 04:15 mw2 11/24 02:53 Order name: Basic Metabolic Panel; Complete Time: 04:15 ma2 11/24 02:53 Order name: CBC with Diff [facility] 11/24 02:49 Order name: Urine Dipstick-Ancillary (obtain specimen); Complete Time: 02:49 [facility] 11/24 02:53 Order name: Hepatic Function; Complete Time: 04:15 ga2 11/24 02:53 Order name: Lipase; Complete Time: 04:15 ga2 11/24 03:42 Order name: CBC Smear Scan [facility] 11/24 02:53 Order name: IV Saline Lock; Complete Time: 03:19 ga2 11/24 02:53 Order name: Labs collected and sent; Complete Time: 03:20 ma2 Administered Medications: 03:13 Drug: NS 0.9% 1000 ml Route: IV; Rate: 1 bolus; Site: right hand; [facility] 04:19 Follow up: IV Status: Completed infusion; IV Intake: 1000ml ad5 03:20 Drug: Rocephin (cefTRIAXone) 1 grams Route: IV; Rate: calculated rate; Site: left hand; [facility] 04:19 Follow up: IV Status: Completed infusion ad5 03:20 Drug: morphine 4 mg Route: IVP; Site: left hand; [facility] 04:18 Follow up: Response: No adverse reaction; Pain is decreased ad5 03:20 Drug: Zofran (Ondansetron) 4 mg Route: IVP; Site: left hand; [facility] 04:18 Follow up: Response: No adverse reaction; Nausea is decreased ad5 Disposition: 11/24/20 04:17 Discharged to Home. Impression: Cystitis, unspecified without hematuria - pyelonephritis. - Condition is Stable. - Discharge Instructions: Pyelonephritis, Adult, [id number]. - Prescriptions for Zofran 4 mg Oral Tablet - take 1 tablet by ORAL route every 12 hours As needed; 20 tablet. Diclofenac Sodium 75 mg Oral Tablet Sustained Release - take 1 tablet by ORAL route 2 times per day; 30 tablet. Bactrim DS 800- 160 mg Oral Tablet - take 1 tablet by ORAL route every 12 hours for 5 days; 10 tablet. - Medication Reconciliation Form, Thank You Letter, Antibiotic Education, Prescription Opioid Use form. - Follow up: Private Physician; When: Tomorrow; Reason: Continuance of care. Signatures: Dispatcher [employer] EDKell Lopez RN RN iw Puma Fraire MD MD ma2 Jefferson Nguyen RN RN jm8 Rocky Erickson ad5 Corrections: (The following items were deleted from the chart) 04:31 04:17 11/24/2020 04:17 Discharged to Home. Impression: Cystitis, unspecified without ad5 hematuria - pyelonephritis. Condition is Stable. Prescriptions for Zofran 4 mg Oral Tablet - take 1 tablet by ORAL route every 12 hours As needed; 20 tablet, Diclofenac Sodium 75 mg Oral Tablet Sustained Release - take 1 tablet by ORAL route 2 times per day; 30 tablet, Bactrim DS 800-160 mg Oral Tablet - take 1 tablet by ORAL route every 12 hours for 5 days; 10 tablet. and Forms are Medication Reconciliation Form, Thank You Letter, Antibiotic Education, Prescription Opioid Use. Follow up: Private Physician; When: Tomorrow; Reason: Continuance of care. ma2
[2020-11-24 04:39] VITALS: TEMP 97.9
[2020-11-24 04:41] VITALS: BP 135/83; O2SAT 100
[2020-11-24 04:43] LABS: Blood Morphology Comment NOT SEEN (NOT SEEN); Platelet Estimate DECR; White Blood Cell Scan OK (OK)
== END 2020-11-24 04:31 | disposition home or self-care (01) ==
LOC: ER 02:18
DX: N30.90 Cystitis, unspecified without hematuria (principal); N12 Tubulo-interstitial nephritis, not specified as acute or chronic; F17.210 Nicotine dependence, cigarettes, uncomplicated; F41.9 Anxiety disorder, unspecified; F31.9 Bipolar disorder, unspecified; I10 Essential (primary) hypertension; J45.909 Unspecified asthma, uncomplicated
CPT/HCPCS: 96365; 87088; 85025; 87086; 80048; 36415; 81025; 80076; 83690; 96375; 99283; J0696; J7030; J2405; 81003; 81015; 87077; 87186

== ENCOUNTER 2020-12-01 11:00 | Emergency (ER) | payer OTHER, SELFPAY ==
[2020-12-01 14:27] LABS: SARS-COV-2 RT PCR NEGATIVE (NEGATIVE)
--- NOTE | 2020-12-01 14:47 | ER ---
Nurse's Notes [facility] Name: Jenni Irving Age: 40 yrs Sex: Female : 1980 Arrival Date: 12/01/2020 Time: 11:03 Bed 12 Private MD: Diagnosis: Acute pharyngitis Presentation: 12/01 11:26 Chief complaint: Patient states: Stuffy nose, sore throat, bilateral ear pain, and ph fever since last night. Denies N/V/D. Coronavirus screen: congestion, fatigue, fever, sore throat, Client presents with at least one sign or symptom that may indicate coronavirus-19. Standard/surgical mask placed on the client. Provider contacted for isolation considerations. Ebola Screen: No symptoms or risks identified at this time. Initial Sepsis Screen: Does the patient meet any 2 criteria? No. Patient's initial sepsis screen is negative. Does the patient have a suspected source of infection? No. Patient's initial sepsis screen is negative. Risk Assessment: Do you want to hurt yourself or someone else? Patient reports no desire to harm self or others. Onset of symptoms was December 01, 2020. 11:26 Method Of Arrival: Ambulatory ph 11:26 Acuity: GILA 4 ph Historical: - Allergies: 11:28 No Known Allergies; ph - PMHx: 11:28 Anxiety; Asthma; Bipolar disorder; etoh abuse; Hypertension; meth abuse; ph - PSHx: 11:28 ; ph - Immunization history:: Adult Immunizations unknown, Client reports having NOT received the Covid vaccine. - Social history:: Smoking status: Patient reports the use of cigarette tobacco products, smokes one-half pack cigarettes per day. Screenin:00 Abuse screen: Denies threats or abuse. Denies injuries from another. Nutritional ph screening: No deficits noted. Tuberculosis screening: No symptoms or risk factors identified. Fall Risk None identified. Assessment: 12:00 General: Appears in no apparent distress. uncomfortable, Behavior is calm, cooperative, ph appropriate for age, Reports chills for fever for. Pain: Complains of pain in when swallowing. Neuro: Level of Consciousness is awake, alert, obeys commands, Oriented to person, place, time, situation. Respiratory: Reports cough that is Airway is patent Respiratory effort is even, unlabored, Breath sounds are clear bilaterally. GI: No signs and/or symptoms were reported involving the gastrointestinal system. EENT: Throat is reddened Reports pain when swallowing. Derm: Skin is intact, Skin is pink, warm \T\ dry. Vital Signs: 11:26 BP 142 / 92; Pulse 104; Resp 20; Temp 99.9; Pulse Ox 97% on R/A; Weight 55.79 kg; ph Height 5 ft. 0 in. (152.40 cm); 13:30 BP 136 / 86; Pulse 99; Resp 18; Temp 99.0; Pulse Ox 99% on R/A; ph 11:26 Body Mass Index 24.02 (55.79 kg, 152.40 cm) ph ED Course: 11:03 Patient arrived in ED. as 11:13 Mary De La Cruz FNP-C is [facility]. kb 11:14 Louie De MD is Attending Physician. kb 11:27 Triage completed. ph 11:28 Arm band placed on Patient placed in waiting room, Patient notified of wait time. ph 12:30 Patient has correct armband on for positive identification. Bed in low position. Call ph light in reach. Side rails up X 1. Door closed. Noise minimized. 13:40 Marija Mckeon, RN is Primary Nurse. ph 14:55 No provider procedures requiring assistance completed. Patient did not have IV access ph during this emergency room visit. Administered Medications: No medications were administered Outcome: 14:46 Discharge ordered by . kb 14:57 Patient left the ED. ph 14:57 Discharged to home ambulatory. ph 14:57 Condition: good 14:57 Discharge instructions given to patient, Instructed on discharge instructions, follow up and referral plans. Demonstrated understanding of instructions, follow-up care. Signatures: Mary De La Cruz FNP-C FNP-Ckb Martinez, Amelia as Marija Mckeon, RN RN ph
--- NOTE | 2020-12-01 14:47 | EDPHYS ---
Physician Documentation [facility] Name: Jenni Irving Age: 40 yrs Sex: Female : 1980 Arrival Date: 12/01/2020 Time: 11:03 Bed 12 Private MD: ED Physician Louie De HPI: 12/01 18:46 This 40 yrs old Female presents to ER via Ambulatory with complaints of Sore kb Throat, Fever, Cough. 18:46 The patient presents with sore throat. The patient describes throat pain as constant. kb Onset: The symptoms/episode began/occurred 2 day(s) ago. Severity of symptoms: At their worst the symptoms were moderate, in the emergency department the symptoms are unchanged. Modifying factors: The symptoms are alleviated by nothing, the symptoms are aggravated by swallowing, Patient's oral intake status: good. Associated signs and symptoms: Pertinent positives: earache, Sore throat congestion. The patient has not experienced similar symptoms in the past. The patient has not recently seen a physician. Pt c/o congestion, sore throat and bilateral ear pain that started 2 days ago. . Historical: - Allergies: 11:28 No Known Allergies; ph - PMHx: 11:28 Anxiety; Asthma; Bipolar disorder; etoh abuse; Hypertension; meth abuse; ph - PSHx: 11:28 ; ph - Immunization history:: Adult Immunizations unknown, Client reports having NOT received the Covid vaccine. - Social history:: Smoking status: Patient reports the use of cigarette tobacco products, smokes one-half pack cigarettes per day. ROS: 18:46 Constitutional: Negative for fever, chills, and weight loss, Respiratory: Negative for kb shortness of breath, cough, wheezing, and pleuritic chest pain. 18:46 ENT: Positive for ear pain, sinus congestion, sore throat. 18:46 All other systems are negative. Exam: 18:48 Constitutional: This is a well developed, well nourished patient who is awake, alert, kb and in no acute distress. Head/Face: Normocephalic, atraumatic. ENT: Moist Mucous membranes Cardiovascular: Regular rate and rhythm with a normal S1 and S2. No gallops, murmurs, or rubs. No pulse deficits. Respiratory: Respirations even and unlabored. No increased work of breathing, no retractions or nasal flaring. Abdomen/GI: Soft, non-tender. No distention Skin: Warm, dry with normal turgor. Normal color. MS/ Extremity: Pulses equal, no cyanosis. Neurovascular intact. Full, normal range of motion. Neuro: Awake and alert, GCS 15, oriented to person, place, time, and situation. Moves all extremities. Normal gait. Psych: Awake, alert, with orientation to person, place and time. Behavior, mood, and affect are within normal limits. Vital Signs: 11:26 BP 142 / 92; Pulse 104; Resp 20; Temp 99.9; Pulse Ox 97% on R/A; Weight 55.79 kg; ph Height 5 ft. 0 in. (152.40 cm); 13:30 BP 136 / 86; Pulse 99; Resp 18; Temp 99.0; Pulse Ox 99% on R/A; ph 11:26 Body Mass Index 24.02 (55.79 kg, 152.40 cm) ph MDM: 11:49 Patient medically screened. kb 14:55 Data reviewed: vital signs, nurses notes. Data interpreted: Pulse oximetry: on room air kb is 97 %. Interpretation: normal. 18:46 Counseling: I had a detailed discussion with the patient and/or guardian regarding: the kb historical points, exam findings, and any diagnostic results supporting the discharge/admit diagnosis, lab results, the need for outpatient follow up, a family practitioner, to return to the emergency department if symptoms worsen or persist or if there are any questions or concerns that arise at home. 12/01 11:14 Order name: Strep; Complete Time: 12:39 kb 12/01 12:40 Order name: Throat Culture EDMS 12/01 14:28 Order name: COVID-19/FLU A+B; Complete Time: 14:30 EDMS Administered Medications: No medications were administered Disposition: 18:32 Co-signature as Attending Physician, Louie De MD I agree with the assessment and 4 plan of care. Disposition: 12/01/20 14:46 Discharged to Home. Impression: Acute pharyngitis. - Condition is Stable. - Discharge Instructions: Pharyngitis, [id number], Sore Throat, [id number]. - Medication Reconciliation Form, Thank You Letter, Antibiotic Education, Prescription Opioid Use form. - Follow up: Emergency Department; When: As needed; Reason: Worsening of condition. Follow up: Private Physician; When: 2 - 3 days; Reason: Recheck today's complaints, Continuance of care, Re-evaluation by your physician. Signatures: Dispatcher [employer] EDPA Mary De La Cruz, SHUBHAM GARBER-Marija Evans, RN RN Louie Stanley MD MD tw4 Corrections: (The following items were deleted from the chart) 13:39 11:15 Influenza Screen (A \T\ B)+BA.LAB.BRZ ordered. EDPA EDMS 13:39 11:15 CORONAVIRUS+MR.LAB.BRZ ordered. [facility] EDMS 14:57 14:46 12/01/2020 14:46 Discharged to Home. Impression: Acute pharyngitis. Condition is ph Stable. Forms are Medication Reconciliation Form, Thank You Letter, Antibiotic Education, Prescription Opioid Use. Follow up: Emergency Department; When: As needed; Reason: Worsening of condition. Follow up: Private Physician; When: 2 - 3 days; Reason: Recheck today's complaints, Continuance of care, Re-evaluation by your physician. kb
[2020-12-01 15:13] VITALS: BP 142/92; TEMP 99.9; O2SAT 97
== END 2020-12-01 14:57 | disposition home or self-care (01) ==
LOC: ER 11:00
DX: J02.9 Acute pharyngitis, unspecified (principal); Z20.822 Contact with and (suspected) exposure to COVID-19; I10 Essential (primary) hypertension; F17.210 Nicotine dependence, cigarettes, uncomplicated
CPT/HCPCS: 0240U; 87070; 87081; 99281

== ENCOUNTER 2021-01-16 17:22 | Emergency (ER) | payer OTHER, SELFPAY ==
[2021-01-16 18:55] LABS: Urine Blood Trace-lysed (Negative); Urine Glucose Negative (Negative); Urine Protein Negative (Negative); Urine Specific Gravity <=1.005 (1.005-1.030)
[2021-01-16 19:15] LABS: Absolute Lymphocytes (CBC) 0.6 K/uL (0.7-4.9); Basophils % 0.9 % (0-1.3); Hematocrit 37.1 % (36.0-45.0); Lymphocytes % 16.3 % (15.3-44.8); MPV 11.2 fL (7.6-11.3); RBC Red Blood Cell Count 3.65 M/uL (3.86-4.86)
[2021-01-16 19:17] LABS: ALT/SGPT 93 U/L (12-78); AST/SGOT 113 U/L (15-37); Albumin 3.9 g/dL (3.4-5.0); Alkaline Phosphatase 93 U/L (45-117); BUN Blood Urea Nitrogen 3 mg/dL (7-18); Bicarbonate 28 mmol/L (21-32); Bilirubin Direct 0.6 mg/dL (0-0.2); Bilirubin Total 2.1 mg/dL (0.2-1.0); Glucose Level 81 mg/dL (74-106); Lipase 168 U/L (73-393); Potassium 3.5 mmol/L (3.5-5.1); Sodium Level 129 mmol/L (136-145)
[2021-01-16] MEDS ORDERED: MORPHINE 2 MG/ML SYR ONE (20:39)
[2021-01-16] MEDS ORDERED: ONDANSETRON 4 MG/2 ML VIAL ONE (20:39)
[2021-01-16 20:41] LABS: Blood Morphology Comment NOT SEEN (NOT SEEN); Platelet Estimate DECR; White Blood Cell Scan OK (OK)
--- NOTE | 2021-01-16 20:59 | RAD REPORT ---
EXAM DESCRIPTION: CTAbdomen Pelvis W Contrast - 01/16/2021 8:51 pm CLINICAL HISTORY: Abdominal pain. FLANK PAIN COMPARISON: Abdomen Pelvis W Contrast dated 05/11/2020; Abdomen Pelvis W Contrast dated 9; Angio Aorta For Dissection dated 10/25/2020 TECHNIQUE: Biphasic CT imaging of the abdomen and pelvis was performed with 100 ml non-ionic IV cont rast. All CT scans are performed using dose optimization technique as appropriate and may include automated exposure control or mA/KV adjustment according to patient size. FINDINGS: The lung bases are clear. The liver demonstrates fatty infiltration. The spleen, pancreas, adrenal glands and kidneys are withi n normal limits. No bowel obstruction, free air, free fluid or abscess. The appendix is normal. No evidence of signi ficant lymphadenopathy. No suspicious bony findings. IMPRESSION: No acute intra-abdominal or pelvic finding. Fatty liver.
--- NOTE | 2021-01-16 21:10 | ER ---
Nurse's Notes [facility] Name: Jenni Irving Age: 40 yrs Sex: Female : 1980 Arrival Date: 01/16/2021 Time: 17:24 Bed 14 Private MD: Diagnosis: UTI/ Urinary tract infection, site not specified Presentation: 01/16 17:43 Chief complaint: Patient states: Dysuria and back pain for 1 day. No fever, some ll1 nausea. Coronavirus screen: Client denies travel out of the [place] in the last 14 days. At this time, the client does not indicate any symptoms associated with coronavirus-19. Ebola Screen: Patient denies travel to an Ebola-affected area in the 21 days before illness onset. Initial Sepsis Screen: Does the patient meet any 2 criteria? No. Patient's initial sepsis screen is negative. Does the patient have a suspected source of infection? Yes: Dysuria/Frequency/Urgency/UTI. Risk Assessment: Do you want to hurt yourself or someone else? Patient reports no desire to harm self or others. Onset of symptoms was January 16, 2021. 17:43 Method Of Arrival: Ambulatory ll1 17:43 Acuity: GILA 3 ll1 Historical: - Allergies: 17:42 No Known Allergies; ll1 - PMHx: 17:42 Anxiety; Asthma; Bipolar disorder; etoh abuse; Hypertension; meth abuse; ll1 - PSHx: 17:42 section; ll1 - Immunization history:: Client reports having NOT received the Covid vaccine. Flu vaccine is not up to date. - Social history:: Smoking status: Patient reports the use of cigarette tobacco products, denies chronic smoking, but will smoke occasionally. Screenin:01 Abuse screen: Denies threats or abuse. Denies injuries from another. Nutritional tr6 screening: No deficits noted. Tuberculosis screening: No symptoms or risk factors identified. Fall Risk None identified. Assessment: 19:00 General: Appears in no apparent distress. uncomfortable, Behavior is calm, cooperative, tr6 appropriate for age. Pain: Complains of pain in lower abdomen. Neuro: No deficits noted. Cardiovascular: No deficits noted. Respiratory: No deficits noted. GI: Bowel sounds present X 4 quads. Abd is soft and non tender. : Reports pain with urination. EENT: No deficits noted. Derm: No deficits noted. Musculoskeletal: No deficits noted. 19:05 Reassessment: Patient appears in no apparent distress at this time. Patient and/or jb4 family updated on plan of care and expected duration. Pain level reassessed. Patient is alert, oriented x 3, equal unlabored respirations, skin warm/dry/pink. 20:45 Reassessment: Patient appears in no apparent distress at this time. Patient and/or jb4 family updated on plan of care and expected duration. Pain level reassessed. Patient is alert, oriented x 3, equal unlabored respirations, skin warm/dry/pink. 21:27 Reassessment: Patient appears in no apparent distress at this time. Patient and/or jb4 family updated on plan of care and expected duration. Pain level reassessed. Patient is alert, oriented x 3, equal unlabored respirations, skin warm/dry/pink. Vital Signs: 17:43 BP 154 / 93; Pulse 64; Resp 16; Temp 97.4; Pulse Ox 98% ; Weight 55.79 kg; Height 5 ft. ll1 0 in. (152.40 cm); Pain 10/10; 20:30 BP 134 / 90; Pulse 92; Resp 18; Pulse Ox 98% on R/A; jb4 21:00 BP 140 / 86; Pulse 83; Resp 16; Pulse Ox 97% on R/A; jb4 17:43 Body Mass Index 24.02 (55.79 kg, 152.40 cm) ll1 ED Course: 17:24 Patient arrived in ED. mr 17:42 Arm band placed on. ll1 17:44 Triage completed. ll1 18:11 Deng Nunez PA is PHCP. [facility] 18:11 Cory Prieto MD is Attending Physician. [facility] 18:34 Jaimie Guzmán, FIONA is Primary Nurse. tr6 19:01 Patient has correct armband on for positive identification. Bed in low position. Call tr6 light in reach. Door closed. Noise minimized. Visitors limited. Lights dimmed. Moved to private room. Warm blanket given. 19:01 No provider procedures requiring assistance completed. Inserted saline lock: 22 gauge tr6 wrist, using aseptic technique. 19:32 Primary Nurse role handed off by Jaimie Guzmán, RN tt3 19:39 Adolfo Tamez, RN is Primary Nurse. jb4 20:51 CT Abd/Pelvis - IV Contrast Only In Process Unspecified. EDMS 21:28 IV discontinued, intact, bleeding controlled, No redness/swelling at site. Pressure jb4 dressing applied. Administered Medications: 20:40 Drug: morphine 2 mg Route: IVP; Site: right hand; jb4 21:00 Follow up: Response: No adverse reaction; Marked relief of symptoms; Pain is decreased; jb4 RASS: Alert and Calm (0) 20:40 Drug: Zofran (Ondansetron) 4 mg Route: IVP; Site: right hand; jb4 21:00 Follow up: Response: No adverse reaction jb4 21:25 Drug: Rocephin (cefTRIAXone) 1 grams Route: IV; Rate: calculated rate; Site: right hand;jb4 21:30 Follow up: Response: Medication administered at discharge.; IV Status: Completed jb4 infusion; IV Intake: 10ml Intake: 21:30 IV: 10ml; Total: 10ml. jb4 Outcome: 21:10 Discharge ordered by . [facility] 21:28 Discharged to home ambulatory, with family. jb4 21:28 Condition: stable 21:28 Discharge instructions given to patient, Instructed on discharge instructions, follow up and referral plans. medication usage, Demonstrated understanding of instructions, follow-up care, medications, Prescriptions given X 1. 21:30 Patient left the ED. jb4 Signatures: Dispatcher [employer] EDSD Deng Nunez PA PA [facility] Enma Mari mr Adolfo Tamez RN RN jb4 Eloisa Fleming RN RN ll1 Jonatan Apodaca 3 Jaimie Guzmán, RN RN tr6 Corrections: (The following items were deleted from the chart) 17:42 17:33 Arm band placed on Patient placed in an exam room, on a stretcher, ll1 ll1
--- NOTE | 2021-01-16 21:11 | EDPHYS ---
Physician Documentation [facility] Name: Jenni Irving Age: 40 yrs Sex: Female : 1980 Arrival Date: 01/16/2021 Time: 17:24 Bed 14 Private MD: ED Physician Cory Prieto HPI: 01/16 18:47 This 40 yrs old Female presents to ER via Ambulatory with complaints of Pain jmm With Urination, Abdominal Pain. 18:47 The patient presents with urinary symptoms. Onset: The symptoms/episode began/occurred jmm gradually. Modifying factors: The symptoms are alleviated by nothing, the symptoms are aggravated by nothing. This is a 40 year old female with a history of asthma, htn that presents to the ED with complaints of painful urination and bilateral flank pain beginning today. Similar episode 1 month ago that resolved with oral abx. . Historical: - Allergies: 17:42 No Known Allergies; ll1 - PMHx: 17:42 Anxiety; Asthma; Bipolar disorder; etoh abuse; Hypertension; meth abuse; ll1 - PSHx: 17:42 section; ll1 - Immunization history:: Client reports having NOT received the Covid vaccine. Flu vaccine is not up to date. - Social history:: Smoking status: Patient reports the use of cigarette tobacco products, denies chronic smoking, but will smoke occasionally. ROS: 18:47 Constitutional: Negative for fever, chills, and weight loss, Cardiovascular: Negative jmm for chest pain, palpitations, and edema, Respiratory: Negative for shortness of breath, cough, wheezing, and pleuritic chest pain. 18:47 : Positive for urinary symptoms. 18:47 All other systems are negative. Exam: 18:47 Constitutional: This is a well developed, well nourished patient who is awake, alert, jmm and in no acute distress. Head/Face: atraumatic. Eyes: EOMI, no conjunctival erythema appreciated ENT: Moist Mucus Membranes Neck: Trachea midline, Supple Chest/axilla: Normal chest wall appearance and motion. Cardiovascular: Regular rate and rhythm. No edema appreciated Respiratory: Normal respirations, no respiratory distress appreciated Abdomen/GI: Non distended, soft Back: Normal ROM Skin: General appearance color normal MS/ Extremity: Moves all extremities, no obvious deformities appreciated, no edema noted to the lower extremities Neuro: Awake and alert, normal gait Psych: Behavior is normal, Mood is normal, Patient is cooperative and pleasant Vital Signs: 17:43 BP 154 / 93; Pulse 64; Resp 16; Temp 97.4; Pulse Ox 98% ; Weight 55.79 kg; Height 5 ft. ll1 0 in. (152.40 cm); Pain 10/10; 20:30 BP 134 / 90; Pulse 92; Resp 18; Pulse Ox 98% on R/A; jb4 21:00 BP 140 / 86; Pulse 83; Resp 16; Pulse Ox 97% on R/A; jb4 17:43 Body Mass Index 24.02 (55.79 kg, 152.40 cm) ll1 MDM: 18:36 Patient medically screened. [facility] 21:08 Data reviewed: vital signs, nurses notes. Counseling: I had a detailed discussion with cortney the patient and/or guardian regarding: the historical points, exam findings, and any diagnostic results supporting the discharge/admit diagnosis, lab results, radiology results, the need for outpatient follow up, to return to the emergency department if symptoms worsen or persist or if there are any questions or concerns that arise at home. ED course: Patient is alert and non toxic in appearance in the ED. No signs of sepsis. patient is advised to follow up with pcp and otherwise given strict return precautions. Patient understood and agrees with the plan of care. . 01/16 18:39 Order name: Basic Metabolic Panel [facility] 01/16 18:39 Order name: CBC with Diff [facility] 01/16 18:39 Order name: Hepatic Function; Complete Time: 19:18 [facility] 01/16 18:39 Order name: Lipase; Complete Time: 19:18 [facility] 01/16 18:39 Order name: Urine Culture [facility] 01/16 18:39 Order name: Basic Metabolic Panel; Complete Time: 19:18 [facility] 01/16 18:39 Order name: CBC with Automated Diff; Complete Time: 20:43 [facility] 01/16 18:54 Order name: Urine Dipstick-Ancillary; Complete Time: 18:56 [facility] 01/16 18:58 Order name: Test, Serum; Complete Time: 20:41 tt3 01/16 19:32 Order name: CT Abd/Pelvis - IV Contrast Only; Complete Time: 21:06 [facility] 01/16 19:33 Order name: CBC Smear Scan; Complete Time: 20:43 [facility] 01/16 18:39 Order name: IV Saline Lock; Complete Time: 18:46 [facility] 01/16 18:39 Order name: Labs collected and sent; Complete Time: 19:00 [facility] 01/16 18:39 Order name: Urine Dipstick-Ancillary (obtain specimen); Complete Time: 18:59 [facility] Administered Medications: 20:40 Drug: morphine 2 mg Route: IVP; Site: right hand; [facility] 21:00 Follow up: Response: No adverse reaction; Marked relief of symptoms; Pain is decreased; [facility] RASS: Alert and Calm (0) 20:40 Drug: Zofran (Ondansetron) 4 mg Route: IVP; Site: right hand; 4 21:00 Follow up: Response: No adverse reaction [facility] 21:25 Drug: Rocephin (cefTRIAXone) 1 grams Route: IV; Rate: calculated rate; Site: right hand;[facility] 21:30 Follow up: Response: Medication administered at discharge.; IV Status: Completed [facility] infusion; IV Intake: 10ml Disposition Summary: 01/16/21 21:10 Discharge Ordered Location: Home [facility] Condition: Stable [facility] Diagnosis - UTI/ Urinary tract infection, site not specified [facility] Followup: [facility] - With: Private Physician - When: 2 - 3 days - Reason: Recheck today's complaints, Continuance of care, Re-evaluation by your physician Discharge Instructions: - Discharge Summary Sheet [facility] - Urinary Tract Infection, Adult [facility] Forms: - Medication Reconciliation Form [facility] - Thank You Letter [facility] - Antibiotic Education [facility] - Prescription Opioid Use [facility] Prescriptions: - Cephalexin 500 mg Oral Capsule - take 1 capsule by ORAL route every 8 hours for 10 days; 30 capsule; Refills: 0, [facility] Product Selection Permitted Addendum: 01/18/2021 23:22 Co-signature as Attending Physician, Cory Prieto MD. r n Signatures: Dispatcher [employer] [facility] Deng Nunez PA PA jmm Nieto, Roman, MD MD rn Bryson, James RN RN jb4 Eloisa Fleming RN RN ll1
[2021-01-16 21:35] VITALS: TEMP 97.4
[2021-01-16 21:39] VITALS: BP 140/86; O2SAT 97
[2021-01-16] MEDS ORDERED: CEFTRIAXONE/SWI 1gm 1 GM/10 ML SYR ONE (21:40)
== END 2021-01-16 21:30 | disposition home or self-care (01) ==
LOC: ER 17:22
DX: N39.0 Urinary tract infection, site not specified (principal); I10 Essential (primary) hypertension; F17.210 Nicotine dependence, cigarettes, uncomplicated
CPT/HCPCS: 87088; 85025; 87086; 80048; 36415; 84703; 80076; 81003; 83690; 74177; 96375; 96374; 99284; Q9967; J2270; J0696; J2405; 87077; 87186

== ENCOUNTER 2021-05-12 11:29 | Emergency (ER) | payer OTHER ==
[2021-05-12 12:23] LABS: Urine Blood Negative (Negative); Urine Glucose Negative (Negative); Urine Protein Negative (Negative); Urine pH 5.5 (5.0-7.0)
[2021-05-12 12:39] LABS: Urine Bacteria NONE SEEN /HPF (<20); Urine RBC <5 /HPF (NONE SEEN)
[2021-05-12] MEDS ORDERED: ONDANSETRON 4 MG/2 ML VIAL ONE (12:42)
[2021-05-12] MEDS ORDERED: NA CHLORIDE 0.9% 1,000 ML ONE (12:42)
[2021-05-12 12:52] LABS: Absolute Lymphocytes (CBC) 0.6 K/uL (0.7-4.9); Basophils % 0.5 % (0-1.3); Hematocrit 44.7 % (36.0-45.0); Lymphocytes % 11.8 % (15.3-44.8); MPV 9.7 fL (7.6-11.3); RBC Red Blood Cell Count 4.29 M/uL (3.86-4.86)
[2021-05-12 13:00] LABS: Potassium 3.4 mmol/L (3.5-5.1)
--- NOTE | 2021-05-12 13:18 | EDPHYS ---
Physician Documentation [facility] Name: Jenni Irving Age: 41 yrs Sex: Female : 1980 Arrival Date: 05/12/2021 Time: 11:32 Bed 18 Private MD: ED Physician Puma Fraire HPI: 05/12 14:13 This 41 yrs old Female presents to ER via Ambulatory with complaints of kb Shaking, Breathing Difficulty. 14:13 The patient presents with urinary symptoms, dysuria. Onset: The symptoms/episode kb began/occurred this morning. Modifying factors: The symptoms are alleviated by nothing, the symptoms are aggravated by nothing. Associated signs and symptoms: Pertinent positives: dysuria, chills. Severity of symptoms: At their worst the symptoms were moderate, in the emergency department the symptoms are unchanged. The patient has experienced a previous episode, diagnosed with a UTI at that time. The patient has not recently seen a physician. Pt states she has burning with urination and chills/shaking that started around 0700 today. States she had a UTI last time this happened. 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 - Social history:: Smoking status: Patient reports the use of cigarette tobacco products, denies chronic smoking, but will smoke occasionally. ROS: 13:13 Respiratory: Negative for shortness of breath, cough, wheezing, and pleuritic chest kb pain. 13:13 Constitutional: Positive for chills. 13:13 : Positive for burning with urination. 13:13 All other systems are negative. Exam: 14:12 Constitutional: This is a well developed, well nourished patient who is awake, alert, kb and in no acute distress. Head/Face: Normocephalic, atraumatic. ENT: Moist Mucous membranes Cardiovascular: Regular rate and rhythm with a normal S1 and S2. No gallops, murmurs, or rubs. No pulse deficits. Respiratory: Respirations even and unlabored. No increased work of breathing, no retractions or nasal flaring. Abdomen/GI: Soft, non-tender. No distention Skin: Warm, dry with normal turgor. Normal color. MS/ Extremity: Pulses equal, no cyanosis. Neurovascular intact. Full, normal range of motion. Neuro: Awake and alert, GCS 15, oriented to person, place, time, and situation. Moves all extremities. Normal gait. Psych: Awake, alert, with orientation to person, place and time. Behavior, mood, and affect are within normal limits. Vital Signs: 11:44 BP 152 / 81; Pulse 94; Resp 18; Temp 98.4(O); Pulse Ox 100% on R/A; Weight 46.27 kg; mh5 Height 5 ft. 0 in. (152.40 cm); Pain 10/10; 12:30 BP 135 / 82; Pulse 90; Resp 18; Pulse Ox 100% ; sl2 13:30 BP 128 / 79; Pulse 85; Resp 18; Pulse Ox 100% on R/A; sl2 11:44 Body Mass Index 19.92 (46.27 kg, 152.40 cm) [facility] MDM: 11:37 Patient medically screened. kb 14:11 Data reviewed: vital signs, nurses notes. Data interpreted: Pulse oximetry: on room air kb is 100 %. Interpretation: normal. Counseling: I had a detailed discussion with the patient and/or guardian regarding: the historical points, exam findings, and any diagnostic results supporting the discharge/admit diagnosis, lab results, the need for outpatient follow up, a family practitioner, to return to the emergency department if symptoms worsen or persist or if there are any questions or concerns that arise at home. 05/12 11:40 Order name: CBC with Diff; Complete Time: 13:00 kb 05/12 11:40 Order name: Basic Metabolic Panel; Complete Time: 13:01 kb 05/12 11:40 Order name: Urine Microscopic Only; Complete Time: 12:44 kb 05/12 12:23 Order name: Urine Dipstick-Ancillary; Complete Time: 12:44 EDMS 05/12 12:23 Order name: Urine --Ancillary (enter results); Complete Time: 12:44 eb 05/12 11:40 Order name: IV Start; Complete Time: 12:44 kb 05/12 11:40 Order name: Urine Dipstick-Ancillary (obtain specimen); Complete Time: 13:15 kb 05/12 11:40 Order name: Urine Test (obtain specimen); Complete Time: 13:15 kb Administered Medications: 11:55 Drug: NS 0.9% 1000 ml Route: IV; Rate: 1000 ml; Site: right forearm; sl2 13:00 Follow up: Response: No adverse reaction; Marked relief of symptoms; IV Status: sl2 Completed infusion; IV Intake: 1000ml 11:55 Drug: Zofran (Ondansetron) 4 mg Route: IVP; Site: right forearm; sl2 12:30 Follow up: Response: No adverse reaction; Nausea is decreased sl2 13:44 Drug: Ketorolac 15 mg Route: IVP; Site: right forearm; sl2 14:01 Follow up: Response: Pain is decreased sl2 Disposition Summary: 05/12/21 13:17 Discharge Ordered Location: Home kb Condition: Stable kb Diagnosis - Anxiety disorder, unspecified kb Followup: kb - With: Emergency Department - When: As needed - Reason: Worsening of condition Followup: kb - With: Private Physician - When: 2 - 3 days - Reason: Recheck today's complaints, Continuance of care, Re-evaluation by your physician Discharge Instructions: - Discharge Summary Sheet kb - Panic Attack, [id number] kb - Generalized Anxiety Disorder, Adult kb Forms: - Medication Reconciliation Form kb - Thank You Letter kb - Antibiotic Education kb - Prescription Opioid Use kb Addendum: 05/16/2021 06:39 Co-signature as Attending Physician, Puma barillas a2 Signatures: Dispatcher [employer] Mary Nieto, JCARLOS-Dontae GARBER-Kenna Weathers, RN FIONA Puma Fraire MD MD ma2 Kamilla Tomas, FIONA RN sl2
--- NOTE | 2021-05-12 13:18 | ER ---
Nurse's Notes [facility] Name: Jenni Irving Age: 41 yrs Sex: Female : 1980 Arrival Date: 05/12/2021 Time: 11:32 Bed 18 Private MD: Diagnosis: Anxiety disorder, unspecified Presentation: 05/12 12:14 Chief complaint: Patient states: bilateral flank pain, burning with urination and ss tremors that began yesterday. Pt reports that last time this occurred she had a UTI. Pt admits to drinking ETOH daily, last drink was at 0000 and last use of cocaine and ecstasy was 4 days ago. Coronavirus screen: Client denies travel out of the [place] in the last 14 days. Ebola Screen: Patient denies exposure to infectious person. Patient denies travel to an Ebola-affected area in the 21 days before illness onset. Initial Sepsis Screen: Does the patient meet any 2 criteria? No. Patient's initial sepsis screen is negative. Does the patient have a suspected source of infection? Yes: Dysuria/Frequency/Urgency/UTI. Risk Assessment: Do you want to hurt yourself or someone else? Patient reports no desire to harm self or others. Onset of symptoms was May 11, 2021. 12:14 Method Of Arrival: Ambulatory ss 12:14 Acuity: GILA 3 ss Triage Assessment: 11:50 General: Behavior is calm, cooperative, appropriate for age. sl2 11:50 Respiratory: Reports shortness of breath on exertion the patient has mild shortness of sl2 breath. 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 - Social history:: Smoking status: Patient reports the use of cigarette tobacco products, denies chronic smoking, but will smoke occasionally. Screenin:38 Abuse screen: Denies threats or abuse. Nutritional screening: No deficits noted. sl2 Tuberculosis screening: No symptoms or risk factors identified. 14:08 Fall Risk None identified. sl2 Assessment: 11:38 General: Appears uncomfortable, well developed, Reports tremors and left lower back sl2 pain. 11:38 Pain: Complains of pain in Left lower back Pain does not radiate. Pain currently is 4 sl2 out of 10 on a pain scale. at worst was 8 out of 10 on a pain scale. Quality of pain is described as aching, Pain began gradually, Is continuous. Neuro: No deficits noted. Cardiovascular: No deficits noted. Rhythm is regular. Respiratory: No deficits noted. Airway is patent Trachea midline Respiratory effort is even, unlabored, Breath sounds are clear bilaterally. GI: No deficits noted. No signs and/or symptoms were reported involving the gastrointestinal system. : No deficits noted. No signs and/or symptoms were reported regarding the genitourinary system. EENT: No deficits noted. No signs and/or symptoms were reported regarding the EENT system. Derm: No deficits noted. No signs and/or symptoms reported regarding the dermatologic system. Musculoskeletal: No deficits noted. No signs and/or symptoms reported regarding the musculoskeletal system. 11:46 Reassessment: Patient encouraged to provide urine specimen - ambulates to restroom with sl2 steady gait noted. Vital Signs: 11:44 BP 152 / 81; Pulse 94; Resp 18; Temp 98.4(O); Pulse Ox 100% on R/A; Weight 46.27 kg; 5 Height 5 ft. 0 in. (152.40 cm); Pain 10/10; 12:30 BP 135 / 82; Pulse 90; Resp 18; Pulse Ox 100% ; sl2 13:30 BP 128 / 79; Pulse 85; Resp 18; Pulse Ox 100% on R/A; sl2 11:44 Body Mass Index 19.92 (46.27 kg, 152.40 cm) [facility] ED Course: 11:10 Inserted saline lock: 20 gauge in right forearm, using aseptic technique. sl2 11:32 Patient arrived in ED. mr 11:37 Mary De La Cruz FNP-C is [facility]. kb 11:37 Puma Fraire MD is Attending Physician. kb 11:38 No provider procedures requiring assistance completed. sl2 11:45 Kamilla Tomas, FIONA is Primary Nurse. 2 11:45 Patient has correct armband on for positive identification. Bed in low position. Call [facility] light in reach. Side rails up X 1. Pulse ox on. NIBP on. 12:34 Triage completed. ss 12:35 Arm band placed on right wrist. ss 14:08 IV discontinued, intact, bleeding controlled, No redness/swelling at site. Pressure sl2 dressing applied. Administered Medications: 11:55 Drug: NS 0.9% 1000 ml Route: IV; Rate: 1000 ml; Site: right forearm; sl2 13:00 Follow up: Response: No adverse reaction; Marked relief of symptoms; IV Status: sl2 Completed infusion; IV Intake: 1000ml 11:55 Drug: Zofran (Ondansetron) 4 mg Route: IVP; Site: right forearm; sl2 12:30 Follow up: Response: No adverse reaction; Nausea is decreased sl2 13:44 Drug: Ketorolac 15 mg Route: IVP; Site: right forearm; sl2 14:01 Follow up: Response: Pain is decreased sl2 Intake: 13:00 IV: 1000ml; Total: 1000ml. sl2 Outcome: 13:17 Discharge ordered by MD. swanson 14:07 Discharged to home with family. sl2 14:07 Condition: stable 14:07 Discharge instructions given to patient, Instructed on discharge instructions, follow up and referral plans. no drinking with medication, alcohol cesssation Demonstrated understanding of instructions, follow-up care, medications. 14:08 Patient left the ED. sl2 Signatures: Mary De La Cruz, SHUBHAM GARBER-Enma Pleitez Shelby, RN RN Kiera Metzger Kamilla Craft RN RN sl2
[2021-05-12] MEDS ORDERED: KETOROLAC 30 MG/ML INJ ONE (13:44)
[2021-05-12 14:51] VITALS: BP 152/81; TEMP 98.4; O2SAT 100
== END 2021-05-12 14:08 | disposition home or self-care (01) ==
LOC: ER 11:29
DX: F41.9 Anxiety disorder, unspecified (principal); F17.210 Nicotine dependence, cigarettes, uncomplicated
CPT/HCPCS: 96361; 85025; 80048; 36415; 81025; 96375; 96374; 99283; J7030; J2405; 81003; 81015

== ENCOUNTER 2021-06-18 16:13 | Emergency (ER) | payer OTHER ==
[2021-06-18 17:13] LABS: Urine Blood Trace-intact (Negative); Urine Glucose Negative (Negative); Urine Protein 1+ (Negative); Urine Specific Gravity 1.025 (1.005-1.030)
[2021-06-18 17:13] LABS: Protime INR 1.05
[2021-06-18 17:14] LABS: Absolute Lymphocytes (CBC) 0.3 K/uL (0.7-4.9); Basophils % 0.6 % (0-1.3); Hematocrit 36.2 % (36.0-45.0); Lymphocytes % 7.4 % (15.3-44.8); MPV 9.8 fL (7.6-11.3); RBC Red Blood Cell Count 3.42 M/uL (3.86-4.86)
[2021-06-18] MEDS ORDERED: ONDANSETRON 4 MG/2 ML VIAL ONE (17:14)
[2021-06-18] MEDS ORDERED: MORPHINE 4 MG/ML SYR ONE (17:14)
[2021-06-18] MEDS ORDERED: NA CHLORIDE 0.9% 1,000 ML ONE (17:21)
[2021-06-18] MEDS ORDERED: THIAMINE 200 MG/2 ML INJ ONE (17:21)
[2021-06-18] MEDS ORDERED: MULTIVITAMINS 10 ML VIAL (INJ) IV ONE (17:22)
[2021-06-18] MEDS ORDERED: FOLIC ACID 5 MG/ML VIAL ONE ×2 (17:23→17:25)
[2021-06-18 17:25] LABS: Urine Specific Gravity/Preg 1.025 (1.005-1.030)
[2021-06-18 17:35] LABS: ALT/SGPT 141 U/L (12-78); Albumin 3.6 g/dL (3.4-5.0); Alkaline Phosphatase 95 U/L (45-117); BUN Blood Urea Nitrogen 2 mg/dL (7-18); Bicarbonate 25 mmol/L (21-32); Bilirubin Direct 0.5 mg/dL (0-0.2); Bilirubin Total 1.2 mg/dL (0.2-1.0); Glucose Level 99 mg/dL (74-106); NT PRO-BNP 55 pg/mL (<125); Potassium 3.3 mmol/L (3.5-5.1); Protein, Total 7.8 g/dL (6.4-8.2); Sodium Level 137 mmol/L (136-145); Troponin (Emerg Dept Use Only) < 0.02 ng/mL (0.0-0.045)
[2021-06-18 17:36] LABS: Blood Morphology Comment NOT SEEN (NOT SEEN); Platelet Estimate DECR; White Blood Cell Scan OK (OK)
[2021-06-18 17:38] LABS: AST/SGOT 443 U/L (15-37); Magnesium 1.3 mg/dL (1.8-2.4)
--- NOTE | 2021-06-18 17:52 | RAD REPORT ---
EXAM DESCRIPTION: CTAbdomen Pelvis W Contrast - 06/18/2021 5:35 pm CLINICAL HISTORY: Abdominal pain. ABD PAIN COMPARISON: Abdomen Pelvis W Contrast dated 01/16/2021; Abdomen Pelvis W Contrast dated 0; Abdomen Pelvis W Contrast dated 11/17/2018 TECHNIQUE: Biphasic CT imaging of the abdomen and pelvis was performed with 100 ml non-ionic IV cont rast. All CT scans are performed using dose optimization technique as appropriate and may include automated exposure control or mA/KV adjustment according to patient size. FINDINGS: The lung bases are clear. The liver demonstrates diffuse fatty infiltration. Spleen, pancreas, adrenal glands and kidneys are w ithin normal limits. No bowel obstruction, free air, free fluid or abscess. The appendix is normal. No evidence of signi ficant lymphadenopathy. No suspicious bony findings. 3.7 cm right ovarian cyst. IMPRESSION: No acute intra-abdominal or pelvic finding. Diffuse fatty liver. 3.7 cm benign-appearing right ovarian cyst.
--- NOTE | 2021-06-18 17:52 | RAD REPORT ---
EXAM DESCRIPTION: RAD - Chest Single View - 06/18/2021 5:16 pm CLINICAL HISTORY: CHEST PAIN Chest pain. COMPARISON: Chest Single View dated 10/25/2020; Chest Single View dated 05/29/2020; Chest Single View dated 05/12/2020; Chest Single View dated 05/11/2020 FINDINGS: Portable technique limits examination quality. The lungs are grossly clear. The heart is normal in size. No displaced fractures. IMPRESSION: No acute intrathoracic process suspected.
[2021-06-18 17:56] LABS: Urine Bacteria >50 /HPF (<20); Urine Mucus 1+ /HPF (NONE SEEN)
[2021-06-18] MEDS ORDERED: FAMOTIDINE 20 MG/2 ML VIAL IV ONE (18:03)
[2021-06-18] MEDS ORDERED: CEFTRIAXONE 1000 MG/VIAL ONE (18:03)
[2021-06-18] MEDS ORDERED: Magnesium Sulfate 2gm IVPB 2 G/50 ML BAG IV ONE (18:04)
--- NOTE | 2021-06-18 18:50 | ER ---
Nurse's Notes [facility] Name: Jenni Irving Age: 41 yrs Sex: Female : 1980 Arrival Date: 06/18/2021 Time: 16:14 Bed 18 Private MD: Diagnosis: Hypomagnesemia;Chest pain, unspecified;Abdominal pain, unspecified;UTI/ Urinary tract infection, site not specified;Alcohol abuse Presentation: 06/18 16:18 Chief complaint: Patient states: Chest pain, dizziness, N/V that began this morning. Pt ss reports last time this happened they told her she was dehydrated. Pt reports she is a daily drinker, 6 pack of beer a day. Last drink was last night. Denies fever. Coronavirus screen: Client denies travel out of the [place] in the last 14 days. Ebola Screen: Patient denies exposure to infectious person. Patient denies travel to an Ebola-affected area in the 21 days before illness onset. Initial Sepsis Screen: Does the patient meet any 2 criteria? No. Patient's initial sepsis screen is negative. Does the patient have a suspected source of infection? No. Patient's initial sepsis screen is negative. Risk Assessment: Do you want to hurt yourself or someone else? Patient reports no desire to harm self or others. Onset of symptoms was June 18, 2021. 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 - Social history:: Smoking status: Patient reports the use of cigarette tobacco products, 1-2 cigarettes/ day, Patient uses alcohol, on a daily basis. claims drinking about a 6 pack/day. Screenin:45 Abuse screen: Denies threats or abuse. Denies injuries from another. Nutritional jg9 screening: No deficits noted. Tuberculosis screening: No symptoms or risk factors identified. Fall Risk Fall in past 12 months (25 points). Assessment: 17:05 General: Appears uncomfortable, Behavior is calm, cooperative. Pain: Complains of pain jg9 in chest Pain does not radiate. Pain currently is 9 out of 10 on a pain scale. Neuro: No deficits noted. Cardiovascular: No deficits noted. Respiratory: No deficits noted. GI: No deficits noted. : No deficits noted. EENT: No deficits noted. 17:05 Pain: Pain began 2-3 days ago. jg9 19:26 Neuro: Level of Consciousness is awake, alert, Oriented to person, place, time, mk situation, Copier Operator are equal bilaterally Moves all extremities. Gait is steady, Speech is slurred. Cardiovascular: Capillary refill < 3 seconds Patient's skin is warm and dry. Pulses are 2+ in right radial artery, right dorsalis pedis artery, left radial artery and left dorsalis pedis artery. Respiratory: Airway is patent Breath sounds are clear. GI: Bowel sounds present X 4 quads. Abd is soft and non tender. :. Musculoskeletal: Capillary refill < 3 seconds, fingers. toes. Range of motion: intact in all extremities. 20:35 Pain: Denies pain. Vital Signs: 16:18 BP 112 / 67; Pulse 100; Resp 16; Temp 97.8(TE); Pulse Ox 98% on R/A; Weight 46.27 kg; ss Height 5 ft. 0 in. (152.40 cm); Pain 10/10; 17:30 BP 122 / 70; Pulse 95; Resp 16 S; Pulse Ox 99% on R/A; jg9 18:15 BP 122 / 73; Pulse 89; Resp 16 S; Pulse Ox 100% on R/A; jg9 16:18 Body Mass Index 19.92 (46.27 kg, 152.40 cm) ED Course: 16:14 Patient arrived in ED. ds1 16:20 Triage completed. ss 16:20 Arm band placed on right wrist. ss 16:21 Sathish Garsia NP is PHCP. pm1 16:21 Cory Prieto MD is Attending Physician. pm1 16:46 Vivien Campos is Primary Nurse. jg9 17:00 Patient has correct armband on for positive identification. Bed in low position. Call jg9 light in reach. shelter director on. Pulse ox on. NIBP on. 17:05 Inserted saline lock: 22 gauge in left forearm, using aseptic technique. jg9 17:10 Patient maintains SpO2 saturation greater than 95% on room air. jg9 17:16 XRAY Chest (1 view) In Process Unspecified. EDMS 17:32 Basic Metabolic Panel Sent. jg9 17:32 CBC with Diff Sent. jg9 17:32 LFT's Sent. jg9 17:32 Magnesium Sent. jg9 17:36 CT Abd/Pelvis - IV Contrast Only In Process Unspecified. EDMS 17:59 Urine Microscopic Only Sent. jg9 20:45 IV discontinued. mk Administered Medications: 15:48 Drug: Rocephin (cefTRIAXone) 1 grams Route: IV; Rate: calculated rate; Site: right jg9 forearm; 17:55 Drug: Zofran (Ondansetron) 4 mg Route: IVP; Site: right forearm; jg9 17:55 Drug: morphine 4 mg Route: IVP; Site: right forearm; jg9 17:57 Drug: Banana Bag - (NS 0.9% 1000 ml, foLIC Acid 1 mg, Thiamine 100 mg, Multivitamin 1 jg9 amp) Route: IV; Rate: calculated rate; Site: right forearm; 18:46 Follow up: IV Status: Completed infusion; IV Intake: 1000ml jg9 18:51 Drug: Pepcid (famotidine) 20 mg Route: IVP; Site: right forearm; jg9 18:52 Drug: Magnesium Sulfate 2 grams Route: IVPB; Infused Over: 30 mins; Site: right forearm;jg9 Point of Care Testing: Urine : 17:14 hCG Reading: Negative; Control Reading: Positive; jg9 17:14 Exp: 10/29/2022; Lot #: [id number]; jg9 Intake: 18:46 IV: 1000ml; Total: 1000ml. jg9 Outcome: 18:50 Discharge ordered by . pm1 20:45 Discharged to home 20:45 Condition: stable 20:45 Discharge instructions given to patient, family. 20:46 Patient left the ED. Addendum: 06/21/2021 13:43 Addendum: Culture Results: Positive urine culture. No further action required. Bacteria i w sensitive to prescribed antibiotic. Signatures: Dispatcher [employer] [facility] JacomeEdel lu ds1 Kell Miller, Kenna Mason RN, RN RN ss Sathish Garsia, PILLOWCASE TURNER PILLOWCASE TURNER pm1 Vivien Campos jg9 Gia Frye RN RN mk Corrections: (The following items were deleted from the chart) 06/18 18:42 17:55 shelter director on. Pulse ox on. NIBP on. 18:42 17:55 Patient has correct armband on for positive identification. Bed in low position. jg9 Call light in reach. 18:43 17:30 BP 122 / 73; Pulse 89bpm; Resp 16bpm; Spontaneous; Pulse Ox 100% RA; g
--- NOTE | 2021-06-18 18:51 | EDPHYS ---
Physician Documentation [facility] Name: Jenni Irving Age: 41 yrs Sex: Female : 1980 Arrival Date: 06/18/2021 Time: 16:14 Bed 18 Private MD: ED Physician Cory Prieto HPI: 06/18 16:29 This 41 yrs old Female presents to ER via Ambulatory with complaints of Chest pm1 Pain, Abdominal Pain. 16:29 The patient or guardian reports chest pain that is located primarily in the epigastric pm1 area. The pain does not radiate. Associated signs and symptoms: Pertinent positives: abdominal pain, dizziness, nausea, vomit x 1, Pertinent negatives: cough, headache, shortness of breath. The chest pain is described as sharp. Duration: The patient or guardian reports a single episode, that is still ongoing. Modifying factors: the symptoms are aggravated by vomit. Onset after one episode of vomting. Severity of pain: in the emergency department the pain is unchanged. The patient has experienced similar episodes in the past, a few times, today's symptoms are similar, to when the patient was apparently diagnosed with dehydration and ETOH abuse. The patient has not recently seen a physician. Patient drinks 6 pack of beer daily. Last drink last night. Patient abdominal pain onset this AM with nausea and one episode of vomiting. Chest pain started after vomiting. 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 - Social history:: Smoking status: Patient reports the use of cigarette tobacco products, 1-2 cigarettes/ day, Patient uses alcohol, on a daily basis. claims drinking about a 6 pack/day. ROS: 16:29 Constitutional: Negative for fever, chills, and weight loss. pm1 16:29 Neck: Negative for injury, pain, and swelling, Respiratory: Negative for shortness of breath, cough, wheezing, and pleuritic chest pain. 16:29 Back: Negative for injury and pain, : Negative for injury, bleeding, discharge, and swelling, MS/Extremity: Negative for injury and deformity, Skin: Negative for injury, rash, and discoloration, Neuro: Negative for headache, weakness, numbness, tingling, and seizure. 16:29 Cardiovascular: Positive for chest pain, Negative for edema, palpitations. 16:29 Abdomen/GI: Positive for abdominal pain, nausea, vomiting, of the epigastric area, Negative for diarrhea, constipation. 16:29 All other systems are negative. Exam: 16:29 Constitutional: This is a well developed, well nourished patient who is awake, alert, pm1 and in no acute distress. Head/Face: Normocephalic, atraumatic. 16:29 Back: No spinal tenderness. No costovertebral tenderness. Full range of motion. Skin: Warm, dry with normal turgor. Normal color with no rashes, no lesions, and no evidence of cellulitis. MS/ Extremity: Pulses equal, no cyanosis. Neurovascular intact. Full, normal range of motion. 16:29 Eyes: Exam is negative for acute changes, Extraocular movements: no acute changes, Conjunctiva: normal, no acute changes, no injection, Sclera: no acute changes, icterus, is not appreciated. 16:29 ENT: Exam is negative for acute changes, Mouth: no acute changes, Lips: normal, moist, Oral mucosa: normal, pink and intact, moist. 16:29 Cardiovascular: Exam negative for acute changes, Rate: normal, actual rate is 100 bpm, Rhythm: regular, Pulses: no pulse deficits are appreciated, Heart sounds: normal, normal S1and S2. 16:29 Respiratory: Exam negative for acute changes, respiratory distress, shortness of breath, Breath sounds: are clear throughout. 16:29 Abdomen/GI: Inspection: abdomen appears normal, Palpation: soft, in all quadrants, mild abdominal tenderness, in the epigastric area. 16:29 Neuro: Exam negative for acute changes, Orientation: is normal, Mentation: is normal, Motor: is normal, moves all fours, Sensation: is normal, no obvious gross deficits. Vital Signs: 16:18 BP 112 / 67; Pulse 100; Resp 16; Temp 97.8(TE); Pulse Ox 98% on R/A; Weight 46.27 kg; ss Height 5 ft. 0 in. (152.40 cm); Pain 10/10; 17:30 BP 122 / 70; Pulse 95; Resp 16 S; Pulse Ox 99% on R/A; jg9 18:15 BP 122 / 73; Pulse 89; Resp 16 S; Pulse Ox 100% on R/A; jg9 16:18 Body Mass Index 19.92 (46.27 kg, 152.40 cm) ss MDM: 16:24 Patient medically screened. pm1 16:33 Data reviewed: vital signs. pm1 16:33 Differential diagnosis: acute myocardial infarction, cholecystitis, Cholelithiasis pm1 gastritis, pulmonary embolus, unstable angina. 17:25 ED course: EKG without any changes from 10/25/2020. pm1 18:05 ED course: Elevated liver enzymes likely due to fatty liver disease and alcoholism. CT pm1 results reviewed and do not contribute to elevated liver enzymes. 06/18 16:28 Order name: Basic Metabolic Panel pm1 06/18 16:28 Order name: CBC with Diff pm1 06/18 16:28 Order name: LFT's pm1 06/18 16:28 Order name: Magnesium pm1 06/18 16:28 Order name: NT PRO-BNP; Complete Time: 17:52 pm1 06/18 16:28 Order name: PT-INR; Complete Time: 17:20 pm1 18 16:28 Order name: Troponin (emerg Dept Use Only); Complete Time: 17:52 pm1 06/18 16:28 Order name: ETOH Level; Complete Time: 17:27 pm1 06/18 16:28 Order name: Basic Metabolic Panel; Complete Time: 17:52 EDMS 06/18 16:28 Order name: Liver (Hepatic) Function; Complete Time: 17:52 EDMS 06/18 16:28 Order name: Magnesium; Complete Time: 17:52 EDMS 18 16:28 Order name: CBC with Automated Diff; Complete Time: 17:38 EDMS 06/18 17:13 Order name: Urine Dipstick-Ancillary; Complete Time: 17:20 EDMS 18 17:15 Order name: Urine --Ancillary (enter results); Complete Time: 17:26 eb 06/18 16:28 Order name: XRAY Chest (1 view); Complete Time: 17:54 pm1 06/18 16:28 Order name: EKG; Complete Time: 16:29 pm1 06/18 16:28 Order name: Cardiac monitoring; Complete Time: 17:05 pm1 06/18 16:28 Order name: EKG - Nurse/Tech; Complete Time: 17:05 pm1 06/18 16:28 Order name: IV Saline Lock; Complete Time: 17:05 pm1 06/18 16:28 Order name: CT Abd/Pelvis - IV Contrast Only; Complete Time: 17:54 pm1 06/18 17:20 Order name: Urine Microscopic Only pm1 06/18 17:21 Order name: Urine Microscopic Only; Complete Time: 18:05 EDMS 06/18 17:36 Order name: CBC Smear Scan; Complete Time: 17:38 EDMS 06/18 17:57 Order name: Urine Culture EDMS 06/18 16:28 Order name: Labs collected and sent; Complete Time: 17:05 pm1 06/18 16:28 Order name: O2 Per Protocol; Complete Time: 19:00 pm1 06/18 16:28 Order name: O2 Sat Monitoring; Complete Time: 17:05 pm1 06/18 16:28 Order name: Urine Dipstick-Ancillary (obtain specimen); Complete Time: 17:14 pm1 06/18 16:28 Order name: Urine Test (obtain specimen); Complete Time: 17:14 pm1 Administered Medications: 15:48 Drug: Rocephin (cefTRIAXone) 1 grams Route: IV; Rate: calculated rate; Site: right 9 forearm; 17:55 Drug: Zofran (Ondansetron) 4 mg Route: IVP; Site: right forearm; jg9 17:55 Drug: morphine 4 mg Route: IVP; Site: right forearm; jg9 17:57 Drug: Banana Bag - (NS 0.9% 1000 ml, foLIC Acid 1 mg, Thiamine 100 mg, Multivitamin 1 jg9 amp) Route: IV; Rate: calculated rate; Site: right forearm; 18:46 Follow up: IV Status: Completed infusion; IV Intake: 1000ml jg9 18:51 Drug: Pepcid (famotidine) 20 mg Route: IVP; Site: right forearm; jg9 18:52 Drug: Magnesium Sulfate 2 grams Route: IVPB; Infused Over: 30 mins; Site: right forearm;jg9 Point of Care Testing: Urine : 17:14 hCG Reading: Negative; Control Reading: Positive; jg9 17:14 Exp: 10/29/2022; Lot #: [id number]; jg9 Disposition: 06/19 08:39 Co-signature as Attending Physician, Cory Prieto MD I agree with the assessment and rn plan of care. Attestation: The patient's history, exam findings, diagnostics, and a summary of any interventions or procedures was reviewed in detail with Sathish Garsia NP. Disposition Summary: 06/18/21 18:50 Discharge Ordered Location: Home pm1 Problem: new pm1 Symptoms: have improved pm1 Condition: Stable pm1 Diagnosis - Hypomagnesemia pm1 - Chest pain, unspecified pm1 - Abdominal pain, unspecified pm1 - UTI/ Urinary tract infection, site not specified pm1 - Alcohol abuse pm1 Followup: pm1 - With: Emergency Department - When: As needed - Reason: Worsening of condition Followup: pm1 - With: Private Physician - When: 2 - 3 days - Reason: Recheck today's complaints, Continuance of care, Re-evaluation by your physician Discharge Instructions: - Discharge Summary Sheet pm1 - Abdominal Pain, Adult pm1 - Nonspecific Chest Pain, Adult pm1 - Hypomagnesemia pm1 - Urinary Tract Infection, Adult pm1 - Alcohol Use Disorder pm1 - Alcohol Abuse and Nutrition pm1 - Alcohol Abuse and Dependence Information, Adult pm1 Forms: - Medication Reconciliation Form pm1 - Thank You Letter pm1 - Antibiotic Education pm1 - Prescription Opioid Use pm1 Prescriptions: - ondansetron 4 mg Oral tablet,disintegrating - place 1 tablet by TRANSLINGUAL route every 8 hours As needed; 12 tablet; pm1 Refills: 0, Product Selection Permitted - Pepcid 20 mg Oral Tablet - take 1 tablet by ORAL route every 12 hours for 10 days; 20 tablet; Refills: 0, pm1 Product Selection Permitted - Bactrim DS 800-160 mg Oral Tablet - take 1 tablet by ORAL route every 12 hours for 10 days; 20 tablet; Refills: 0, pm1 Product Selection Permitted Signatures: Dispatcher [employer] EDCory Mar MD MD rn Smirch, Shelby, RN RN ss Marinas, Patrick, NP NOTCHED BLADE LOADER pm1 Vivien Campos jg9
[2021-06-18 21:05] VITALS: TEMP 97.8
[2021-06-18 21:11] VITALS: BP 122/73; O2SAT 100
--- NOTE | 2021-06-20 08:12 | EKG ---
Test Date: 2021-06-18 Test Time: 16:54:04 Cotton Stomper: MACIEL MEASUREMENT RESULTS: Intervals: Rate: 99 ND: 118 QRSD: 80 QT: 340 QTc: 436 [place]: P: 68 ND: 118 QRS: 75 T: -35 INTERPRETIVE STATEMENTS: Normal sinus rhythm T wave abnormality, consider inferior ischemia T wave abnormality, consider anterior ischemia Abnormal ECG Compared to ECG 10/25/2020 18:28:55 Left posterior fascicular block no longer present Prolonged QT interval no longer present T-wave abnormality still present Possible ischemia still present Electronically Signed On 06-20-21 08:11:15 FACTORY LAY OUT ENGINEER by Ervin Goldberg
== END 2021-06-18 20:46 | disposition home or self-care (01) ==
LOC: ER 16:13
DX: E83.42 Hypomagnesemia (principal); N39.0 Urinary tract infection, site not specified; F10.10 Alcohol abuse, uncomplicated; R10.9 Unspecified abdominal pain; I10 Essential (primary) hypertension; Z72.0 Tobacco use
CPT/HCPCS: 96365; 93005; 87088; 85025; 87086; 80048; 36415; 80320; 83735; 81025; 85610; 82565; 80076; 87077; 87186; 84484; 83880; 74177; 71045; 96375; 99285; Q9967; J3411; J3475; J7030; J2405; 81003; 81015

== ENCOUNTER 2021-08-05 07:55 | Inpatient (IN) | payer OTHER ==
[2021-08-05 08:31] LABS: Absolute Lymphocytes (CBC) 0.2 K/uL (0.7-4.9); Lymphocytes % 6.6 % (15.3-44.8); RBC Red Blood Cell Count 3.43 M/uL (3.86-4.86)
[2021-08-05 08:40] LABS: Protime INR 1.15
[2021-08-05 08:43] LABS: Urine Blood 3+ (Negative); Urine Glucose Negative (Negative); Urine Protein Negative (Negative)
[2021-08-05 08:51] LABS: ALT/SGPT 43 U/L (12-78); AST/SGOT 48 U/L (15-37); Albumin 3.1 g/dL (3.4-5.0); Alkaline Phosphatase 87 U/L (45-117); Amylase 44 U/L (25-115); BUN Blood Urea Nitrogen 3 mg/dL (7-18); Bicarbonate 26 mmol/L (21-32); Bilirubin Direct 0.2 mg/dL (0-0.2); Bilirubin Total 0.6 mg/dL (0.2-1.0); Creatine Phosphokinase 38 U/L (26-192); Glucose Level 97 mg/dL (74-106); Lipase 80 U/L (73-393); Protein, Total 7.5 g/dL (6.4-8.2); Sodium Level 137 mmol/L (136-145)
[2021-08-05 08:55] LABS: CKMB Creatine Kinase MB < 1.0 ng/mL (1.0-3.6)
--- NOTE | 2021-08-05 08:56 | RAD REPORT ---
EXAM DESCRIPTION: RAD - Chest Single View - 08/05/2021 8:47 am CLINICAL HISTORY: chills COMPARISON: Chest Single View dated 06/18/2021; Chest Single View dated 10/25/2020; Chest Single View dated 05/29/2020; Chest Single View dated 05/12/2020 FINDINGS: Lines: None. Lungs: No evidence of edema or pneumonia. Pleural: No significant pleural effusions or pneumothorax. Cardiac: The heart size is within normal limits. Bones: No acute fractures. Other: IMPRESSION: No acute cardiopulmonary disease.
[2021-08-05 09:08] LABS: Urine RBC NONE SEEN /HPF (NONE SEEN)
[2021-08-05 09:09] LABS: Urine Bacteria >50 /HPF (<20)
[2021-08-05 09:16] LABS: SARS-COV-2 RT PCR NEGATIVE (NEGATIVE)
[2021-08-05] MEDS ORDERED: NA CHLORIDE 0.9% 50 ML ONE (09:47)
[2021-08-05] MEDS ORDERED: CEFTRIAXONE 1000 MG/VIAL ONE (09:47)
[2021-08-05] MEDS ORDERED: IBUPROFEN 200 MG TAB PO ONE (09:57)
[2021-08-05] MEDS ORDERED: IBUPROFEN 400 MG TAB ONE (09:57)
[2021-08-05] MEDS ORDERED: POTASSIUM CL SA 10 MEQ TAB PO ONE (09:57)
[2021-08-05 10:27] LABS: Anisocytosis 1+; Blood Morphology Comment NOTED (NOT SEEN); Hypochromasia 1+; Macrocytosis 1+; Platelet Estimate DECR; White Blood Cell Scan OK (OK)
[2021-08-05] MEDS ORDERED: ONDANSETRON 4 MG/2 ML VIAL ONE ×2 (10:39→18:45)
[2021-08-05] MEDS ORDERED: NA CHLORIDE 0.9% 500 ML ONE (11:04)
--- NOTE | 2021-08-05 12:52 | ER ---
Nurse's Notes [facility] Name: Jenni Irving Age: 41 yrs Sex: Female : 1980 Arrival Date: 08/05/2021 Time: 07:58 Bed 8 Private MD: Diagnosis: UTI/ Urinary tract infection, site not specified Presentation: 08/05 07:59 Chief complaint: Patient states: About to eat breakfast and started having int. SOB and ll1 CP at 5 am. None now. Reports low back pain that radiates into legs. Coronavirus screen: Vaccine status: Patient reports being unvaccinated. Client denies travel out of the [place] in the last 14 days. difficulty breathing, shortness of breath, Client presents with at least one sign or symptom that may indicate coronavirus-19. Standard/surgical mask placed on the client. Ebola Screen: Patient denies travel to an Ebola-affected area in the 21 days before illness onset. Initial Sepsis Screen: Does the patient meet any 2 criteria? No. Patient's initial sepsis screen is negative. Does the patient have a suspected source of infection? No. Patient's initial sepsis screen is negative. Risk Assessment: Do you want to hurt yourself or someone else? Patient reports no desire to harm self or others. Onset of symptoms was August 05, 2021. 07:59 Method Of Arrival: EMS: [facility] 1 07:59 Acuity: GILA 3 ll1 Triage Assessment: 08:01 General: Appears in no apparent distress. Behavior is calm, cooperative, appropriate ll1 for age. Pain: Complains of pain in low back Quality of pain is described as aching. Neuro: No deficits noted. Cardiovascular: Reports chest pain, shortness of breath, Heart tones S1 S2 Clubbing of nail beds is absent JVD is absent Patient's skin is warm and dry. Respiratory: Reports shortness of breath Airway is patent Trachea midline Respiratory effort is even, unlabored, Respiratory pattern is regular, symmetrical. Musculoskeletal: Circulation, motion, and sensation intact. Capillary refill < 3 seconds, Reports pain in low back into legs. 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 - Social history:: Smoking status: Patient reports the use of cigarette tobacco products, smokes one-half pack cigarettes per day. Screenin:13 Abuse screen: Denies threats or abuse. Denies injuries from another. Nutritional ph screening: No deficits noted. Tuberculosis screening: No symptoms or risk factors identified. Fall Risk None identified. Assessment: 08:10 Reassessment: No changes from previously documented assessment. Patient and/or family ll1 updated on plan of care and expected duration. Pain level reassessed. reports PATEL now. General: Appears in no apparent distress. Behavior is calm, cooperative, appropriate for age. Pain: Complains of pain in head Pain does not radiate. Quality of pain is described as aching, Pain began gradually. Neuro: Level of Consciousness is awake, alert, obeys commands, Oriented to person, place, time, situation, Appropriate for age Caponizer are equal bilaterally Moves all extremities. Full function Gait is steady, Speech is normal, Facial symmetry appears normal, Reports headache. Cardiovascular: Reports chest pain, shortness of breath, Heart tones S1 S2 Capillary refill < 3 seconds Clubbing of nail beds is absent JVD is absent Patient's skin is warm and dry. Respiratory: Airway is patent Trachea midline Respiratory effort is even, unlabored, Respiratory pattern is regular, symmetrical, Breath sounds are clear bilaterally. Musculoskeletal: Circulation, motion, and sensation intact. Capillary refill < 3 seconds, Reports pain in low back. 09:10 Reassessment: No changes from previously documented assessment. Patient and/or family ll1 updated on plan of care and expected duration. Pain level reassessed. Patient is alert, oriented x 3, equal unlabored respirations, skin warm/dry/pink. 10:10 Reassessment: No changes from previously documented assessment. Patient and/or family ll1 updated on plan of care and expected duration. Pain level reassessed. Patient is alert, oriented x 3, equal unlabored respirations, skin warm/dry/pink. 11:10 Reassessment: No changes from previously documented assessment. Patient and/or family ll1 updated on plan of care and expected duration. Pain level reassessed. Patient is alert, oriented x 3, equal unlabored respirations, skin warm/dry/pink. 12:10 Reassessment: No changes from previously documented assessment. Patient and/or family ll1 updated on plan of care and expected duration. Pain level reassessed. Patient is alert, oriented x 3, equal unlabored respirations, skin warm/dry/pink. 13:10 Reassessment: No changes from previously documented assessment. Patient and/or family ll1 updated on plan of care and expected duration. Pain level reassessed. Patient is alert, oriented x 3, equal unlabored respirations, skin warm/dry/pink. 14:10 Reassessment: No changes from previously documented assessment. Patient and/or family ll1 updated on plan of care and expected duration. Pain level reassessed. Patient is alert, oriented x 3, equal unlabored respirations, skin warm/dry/pink. 15:10 Reassessment: No changes from previously documented assessment. Patient and/or family ll1 updated on plan of care and expected duration. Pain level reassessed. Patient is alert, oriented x 3, equal unlabored respirations, skin warm/dry/pink. 16:10 Reassessment: No changes from previously documented assessment. Patient and/or family ll1 updated on plan of care and expected duration. Pain level reassessed. Patient is alert, oriented x 3, equal unlabored respirations, skin warm/dry/pink. 17:10 Reassessment: No changes from previously documented assessment. Patient and/or family ll1 updated on plan of care and expected duration. Pain level reassessed. Patient is alert, oriented x 3, equal unlabored respirations, skin warm/dry/pink. 20:06 General: Patient ambulates to restroom without difficutly. . tw5 20:15 General: Reports " My right shoulder hurts, my back on the right side and a little bit tw5 of my chest. I came in today for the pain in my back and my chest. It is better now.". Pain: Pain currently is 10 out of 10 on a pain scale. Quality of pain is described as aching. Vital Signs: 07:58 BP 135 / 85; Pulse 87; Resp 18; Pulse Ox 100% on R/A; ph 07:59 BP 135 / 85; Pulse 90; Resp 17; Temp 98.6; Pulse Ox 100% ; Weight 55.79 kg; Height 4 ll1 ft. 11 in. (149.86 cm); Pain 10/10; 10:00 BP 115 / 81; Pulse 84; Resp 16; Pulse Ox 100% ; ll1 11:47 BP 116 / 65; Resp 16; Pulse Ox 100% ; ll1 16:15 BP 128 / 79; Pulse 85; Resp 16; Pulse Ox 100% ; ll1 17:59 BP 143 / 81; Pulse 82; Resp 16; Pulse Ox 100% ; ll1 20:06 BP 136 / 90; Pulse 84; Resp 18; Pulse Ox 100% on R/A; tw5 20:15 BP 136 / 90; Pulse 84; Resp 18; Pulse Ox 100% on R/A; tw5 07:59 Body Mass Index 24.84 (55.79 kg, 149.86 cm) ll1 ED Course: 07:58 Patient arrived in ED. ph 07:59 Casey Brooke MD is Attending Physician. kdr 07:59 Eloisa Fleming, FIONA is Primary Nurse. ll1 07:59 Arm band placed on Patient placed in an exam room, on a stretcher. ll1 08:00 Triage completed. ll1 08:10 Inserted saline lock: 22 gauge in right hand, using aseptic technique. Blood collected. ll1 08:13 Patient has correct armband on for positive identification. Bed in low position. Call ph light in reach. Side rails up X 1. Pulse ox on. NIBP on. 08:22 EKG done, by ED staff, reviewed by Casey Brooke MD. em1 08:47 Chest Single View XRAY In Process Unspecified. EDMS 08:49 No provider procedures requiring assistance completed. Patient maintains SpO2 ll1 saturation greater than 95% on room air. 12:51 Rubio Prieto MD is Hospitalizing Provider. kdr 14:43 CT Stone Protocol In Process Unspecified. EDMS 19:59 Throat Culture Sent. tw5 19:59 Basic Metabolic Panel Sent. tw5 20:00 Amylase, Serum Sent. tw5 20:01 Urine Culture Sent. tw5 20:01 Blood Culture Adult (2) Sent. tw5 20:02 Urine Culture Sent. tw5 20:06 Placed in gown. school bus monitor on. Door closed. Noise minimized. Moved to private [facility] room. Warm blanket given. Verbal reassurance given. 08/06 06:29 Primary Nurse role handed off by Eloisa Fleming RN eb Administered Medications: 08/05 09:53 Drug: Rocephin - (cefTRIAXone) 1 grams Route: IVPB; Infused Over: 30 mins; Site: right ll1 hand; 10:20 Follow up: Response: No adverse reaction; IV Status: Completed infusion; IV Intake: [id number] 09:59 CANCELLED (Other Intervention Used): Tylenol 650 mg PO once ll1 10:00 CANCELLED (Physician Discretion): Zofran (Ondansetron) 4 mg IVP once; over 2 minutes ll1 10:00 Drug: Motrin (ibuprofen) 600 mg Route: PO; ll1 11:05 Follow up: Response: No adverse reaction ll1 10:00 Drug: Potassium Chloride 40 mEq Route: PO; ll1 11:05 Follow up: Response: No adverse reaction ll1 10:40 Drug: Zofran (Ondansetron) 4 mg Route: IVP; Site: right hand; ll1 11:05 Follow up: Response: No adverse reaction; Nausea is decreased ll1 11:05 Drug: NS 0.9% 500 ml Route: IV; Rate: bolus; Site: right hand; ll1 11:46 Follow up: Response: No adverse reaction; IV Status: Completed infusion; IV Intake: ll1 500ml 13:04 Drug: NS 0.9% (30 ml/kg) 30 ml/kg Route: IV; Rate: bolus; Site: right hand; ll1 14:32 Follow up: Response: No adverse reaction; IV Status: Completed infusion; IV Intake: ll1 1100ml Intake: 10:20 IV: 50ml; Total: 50ml. ll1 11:46 IV: 500ml; Total: 550ml. ll1 14:32 IV: 1100ml; Total: 1650ml. ll1 Outcome: 12:52 Decision to Hospitalize by Provider. kdr 08/06 14:07 Admitted to Tele accompanied by tech, via wheelchair, Report called to rn 220 jh6 Condition: stable Instructed on the need for admit. 14:18 Patient left the ED. jd3 Signatures: Dispatcher [employer] EDCasey Stallworth MD MD kdr Martinez, Eric em1 Hall, Patricia, RN RN ph Stephanie, Cholo RN RN jd3 Viviana Jeter Lynsay RN RN ll1 Jackson, Jaimie 5 Bradley, Vivien RN RN jh6
--- NOTE | 2021-08-05 12:52 | EDPHYS ---
Physician Documentation [facility] Name: Jenni Irving Age: 41 yrs Sex: Female : 1980 Arrival Date: 08/05/2021 Time: 07:58 Bed 8 Private MD: ED Physician Casey Brooke HPI: 08/05 10:43 This 41 yrs old Female presents to ER via EMS with complaints of Chest Pain. kdr 10:43 The patient or guardian reports chest pain that is located primarily in the anterior kdr chest wall, right, chest diffusely. The pain does not radiate. Associated signs and symptoms: Pertinent positives:. Patient was up at about 5 AM this morning when she was about to eat breakfast and started having shortness of breath, chest pain and chills. She not had anything like this before and had been otherwise in her usual state of health until this occurred this morning. 10:50 The chest pain is described as Sharp and stabbing like needles. Duration: The patient kdr or guardian reports multiple episodes, that are intermittent, that wax and wane, with no pattern. Modifying factors: The symptoms are alleviated by nothing. the symptoms are aggravated by activity, breathing, cough, emotionally stressful situations, movement, swallowing. Severity of pain: At its worst the pain was mild just prior to arrival, moderate just prior to arrival, in the emergency department the pain has improved moderately. The patient has not experienced similar symptoms in the past. The patient has not recently seen a physician. 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 - Social history:: Smoking status: Patient reports the use of cigarette tobacco products, smokes one-half pack cigarettes per day. ROS: 10:50 Constitutional: Negative for fever, chills, and weight loss, Eyes: Negative for injury, kdr pain, redness, and discharge, Neck: Negative for injury, pain, and swelling, Respiratory: Negative for shortness of breath, cough, wheezing, and pleuritic chest pain, Abdomen/GI: Negative for abdominal pain, nausea, vomiting, diarrhea, and constipation, Back: Negative for injury and pain, : Negative for injury, bleeding, discharge, and swelling, MS/Extremity: Negative for injury and deformity, Skin: Negative for injury, rash, and discoloration, Neuro: Negative for headache, weakness, numbness, tingling, and seizure activity. Psych: Negative for depression, anxiety, suicide ideation, homicidal ideation, and hallucinations, Allergy/Immunology: Negative for hives, rash, and allergies, Endocrine: Negative for neck swelling, polydipsia, polyuria, polyphagia, and marked weight changes. 10:50 Cardiovascular: Positive for chest pain, Negative for edema, orthopnea, palpitations, paroxysmal nocturnal dyspnea. Exam: 10:50 Constitutional: This is a well developed, well nourished patient who is awake, alert, kdr and in mild distress. Head/Face: Normocephalic, atraumatic. Eyes: Pupils equal round and reactive to light, extra-ocular motions intact. Lids and lashes normal. Conjunctiva and sclera are non-icteric and not injected. Cornea within normal limits. Periorbital areas with no swelling, redness, or edema. Neck: Trachea midline, no thyromegaly or masses palpated, and no cervical lymphadenopathy. Supple, full range of motion without nuchal rigidity, or vertebral point tenderness. No Meningismus. Chest/axilla: Normal chest wall appearance and motion. Nontender with no deformity. No lesions are appreciated. Cardiovascular: Regular rate and rhythm with a normal S1 and S2. No gallops, murmurs, or rubs. Normal PMI, no JVD. No pulse deficits. Respiratory: Lungs have equal breath sounds bilaterally, clear to auscultation and percussion. No rales, rhonchi or wheezes noted. No increased work of breathing, no retractions or nasal flaring. Abdomen/GI: Soft, non-tender, with normal bowel sounds. No distension or tympany. No guarding or rebound. No evidence of tenderness throughout. Back: No spinal tenderness. No costovertebral tenderness. Full range of motion. Skin: Warm, dry with normal turgor. Normal color with no rashes, no lesions, and no evidence of cellulitis. MS/ Extremity: Pulses equal, no cyanosis. Neurovascular intact. Full, normal range of motion. Neuro: Awake and alert, GCS 15, oriented to person, place, time, and situation. Cranial nerves II-XII grossly intact. Motor strength 5/5 in all extremities. Sensory grossly intact. Cerebellar exam normal. Normal gait. Psych: Awake, alert, with orientation to person, place and time. Behavior, mood, and affect are within normal limits. Vital Signs: 07:58 BP 135 / 85; Pulse 87; Resp 18; Pulse Ox 100% on R/A; ph 07:59 BP 135 / 85; Pulse 90; Resp 17; Temp 98.6; Pulse Ox 100% ; Weight 55.79 kg; Height 4 ll1 ft. 11 in. (149.86 cm); Pain 10/10; 10:00 BP 115 / 81; Pulse 84; Resp 16; Pulse Ox 100% ; ll1 11:47 BP 116 / 65; Resp 16; Pulse Ox 100% ; ll1 16:15 BP 128 / 79; Pulse 85; Resp 16; Pulse Ox 100% ; ll1 17:59 BP 143 / 81; Pulse 82; Resp 16; Pulse Ox 100% ; ll1 20:06 BP 136 / 90; Pulse 84; Resp 18; Pulse Ox 100% on R/A; tw5 20:15 BP 136 / 90; Pulse 84; Resp 18; Pulse Ox 100% on R/A; tw5 07:59 Body Mass Index 24.84 (55.79 kg, 149.86 cm) ll1 MDM: 10:50 Data reviewed: vital signs, nurses notes, lab test result(s), radiologic studies. kdr Counseling: I had a detailed discussion with the patient and/or guardian regarding: the historical points, exam findings, and any diagnostic results supporting the discharge/admit diagnosis, lab results, radiology results. 12:52 Patient medically screened. kdr 08/05 08:17 Order name: Urine Culture kdr 08/05 08:17 Order name: Amylase, Serum kdr 08/05 08:17 Order name: Basic Metabolic Panel kdr 08/05 08:17 Order name: Blood Culture Adult (2) kdr 08/05 08:17 Order name: CBC with Diff; Complete Time: 10:29 kdr 08/05 08:17 Order name: CPK; Complete Time: 09:36 kdr 02 08:17 Order name: Ckmb; Complete Time: 09:36 kdr 02 08:17 Order name: LFT's; Complete Time: 09:36 kdr 02 08:17 Order name: Lactate; Complete Time: 10:29 kdr 02 08:17 Order name: Lipase; Complete Time: 09:36 kdr 08/05 08:17 Order name: Procalcitonin; Complete Time: 09:36 kdr 08/05 08:17 Order name: Protime (+inr); Complete Time: 09:36 kdr 08/05 08:17 Order name: Ptt, Activated; Complete Time: 09:36 kdr 08/05 08:17 Order name: Troponin HS; Complete Time: 09:36 kdr 08/05 08:17 Order name: Urine Microscopic Only; Complete Time: 09:36 kdr 08/05 08:17 Order name: Chest Single View XRAY; Complete Time: 09:36 kdr 08/05 08:18 Order name: Urine Culture EDMS 08/05 08:18 Order name: Amylase; Complete Time: 09:36 EDMS 08/05 08:18 Order name: Basic Metabolic Panel; Complete Time: 09:36 EDMS 08/05 08:19 Order name: Strep; Complete Time: 09:36 kdr 08/05 08:20 Order name: Group A Streptococcus Rapid Sc; Complete Time: 09:36 EDMS 08/05 08:43 Order name: Urine Dipstick-Ancillary; Complete Time: 09:36 EDMS 08/05 08:43 Order name: Urine --Ancillary (enter results); Complete Time: 09:36 eb 08/05 08:56 Order name: Throat Culture EDMS 08/05 10:28 Order name: CBC Smear Scan; Complete Time: 10:29 EDMS 08/05 10:49 Order name: Lactate; Complete Time: 12:27 kdr 0205 04:18 Order name: CBC with Automated Diff EDMS 08/06 05:30 Order name: Comprehensive Metabolic Panel EDMS 08/05 08:17 Order name: Urine Dipstick-Ancillary (obtain specimen); Complete Time: 08:38 kdr 08/05 08:17 Order name: Accucheck; Complete Time: 08:27 kdr 08/05 08:17 Order name: Cardiac monitoring; Complete Time: 08:27 kdr 08/05 08:17 Order name: EKG - Nurse/Tech; Complete Time: 08:22 kdr 08/05 08:17 Order name: IV Saline Lock - Large Bore; Complete Time: 08:27 kdr 08/05 08:17 Order name: Labs collected and sent; Complete Time: 08:27 kdr 08/05 08:17 Order name: O2 Per Protocol; Complete Time: 08:27 kdr 08/05 08:17 Order name: O2 Sat Monitoring; Complete Time: 08:27 kdr 08/05 14:27 Order name: CT Stone Protocol kdr Administered Medications: 09:53 Drug: Rocephin - (cefTRIAXone) 1 grams Route: IVPB; Infused Over: 30 mins; Site: right ll1 hand; 10:20 Follow up: Response: No adverse reaction; IV Status: Completed infusion; IV Intake: [id number] 09:59 CANCELLED (Other Intervention Used): Tylenol 650 mg PO once ll1 10:00 CANCELLED (Physician Discretion): Zofran (Ondansetron) 4 mg IVP once; over 2 minutes ll1 10:00 Drug: Motrin (ibuprofen) 600 mg Route: PO; ll1 11:05 Follow up: Response: No adverse reaction ll1 10:00 Drug: Potassium Chloride 40 mEq Route: PO; ll1 11:05 Follow up: Response: No adverse reaction ll1 10:40 Drug: Zofran (Ondansetron) 4 mg Route: IVP; Site: right hand; ll1 11:05 Follow up: Response: No adverse reaction; Nausea is decreased ll1 11:05 Drug: NS 0.9% 500 ml Route: IV; Rate: bolus; Site: right hand; ll1 11:46 Follow up: Response: No adverse reaction; IV Status: Completed infusion; IV Intake: ll1 500ml 13:04 Drug: NS 0.9% (30 ml/kg) 30 ml/kg Route: IV; Rate: bolus; Site: right hand; ll1 14:32 Follow up: Response: No adverse reaction; IV Status: Completed infusion; IV Intake: ll1 1100ml Disposition Summary: 08/05/21 12:52 Hospitalization Ordered Hospitalization Status: Observation kdr Provider: Rubio Prieto Condition: Fair kdr Problem: new kdr Symptoms: have improved kdr Bed/Room Type: Standard kdr Location: Telemetry/MedSurg (observation)(08/06/21 12:30) eb Room Assignment: 220(08/06/21 12:30) eb Diagnosis - UTI/ Urinary tract infection, site not specified kdr Forms: - Medication Reconciliation Form kdr - SBAR form kdr Signatures: Dispatcher [employer] EDMS Casey Brooke MD MD kdr Marija Mckeon RN RN Annie Wilkes RN RN Viviana Jeter Lynsay, RN RN ll1 Corrections: (The following items were deleted from the chart) 09:59 09:56 Tylenol 650 mg PO once ordered. kdr ll1 10:00 09:56 Zofran (Ondansetron) 4 mg IVP once; over 2 minutes ordered. kdr ll1 20:19 12:52 Telemetry/MedSurg (observation) kdr cg 20:19 12:52 kdr cg 08/06 12:30 04 20:19 [facility] ER HOLD cg eb 08/06 12:30 08/05 20:19 ERHOLD- cg eb
[2021-08-05] MEDS ORDERED: NA CHLORIDE 0.9% 100 ML IV ONE (12:59)
[2021-08-05] MEDS ORDERED: NA CHLORIDE 0.9% 1,000 ML ONE ×2 (12:59→18:45)
--- NOTE | 2021-08-05 14:53 | RAD REPORT ---
EXAM DESCRIPTION: CT - Stone Protocol - 08/05/2021 2:43 pm CLINICAL HISTORY: Flank pain. Right flank pain COMPARISON: Abdomen Pelvis W Contrast dated 06/18/2021 TECHNIQUE: Axial images were obtained without oral or IV contrast. Lack of contrast limits solid org an and vascular assessment. The [id number] spans the entirety of the system partially obscuring uppermost abdomen and lung bases. Coronal reformatted images were obtained and reviewed. All CT scans are performed using dose optimization technique as appropriate and may include automated exposure control or mA/KV adjustment according to patient size. FINDINGS: The lower lung sarmiento are clear. Imaged portions of the liver and spleen show no suspicious findings on non-contrast imaging. The panc reas and adrenal glands are normal. No pathologic lymphadenopathy in the abdomen or pelvis. No urinary tract stones or obstructive uropathy. No bowel obstruction, free air, free fluid or abscess. Normal appendix noted. No significant bony abnormality. IMPRESSION: No urinary tract stones or obstructive uropathy.
[2021-08-05] MEDS ORDERED: ONDANSETRON 4 MG/2 ML VIAL IV PRN (15:26)
[2021-08-05] MEDS ORDERED: FLUMAZENIL 0.1 MG/ML (5 mL VIAL) IV PRN (15:28)
--- NOTE | 2021-08-05 15:30 | P.HP ---
Certification for Inpatient Patient admitted to: Inpatient With expected LOS: >2 Midnights Practitioner: I am a practitioner with admitting privileges, knowledge of patient current condition, hospital course, and medical plan of care. Services: Services provided to patient in accordance with Admission requirements found in Title 42 Section 412.3 of the Code of Federal Regulations Patient History Date of Service: 08/05/21 Reason for admission: UTI, lactic acidosis History of Present Illness: 41-year-old female, PMH: Hypertension, alcohol dependence with history of DTs, history of drug abuse Presents to ED due to bilateral flank pain, dysuria, and foul odor since this morning. Patient also reports chills and burning chest pain. Reports history of bad heartburn, has run out of her medications recently. Patient states this is her third UTI in the last 2 months. All approximately 1 month apart. Both prior episodes were treated outpatient, had complete resolution of symptoms. Reports some mild chronic urinary incontinence, denies any difficulty urinating. In the ED, her WBCs are notably slightly low, lactic acidosis, CVA tenderness. ED physician requested admission for treatment of UTI. Allergies NKDA Allergy (Uncoded 06/27/15 23:27) Unknown No Known Allergi Allergy (Uncoded 10/08/16 10:59) Unknown No Known Allergies Allergy (Uncoded 05/23/17 02:35) Unknown Home Medications: Amlodipine Besylate 5 mg PO DAILY 06/20/18 Atorvastatin Calcium [Lipitor] 20 mg PO BEDTIME #60 tab 06/20/18 - Past Medical/Surgical History Diabetic: No -: HTN -: X 3 -: D/C for miscarriages - Family History Father -: Hypertension, Diabetes Brother -: Seizures Mother -: Hypertension, Other (see notes) Notes: suicidal tendencies, depression - Social History Smoking Status: Former smoker Alcohol use: Yes CD- Drugs: No Caffeine use: Yes Place of Residence: Home Review of Systems 10-point ROS is otherwise unremarkable Physical Examination - Physical Exam General: Alert, Mild distress HEENT: PERRLA, Sclerae nonicteric Neck: Supple Respiratory: Clear to auscultation bilaterally, Normal air movement Cardiovascular: No edema, Regular rate/rhythm Gastrointestinal: Soft and benign, Tenderness (Suprapubic, and left CVA tenderness) Musculoskeletal: No erythema Integumentary: No rashes, No significant lesion Neurological: Normal speech, Normal affect - Studies Laboratory Data (last 24 hrs) 08/05/21 08:10: PT 13.2 H, INR 1.15, APTT 33.0 08/05/21 08:10: WBC 3.70 L, Hgb 12.1, Hct 36.0, Plt Count 109 L 08/05/21 08:10: Sodium 137, Potassium 3.0 L, BUN 3 L, Creatinine 0.68, Glucose 97, Total Bilirubin 0.6, AST 48 H, ALT 43, Alkaline Phosphatase 87, Amylase 44, Lipase 80 Microbiology Data (last 24 hrs): 08/05/21 08:13 Throat Group A Streptococcus Rapid Screen - Final Assessment and Plan - Advance Directives Does patient have a Living Will: No Does patient have a Durable POA for Healthcare: No Physician Review Additional Text: Problem list UTI, suspect pyelonephritis Hypertension Alcohol dependence, with history of DTs Anxiety Insomnia Empiric treatment with IV Rocephin, urine culture and blood culture obtained Patient with clinical pyelonephritis, left-sided CVA tenderness, dysuria, UA grossly positive Given that this is her third UTI in the last 2 months, and with flank pain bilaterally, will obtain CT abdomen/pelvis to evaluate for stone, evaluate kidneys Pain control Currently stable for med/surge Alcohol withdrawal assessment, 1 mg every 6 hours Ativan, 1 mg as needed for withdrawal symptoms. States she takes Klonopin once a day Patient reports previous be having seizures when withdrawing Last drink was last night Confirm home meds, restart as appropriate IV fluids Thiamine to prevent Warnicke's encephalopathy VTE: Lovenox Code: Full Dispo: Anticipate DC home in 2 days Time Spent Managing Pts Care (In Minutes): 60
[2021-08-05] MEDS ORDERED: ACETAMINOPHEN 500 MG TAB ONE (18:45)
[2021-08-05] MEDS ORDERED: ENOXAPARIN 40 MG/0.4 ML SQ ONE (18:45)
[2021-08-05] MEDS: NA CHLORIDE 0.9% 1,000 ML IV SCH (18:57)
[2021-08-05] MEDS: ACETAMINOPHEN 500 MG TAB PO PRN (18:57)
[2021-08-05] MEDS: ENOXAPARIN 40 MG/0.4 ML SQ SCH (18:57)
[2021-08-05] MEDS: THIAMINE HCL 100 MG TABLET PO SCH (21:00)
[2021-08-05] MEDS ORDERED: LORazepam 2 MG/ML VIAL ONE (21:49)
[2021-08-05] MEDS ORDERED: THIAMINE HCL 100 MG TABLET ONE ×2 (21:52→21:59)
[2021-08-05] MEDS: LORazepam 2 MG/ML VIAL IV PRN (22:04)
[2021-08-06] MEDS: NA CHLORIDE 0.9% 1,000 ML IV SCH ×3 (02:00→22:00)
[2021-08-06 04:15] LABS: Absolute Lymphocytes (CBC) 1.2 K/uL (0.7-4.9); Hematocrit 36.6 % (36.0-45.0); Lymphocytes % 40.8 % (15.3-44.8); MPV 10.2 fL (7.6-11.3); RBC Red Blood Cell Count 3.42 M/uL (3.86-4.86)
[2021-08-06 05:22] LABS: Albumin 2.8 g/dL (3.4-5.0); Bilirubin Total 0.7 mg/dL (0.2-1.0); Protein, Total 6.7 g/dL (6.4-8.2)
[2021-08-06 05:30] LABS: Potassium 2.9 mmol/L (3.5-5.1)
[2021-08-06] MEDS ORDERED: KCL 20 MEQ/100 mL IVPB 100 ML IV ONE ×2 (05:51→08:20)
[2021-08-06] MEDS ORDERED: LORazepam 2 MG/ML VIAL ONE ×2 (05:51→11:50)
[2021-08-06] MEDS: LORazepam 2 MG/ML VIAL IV PRN ×3 (06:15→20:43)
[2021-08-06] MEDS: KCL 20 MEQ/100 mL IVPB 20 MEQ/100 ML BAG IV SCH ×2 (06:17→08:44)
--- NOTE | 2021-08-06 06:46 | P.PN ---
Date of Service: 08/06/21 Subjective: Feels slightly better this morning, no nausea Continues with some bilateral flank pain and dysuria Continues with some slight shaking /itching ROS: 10 point ROS as noted above, otherwise negative Physical exam GEN: Alert, appears uncomfortable HEENT: Normal conjunctiva, sclera anicteric CV: Regular rate and rhythm, no edema Pulm: Nonlabored respirations on room air ABD: Soft, mild suprapubic tenderness, L CVA tenderness Integumentary: No rashes Neuro: Normal speech, normal affect Problem List UTI, suspect pyelonephritis Hypertension Alcohol dependence, with history of DTs Anxiety Insomnia Hypokalemia Hypomagnesemia Empiric treatment with IV Rocephin, urine culture and blood culture obtained Patient with clinical pyelonephritis, left-sided CVA tenderness, dysuria, UA bacteriuria 3rd UTI in past 2 months, CT obtained - no stone Pain control Alcohol withdrawal assessment, 1 mg every 6 hours Ativan, 1 mg as needed for withdrawal symptoms. States she takes Klonopin once a day Patient reports previous be having seizures when withdrawing Last drink was night before admission Confirm home meds, restart as appropriate IV fluids Thiamine to prevent Warnicke's encephalopathy VTE: Lovenox Code: Full Dispo: Anticipate DC home in 1-2 days Time Spent Managing Pts Care (In Minutes): 35
[2021-08-06] MEDS ORDERED: THIAMINE HCL 100 MG TABLET ONE (08:19)
[2021-08-06] MEDS ORDERED: PANTOPRAZOLE 40MG TABLET PO ONE (08:19)
[2021-08-06] MEDS ORDERED: ENOXAPARIN 40 MG/0.4 ML SQ ONE (08:20)
[2021-08-06] MEDS: PANTOPRAZOLE 40MG TABLET PO SCH ×2 (08:30→15:53)
[2021-08-06] MEDS: ENOXAPARIN 40 MG/0.4 ML SQ SCH (08:43)
[2021-08-06] MEDS: THIAMINE HCL 100 MG TABLET PO SCH ×2 (08:44→20:42)
[2021-08-06 14:20] LABS: Magnesium 1.1
[2021-08-06] MEDS: CEFTRIAXONE 1,000 MG in NA CHLORIDE 0.9% 50 ML IVPB SCH (15:53)
[2021-08-07] MEDS: NA CHLORIDE 0.9% 1,000 ML IV SCH ×3 (00:51→11:38)
[2021-08-07 05:48] LABS: Hematocrit 31.1 % (36.0-45.0); MPV 10.3 fL (7.6-11.3); RBC Red Blood Cell Count 2.92 M/uL (3.86-4.86)
--- NOTE | 2021-08-07 06:22 | P.PN ---
Date of Service: 08/07/21 Subjective: Flank pain improving, dysuria improving, but still presents Having less itching, I am not as shaky Overall feeling a little bit better Remains afebrile ROS: 10 point ROS as noted above, otherwise negative Physical exam GEN: Alert, oriented x2 HEENT: Normal conjunctiva, sclera anicteric CV: Regular rate and rhythm, no edema Pulm: Nonlabored respirations on room air ABD: Soft, mild suprapubic tenderness, L CVA tenderness Integumentary: No rashes Neuro: Normal speech, normal affect, b/l tremor Problem List UTI, possible pyelonephritis Hypertension Alcohol dependence, with history of DTs Anxiety Insomnia Hypokalemia Hypomagnesemia Continue IV Rocephin for empiric treatment of UTI Urine culture growing mixed graeme, blood culture negative Patient no CVA tenderness, dysuria, UA grossly positive bacteriuria 3rd UTI in 2 months, CT obtainedno stone Pain control Alcohol withdrawal assessment ordered, seems to be doing okay for now. Ativan as needed Confirm home meds, restart as appropriate DC IV fluids Continue thiamine VTE: Lovenox Code: Full Dispo: Anticipate DC home in ~1 day Time Spent Managing Pts Care (In Minutes): 35
[2021-08-07 07:46] LABS: ALT/SGPT 26 U/L (12-78); AST/SGOT 23 U/L (15-37); Albumin 2.6 g/dL (3.4-5.0); Alkaline Phosphatase 81 U/L (45-117); BUN Blood Urea Nitrogen 4 mg/dL (7-18); Bicarbonate 27 mmol/L (21-32); Bilirubin Total 0.3 mg/dL (0.2-1.0); Glucose Level 87 mg/dL (74-106); Phosphorus 3.2 mg/dL (2.5-4.9); Potassium 3.6 mmol/L (3.5-5.1); Protein, Total 6.1 g/dL (6.4-8.2); Sodium Level 143 mmol/L (136-145)
[2021-08-07] MEDS ORDERED: CEFTRIAXONE 1000 MG/VIAL ONE (07:57)
[2021-08-07 07:58] LABS: C-Reactive Protein < 2.90 mg/L (<3.00)
[2021-08-07] MEDS ORDERED: NA CHLORIDE 0.9% 50 ML ONE (07:58)
[2021-08-07] MEDS: CEFTRIAXONE 1,000 MG in NA CHLORIDE 0.9% 50 ML IVPB SCH (08:08)
[2021-08-07] MEDS: ACETAMINOPHEN 500 MG TAB PO PRN ×2 (08:09→11:38)
[2021-08-07] MEDS: PANTOPRAZOLE 40MG TABLET PO SCH ×2 (08:09→16:15)
[2021-08-07] MEDS: ENOXAPARIN 40 MG/0.4 ML SQ SCH (08:09)
[2021-08-07] MEDS: LORazepam 2 MG/ML VIAL IV PRN ×5 (08:09→22:24)
[2021-08-07] MEDS: THIAMINE HCL 100 MG TABLET PO SCH ×2 (08:16→20:29)
[2021-08-07] MEDS ORDERED: POTASSIUM CL SA 10 MEQ TAB PO ONE ×2 (10:40→12:00)
[2021-08-07 14:59] LABS: Magnesium 0.9
[2021-08-07] MEDS ORDERED: LORazepam 2 MG/ML VIAL IV SCH (16:00)
[2021-08-07] MEDS ORDERED: MAGNESIUM 50% 3 GM in NA CHLORIDE 0.9% 100 ML IV ONE (16:00)
[2021-08-07] MEDS: LACTOBACILLUS/ACIDOPHILUS TAB PO SCH (20:29)
[2021-08-07] MEDS: QUETIAPINE 25 MG TAB PO SCH (20:29)
[2021-08-08] MEDS ORDERED: chlordiazePOXIDE HCl 5 MG CAP PO ONE (00:28)
[2021-08-08] MEDS: NICOTINE 21 MG/PAT TD SCH ×3 (00:31→20:37)
[2021-08-08] MEDS: LORazepam 2 MG/ML VIAL IV PRN ×3 (01:19→05:46)
[2021-08-08] MEDS ORDERED: LORazepam 2 MG/ML VIAL IV ONE ×2 (01:43→02:39)
[2021-08-08] MEDS ORDERED: LORazepam 2 MG/ML VIAL ONE (02:59)
[2021-08-08] MEDS ORDERED: LORazepam 2 MG/ML VIAL IV PRN ×2 (05:55→07:33)
--- NOTE | 2021-08-08 06:20 | P.PN ---
Date of Service: 08/08/21 Subjective: more ETOH withdrawal symptoms last night, requiring more ativan Multiple code zach called This morning on rounds, patient is pacing in her room, crying, stating her is dying on the floor nobody is helping Patient with hallucinations ROS: Difficult to obtain Physical exam GEN: Awake, confused, hallucinating HEENT: Normal conjunctiva, sclera anicteric CV: Sinus tachycardia, no edema Pulm: Nonlabored respirations on room air ABD: Soft, mild suprapubic tenderness Integumentary: No rashes Neuro: Anxious, tremulous, hallucinating Problem List UTI, possible pyelonephritis Alcohol withdrawal, h/o DTs Hypertension Anxiety Insomnia Hypokalemia Hypomagnesemia Transfer to ICU Increase dose of Ativan, pt reports h/o seizures with withdrawal Patient received several doses, finally starting to respond to be more calm Continue IV Rocephin for empiric treatment of UTI Urine culture growing mixed graeme, blood culture negative Patient with CVA tenderness, dysuria, UA grossly positive bacteriuria 3rd UTI in 2 months, CT obtainedno stone continue banana bag VTE: Lovenox Code: Full Dispo: Anticipate DC home in ~2-3 days Time Spent Managing Pts Care (In Minutes): 35
[2021-08-08 06:33] LABS: Potassium 3.5 mmol/L (3.5-5.1)
[2021-08-08 06:49] LABS: Absolute Lymphocytes (CBC) 0.9 K/uL (0.7-4.9); Hematocrit 34.5 % (36.0-45.0); Lymphocytes % 17.5 % (15.3-44.8); MPV 10.1 fL (7.6-11.3); RBC Red Blood Cell Count 3.27 M/uL (3.86-4.86)
[2021-08-08] MEDS: PANTOPRAZOLE 40MG TABLET PO SCH ×2 (07:30→16:52)
[2021-08-08 07:37] LABS: BUN Blood Urea Nitrogen 4 mg/dL (7-18); Bicarbonate 25 mmol/L (21-32); Glucose Level 100 mg/dL (74-106); Sodium Level 141 mmol/L (136-145)
[2021-08-08 07:48] LABS: Blood Morphology Comment NOTED (NOT SEEN); Macrocytosis 1+; Platelet Estimate DECR; White Blood Cell Scan OK (OK)
[2021-08-08] MEDS: LORATADINE 10 MG TAB PO SCH (09:00)
[2021-08-08] MEDS: LACTOBACILLUS/ACIDOPHILUS TAB PO SCH ×2 (09:00→20:37)
[2021-08-08] MEDS: POTASSIUM CL SA 10 MEQ TAB PO ONE ×2 (09:09→16:51)
[2021-08-08 09:38] VITALS: BMI 19.8
[2021-08-08] MEDS: CEFTRIAXONE 1,000 MG in NA CHLORIDE 0.9% 50 ML IVPB SCH (10:40)
[2021-08-08] MEDS: FOLIC ACID 1 MG, MULTIVITAMINS INJ 10 ML, THIAMINE HCL 100 MG in NA CHLORIDE 0.9% 1,000 ML IV SCH (10:41)
[2021-08-08] MEDS: ENOXAPARIN 40 MG/0.4 ML SQ SCH (10:41)
--- NOTE | 2021-08-08 11:35 | EKG ---
Test Date: 2021-08-05 Test Time: 08:09:46 Physiologist: TREVA MEASUREMENT RESULTS: Intervals: Rate: 86 OK: QRSD: 76 QT: 380 QTc: 454 Cummings: P: OK: QRS: 85 T: 45 INTERPRETIVE STATEMENTS: Accelerated Junctional rhythm Abnormal ECG Compared to ECG 06/18/2021 16:54:04 Accelerated junctional rhythm now present Sinus rhythm no longer present T-wave abnormality no longer present Possible ischemia no longer present Electronically Signed On 08-08-21 11:30:52 NURSE SANE by Ervin Goldberg
[2021-08-08] MEDS: LORazepam 2 MG/ML VIAL IV SCH ×3 (12:54→20:37)
[2021-08-08 14:27] LABS: Magnesium 1.7
[2021-08-08] MEDS ORDERED: MAGNESIUM SULFATE 1 gm IVPB 1 GM/100 ML BAG IV ONE (15:43)
[2021-08-08] MEDS: ACETAMINOPHEN 500 MG TAB PO PRN (16:46)
[2021-08-08] MEDS: QUETIAPINE 25 MG TAB PO SCH (20:37)
[2021-08-09] MEDS ORDERED: ZIPRASIDONE MESYLA 20 MG/VIAL IM ONE ×2 (00:57→01:06)
[2021-08-09] MEDS ORDERED: WATER FOR INJ,STERILE 10 ML ONE (00:57)
[2021-08-09] MEDS ORDERED: WATER FOR INJ,STERILE 10 ML IM PRN (01:06)
[2021-08-09] MEDS: LORazepam 2 MG/ML VIAL IV SCH ×6 (01:09→20:53)
[2021-08-09 04:54] LABS: Absolute Lymphocytes (CBC) 0.9 K/uL (0.7-4.9); Hematocrit 32.7 % (36.0-45.0); Lymphocytes % 30.2 % (15.3-44.8); RBC Red Blood Cell Count 3.05 M/uL (3.86-4.86)
[2021-08-09 05:16] LABS: BUN Blood Urea Nitrogen 5 mg/dL (7-18); Bicarbonate 24 mmol/L (21-32); Glucose Level 106 mg/dL (74-106); Potassium 3.4 mmol/L (3.5-5.1); Sodium Level 144 mmol/L (136-145)
[2021-08-09] MEDS: PANTOPRAZOLE 40MG TABLET PO SCH ×3 (07:30→16:40)
[2021-08-09] MEDS ORDERED: POTASSIUM CL SA 10 MEQ TAB PO ONE (09:00)
[2021-08-09] MEDS: ENOXAPARIN 40 MG/0.4 ML SQ SCH (09:54)
[2021-08-09] MEDS: FOLIC ACID 1 MG, MULTIVITAMINS INJ 10 ML, THIAMINE HCL 100 MG in NA CHLORIDE 0.9% 1,000 ML IV SCH (09:54)
[2021-08-09] MEDS: LACTOBACILLUS/ACIDOPHILUS TAB PO SCH ×2 (09:55→20:53)
[2021-08-09] MEDS: LORATADINE 10 MG TAB PO SCH (09:55)
[2021-08-09 12:21] LABS: Magnesium 1.9
[2021-08-09] MEDS: ACETAMINOPHEN 500 MG TAB PO PRN (13:30)
--- NOTE | 2021-08-09 14:48 | P.PN ---
Subjective Date of Service: 08/09/21 Chief Complaint: UTI, lactic acidosis Patient awake and alert and complaining of back pain. She is also tolerating diet. Not confused. Physical Examination - Vital Signs Temperature: 97.5 F Blood Pressure: 126/97 Pulse: 99 Respirations: 14 Pulse Ox (%): 100 Assessment And Plan - Plan Physical exam GEN: Awake, alert. HEENT: Normal conjunctiva, sclera anicteric CV: Sinus tachycardia, no edema Pulm: Nonlabored respirations on room air. Clear to auscultation bilaterally ABD: Soft, no tenderness. Integumentary: No rashes Neuro: Anxious, tremulous. Problem List UTI, possible pyelonephritis Alcohol withdrawal, h/o DTs Hypertension Anxiety Insomnia Hypokalemia Hypomagnesemia Continue CIWA with Ativan Pt reports h/o seizures with withdrawal Continue IV Rocephin for empiric treatment of UTI. Patient to complete 5 days of treatment. Urine culture growing mixed graeme, blood culture negative Patient with CVA tenderness, dysuria, UA grossly positive bacteriuria 3rd UTI in 2 months, CT obtainedno stone continue banana bag. Diet as tolerated. VTE: Lovenox Code: Full
[2021-08-09] MEDS: NICOTINE 21 MG/PAT TD SCH (20:53)
[2021-08-09] MEDS: QUETIAPINE 25 MG TAB PO SCH (20:54)
[2021-08-10] MEDS: LORazepam 2 MG/ML VIAL IV SCH ×6 (00:28→20:12)
[2021-08-10 07:14] LABS: ALT/SGPT 20 U/L (12-78); AST/SGOT 15 U/L (15-37); Albumin 2.6 g/dL (3.4-5.0); Alkaline Phosphatase 68 U/L (45-117); BUN Blood Urea Nitrogen 5 mg/dL (7-18); Bicarbonate 27 mmol/L (21-32); Bilirubin Total 0.3 mg/dL (0.2-1.0); Glucose Level 115 mg/dL (74-106); Potassium 3.2 mmol/L (3.5-5.1); Protein, Total 6.1 g/dL (6.4-8.2); Sodium Level 144 mmol/L (136-145)
[2021-08-10] MEDS: PANTOPRAZOLE 40MG TABLET PO SCH ×2 (07:42→15:54)
[2021-08-10] MEDS: ENOXAPARIN 40 MG/0.4 ML SQ SCH (08:14)
[2021-08-10] MEDS: LACTOBACILLUS/ACIDOPHILUS TAB PO SCH ×2 (08:14→20:09)
[2021-08-10] MEDS: LORATADINE 10 MG TAB PO SCH (08:15)
[2021-08-10] MEDS ORDERED: POTASSIUM CL SA 10 MEQ TAB PO ONE (08:28)
[2021-08-10] MEDS: FOLIC ACID 1 MG, MULTIVITAMINS INJ 10 ML, THIAMINE HCL 100 MG in NA CHLORIDE 0.9% 1,000 ML IV SCH (08:57)
[2021-08-10 12:34] LABS: Magnesium 1.5
--- NOTE | 2021-08-10 13:27 | P.PN ---
Subjective Date of Service: 08/10/21 Chief Complaint: UTI, lactic acidosis Patient awake and alert. She states she feels better. She still has some mild hand tremors She is not confused. Physical Examination - Vital Signs Temperature: 97.7 F Blood Pressure: 117/104 Pulse: 103 Respirations: 19 Pulse Ox (%): 100 - Studies Microbiology Data (last 24 hrs): 08/05/21 08:50 Blood - Blood Aerobic Blood Culture - Final No growth in 5 days. 08/05/21 08:50 Blood - Blood Anaerobic Blood Culture - Final No growth in 5 days. 08/05/21 08:30 Blood - Blood Aerobic Blood Culture - Final No growth in 5 days. 08/05/21 08:30 Blood - Blood Anaerobic Blood Culture - Final No growth in 5 days. Assessment And Plan - Plan Physical exam GEN: Awake, alert. HEENT: Normal conjunctiva, sclera anicteric CV: Sinus tachycardia, no edema Pulm: Nonlabored respirations on room air. Clear to auscultation bilaterally ABD: Soft, no tenderness. Integumentary: No rashes Neuro: Anxious, tremulous. Problem List UTI, possible pyelonephritis Alcohol withdrawal, h/o DTs Hypertension Anxiety Insomnia Hypokalemia Hypomagnesemia Continue CIWA with Ativan Pt reports h/o seizures with withdrawal Patient completed antibiotics for UTI Urine culture growing mixed graeme, blood culture negative 3rd UTI in 2 months, CT obtainedno stone continue banana bag. Diet as tolerated. Transfer from ICU to the medical floor. Monitor and correct electrolytes as needed. VTE: Lovenox Code: Full
[2021-08-10] MEDS ORDERED: Magnesium Sulfate 2gm IVPB 2 G/50 ML BAG IV ONE (14:43)
[2021-08-10] MEDS ORDERED: POTASSIUM 25 MEQ EFFERV TAB PO ONE (17:00)
[2021-08-10] MEDS: QUETIAPINE 25 MG TAB PO SCH (20:09)
[2021-08-10] MEDS: NICOTINE 21 MG/PAT TD SCH (20:10)
[2021-08-10] MEDS: ACETAMINOPHEN 500 MG TAB PO PRN (20:24)
[2021-08-11] MEDS: LORazepam 2 MG/ML VIAL IV SCH ×6 (00:25→20:50)
[2021-08-11] MEDS: LORATADINE 10 MG TAB PO SCH (04:49)
[2021-08-11 05:01] LABS: Absolute Lymphocytes (CBC) 1.1 K/uL (0.7-4.9); Hematocrit 35.6 % (36.0-45.0); Lymphocytes % 35.2 % (15.3-44.8); MPV 9.7 fL (7.6-11.3); RBC Red Blood Cell Count 3.31 M/uL (3.86-4.86)
[2021-08-11 05:19] LABS: ALT/SGPT 21 U/L (12-78); AST/SGOT 19 U/L (15-37); Albumin 2.8 g/dL (3.4-5.0); Alkaline Phosphatase 62 U/L (45-117); BUN Blood Urea Nitrogen 6 mg/dL (7-18); Bicarbonate 28 mmol/L (21-32); Bilirubin Total 0.3 mg/dL (0.2-1.0); Glucose Level 84 mg/dL (74-106); Potassium 3.8 mmol/L (3.5-5.1); Protein, Total 6.7 g/dL (6.4-8.2); Sodium Level 141 mmol/L (136-145)
[2021-08-11] MEDS ORDERED: POTASSIUM CL SA 10 MEQ TAB PO ONE (09:00)
[2021-08-11] MEDS: FOLIC ACID 1 MG, MULTIVITAMINS INJ 10 ML, THIAMINE HCL 100 MG in NA CHLORIDE 0.9% 1,000 ML IV SCH (09:00)
[2021-08-11] MEDS: THIAMINE 200 MG/2 ML INJ ONE ×2 (09:22→09:23)
[2021-08-11] MEDS: LACTOBACILLUS/ACIDOPHILUS TAB PO SCH ×2 (09:22→20:49)
[2021-08-11] MEDS ORDERED: NA CHLORIDE 0.9% 1,000 ML ONE (09:22)
[2021-08-11] MEDS: PANTOPRAZOLE 40MG TABLET PO SCH ×2 (09:23→16:59)
[2021-08-11] MEDS: ENOXAPARIN 40 MG/0.4 ML SQ SCH (09:23)
--- NOTE | 2021-08-11 15:26 | P.PN ---
Subjective Date of Service: 08/11/21 Chief Complaint: UTI, lactic acidosis Patient awake and alert. She appears to be hallucinating. She states that she had 2 strokes last night and was given a shot. There is no record of that. She still has some mild hand tremors Physical Examination - Vital Signs Temperature: 97.2 F Blood Pressure: 101/56 Pulse: 95 Respirations: 14 Pulse Ox (%): 98 Assessment And Plan - Plan Physical exam GEN: Awake, alert. HEENT: Normal conjunctiva, sclera anicteric CV: Sinus tachycardia, no edema Pulm: Nonlabored respirations on room air. Clear to auscultation bilaterally ABD: Soft, no tenderness. Integumentary: No rashes Neuro: Anxious, tremulous. Problem List UTI, possible pyelonephritis Alcohol withdrawal, h/o DTs Hypertension Anxiety Insomnia Hypokalemia Hypomagnesemia Continue CIWA with Ativan. Start to wean Ativan. Haldol as needed for hallucination. Pt reports h/o seizures with withdrawal Patient completed antibiotics for UTI Urine culture growing mixed graeme, blood culture negative 3rd UTI in 2 months, CT obtainedno stone continue banana bag. Diet as tolerated. Monitor and correct electrolytes as needed. Considering psych consult/MHMR evaluation for persistent hallucination. VTE: Lovenox Code: Full
[2021-08-11] MEDS: NICOTINE 21 MG/PAT TD SCH (20:49)
[2021-08-11] MEDS: QUETIAPINE 25 MG TAB PO SCH (20:49)
[2021-08-11] MEDS: ACETAMINOPHEN 500 MG TAB PO PRN (21:31)
[2021-08-12] MEDS: LORazepam 2 MG/ML VIAL IV SCH ×4 (00:45→12:41)
[2021-08-12 06:43] LABS: Absolute Lymphocytes (CBC) 1.3 K/uL (0.7-4.9); Hematocrit 35.5 % (36.0-45.0); Lymphocytes % 24.3 % (15.3-44.8); MPV 10.2 fL (7.6-11.3); RBC Red Blood Cell Count 3.34 M/uL (3.86-4.86)
[2021-08-12 07:17] LABS: ALT/SGPT 26 U/L (12-78); AST/SGOT 23 U/L (15-37); Albumin 2.9 g/dL (3.4-5.0); Alkaline Phosphatase 69 U/L (45-117); BUN Blood Urea Nitrogen 8 mg/dL (7-18); Bicarbonate 27 mmol/L (21-32); Bilirubin Total 0.2 mg/dL (0.2-1.0); Glucose Level 87 mg/dL (74-106); Potassium 3.5 mmol/L (3.5-5.1); Protein, Total 6.7 g/dL (6.4-8.2); Sodium Level 141 mmol/L (136-145)
[2021-08-12] MEDS: FOLIC ACID 1 MG, MULTIVITAMINS INJ 10 ML, THIAMINE HCL 100 MG in NA CHLORIDE 0.9% 1,000 ML IV SCH (08:23)
[2021-08-12 08:53] LABS: White Blood Cell Scan OK (OK)
[2021-08-12 08:54] LABS: Blood Morphology Comment NOTED (NOT SEEN); Platelet Estimate DECR
[2021-08-12 09:00] LABS: Anisocytosis 1+; Macrocytosis 1+
[2021-08-12] MEDS ORDERED: POTASSIUM CL SA 10 MEQ TAB PO ONE (09:00)
[2021-08-12] MEDS: LACTOBACILLUS/ACIDOPHILUS TAB PO SCH ×2 (09:37→20:15)
[2021-08-12] MEDS: ENOXAPARIN 40 MG/0.4 ML SQ SCH (09:38)
[2021-08-12] MEDS: PANTOPRAZOLE 40MG TABLET PO SCH ×2 (09:42→16:53)
[2021-08-12] MEDS: LORATADINE 10 MG TAB PO SCH (09:42)
[2021-08-12] MEDS ORDERED: LORAZEPAM 1 MG TABLET PO PRN (12:40)
--- NOTE | 2021-08-12 16:08 | P.PN ---
Subjective Date of Service: 08/12/21 Chief Complaint: UTI, lactic acidosis Patient is more alert and oriented today. No hallucination. Thought is appropriate. Hand tremors are better. Patient is eating well. Physical Examination - Vital Signs Temperature: 97.5 F Blood Pressure: 124/74 Pulse: 83 Respirations: 16 Pulse Ox (%): 100 Assessment And Plan - Plan Physical exam GEN: Awake, alert. HEENT: Normal conjunctiva, sclera anicteric CV: Sinus tachycardia, no edema Pulm: Nonlabored respirations on room air. Clear to auscultation bilaterally ABD: Soft, no tenderness. Integumentary: No rashes Neuro: Less tremulous. Oriented x3. Problem List UTI, possible pyelonephritis Alcohol withdrawal, h/o DTs Hypertension Anxiety Insomnia Hypokalemia Hypomagnesemia Continue CIWA with Ativan. Wean Ativan to 1 mg p.o. every 8. Haldol as needed for hallucination. Pt reports h/o seizures with withdrawal Patient completed antibiotics for UTI Urine culture growing mixed graeme, blood culture negative 3rd UTI in 2 months, CT obtainedno stone Discontinue banana bag. Diet as tolerated. PT to evaluate. Monitor and correct electrolytes as needed. VTE: Lovenox Code: Full
[2021-08-12] MEDS: NICOTINE 21 MG/PAT TD SCH (20:15)
[2021-08-12] MEDS: QUETIAPINE 25 MG TAB PO SCH (20:15)
[2021-08-13] MEDS: LORATADINE 10 MG TAB PO SCH (08:24)
[2021-08-13] MEDS: LACTOBACILLUS/ACIDOPHILUS TAB PO SCH (08:24)
[2021-08-13] MEDS: PANTOPRAZOLE 40MG TABLET PO SCH (08:24)
[2021-08-13] MEDS: ENOXAPARIN 40 MG/0.4 ML SQ SCH (08:24)
[2021-08-13] MEDS: FOLIC ACID 1 MG, MULTIVITAMINS INJ 10 ML, THIAMINE HCL 100 MG in NA CHLORIDE 0.9% 1,000 ML IV SCH (08:25)
[2021-08-13] MEDS ORDERED: POTASSIUM CL SA 10 MEQ TAB PO ONE (09:00)
[2021-08-13 10:42] VITALS: O2SAT 100
--- NOTE | 2021-08-13 11:00 | P.DS ---
Admission Date: 08/05/21 Discharge Date: 08/13/21 Disposition: ROUTINE DISCHARGE Discharge Condition: FAIR Reason for Admission: UTI, lactic acidosis Brief History of Present Illness: 41-year-old female, PMH: Hypertension, alcohol dependence with history of DTs, history of drug abuse Presents to ED due to bilateral flank pain, dysuria, and foul odor since this morning. Patient also reports chills and burning chest pain. Reports history of bad heartburn, has run out of her medications recently. Patient states this is her third UTI in the last 2 months. All approximately 1 month apart. Both prior episodes were treated outpatient, had complete resolution of symptoms. Reports some mild chronic urinary incontinence, denies any difficulty urinating. In the ED, her WBCs are notably slightly low, lactic acidosis, CVA tenderness. ED physician requested admission for treatment of UTI. Hospital Course: Problem List UTI, possible pyelonephritis Alcohol withdrawal, h/o DTs Hypertension Anxiety Insomnia Hypokalemia Hypomagnesemia Patient admitted to the medical floor and started on antibiotic for UTI. CIWA with Ativan for alcohol withdrawal. Patient started experiencing hallucinations and was needing more frequent Ativan. She was therefore transferred to the ICU for close monitoring. No seizures witnessed during the hospital stay. She was treated with Haldol as needed for hallucination. Her mental status improved and patient was later transferred to the floor where Ativan was weaned. Patient showed clinical improvement. She completed antibiotics for UTI Urine culture growing mixed graeme, blood culture negative 3rd UTI in 2 months, CT obtainedno stone She tolerated diet. She is currently ambulating without any difficulty and deemed stable for dischar ge. She is discharged with Ativan taper over 2 days. Vital Signs/Physical Exam: Temp Pulse Resp BP Pulse Ox 97.8 F 87 20 124/80 100 08/13/21 08:00 08/13/21 08:00 08/13/21 08:00 08/13/21 08:00 08/13/21 08:00 General: Alert, In no apparent distress, Oriented x3 HEENT: Mucous membr. moist/pink Neck: JVD not distended Respiratory: Clear to auscultation bilaterally, Normal air movement Cardiovascular: No edema, Regular rate/rhythm, Normal S1 S2 Gastrointestinal: Soft and benign, Non-distended, No tenderness Musculoskeletal: No swelling Integumentary: No rashes, No cyanosis Neurological: Normal strength at 5/5 x4 extr Laboratory Data at Discharge: WBC 5.30 K/uL (4.3-10.9) D 08/12/21 06:11 Hgb 11.8 g/dL (12.0-15.0) L 08/12/21 06:11 Hct 35.5 % (36.0-45.0) L 08/12/21 06:11 Plt Count 140 K/uL (152-406) L 08/12/21 06:11 PT 13.2 SECONDS (9.5-12.5) H 08/05/21 08:10 INR 1.15 08/05/21 08:10 APTT 33.0 SECONDS (24.3-36.9) 08/05/21 08:10 Sodium 141 mmol/L (136-145) 08/12/21 06:11 Potassium 3.6 mmol/L (3.5-5.1) 08/13/21 06:53 BUN 8 mg/dL (7-18) 08/12/21 06:11 Creatinine 0.67 mg/dL (0.55-1.3) 08/12/21 06:11 Glucose 87 mg/dL (74-106) 08/12/21 06:11 Phosphorus 3.0 mg/dL (2.5-4.9) 08/09/21 04:41 Magnesium 1.9 08/10/21 21:57 Total Bilirubin 0.2 mg/dL (0.2-1.0) 08/12/21 06:11 AST 23 U/L (15-37) 08/12/21 06:11 ALT 26 U/L (12-78) 08/12/21 06:11 Alkaline Phosphatase 69 U/L (45-117) 08/12/21 06:11 Amylase 44 U/L (25-115) 08/05/21 08:10 Lipase 80 U/L (73-393) 08/05/21 08:10 Home Medications: Albuterol Sulfate [Proair Hfa] 8.5 gm IH BID 08/05/21 Loratadine [Claritin*] 1 tab PO DAILY 08/05/21 Quetiapine Fumarate [Seroquel] 2 tab PO BEDTIME 08/07/21 Gabapentin 300 mg PO BEDTIME #30 capsule 08/13/21 LORazepam [Ativan*] 1 mg PO Q12H PRN #3 tab 08/13/21 Pantoprazole [Protonix Tab*] 40 mg PO BIDAC #60 tab 08/13/21 New Medications: LORazepam [Ativan*] 1 mg PO Q12H PRN #3 tab PRN Reason: Anxiety Gabapentin 300 mg PO BEDTIME #30 capsule Pantoprazole [Protonix Tab*] 40 mg PO BIDAC #60 tab Diet: Regular Activity: Fall precautions Followup: NONE,NONE [Primary Care Provider] - Time spent managing pt's care (in minutes): 38
[2021-08-13 13:09] VITALS: BP 156/79; TEMP 98
== END 2021-08-13 13:13 | disposition home or self-care (01) | DRG 690 ==
LOC: ER 07:55 → ERHOLD 15:25 → 2ND 08-06 14:07 → 3RD-ICU 08-08 08:18 → 2ND 08-10 16:11
PROVIDERS: ADMIT Hospitalist; ATTEND Hospitalist
DX: N12 Tubulo-interstitial nephritis, not specified as acute or chronic (principal); F10.239 Alcohol dependence with withdrawal, unspecified; F10.251 Alcohol dependence with alcohol-induced psychotic disorder with hallucinations; F10.231 Alcohol dependence with withdrawal delirium; I10 Essential (primary) hypertension; F41.9 Anxiety disorder, unspecified; G47.00 Insomnia, unspecified; E87.6 Hypokalemia; E83.42 Hypomagnesemia; Z20.822 Contact with and (suspected) exposure to COVID-19
CPT/HCPCS: 0240U; 36415; 71045; 74176; 76377; 80048; 80053; 80076; 81003; 81015; 81025; 82150; 82550; 82553; 83605; 83690; 83735; 84100; 84132; 84145; 84484; 85025; 85027; 85610; 85730; 86140; 87040; 87070; 87081; 87086; 87088; 93005; 96361; 96365; 96367; 96375; 97116; 97161; 99285; J1650; J2405; J3411; J3475; J3480; J3486; J7030; J7040

== ENCOUNTER 2021-12-20 06:44 | Inpatient (IN) | payer OTHER ==
[2021-12-20] MEDS ORDERED: LORazepam 2 MG/ML VIAL ONE (07:46)
[2021-12-20] MEDS ORDERED: THIAMINE 200 MG/2 ML INJ ONE (07:46)
[2021-12-20] MEDS ORDERED: MORPHINE 2 MG/ML SYR ONE ×2 (07:46→10:20)
[2021-12-20] MEDS ORDERED: ONDANSETRON 4 MG/2 ML VIAL ONE (07:46)
[2021-12-20] MEDS ORDERED: NA CHLORIDE 0.9% 1,000 ML ONE (07:46)
[2021-12-20] MEDS ORDERED: MULTIVITAMINS 10 ML VIAL (INJ) IV ONE (07:47)
[2021-12-20] MEDS ORDERED: FOLIC ACID 5 MG/ML VIAL ONE (07:47)
[2021-12-20 08:01] LABS: Absolute Lymphocytes (CBC) 1.2 K/uL (0.7-4.9); Hematocrit 38.7 % (36.0-45.0); MCV 106.3 fL (80-100); MPV 8.5 fL (7.6-11.3); RBC Red Blood Cell Count 3.64 M/uL (3.86-4.86)
[2021-12-20 08:05] LABS: Urine Blood Trace-lysed (Negative); Urine Glucose Negative (Negative); Urine Protein 1+ (Negative)
--- NOTE | 2021-12-20 08:11 | RAD REPORT ---
EXAM DESCRIPTION: [facility] Single View12/20/2021 8:06 am CLINICAL HISTORY: Chest pain COMPARISON: August 2021 FINDINGS: The lungs appear clear of acute infiltrate. The heart is normal size IMPRESSION: No acute abnormalities displayed
[2021-12-20] MEDS ORDERED: CEFTRIAXONE 500 MG/VIAL ONE (08:35)
--- NOTE | 2021-12-20 08:50 | ER ---
Nurse's Notes [facility] Name: Jenni Irving Age: 41 yrs Sex: Female : 1980 Arrival Date: 12/20/2021 Time: 06:45 Bed 7 Private MD: Diagnosis: Bipolar disorder, unspecified;Alcohol abuse;Alcohol dependence;Alcohol dependence with withdrawal;Essential (primary) hypertension;UTI/ Urinary tract infection, site not specified;Abuse of other non-psychoactive substances;Hypokalemia;Cocaine abuse;Adverse effect of amphetamines Presentation: 12/20 06:45 Chief complaint: EMS states: Toned out for shakiness and nausea, pt states she had been ll3 binge drinking for past month, last drink was at 12 AM, pt states she relapsed on meth on sunday. Coronavirus screen: Vaccine status: Patient reports being unvaccinated. At this time, the client does not indicate any symptoms associated with coronavirus-19. Ebola Screen: No symptoms or risks identified at this time. Initial Sepsis Screen: Does the patient meet any 2 criteria? No. Patient's initial sepsis screen is negative. Does the patient have a suspected source of infection? No. Patient's initial sepsis screen is negative. Risk Assessment: Do you want to hurt yourself or someone else? Patient reports no desire to harm self or others. Onset of symptoms was December 19, 2021 at 00:00. Care prior to arrival: None. 06:45 Method Of Arrival: EMS: [facility] 06:45 Acuity: GILA 3 ll3 Triage Assessment: 06:49 General: Appears uncomfortable, Behavior is calm, cooperative. Pain: Denies pain. ll3 Neuro: Level of Consciousness is awake, alert, obeys commands, Oriented to person, place, time, situation, Reports Shakiness. Cardiovascular: Patient's skin is warm and dry. Respiratory: Respiratory effort is even, unlabored, Respiratory pattern is regular, symmetrical. GI: Abdomen is round non-distended, Reports nausea, Patient currently denies diarrhea, vomiting. Derm: Skin is pink, warm \T\ dry. 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 - Social history:: Smoking status: Patient reports the use of cigarette tobacco products, 2-3 per day, Patient uses alcohol, on a daily basis. street drugs, cocaine, marijuana, Methamphetamine (Meth). - Family history:: not pertinent. Screenin:22 Clinical [place] Withdrawal Assessment for Alcohol, revised (WA-Ar): as6 Nausea/Vomitin - Intermittent nausea with dry heaves Headache: 0 - Not present Paroxysmal Sweats: 0 - No sweats visible Anxiety: 4 - Moderately anxious, guarded Agitation: 0 - Normal actiivty Tremor: 4 - Moderate when client's hands extended Auditory Disturbances: 0 - Not present Visual Disturbances: 0 - Not present Tactile Disturbances: 0 - None Orientation and Clouding of Sensorium: 0 - Oriented and can do serial additions Total Score: 10 to 15: Mild Withdrawal. Abuse screen: Denies threats or abuse. Denies injuries from another. Nutritional screening: No deficits noted. Tuberculosis screening: No symptoms or risk factors identified. Fall Risk None identified. 08:53 Clinical [place] Withdrawal Assessment for Alcohol, revised (WA-Ar): jg9 Nausea/Vomitin - No nausea or vomiting Headache: 0 - Not present Paroxysmal Sweats: 0 - No sweats visible Anxiety: 4 - Moderately anxious, guarded Agitation: 0 - Normal actiivty Tremor: 4 - Moderate when client's hands extended Auditory Disturbances: 0 - Not present Visual Disturbances: 0 - Not present Tactile Disturbances: 0 - None Orientation and Clouding of Sensorium: 0 - Oriented and can do serial additions Total Score: < 10 Very mild withdrawal. 09:45 Clinical [place] Withdrawal Assessment for Alcohol, revised (WA-Ar): jg9 Nausea/Vomitin - No nausea or vomiting Headache: 0 - Not present Paroxysmal Sweats: 0 - No sweats visible Anxiety: 4 - Moderately anxious, guarded Agitation: 0 - Normal actiivty Tremor: 4 - Moderate when client's hands extended Auditory Disturbances: 0 - Not present Visual Disturbances: 0 - Not present Tactile Disturbances: 2 - Mild paresthesias Orientation and Clouding of Sensorium: 0 - Oriented and can do serial additions Total Score: 10 to 15: Mild Withdrawal. 14:16 Clinical [place] Withdrawal Assessment for Alcohol, revised (CIWA-Ar): jg9 Nausea/Vomitin - No nausea or vomiting Headache: 0 - Not present Paroxysmal Sweats: 0 - No sweats visible Anxiety: 4 - Moderately anxious, guarded Agitation: 0 - Normal actiivty Tremor: 4 - Moderate when client's hands extended Auditory Disturbances: 0 - Not present Visual Disturbances: 0 - Not present Tactile Disturbances: 0 - None Orientation and Clouding of Sensorium: 0 - Oriented and can do serial additions Total Score: < 10 Very mild withdrawal. Assessment: 06:52 General: See triage assessment. ll3 08:09 Reassessment: No changes from previously documented assessment. Patient and/or family jg9 updated on plan of care and expected duration. Pain level reassessed. Patient is alert, oriented x 3, equal unlabored respirations, skin warm/dry/pink. Patient is very shaky otherwise she is stable, no complaints at this time, patient has been medicated, seizure pads in place, vss. 08:36 Reassessment: Patient states feeling better. Patient states symptoms have improved. jg9 09:40 Reassessment: Patient and/or family updated on plan of care and expected duration. Pain jg9 level reassessed. Patient is alert, oriented x 3, equal unlabored respirations, skin warm/dry/pink. patient reports she feels itchy all over, CIWA 10, pt administered 1 mg Ativan. 10:33 Reassessment: Patient and/or family updated on plan of care and expected duration. Pain jg9 level reassessed. Patient is alert, oriented x 3, equal unlabored respirations, skin warm/dry/pink. Patient medicated for pain and itchiness, vss. 12:20 Reassessment: attempted to call report, person who answered the phone advised there is jg9 a code going on the 2 nd floor and the patient may have to go into the room assigned to this patient. 13:20 Reassessment: 2nd attempt to call, advised that the staff was in a code currently. jg9 Vital Signs: 06:45 BP 158 / 97; Pulse 107; Resp 20; Temp 98.6(O); Pulse Ox 100% ; Weight 42.64 kg (R); ll3 Height 4 ft. 11 in. (149.86 cm) (R); 07:30 BP 147 / 102; Pulse 103; Resp 18 S; Pulse Ox 94% ; Pain 5/10; jg9 08:30 BP 137 / 91; Pulse 100; Resp 15; Pulse Ox 96% ; jl7 09:00 BP 125 / 74; Pulse 102; Resp 18 S; Pulse Ox 98% ; jg9 10:30 BP 125 / 94; Pulse 105; Resp 18 S; Pulse Ox 100% on R/A; Pain 7/10; jg9 11:00 BP 135 / 87; Pulse 90; Resp 12 S; Pulse Ox 99% ; Pain 5/10; jg9 11:30 BP 122 / 84; Pulse 99; Resp 19 S; Pulse Ox 95% on R/A; Pain 5/10; jg9 12:00 BP 134 / 89; Pulse 105; Resp 17 S; Pulse Ox 99% on R/A; Pain 5/10; jg9 13:30 BP 112 / 87; Pulse 70; Resp 14 S; Pulse Ox 97% on R/A; jg9 06:45 Body Mass Index 18.99 (42.64 kg, 149.86 cm) ll3 ED Course: 06:45 Patient arrived in ED. ll3 06:49 Triage completed. ll3 06:49 Arm band placed on Patient placed in an exam room, on a stretcher, on pulse oximetry. ll3 07:00 Seizure precautions initiated. jg9 07:18 Dale Sotelo MD is Attending Physician. barbara 07:21 Deven Jack, FIONA is Primary Nurse. as6 07:21 Inserted saline lock: 22 gauge in left wrist, using aseptic technique. Blood collected. as6 07:22 Missed attempt(s): 20 gauge in right forearm. as6 07:23 Patient has correct armband on for positive identification. Bed in low position. Call as6 light in reach. Side rails up X 1. 07:32 Primary Nurse role handed off by Deven Jack, FIONA jl7 07:32 Glenn Chambers, FIONA is Primary Nurse. jl7 07:35 Vivien Campos, FIONA is Primary Nurse. jg9 08:06 XRAY Chest (1 view) In Process Unspecified. EDMS 08:39 No apparent distress. Resting quietly. jg9 08:46 Rubio Prieto MD is Hospitalizing Provider. barbara 09:03 Hospitalizing Provider role handed off by Rubio Prieto MD barbara 09:03 Miroslava Rcio MD is Hospitalizing Provider. barbara 10:15 Patient requests pain medication. patient c/o pain in her right great toe 01/08-she goes jg9 on to report that this tends to happen when she is going through withdrawls. 10:34 Admitting physician to see patient. jg9 14:12 No provider procedures requiring assistance completed. jg9 14:12 Patient admitted, IV remains in place. jg9 Administered Medications: 07:43 Drug: Thiamine 100 mg Route: IV; Rate: bolus; Site: left wrist; jg9 08:30 Follow up: Response: No adverse reaction jg9 08:30 Follow up: IV Status: Completed infusion; IV Intake: 1ml jg9 07:45 Drug: morphine 2 mg Route: IVP; Infused Over: 4 mins; Site: left wrist; jg9 08:29 Follow up: Response: No adverse reaction; Marked relief of symptoms; Pain is decreased jg9 07:45 Drug: Zofran (Ondansetron) 4 mg Route: IVP; Infused Over: 2 mins; Site: left wrist; jg9 08:31 Follow up: Response: No adverse reaction; Marked relief of symptoms; Nausea is decreasedjg9 08:00 Drug: Banana Bag - (NS 0.9% 1000 ml, foLIC Acid 1 mg, Thiamine 100 mg, Multivitamin 1 jg9 amp) Route: IV; Rate: 500 ml/hr; Site: left wrist; 10:30 Follow up: IV Status: Completed infusion; IV Intake: 1000ml jg9 08:00 Drug: Ativan (LORazepam) 1 mg Route: IVP; Site: left wrist; jg9 08:29 Follow up: Response: No adverse reaction; Marked relief of symptoms; Anxiety decreased jg9 08:44 Drug: Rocephin (cefTRIAXone) 1 grams Route: IV; Rate: per protocol; Infused Over: 4 jg9 mins; Site: left wrist; 08:47 Follow up: IV Status: Completed infusion; IV Intake: 20ml iw 08:50 Drug: Cipro (ciprofloxacin) 500 mg Route: PO; jg9 08:50 Follow up: Response: No adverse reaction jg9 09:49 Drug: Ativan (LORazepam) 1 mg Route: IVP; Site: left wrist; jg9 09:57 Follow up: Response: No adverse reaction; Anxiety decreased jg9 10:18 Drug: Benadryl (diphenhydrAMINE) 25 mg Route: IVP; Site: left wrist; jg9 10:29 Follow up: Response: No adverse reaction jg9 10:20 Drug: morphine 2 mg Route: IVP; Infused Over: 4 mins; Site: left wrist; jg9 10:30 Follow up: Response: No adverse reaction; Pain is decreased jg9 10:22 Drug: NS 0.9% 1000 ml Route: IV; Rate: 125 ml/hr; Site: left wrist; jg9 10:29 Drug: Potassium Effervescent Tablet 25 mEq Route: PO; jg9 10:33 Follow up: Response: No adverse reaction jg9 Medication: 07:23 VIS not applicable for this client. as6 Intake: 08:30 IV: 1ml; Total: 1ml. jg9 08:47 IV: 20ml; Total: 21ml. iw 10:30 IV: 1000ml; Total: 1021ml. jg9 Outcome: 08:49 Decision to Hospitalize by Provider. barbara 14:12 Admitted to ER Hold. Please see [facility] for further documentation. jg9 14:12 Condition: stable 15:15 Patient left the ED. jg9 Signatures: Dispatcher [employer] EDDale Mosher MD MD cha Williams, Irene, RN RN iw Glenn Chambers RN RN Deven Mills RN RN as6 Ben Galvan RN RN ll3 Vivien Campos RN RN jg9 Corrections: (The following items were deleted from the chart) 14:17 14:16 Clinical [place] Withdrawal Assessment for Alcohol, revised (CIWA-Ar): jg9 Nausea/Vomitin - No nausea or vomiting Headache: 0 - Not present Paroxysmal Sweats: 0 - No sweats visible Anxiety: 4 - Moderately anxious, guarded Agitation: 0 - Normal actiivty Tremor: 4 - Moderate when client's hands extended Auditory Disturbances: 0 - Not present Visual Disturbances: 0 - Not present Tactile Disturbances: 0 - None Orientation and Clouding of Sensorium: 0 - Oriented and can do serial additions jg9
--- NOTE | 2021-12-20 08:50 | EDPHYS ---
Physician Documentation [facility] Name: Jenni Irving Age: 41 yrs Sex: Female : 1980 Arrival Date: 12/20/2021 Time: 06:45 Bed 7 Private MD: ED Physician Dale Sotelo HPI: 12/20 07:44 This 41 yrs old Female presents to ER via EMS with complaints of ams, anxious, barbara etoh abuse and wd. 07:44 The patient or guardian reports chest pain that is located primarily in the anterior barbara chest wall, bilaterally. The patient has elevated blood pressure and discovered this at home. Onset: The symptoms/episode began/occurred 2 day(s) ago. Modifying factors: The symptoms are aggravated by activity, The symptoms are alleviated by remaining still. The patient presents with confusion, decreased mental status. Possible causes: alcohol, has apparently stopped drinking. 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 - Social history:: Smoking status: Patient reports the use of cigarette tobacco products, 2-3 per day, Patient uses alcohol, on a daily basis. street drugs, cocaine, marijuana, Methamphetamine (Meth). - Family history:: not pertinent. ROS: 07:44 Constitutional: Negative for fever, chills, and weight loss, Eyes: Negative for injury, barbara pain, redness, and discharge, ENT: Negative for injury, pain, and discharge, Neck: Negative for injury, pain, and swelling, Respiratory: Negative for shortness of breath, cough, wheezing, and pleuritic chest pain, Back: Negative for injury and pain, : Negative for injury, bleeding, discharge, and swelling, MS/Extremity: Negative for injury and deformity, Skin: Negative for injury, rash, and discoloration, Psych: Negative for depression, anxiety, suicide ideation, homicidal ideation, and hallucinations, Allergy/Immunology: Negative for hives, rash, and allergies, Endocrine: Negative for neck swelling, polydipsia, polyuria, polyphagia, and marked weight changes, Hematologic/Lymphatic: Negative for swollen nodes, abnormal bleeding, and unusual bruising. 07:44 Cardiovascular: Positive for chest pain. 07:44 Abdomen/GI: Positive for abdominal pain, nausea and vomiting. 07:44 Neuro: Positive for altered mental status, weakness. 07:44 Psych: Positive for anxiety, depression, alcohol dependence. Exam: 07:44 Constitutional: This is a well developed, well nourished patient who is awake, alert, barbara and in no acute distress. Head/Face: Normocephalic, atraumatic. Eyes: Pupils equal round and reactive to light, extra-ocular motions intact. Lids and lashes normal. Conjunctiva and sclera are non-icteric and not injected. Cornea within normal limits. Periorbital areas with no swelling, redness, or edema. ENT: Nares patent. No nasal discharge, no septal abnormalities noted. Tympanic membranes are normal and external auditory canals are clear. Oropharynx with no redness, swelling, or masses, exudates, or evidence of obstruction, uvula midline. Mucous membranes moist. Neck: Trachea midline, no thyromegaly or masses palpated, and no cervical lymphadenopathy. Supple, full range of motion without nuchal rigidity, or vertebral point tenderness. No Meningismus. Chest/axilla: Normal chest wall appearance and motion. Nontender with no deformity. No lesions are appreciated. Respiratory: Lungs have equal breath sounds bilaterally, clear to auscultation and percussion. No rales, rhonchi or wheezes noted. No increased work of breathing, no retractions or nasal flaring. Abdomen/GI: Soft, non-tender, with normal bowel sounds. No distension or tympany. No guarding or rebound. No evidence of tenderness throughout. Back: No spinal tenderness. No costovertebral tenderness. Full range of motion. Skin: Warm, dry with normal turgor. Normal color with no rashes, no lesions, and no evidence of cellulitis. MS/ Extremity: Pulses equal, no cyanosis. Neurovascular intact. Full, normal range of motion. 07:44 Cardiovascular: Rate: tachycardic, Rhythm: regular, Pulses: Pulses are 4+ in bilateral radial, brachial, femoral, popliteal, posterior tibial and and dorsalis pedis arteries.. Heart sounds: normal, normal S1and S2, no S3 or S4, no murmur, no rub, no gallop, Edema: is not appreciated, JVD: is not appreciated. 08:26 ECG was reviewed by the Attending Physician. [facility] Vital Signs: 06:45 BP 158 / 97; Pulse 107; Resp 20; Temp 98.6(O); Pulse Ox 100% ; Weight 42.64 kg (R); ll3 Height 4 ft. 11 in. (149.86 cm) (R); 07:30 BP 147 / 102; Pulse 103; Resp 18 S; Pulse Ox 94% ; Pain 5/10; jg9 08:30 BP 137 / 91; Pulse 100; Resp 15; Pulse Ox 96% ; jl7 09:00 BP 125 / 74; Pulse 102; Resp 18 S; Pulse Ox 98% ; jg9 10:30 BP 125 / 94; Pulse 105; Resp 18 S; Pulse Ox 100% on R/A; Pain 7/10; jg9 11:00 BP 135 / 87; Pulse 90; Resp 12 S; Pulse Ox 99% ; Pain 5/10; jg9 11:30 BP 122 / 84; Pulse 99; Resp 19 S; Pulse Ox 95% on R/A; Pain 5/10; jg9 12:00 BP 134 / 89; Pulse 105; Resp 17 S; Pulse Ox 99% on R/A; Pain 5/10; jg9 13:30 BP 112 / 87; Pulse 70; Resp 14 S; Pulse Ox 97% on R/A; jg9 06:45 Body Mass Index 18.99 (42.64 kg, 149.86 cm) ll3 MDM: 07:18 Patient medically screened. [facility] 08:22 Differential diagnosis: abnormal EKG, hypertensive crisis, gastritis, pancreatitis, barbara peptic ulcer disease, pneumonia, stable angina, unstable angina. HEART Score: History: Slightly Suspicious (0), ECG: Non specific repolarization disturbance / LBTB / PM (1), Age: < or = 45 years (0), Risk Factors: > or = 3 Risk factors for atherosclerotic disease (2), [Hypertension] [Active Smoker] [+ Family HX] Troponin: < or = 1 x Normal Limit (0). Differential Diagnosis: alcohol intoxication, volume depletion. The patient's deep vein thrombosis risk score was calculated as follows: Total Score: 0. This patient was found to be at low risk for a deep vein thrombosis by using the Well's assessment criteria. The patient's pulmonary embolism risk score was calculated as follows: Total Score: 0-2 points. This patient was found to be at low risk for a pulmonary embolism by using the Well's assessment criteria. FRANK Risk Score: 1 - Three or more CAD risk factors, [Family Hx], [HTN], [Active Smoker]. Data reviewed: vital signs, nurses notes, lab test result(s), EKG, radiologic studies, plain films. Data interpreted: lunchroom monitor: rate is 102 beats/min, rhythm is regular, Pulse oximetry: on room air is 94 %. Test interpretation: by ED physician or midlevel provider: ECG, plain radiologic studies. Counseling: I had a detailed discussion with the patient and/or guardian regarding: the historical points, exam findings, and any diagnostic results supporting the discharge/admit diagnosis, lab results, radiology results. 12/20 07:34 Order name: Basic Metabolic Panel; Complete Time: 09:04 [facility] 12/20 07:34 Order name: CBC with Diff; Complete Time: 08:17 [facility] 12/20 07:34 Order name: Troponin HS; Complete Time: 09:04 [facility] 12/20 07:34 Order name: Lipase; Complete Time: 09:04 [facility] 12/20 07:34 Order name: SARS-COV-2 RT PCR (Document "Date of Onset" if Symptomatic); Complete Time: [facility] 10:12 12/20 07:34 Order name: UDS; Complete Time: 10:12 [facility] 12/20 08:05 Order name: Urine Dipstick-Ancillary; Complete Time: 08:17 [facility] 12/20 08:06 Order name: Urine --Ancillary (enter results); Complete Time: 08:46 [facility]d 12/20 08:21 Order name: Urine Culture [facility] 12/20 08:26 Order name: Alcohol Level; Complete Time: 10:12 barbara 12/20 10:57 Order name: Magnesium [facility] 12/20 10:57 Order name: Phosphorus [facility] 12/20 10:57 Order name: Comprehensive Metabolic Panel [facility] 12/20 10:57 Order name: Comprehensive Metabolic Panel [facility] 12/20 07:34 Order name: XRAY Chest (1 view); Complete Time: 08:17 barbara 12/20 10:57 Order name: Comprehensive Metabolic Panel [facility] 12/20 10:57 Order name: Comprehensive Metabolic Panel [facility] 12/20 10:57 Order name: Comprehensive Metabolic Panel [facility] 12/20 07:34 Order name: EKG; Complete Time: 07:35 [facility] 12/20 07:34 Order name: Cardiac monitoring; Complete Time: 07:35 [facility] 12/20 07:34 Order name: EKG - Nurse/Tech; Complete Time: 08:06 [facility] 12/20 07:34 Order name: IV Saline Lock; Complete Time: 07:35 [facility] 12/20 07:34 Order name: Labs collected and sent; Complete Time: 07:35 [facility] 12/20 07:34 Order name: O2 Per Protocol; Complete Time: 12:24 [facility] 12/20 07:34 Order name: O2 Sat Monitoring; Complete Time: 07:35 [facility] 12/20 07:34 Order name: Urine Dipstick-Ancillary (obtain specimen); Complete Time: 08:05 [facility] 12/20 07:34 Order name: Urine Test (obtain specimen); Complete Time: 08:05 [facility] 12/20 08:09 Order name: Labs - recollect needed: recollect green top; Complete Time: 08:29 12/20 10:57 Order name: Delirium Tremens Prophylaxis-IV Meds [facility] 12/20 10:57 Order name: Regular EDMS EC:26 Rate is 118 beats/min. Rhythm is regular. QRS [place] is Normal. [place] interval is normal. barbara QRS interval is normal. QT interval is normal. No Q waves. T waves are Normal. No ST changes noted. Clinical impression: Sinus tachycardia. Interpreted by me. Reviewed by me. Administered Medications: 07:43 Drug: Thiamine 100 mg Route: IV; Rate: bolus; Site: left wrist; jg9 08:30 Follow up: Response: No adverse reaction jg9 08:30 Follow up: IV Status: Completed infusion; IV Intake: 1ml jg9 07:45 Drug: morphine 2 mg Route: IVP; Infused Over: 4 mins; Site: left wrist; jg9 08:29 Follow up: Response: No adverse reaction; Marked relief of symptoms; Pain is decreased jg9 07:45 Drug: Zofran (Ondansetron) 4 mg Route: IVP; Infused Over: 2 mins; Site: left wrist; jg9 08:31 Follow up: Response: No adverse reaction; Marked relief of symptoms; Nausea is decreasedjg9 08:00 Drug: Banana Bag - (NS 0.9% 1000 ml, foLIC Acid 1 mg, Thiamine 100 mg, Multivitamin 1 jg9 amp) Route: IV; Rate: 500 ml/hr; Site: left wrist; 10:30 Follow up: IV Status: Completed infusion; IV Intake: 1000ml jg9 08:00 Drug: Ativan (LORazepam) 1 mg Route: IVP; Site: left wrist; jg9 08:29 Follow up: Response: No adverse reaction; Marked relief of symptoms; Anxiety decreased jg9 08:44 Drug: Rocephin (cefTRIAXone) 1 grams Route: IV; Rate: per protocol; Infused Over: 4 jg9 mins; Site: left wrist; 08:47 Follow up: IV Status: Completed infusion; IV Intake: 20ml iw 08:50 Drug: Cipro (ciprofloxacin) 500 mg Route: PO; jg9 08:50 Follow up: Response: No adverse reaction jg9 09:49 Drug: Ativan (LORazepam) 1 mg Route: IVP; Site: left wrist; jg9 09:57 Follow up: Response: No adverse reaction; Anxiety decreased jg9 10:18 Drug: Benadryl (diphenhydrAMINE) 25 mg Route: IVP; Site: left wrist; jg9 10:29 Follow up: Response: No adverse reaction jg9 10:20 Drug: morphine 2 mg Route: IVP; Infused Over: 4 mins; Site: left wrist; jg9 10:30 Follow up: Response: No adverse reaction; Pain is decreased jg9 10:22 Drug: NS 0.9% 1000 ml Route: IV; Rate: 125 ml/hr; Site: left wrist; jg9 10:29 Drug: Potassium Effervescent Tablet 25 mEq Route: PO; jg9 10:33 Follow up: Response: No adverse reaction jg9 Disposition Summary: 12/20/21 08:49 Hospitalization Ordered Hospitalization Status: Inpatient Admission barbara Condition: Fair barbara Problem: new barbara Symptoms: have improved barbara Bed/Room Type: Standard barbara Provider: Miroslava Rico(12/20/21 09:03) barbara Location: Intensive Care Unit(12/20/21 12:11) dw Room Assignment: 7-(12/20/21 13:37) dw Diagnosis - Bipolar disorder, unspecified barbara - Alcohol abuse barbara - Alcohol dependence barbara - Alcohol dependence with withdrawal barbara - Essential (primary) hypertension barbara - UTI/ Urinary tract infection, site not specified barbara - Abuse of other non-psychoactive substances barbara - Hypokalemia barbara - Cocaine abuse barbara - Adverse effect of amphetamines barbara Forms: - Medication Reconciliation Form barbara - SBAR form barbara Signatures: Dispatcher [employer] EDMS Clementine Candelaria Diana RN RN Dale Perez MD MD cha Loubet, Lynsea RN RN ll3 Vivien Campos RN RN jg9 Kell Miller RN iw Corrections: (The following items were deleted from the chart) 07:36 07:35 URINE DRUG SCREEN+.LAB.BRZ ordered. EDIA EDMS 09:03 08:49 Rubio Prieto cha barbara 12:11 08:49 Telemetry/MedSurg (Inpatient) barbara dw 12:11 08:49 babrara dw 13:37 12:11 6- dw dw
[2021-12-20] MEDS ORDERED: CIPROFLOXACIN HCL 500 MG TAB ONE (08:54)
[2021-12-20 08:59] LABS: BUN Blood Urea Nitrogen 8 mg/dL (7-18); Bicarbonate 27 mmol/L (21-32); Glomerular Filtration Rate 121 ml/min (=/>90); Glucose Level 110 mg/dL (74-106); Lipase 206 U/L (73-393); Potassium 3.2 mmol/L (3.5-5.1); Sodium Level 140 mmol/L (136-145); Troponin High Sensitivity < 3.0 pg/mL (<58.9)
[2021-12-20 09:46] LABS: Barbiturates NEGATIVE (NEGATIVE); Benzodiazepines NEGATIVE (NEGATIVE); Cocaine POSITIVE (NEGATIVE); METHAMPHETAM POSITIVE (NEGATIVE); Methadone NEGATIVE (NEGATIVE); Opiates NEGATIVE (NEGATIVE); Phencyclidine NEGATIVE (NEGATIVE); THC Cannibis POSITIVE (NEGATIVE)
[2021-12-20] MEDS ORDERED: DIPHENHYDRAMINE 50 MG/ML VIAL ONE (10:19)
[2021-12-20] MEDS ORDERED: POTASSIUM 25 MEQ EFFERV TAB ONE (10:29)
[2021-12-20] MEDS ORDERED: MORPHINE 2 MG/ML SYR IV PRN (10:49)
[2021-12-20] MEDS ORDERED: ONDANSETRON 4 MG/2 ML VIAL IV PRN (10:49)
[2021-12-20] MEDS ORDERED: HALOPERIDOL LACT 5 MG/ML INJ IM PRN (10:50)
[2021-12-20] MEDS ORDERED: LORazepam 2 MG/ML VIAL IV PRN (10:50)
[2021-12-20] MEDS ORDERED: FLUMAZENIL 0.1 MG/ML (5 mL VIAL) IV PRN (10:50)
[2021-12-20] MEDS: Ringers Lactate 1,000 ML IV SCH ×4 (11:00→23:09)
[2021-12-20] MEDS: LORazepam 2 MG/ML VIAL IV SCH ×4 (11:00→23:09)
[2021-12-20] MEDS: CEFTRIAXONE 1,000 MG in NA CHLORIDE 0.9% 50 ML IVPB SCH (11:00)
--- NOTE | 2021-12-20 11:00 | P.HP ---
Certification for Inpatient With expected LOS: >2 Midnights Patient will require the following post-hospital care: None Practitioner: I am a practitioner with admitting privileges, knowledge of patient current condition, hospital course, and medical plan of care. Services: Services provided to patient in accordance with Admission requirements found in Title 42 Section 412.3 of the Code of Federal Regulations Patient History Date of Service: 12/20/21 Reason for admission: Weakness and tremulousness History of Present Illness: 41-year-old female with past medical history of bipolar disorder currently not on any medication, chronic alcohol abuse previous alcohol related seizure on admission, polysubstance abuse, chronic tobacco use presented after being found by mom to be weak and unable to get off independently at home. EMS was called patient was brought to the emergency room. Patient admits to recent heavy drinking above her usual 11 beers per day. She states she recently had a loss of a family member. She states she has started to increase her drinking since the last 1 week. See also also be using more meds and cocaine use. Her last meth use was last night. On arrival in the ED she was found to be tachycardic with heart rate of to the 125 as well significant tremulousness. Her urine drug screen was positive for methamphetamine, affectively, cocaine, and marijuana/THC. BMP was low for potassium of 3.2. She has been admitted for impending alcohol withdrawal delirium Allergies No Known Allergies Allergy (Unverified 08/06/21 08:13) Home Medications: Albuterol Sulfate [Proair Hfa] 8.5 gm IH BID 08/05/21 Loratadine [Claritin*] 1 tab PO DAILY 08/05/21 Quetiapine Fumarate [Seroquel] 2 tab PO BEDTIME 08/07/21 Gabapentin 300 mg PO BEDTIME #30 capsule 08/13/21 LORazepam [Ativan*] 1 mg PO Q12H PRN #3 tab 08/13/21 Pantoprazole [Protonix Tab*] 40 mg PO BIDAC #60 tab 08/13/21 - Past Medical/Surgical History Diabetic: No -: HTN -: X 3 -: D/C for miscarriages - Family History Father -: Hypertension, Diabetes Brother -: Seizures Mother -: Hypertension, Other (see notes) Notes: suicidal tendencies, depression - Social History Smoking Status: Current some day smoker Counseled patient to stop smoking for: more than 10 minutes Smoking therapy provided: Yes Alcohol use: Yes CD- Drugs: No Caffeine use: Yes Place of Residence: Home Review of Systems General: Weakness Physical Examination - Physical Exam General: Alert, In no apparent distress, Oriented x3 (Drowsy but conversant) HEENT: Atraumatic, Normocephalic Neck: Supple, 2+ carotid pulse no bruit, JVD not distended Respiratory: Clear to auscultation bilaterally, Normal air movement Cardiovascular: Normal pulses, Regular rate/rhythm (Tachycardia) Gastrointestinal: Normal bowel sounds, Soft and benign, Non-distended Musculoskeletal: No clubbing, No swelling Neurological: Normal gait, Normal speech, Normal strength at 5/5 x4 extr, Normal tone, Sensation intact, Cranial nerves 3-12 intact (Tremors of hands) - Studies Laboratory Data (last 24 hrs) 12/20/21 08:20: Sodium 140, Potassium 3.2 L, BUN 8, Creatinine 0.52 L, Glucose 110 H, Lipase 206 12/20/21 07:30: WBC 5.0, Hgb 13.0, Hct 38.7, Plt Count 187 Assessment and Plan - Problems (Diagnosis) (1) ETOH abuse Onset Date: 05/23/17 Current Visit: No Status: Acute (2) Hypokalemia Onset Date: 05/23/17 Current Visit: No Status: Acute (3) Hypomagnesemia Onset Date: 05/23/17 Current Visit: No Status: Acute - Advance Directives Does patient have a Living Will: No Does patient have a Durable POA for Healthcare: No Physician Review: Patient Assessed, Agree with Above Assessment and Plan Physician Review Additional Text: Impression Alcohol withdrawalwith impending delirium tremens Polysubstance abuse History of hypertension History of bipolar disordernot on any meds Hypokalemia UTI Plan We will admit patient to inpatient status Will start scheduled CIWA protocol Do Ativan as needed for breakthrough tremors/agitation Aggressive IV fluid with lactated Ringer's Replace potassium Follow magnesium level as well as serum phosphorus level since likely cause of weakness Start empiric Rocephin for UTI follow urine culture of Given prior on Seroquel, will restart now Patient might need psych evaluation prior to discharge Need for alcohol withdrawal discussed Start nicotine patch for tobacco withdrawal Full code Subcutaneous Lovenox for DVT prophylaxis Time Spent Managing Pts Care (In Minutes): 65
[2021-12-20] MEDS ORDERED: POTASSIUM 25 MEQ EFFERV TAB PO ONE (11:04)
[2021-12-20] MEDS: PANTOPRAZOLE 40MG TABLET PO SCH (17:50)
[2021-12-20] MEDS: QUETIAPINE 25 MG TAB PO SCH (20:32)
[2021-12-20] MEDS: DIPHENHYDRAMINE 50 MG/ML VIAL IV PRN (20:32)
[2021-12-21] MEDS: LORazepam 2 MG/ML VIAL IV PRN ×2 (00:27→01:23)
[2021-12-21] MEDS: DIPHENHYDRAMINE 50 MG/ML VIAL IV PRN (02:00)
[2021-12-21] MEDS ORDERED: LORazepam 2 MG/ML VIAL IV ONE ×2 (02:00→03:22)
[2021-12-21] MEDS: LORazepam 2 MG/ML VIAL IV SCH ×6 (02:49→23:02)
[2021-12-21 05:30] LABS: Albumin 2.9 g/dL (3.4-5.0); Bilirubin Total 0.9 mg/dL (0.2-1.0); Magnesium 1.5 mg/dL (1.8-2.4); Phosphorus 2.6 mg/dL (2.5-4.9); Potassium 3.2 mmol/L (3.5-5.1); Protein, Total 6.5 g/dL (6.4-8.2)
[2021-12-21] MEDS ORDERED: Magnesium Sulfate 2gm IVPB 2 G/50 ML BAG IV ONE (05:55)
[2021-12-21] MEDS: KCL 20 MEQ/100 mL IVPB 20 MEQ/100 ML BAG IV SCH ×2 (06:22→08:24)
--- NOTE | 2021-12-21 07:22 | EKG ---
Test Date: 2021-12-20 Test Time: 07:53:07 Assembly Repairer: RUPERTO MEASUREMENT RESULTS: Intervals: Rate: 118 WA: 130 QRSD: 74 QT: 322 QTc: 451 [place]: P: 69 WA: 130 QRS: 55 T: 56 INTERPRETIVE STATEMENTS: Sinus tachycardia Otherwise normal ECG Compared to ECG 08/05/2021 08:09:46 Accelerated junctional rhythm no longer present Electronically Signed On 12-21-21 07:17:52 CDT by Ervin Goldberg
[2021-12-21] MEDS: ENOXAPARIN 40 MG/0.4 ML SQ SCH (08:23)
[2021-12-21] MEDS: CEFTRIAXONE 1,000 MG in NA CHLORIDE 0.9% 50 ML IVPB SCH (08:23)
[2021-12-21] MEDS: NICOTINE 21 MG/PAT TD SCH (08:45)
[2021-12-21] MEDS: THIAMINE HCL 100 MG TABLET PO SCH (08:58)
[2021-12-21] MEDS: MULTIVITAMIN TAB PO SCH (08:58)
[2021-12-21] MEDS: FOLIC ACID 1 MG TABLET PO SCH (08:58)
[2021-12-21] MEDS: PANTOPRAZOLE 40MG TABLET PO SCH ×2 (08:58→17:47)
[2021-12-21] MEDS: Ringers Lactate 1,000 ML IV SCH ×2 (10:00→17:45)
[2021-12-21] MEDS ORDERED: FOLIC ACID 1 MG, MULTIVITAMINS INJ 10 ML, THIAMINE HCL 100 MG in NA CHLORIDE 0.9% 1,000 ML IV ONE (10:50)
--- NOTE | 2021-12-21 12:13 | P.PN ---
Subjective Date of Service: 12/21/21 Chief Complaint: Weakness and tremulousness Subjective: New changes (Markedly agitated overnight, status post restraint as well as multiple doses of Ativan and Haldol Patient very drowsy this morning) Physical Examination - Vital Signs Temperature: 96.3 F Blood Pressure: 116/88 Pulse: 79 Respirations: 12 Pulse Ox (%): 100 Assessment And Plan - Current Problems (Diagnosis) (1) ETOH abuse Onset Date: 05/23/17 Current Visit: No Status: Acute (2) Hypokalemia Onset Date: 05/23/17 Current Visit: No Status: Acute (3) Hypomagnesemia Onset Date: 05/23/17 Current Visit: No Status: Acute Physician Review: Patient Assessed, Agree with Above Assessment and Plan Physician Review Additional Text: - Physical Exam General: Alert, In no apparent distress, drowsy today, arousable but poor conversation HEENT: Atraumatic, Normocephalic Neck: Supple, 2+ carotid pulse no bruit, JVD not distended Respiratory: Clear to auscultation bilaterally, Normal air movement Cardiovascular: Normal pulses, Regular rate/rhythm (Tachycardia) Gastrointestinal: Normal bowel sounds, Soft and benign, Non-distended Musculoskeletal: No clubbing, No swelling Neurological: Normal gait, Normal speech, Normal strength at 5/5 x4 extr, Normal tone, Sensation intact, resolved tremors of hands Impression Alcohol withdrawalwith impending delirium tremens Polysubstance abuse History of hypertension History of bipolar disordernot on any meds Hypokalemia Hypomagnesemia Gram-negative darwin UTI Plan Continue CIWA protocol Increase Ativan to 2 mg nightly scheduled Added Geodon as needed for agitation Continue aggressive IV fluid with lactated Ringer's Replete magnesium and potassium today Borderline low phosphorus, will replete Continue empirical Rocephin follow full culture Given prior on Seroquel, will restart now With need psych evaluation prior to discharge Need for alcohol withdrawal discussed c/w nicotine patch for tobacco withdrawal Full code Subcutaneous Lovenox for DVT prophylaxis Patient's father at bedside discussed with
[2021-12-21] MEDS ORDERED: ZIPRASIDONE MESYLA 20 MG/VIAL IM PRN (12:14)
[2021-12-21] MEDS ORDERED: WATER FOR INJ,STERILE 10 ML IM PRN (12:14)
[2021-12-21] MEDS ORDERED: POTASSIUM PHOS 20 MM in NA CHLORIDE 0.9% 500 ML IV ONE (13:00)
[2021-12-21] MEDS ORDERED: ACETAMINOPHEN 325 MG TABLET PO ONE (18:38)
[2021-12-21] MEDS: QUETIAPINE 25 MG TAB PO SCH (20:28)
[2021-12-22] MEDS: Ringers Lactate 1,000 ML IV SCH ×3 (01:24→18:26)
[2021-12-22] MEDS: LORazepam 2 MG/ML VIAL IV SCH ×5 (03:12→22:53)
[2021-12-22 05:36] LABS: Albumin 2.7 g/dL (3.4-5.0); Bilirubin Total 0.6 mg/dL (0.2-1.0); Phosphorus 3.4 mg/dL (2.5-4.9); Potassium 3.7 mmol/L (3.5-5.1); Protein, Total 6.3 g/dL (6.4-8.2)
[2021-12-22] MEDS ORDERED: KCL 20 MEQ/100 mL IVPB 20 MEQ/100 ML BAG IV SCH (07:00)
[2021-12-22 07:47] LABS: Magnesium 1.7 mg/dL (1.8-2.4)
[2021-12-22] MEDS: FOLIC ACID 1 MG TABLET PO SCH (08:54)
[2021-12-22] MEDS: MULTIVITAMIN TAB PO SCH (08:54)
[2021-12-22] MEDS: THIAMINE HCL 100 MG TABLET PO SCH (08:54)
[2021-12-22] MEDS: PANTOPRAZOLE 40MG TABLET PO SCH ×2 (08:54→17:06)
[2021-12-22] MEDS: NICOTINE 21 MG/PAT TD SCH (08:54)
[2021-12-22] MEDS: ENOXAPARIN 40 MG/0.4 ML SQ SCH (08:54)
[2021-12-22] MEDS: CEFTRIAXONE 1,000 MG in NA CHLORIDE 0.9% 50 ML IVPB SCH (08:55)
[2021-12-22] MEDS ORDERED: MAGNESIUM SULFATE 1 gm IVPB 1 GM/100 ML BAG IV ONE (12:00)
--- NOTE | 2021-12-22 12:14 | P.PN ---
Subjective Date of Service: 12/22/21 Chief Complaint: Weakness and tremulousness Subjective: No new changes, Improving Physical Examination - Vital Signs Temperature: 97.3 F Blood Pressure: 127/89 Pulse: 103 Respirations: 17 Pulse Ox (%): 99 - Studies Microbiology Data (last 24 hrs): 12/20/21 08:00 Clean Catch Urine [place] Count - Final >100,000 CFU/ML. 12/20/21 08:00 Clean Catch Urine - Final Escherichia Coli Gram Neg Ramone Assessment And Plan - Current Problems (Diagnosis) (1) ETOH abuse Onset Date: 05/23/17 Current Visit: No Status: Acute (2) Hypokalemia Onset Date: 05/23/17 Current Visit: No Status: Acute (3) Hypomagnesemia Onset Date: 05/23/17 Current Visit: No Status: Acute Physician Review: Patient Assessed, Agree with Above Assessment and Plan Physician Review Additional Text: - Physical Exam General: Alert, In no apparent distress,more awake , conversant HEENT: Atraumatic, Normocephalic Neck: Supple, 2+ carotid pulse no bruit, JVD not distended Respiratory: Clear to auscultation bilaterally, Normal air movement Cardiovascular: Normal pulses, Regular rate/rhythm (Tachycardia) Gastrointestinal: Normal bowel sounds, Soft and benign, Non-distended Musculoskeletal: No clubbing, No swelling Neurological: Normal gait, Normal speech,still tremors of hands when moving Impression Alcohol withdrawalwith delirium tremens Polysubstance abuse History of hypertension History of bipolar disordernot on any meds Hypokalemia Hypomagnesemia Gram-negative ramone UTI Plan improving -Continue CIWA protocol Continue scheduled Ativan, can switch to as needed Geodon as needed for agitation Continue aggressive IV fluid with lactated Ringer's Replete magnesium and potassium today Continue to replete phosphorus E. coli UTI, switched to Levaquin p.o. Follow psych consult prior to discharge Continue restarted Seroquel c/w nicotine patch for tobacco withdrawal Full code Subcutaneous Lovenox for DVT prophylaxis Dispositionpossible hospital stay for more than 2 to 3 days
[2021-12-22] MEDS: levoFLOXacin 500 MG TAB PO SCH (13:05)
[2021-12-22] MEDS: LORazepam 2 MG/ML VIAL IV PRN (15:05)
[2021-12-22 17:12] VITALS: O2SAT 98
[2021-12-22] MEDS: QUETIAPINE 25 MG TAB PO SCH (20:31)
[2021-12-23] MEDS: Ringers Lactate 1,000 ML IV SCH ×3 (02:50→17:44)
[2021-12-23] MEDS: LORazepam 2 MG/ML VIAL IV SCH ×3 (05:13→17:42)
[2021-12-23 05:31] VITALS: BMI 19.5
[2021-12-23 05:34] LABS: Bilirubin Total 0.3 mg/dL (0.2-1.0); Magnesium 1.7 mg/dL (1.8-2.4); Phosphorus 3.7 mg/dL (2.5-4.9); Potassium 3.2 mmol/L (3.5-5.1); Protein, Total 6.7 g/dL (6.4-8.2)
[2021-12-23 06:00] LABS: Absolute Lymphocytes (CBC) 0.9 K/uL (0.7-4.9); Hematocrit 32.7 % (36.0-45.0); Lymphocytes % 23.4 % (15.3-44.8); MCV 107.5 fL (80-100); MPV 9.9 fL (7.6-11.3); RBC Red Blood Cell Count 3.04 M/uL (3.86-4.86)
[2021-12-23] MEDS ORDERED: POTASSIUM CL SA 10 MEQ TAB PO ONE (08:00)
[2021-12-23 08:05] LABS: Platelet Estimate ADEQ; Platelets, Giant 1+; White Blood Cell Scan OK (OK)
[2021-12-23 08:06] LABS: Blood Morphology Comment NOTED (NOT SEEN); Hypochromasia 1+; Stomatocytes 1+
[2021-12-23] MEDS: NICOTINE 21 MG/PAT TD SCH (08:14)
[2021-12-23] MEDS: PANTOPRAZOLE 40MG TABLET PO SCH ×2 (08:15→17:42)
[2021-12-23] MEDS: THIAMINE HCL 100 MG TABLET PO SCH (08:15)
[2021-12-23] MEDS: ENOXAPARIN 40 MG/0.4 ML SQ SCH (08:15)
[2021-12-23] MEDS: MULTIVITAMIN TAB PO SCH (08:15)
[2021-12-23] MEDS: levoFLOXacin 500 MG TAB PO SCH (08:15)
[2021-12-23] MEDS: FOLIC ACID 1 MG TABLET PO SCH (08:15)
[2021-12-23] MEDS ORDERED: MAGNESIUM SULFATE 1 gm IVPB 1 GM/100 ML BAG IV ONE (09:00)
--- NOTE | 2021-12-23 09:33 | P.PN ---
Subjective Date of Service: 12/23/21 Chief Complaint: Weakness and tremulousness Subjective: No new changes, Improving (Conversant, feeding self) Physical Examination - Vital Signs Temperature: 98.1 F Blood Pressure: 132/94 Pulse: 87 Respirations: 12 Pulse Ox (%): 100 - Studies Microbiology Data (last 24 hrs): 12/20/21 08:00 Clean Catch Urine [place] Count - Final >100,000 CFU/ML. 12/20/21 08:00 Clean Catch Urine - Final Escherichia Coli Gram Neg Ramone Assessment And Plan - Current Problems (Diagnosis) (1) ETOH abuse Onset Date: 05/23/17 Current Visit: No Status: Acute (2) Hypokalemia Onset Date: 05/23/17 Current Visit: No Status: Acute (3) Hypomagnesemia Onset Date: 05/23/17 Current Visit: No Status: Acute Physician Review: Patient Assessed, Agree with Above Assessment and Plan Physician Review Additional Text: - Physical Exam General: Alert, In no apparent distress,more awake , conversant HEENT: Atraumatic, Normocephalic Neck: Supple, 2+ carotid pulse no bruit, JVD not distended Respiratory: Clear to auscultation bilaterally, Normal air movement Cardiovascular: Normal pulses, Regular rate/rhythm (Tachycardia) Gastrointestinal: Normal bowel sounds, Soft and benign, Non-distended Musculoskeletal: No clubbing, No swelling Neurological: Normal gait, Normal speech, improving but still tremors of hands when moving Impression Alcohol withdrawalwith delirium tremensimproving Polysubstance abuse History of hypertension History of bipolar disordernot on any meds Hypokalemia Hypomagnesemia E. coli UTI Plan Improving withdrawal symptoms Continue as needed Ramon/Heather BAILEY protocol Transfer to regular floor today Continue telemetry monitoring for now Continue p.o. Levaquin for UTI Continue to replete electrolytesmag/K/phosphorus Possible discharge in 1 to 2 days Follow formal psych consult given history of bipolar disorder Restarted on Seroquel which she has previously been in the past but was not taking at the time of hospitalization
[2021-12-23] MEDS: LORazepam 2 MG/ML VIAL IV PRN ×2 (13:59→20:49)
[2021-12-23] MEDS: QUETIAPINE 25 MG TAB PO SCH (20:44)
[2021-12-24] MEDS: Ringers Lactate 1,000 ML IV SCH ×3 (02:11→18:28)
[2021-12-24 05:34] LABS: Bilirubin Total 0.4 mg/dL (0.2-1.0); Phosphorus 4.6 mg/dL (2.5-4.9); Potassium 3.1 mmol/L (3.5-5.1); Protein, Total 6.7 g/dL (6.4-8.2)
[2021-12-24] MEDS ORDERED: POTASSIUM 25 MEQ EFFERV TAB PO ONE (08:00)
[2021-12-24] MEDS: THIAMINE HCL 100 MG TABLET PO SCH (08:09)
[2021-12-24] MEDS: FOLIC ACID 1 MG TABLET PO SCH (08:09)
[2021-12-24] MEDS: PANTOPRAZOLE 40MG TABLET PO SCH ×2 (08:09→16:34)
[2021-12-24] MEDS: MULTIVITAMIN TAB PO SCH (08:10)
[2021-12-24] MEDS: NICOTINE 21 MG/PAT TD SCH (08:10)
[2021-12-24] MEDS: ENOXAPARIN 40 MG/0.4 ML SQ SCH (08:10)
[2021-12-24] MEDS: levoFLOXacin 500 MG TAB PO SCH (08:10)
--- NOTE | 2021-12-24 14:11 | P.PN ---
Subjective Date of Service: 12/24/21 Chief Complaint: Weakness and tremulousness Subjective: No new changes, Improving Physical Examination - Vital Signs Temperature: 98.2 F Blood Pressure: 139/88 Pulse: 106 Respirations: 14 Pulse Ox (%): 100 - Physical Exam General: Alert, Oriented x3 HEENT: Atraumatic, Normocephalic Neck: Supple Respiratory: Normal air movement Cardiovascular: Regular rate/rhythm, Normal S1 S2 Gastrointestinal: Soft and benign Musculoskeletal: No swelling Neurological: Normal speech Assessment And Plan - Plan Impression Alcohol withdrawalwith delirium tremensimproving Polysubstance abuse History of hypertension History of bipolar disordernot on any meds Hypokalemia-replete Hypomagnesemia-replete. E. coli UTI Plan Improving withdrawal symptoms Continue as needed Atmohamud/Heather BAILEY protocol Continue telemetry monitoring for now Continue p.o. Levaquin for UTI Continue to replete electrolytesmag/K/phosphorus Follow formal psych consult given history of bipolar disorder Restarted on Seroquel which she has previously been in the past but was not taking at the time of hospitalization PT to evaluate for deconditioning. Physician Review: Patient Assessed, Agree with Above Assessment and Plan
[2021-12-24] MEDS: LORazepam 2 MG/ML VIAL IV PRN (20:43)
[2021-12-24] MEDS: QUETIAPINE 25 MG TAB PO SCH (20:43)
[2021-12-25] MEDS: Ringers Lactate 1,000 ML IV SCH ×2 (04:13→11:00)
[2021-12-25] MEDS ORDERED: Magnesium Sulfate 2gm IVPB 2 G/50 ML BAG IV ONE (05:21)
[2021-12-25 05:38] LABS: Albumin 3.1 g/dL (3.4-5.0); Bilirubin Total 0.3 mg/dL (0.2-1.0); Protein, Total 6.8 g/dL (6.4-8.2)
[2021-12-25] MEDS ORDERED: POTASSIUM 25 MEQ EFFERV TAB PO ONE (07:00)
[2021-12-25] MEDS: FOLIC ACID 1 MG TABLET PO SCH (08:05)
[2021-12-25] MEDS: ENOXAPARIN 40 MG/0.4 ML SQ SCH (08:13)
[2021-12-25] MEDS: THIAMINE HCL 100 MG TABLET PO SCH (08:14)
[2021-12-25] MEDS: levoFLOXacin 500 MG TAB PO SCH (08:14)
[2021-12-25] MEDS: NICOTINE 21 MG/PAT TD SCH (08:14)
[2021-12-25] MEDS: MULTIVITAMIN TAB PO SCH (08:14)
[2021-12-25] MEDS: PANTOPRAZOLE 40MG TABLET PO SCH ×2 (08:14→16:36)
--- NOTE | 2021-12-25 08:41 | P.PN ---
Subjective Date of Service: 12/25/21 Chief Complaint: Weakness and tremulousness Subjective: No new changes, Improving Physical Examination - Vital Signs Temperature: 97 F Blood Pressure: 117/81 Pulse: 72 Respirations: 17 Pulse Ox (%): 100 - Physical Exam General: Alert, Oriented x3 HEENT: Atraumatic, Normocephalic Neck: Supple Respiratory: Normal air movement Cardiovascular: Regular rate/rhythm, Normal S1 S2 Gastrointestinal: Soft and benign Musculoskeletal: No swelling Assessment And Plan - Plan Impression Alcohol withdrawalwith delirium tremensimproving Polysubstance abuse. History of hypertension History of bipolar disordernot on any meds Hypokalemia. Hypomagnesemia. E. coli UTI Plan Improving withdrawal symptoms Continue as needed Ativan/Heather BALDERRAMAWA protocol Continue telemetry monitoring for now Completed p.o. Levaquin for UTI Continue to replete electrolytes as mag and potassium are both low today. Follow formal psych consult given history of bipolar disorder Restarted on Seroquel which she has previously been in the past but was not taking at the time of hospitalization PT to evaluate for deconditioning. Physician Review: Patient Assessed, Agree with Above Assessment and Plan
[2021-12-25 15:24] LABS: Magnesium 1.9 mg/dL (1.8-2.4); Potassium 3.7 mmol/L (3.5-5.1)
[2021-12-25] MEDS ORDERED: POTASSIUM CL SA 10 MEQ TAB PO ONE (16:00)
[2021-12-25] MEDS: QUETIAPINE 25 MG TAB PO SCH (20:19)
[2021-12-25] MEDS: ACETAMINOPHEN 325 MG TABLET PO PRN (20:40)
[2021-12-26 06:50] LABS: Albumin 3.2 g/dL (3.4-5.0); Bilirubin Total 0.3 mg/dL (0.2-1.0); Magnesium 2.1 mg/dL (1.8-2.4); Potassium 3.4 mmol/L (3.5-5.1)
[2021-12-26] MEDS: FOLIC ACID 1 MG TABLET PO SCH (08:45)
[2021-12-26] MEDS: PANTOPRAZOLE 40MG TABLET PO SCH (08:45)
[2021-12-26] MEDS: MULTIVITAMIN TAB PO SCH (08:45)
[2021-12-26] MEDS: THIAMINE HCL 100 MG TABLET PO SCH (08:46)
[2021-12-26] MEDS: ENOXAPARIN 40 MG/0.4 ML SQ SCH (08:46)
[2021-12-26] MEDS: ACETAMINOPHEN 325 MG TABLET PO PRN (08:46)
[2021-12-26] MEDS: NICOTINE 21 MG/PAT TD SCH (08:46)
[2021-12-26] MEDS ORDERED: POTASSIUM CL SA 10 MEQ TAB PO ONE (09:00)
[2021-12-26] MEDS ORDERED: TEMAZEPAM 15 MG CAP PO PRN (11:16)
[2021-12-26 12:58] VITALS: BP 123/70; TEMP 97.8
--- NOTE | 2021-12-28 00:15 | P.DS ---
Discharge Date: 12/26/21 Disposition: ROUTINE DISCHARGE Discharge Condition: GOOD Reason for Admission: Weakness and tremulousness Brief History of Present Illness: 41-year-old female with past medical history of bipolar disorder currently not on any medication, chronic alcohol abuse previous alcohol related seizure on admission, polysubstance abuse, chronic tobacco use presented after being found by mom to be weak and unable to get off independently at home. EMS was called patient was brought to the emergency room. Patient admits to recent heavy drinking above her usual 11 beers per day. She states she recently had a loss of a family member. She states she has started to increase her drinking since the last 1 week. See also also be using more meds and cocaine use. Her last meth use was last night. On arrival in the ED she was found to be tachycardic with heart rate of to the 125 as well significant tremulousness. Her urine drug screen was positive for methamphetamine, affectively, cocaine, and marijuana/THC. BMP was low for potassium of 3.2. She has been admitted for impending alcohol withdrawal delirium Hospital Course: Patient clinically doing much better. At this time, patient is stable for discharge home with outpatient follow-up. Vital Signs/Physical Exam: Temp Pulse Resp BP Pulse Ox 97.8 F 86 18 123/70 100 12/26/21 12:00 12/26/21 12:00 12/26/21 12:00 12/26/21 12:00 12/26/21 12:00 General: Alert, In no apparent distress, Oriented x3 Laboratory Data at Discharge: WBC 3.7 K/uL (4.3-10.9) L D 12/23/21 04:54 Hgb 11.3 g/dL (12.0-15.0) L 12/23/21 04:54 Hct 32.7 % (36.0-45.0) L D 12/23/21 04:54 Plt Count 114 K/uL (152-406) L D 12/23/21 04:54 Sodium 139 mmol/L (136-145) 12/26/21 06:11 Potassium 3.4 mmol/L (3.5-5.1) L 12/26/21 06:11 BUN 8 mg/dL (7-18) 12/26/21 06:11 Creatinine 0.59 mg/dL (0.55-1.3) 12/26/21 06:11 Glucose 84 mg/dL (74-106) 12/26/21 06:11 Phosphorus 4.7 mg/dL (2.5-4.9) 12/25/21 03:29 Magnesium 2.1 mg/dL (1.8-2.4) 12/26/21 06:11 Total Bilirubin 0.3 mg/dL (0.2-1.0) 12/26/21 06:11 AST 18 U/L (15-37) 12/26/21 06:11 ALT 23 U/L (12-78) 12/26/21 06:11 Alkaline Phosphatase 64 U/L (45-117) 12/26/21 06:11 Lipase 206 U/L (73-393) 12/20/21 08:20 Home Medications: Budesonide/Formoterol Fumarate [Symbicort 160-4.5 Mcg Inhaler] 2 puff IH BID 12/22/21 Gabapentin 300 mg PO DAILY 12/22/21 Temazepam [Restoril*] 15 mg PO BEDTIME PRN PRN #10 cap 12/26/21 New Medications: Temazepam [Restoril*] 15 mg PO BEDTIME PRN PRN #10 cap PRN Reason: Insomnia Physician Discharge Instructions: -Discharge-DC IV and DC home -Follow-up with PCP in 1 to 2 weeks -Follow-up with psychiatry in 1 to 2 weeks -Please call Dr. Williamson at [phone] if any questions regarding hospital stay -Please call nursing station at [phone] if any nursing or medication questions -Return to the emergency room if symptoms worsen Diet: Regular Activity: Fall precautions Followup: Brendan Rolle [ACTIVE - CAN ADMIT] - NONE,NONE [Primary Care Provider] - Time spent managing pt's care (in minutes): 35
== END 2021-12-26 14:41 | disposition home or self-care (01) | DRG 897 ==
LOC: ER 06:44 → ERHOLD 10:49 → 3RD-ICU 15:15 → 2ND 12-23 09:10
PROVIDERS: ADMIT Internal Medicine; ATTEND Internal Medicine
DX: F10.131 Alcohol abuse with withdrawal delirium (principal); N39.0 Urinary tract infection, site not specified; F15.10 Other stimulant abuse, uncomplicated; F14.10 Cocaine abuse, uncomplicated; F12.10 Cannabis abuse, uncomplicated; E87.6 Hypokalemia; E83.42 Hypomagnesemia; B96.20 Unspecified Escherichia coli [E. coli] as the cause of diseases classified elsewhere; F31.9 Bipolar disorder, unspecified; F17.210 Nicotine dependence, cigarettes, uncomplicated; Z78.1 Physical restraint status; Z20.822 Contact with and (suspected) exposure to COVID-19
CPT/HCPCS: 36415; 71045; 80048; 80053; 80307; 80320; 81003; 81025; 83690; 83735; 84100; 84132; 84484; 85025; 87077; 87086; 87088; 87186; 93005; 96365; 96366; 96375; 97116; 97161; 97530; 99285; J0696; J1200; J1630; J1650; J2270; J2405; J3411; J3475; J3480; J7030; J7040; J7120; U0003

== ENCOUNTER 2022-01-04 10:55 | Emergency (ER) | payer OTHER ==
[2022-01-04] MEDS ORDERED: PROMETHAZINE INJ 25 MG/ML AMP ONE (13:39)
[2022-01-04] MEDS ORDERED: NA CHLORIDE 0.9% 1,000 ML ONE (13:40)
[2022-01-04] MEDS ORDERED: KETOROLAC 30 MG/ML INJ ONE (13:40)
--- NOTE | 2022-01-04 15:13 | EDPHYS ---
Physician Documentation [facility] Name: Jenni Irving Age: 41 yrs Sex: Female : 1980 Arrival Date: 01/04/2022 Time: 10:56 Bed 26 Private MD: ED Physician Casey Brooke HPI: 01/04 17:39 This 41 yrs old Female presents to ER via EMS with complaints of Drug Abuse, kdr Headache. 17:39 Patient states that she had snorted meth yesterday morning. Since then she has had a kdr headache and dizziness. She stated that this location occurs whenever she smokes meth. She also states that she has had the symptoms when she drinks alcohol. Onset: The symptoms/episode began/occurred suddenly. Severity of symptoms: At their worst the symptoms were mild in the emergency department the symptoms are unchanged. The patient has not experienced similar symptoms in the past. The patient has not recently seen a physician. 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 - Social history:: Smoking status: Patient reports the use of cigarette tobacco products, smokes one pack cigarettes per day. ROS: 17:39 Constitutional: Negative for fever, chills, and weight loss, Eyes: Negative for injury, kdr pain, redness, and discharge, ENT: Negative for injury, pain, and discharge, Neck: Negative for injury, pain, and swelling, Cardiovascular: Negative for chest pain, palpitations, and edema, Respiratory: Negative for shortness of breath, cough, wheezing, and pleuritic chest pain, Abdomen/GI: Negative for abdominal pain, nausea, vomiting, diarrhea, and constipation, Back: Negative for injury and pain, MS/Extremity: Negative for injury and deformity, Skin: Negative for injury, rash, and discoloration, Neuro: Negative for headache, weakness, numbness, tingling, and seizure activity. Psych: Negative for depression, anxiety, suicide ideation, homicidal ideation, and hallucinations, Allergy/Immunology: Negative for hives, rash, and allergies, Endocrine: Negative for neck swelling, polydipsia, polyuria, polyphagia, and marked weight changes, Hematologic/Lymphatic: Negative for swollen nodes, abnormal bleeding, and unusual bruising. Exam: 17:39 Constitutional: This is a well developed, well nourished patient who is awake, alert, kdr and in no acute distress. Head/Face: Normocephalic, atraumatic. Eyes: Pupils equal round and reactive to light, extra-ocular motions intact. Lids and lashes normal. Conjunctiva and sclera are non-icteric and not injected. Cornea within normal limits. Periorbital areas with no swelling, redness, or edema. Neck: Trachea midline, no thyromegaly or masses palpated, and no cervical lymphadenopathy. Supple, full range of motion without nuchal rigidity, or vertebral point tenderness. No Meningismus. Chest/axilla: Normal chest wall appearance and motion. Nontender with no deformity. No lesions are appreciated. Cardiovascular: Regular rate and rhythm with a normal S1 and S2. No gallops, murmurs, or rubs. Normal PMI, no JVD. No pulse deficits. Respiratory: Lungs have equal breath sounds bilaterally, clear to auscultation and percussion. No rales, rhonchi or wheezes noted. No increased work of breathing, no retractions or nasal flaring. Abdomen/GI: Soft, non-tender, with normal bowel sounds. No distension or tympany. No guarding or rebound. No evidence of tenderness throughout. Back: No spinal tenderness. No costovertebral tenderness. Full range of motion. Skin: Warm, dry with normal turgor. Normal color with no rashes, no lesions, and no evidence of cellulitis. MS/ Extremity: Pulses equal, no cyanosis. Neurovascular intact. Full, normal range of motion. Neuro: Awake and alert, GCS 15, oriented to person, place, time, and situation. Cranial nerves II-XII grossly intact. Motor strength 5/5 in all extremities. Sensory grossly intact. Cerebellar exam normal. Normal gait. Psych: Awake, alert, with orientation to person, place and time. Behavior, mood, and affect are within normal limits. Vital Signs: 10:58 BP 174 / 116; Pulse 124; Resp 19; Temp 98.3(TE); Pulse Ox 100% on R/A; Weight 40.82 kg; ss Height 4 ft. 11 in. (149.86 cm); Pain 10/10; 13:13 Pulse 114; Resp 20; Pulse Ox 100% on R/A; ld1 14:13 BP 166 / 101; Pulse 109; Resp 20; Pulse Ox 100% on R/A; ld1 10:58 Body Mass Index 18.18 (40.82 kg, 149.86 cm) ss MDM: 15:11 Data reviewed: vital signs, nurses notes. ED course: Patient is eating a sandwich and kdr drinking water without any difficulty. 15:12 Patient medically screened. kdr Administered Medications: 13:37 Drug: Phenergan (promethazine) 12.5 mg Route: IVP; Site: right forearm; ld1 13:38 Drug: NS 0.9% 1000 ml Route: IV; Rate: 1 bolus; Site: right forearm; ld1 13:38 Drug: Ketorolac 15 mg Route: IVP; Site: right forearm; ld1 Disposition Summary: 01/04/22 15:12 Discharge Ordered Location: Home kdr Problem: new kdr Symptoms: have improved kdr Condition: Stable kdr Diagnosis - Abdominal pain, Generalized kdr - Other psychoactive substance abuse - Methamphetamine kdr Followup: kdr - With: Private Physician - When: 2 - 3 days - Reason: If symptoms return, Further diagnostic work-up, Recheck today's complaints, Continuance of care, Re-evaluation by your physician Discharge Instructions: - Discharge Summary Sheet kdr - Substance Use Disorder kdr - Abdominal Pain, Adult, [id number] kdr - Substance Use Disorder and Mental Illness kdr Forms: - Medication Reconciliation Form kdr - Thank You Letter kdr Signatures: Casey Brooke MD MD kdr Kenna Pardo RN RN Aretha Velasco RN RN ld1
--- NOTE | 2022-01-04 15:13 | ER ---
Nurse's Notes [facility] Name: Jenni Irving Age: 41 yrs Sex: Female : 1980 Arrival Date: 01/04/2022 Time: 10:56 Bed 26 Private MD: Diagnosis: Abdominal pain, Generalized;Other psychoactive substance abuse-Methamphetamine Presentation: 01/04 10:58 Chief complaint: Patient states: Dizziness and headache that began after snorting Meth ss this morning. Pt reports that this is a normal occurrence that also occurs when she drinks alcohol. Coronavirus screen: Client denies travel out of the [place] in the last 14 days. Ebola Screen: Patient denies exposure to infectious person. Patient denies travel to an Ebola-affected area in the 21 days before illness onset. Initial Sepsis Screen: Does the patient meet any 2 criteria? No. Patient's initial sepsis screen is negative. Does the patient have a suspected source of infection? No. Patient's initial sepsis screen is negative. Risk Assessment: Do you want to hurt yourself or someone else? Patient reports no desire to harm self or others. Onset of symptoms was January 04, 2022. 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 - Social history:: Smoking status: Patient reports the use of cigarette tobacco products, smokes one pack cigarettes per day. Screenin:16 Abuse screen: Denies threats or abuse. Denies injuries from another. Nutritional ld1 screening: No deficits noted. Tuberculosis screening: No symptoms or risk factors identified. Fall Risk None identified. Assessment: 13:13 General: Appears in no apparent distress. comfortable, Behavior is cooperative, ld1 appropriate for age, anxious. Pain: Denies pain. Neuro: Level of Consciousness is awake, alert, obeys commands, Oriented to person, place, time, situation, Appropriate for age. Cardiovascular: Capillary refill < 3 seconds Patient's skin is warm and dry. Rhythm is sinus tachycardia. Respiratory: Airway is patent Respiratory effort is even, unlabored. GI: Abdomen is flat, non-distended. : No signs and/or symptoms were reported regarding the genitourinary system. EENT: No signs and/or symptoms were reported regarding the EENT system. Derm: No signs and/or symptoms reported regarding the dermatologic system. Musculoskeletal: No signs and/or symptoms reported regarding the musculoskeletal system. Overdose: 15:21 [place] Suicide Severity Screening: "In the past month, have you actually had any ld1 thoughts of killing yourself?" Patient responds "yes." Based off client's responses, additional C-SSRS screening questions required. Vital Signs: 10:58 BP 174 / 116; Pulse 124; Resp 19; Temp 98.3(TE); Pulse Ox 100% on R/A; Weight 40.82 kg; ss Height 4 ft. 11 in. (149.86 cm); Pain 10/10; 13:13 Pulse 114; Resp 20; Pulse Ox 100% on R/A; ld1 14:13 BP 166 / 101; Pulse 109; Resp 20; Pulse Ox 100% on R/A; ld1 10:58 Body Mass Index 18.18 (40.82 kg, 149.86 cm) ED Course: 10:56 Patient arrived in ED. ss 10:59 Triage completed. ss 10:59 Arm band placed on right wrist. ss 12:56 Aretha Velasco, FIONA is Primary Nurse. ld1 13:00 Casey Brooke MD is Attending Physician. kdr 13:16 Patient has correct armband on for positive identification. Placed in gown. Bed in low ld1 position. Call light in reach. Side rails up X2. monitor technician on. Pulse ox on. NIBP on. Door closed. Noise minimized. Warm blanket given. 13:16 No provider procedures requiring assistance completed. ld1 15:21 IV discontinued, intact, bleeding controlled, No redness/swelling at site. ld1 Administered Medications: 13:37 Drug: Phenergan (promethazine) 12.5 mg Route: IVP; Site: right forearm; ld1 13:38 Drug: NS 0.9% 1000 ml Route: IV; Rate: 1 bolus; Site: right forearm; ld1 13:38 Drug: Ketorolac 15 mg Route: IVP; Site: right forearm; ld1 Medication: 13:16 VIS not applicable for this client. ld1 Outcome: 15:12 Discharge ordered by . kdr 15:20 Discharged to home ambulatory. ld1 15:20 Condition: stable 15:20 Discharge instructions given to patient, Instructed on discharge instructions, follow up and referral plans. Demonstrated understanding of instructions, follow-up care. 15:21 Patient left the ED. ld1 Signatures: Casey Brooke MD MD [facility] Kenna Pardo RN RN Aretha Velsaco RN RN ld1
[2022-01-04 16:10] VITALS: TEMP 98.3; O2SAT 100
[2022-01-04 16:15] VITALS: BP 166/101
== END 2022-01-04 15:21 | disposition home or self-care (01) ==
LOC: ER 10:55 → EEVIPCON 10:55 → ER 15:21
DX: R10.84 Generalized abdominal pain (principal); F15.10 Other stimulant abuse, uncomplicated; F17.210 Nicotine dependence, cigarettes, uncomplicated; I10 Essential (primary) hypertension
CPT/HCPCS: J2550; J7030